=== PATIENT | male | born 1935 | race Caucasian/White ===

== ENCOUNTER 2016-11-01 09:52 | Emergency (ER) | payer MEDICARE, MEDICAID ==
[2016-11-01] MEDS ORDERED: Sodium Chloride 0.9% 1,000 ML IV ONE ×2 (10:16→13:50)
--- NOTE | 2016-11-01 11:11 | EDM.PDOC ---
ED HPI GENERAL MEDICAL PROBLEM - General Chief Complaint: General Stated Complaint: HIGH BLOOD PRESSURE Time Seen by Provider: 11/01/16 10:12 Source of Information: Reports: Patient History Limitations: Reports: No limitations - History of Present Illness INITIAL COMMENTS - FREE TEXT/NARRATIVE: History of present illness: [81-year-old male brought in from a [facility] secondary to altered mental status. Indicated that patient had low blood pressure and high blood sugar at house after transport blood pressure stabilized into the normal range the pressure still remains elevated over 200.] Review of systems: As per history of present illness and below otherwise all systems reviewed and negative. Past medical history: As per history of present illness and as reviewed below otherwise noncontributory. Surgical history: As per history of present illness and as reviewed below otherwise noncontributory. Social history: No reported history of drug or alcohol abuse. Family history: As per history of present illness and as reviewed below otherwise noncontributory. Physical exam: HEENT: Atraumatic, normocephalic, pupils reactive, negative for conjunctival pallor or scleral icterus, mucous membranes moist, throat clear, neck supple, nontender, trachea midline. Lungs: Clear to auscultation, breath sounds equal bilaterally, chest nontender. Heart: S1S2, regular, negative for clicks, rubs, or JVD. Abdomen: Soft, nondistended, nontender. Negative for masses or hepatosplenomegaly. Negative for costovertebral tenderness. Pelvis: Stable nontender. Genitourinary: Deferred. Rectal: Deferred. Extremities: Atraumatic, negative for cords or calf pain. Neurovascular unremarkable. Neuro: Somnolent and unable to interact or cooperate with full neuro exam secondary to patient's blindness, deafness, as well as altered mental status. Patient will withdraw to noxious stimuli as well as localized to that same stimuli. Diagnostics: [CBC, CMP, troponin, EKG, CT of head without contrast] Therapeutics: [] Impression: [IV] Plan: [] Definitive disposition and diagnosis as appropriate pending reevaluation and review of above. - Related Data Allergies Allergy/AdvReac Type Severity Reaction Status Date / Time No Known Allergies Allergy Verified 11/01/16 10:09 Home Meds: Home Meds Brimonidine [Alphagan P 0.1% Ophth Soln] 04/14/14 [History] Multivitamin [Multi Vitamin Daily] 04/14/14 [History] Psyllium Seed/Aspartame [Metamucil Powder] 04/14/14 [History] Travoprost [Travatan Z 0.004% Ophth Soln] 04/14/14 [History] glyBURIDE [Glyburide] 04/14/14 [History] metFORMIN [Glucophage] 04/14/14 [History] Nitrofurantoin Monohyd/M-Cryst [Macrobid 100 mg Capsule] 100 mg PO BID #20 capsule 11/01/16 [Rx] Social & Family History - Tobacco Use Second Hand Smoke Exposure: No - Alcohol Use Days Per Week of Alcohol Use: 0 - Recreational Drug Use Recreational Drug Use: No ED ROS GENERAL - Review of Systems Review Of Systems: See Below (See history of present illness) ED EXAM, GENERAL - Physical Exam Exam: See Below (See history of present illness) Course - Vital Signs Last Recorded V/S: Last Vital Signs Temp 36.4 C 11/01/16 10:09 Pulse 78 11/01/16 12:22 Resp 16 11/01/16 12:22 BP 116/50 L 11/01/16 12:22 Pulse Ox 99 11/01/16 12:22 - Orders/Labs/Meds Orders: Active Orders 24 hr Category Date Time Status EKG Documentation Completion [RC] STAT Care 11/01/16 10:17 Active Chest 2V [CR] Stat Exams 11/01/16 10:16 Taken Head wo Cont [CT] Stat Exams 11/01/16 10:20 Taken Sodium Chloride 0.9% [Normal Saline] 1,000 ml Med 11/01/16 13:50 Active IV .Bolus Medication Orders Sodium Chloride (Normal Saline) 1,000 mls @ 999 mls/hr IV .Bolus ONE Stop: 11/01/16 14:50 Last Admin: 11/01/16 12:18 Dose: 999 mls/hr Labs: Laboratory Tests 11/01/16 11/01/16 11/01/16 Range/Units 10:09 10:09 10:09 WBC 5.50 (4.0-11.0) K/uL RBC 4.56 (4.50-5.90) M/uL Hgb 13.8 (13.0-17.0) g/dL Hct 40.8 (38.0-50.0) % MCV 89.5 (80.0-98.0) fL MCH 30.3 (27.0-32.0) pg MCHC 33.8 (31.0-37.0) g/dL RDW Std Deviation 41.7 (28.0-62.0) fl RDW Coeff of Kash 13 (11.0-15.0) % Plt Count 108 L (150-400) K/uL MPV 10.00 (7.40-12.00) fL Neut % (Auto) 68.2 (48.0-80.0) % Lymph % (Auto) 24.4 (16.0-40.0) % [place] % (Auto) 6.7 (0.0-15.0) % Eos % (Auto) 0.5 (0.0-7.0) % Baso % (Auto) 0.2 (0.0-1.5) % Neut # 3.8 (1.4-5.7) K/uL Lymph # 1.3 (0.6-2.4) K/uL [place] # 0.4 (0.0-0.8) K/uL Eos # 0.0 (0.0-0.7) K/uL Baso # 0.0 (0.0-0.1) K/uL INR 1.02 (0.86-1.11) D-Dimer, Quantitative 0.23 (0.0-0.52) mg/LFEU Sodium 139 (136-146) mmol/L Potassium 4.1 (3.5-5.1) mmol/L Chloride 106 (98-110) mmol/L Carbon Dioxide 23 (21-31) mmol/L BUN 20 (6.0-23.0) mg/dL Creatinine 1.3 (0.6-1.5) mg/dL Est Cr Clr Drug Dosing 36.43 mL/min Estimated GFR (MDRD) 53.0 ml/min Glucose 254 H (60-110) mg/dL Calcium 9.3 (8.8-10.8) mg/dL Total Bilirubin 0.3 (0.1-1.5) mg/dL AST 13 (5-40) IU/L ALT 15 (8-54) IU/L Alkaline Phosphatase 72 (40-150) Troponin I (0.0-0.29) NG/ML Total Protein 7.6 (6.0-8.0) g/dL Albumin 3.4 (3.4-4.8) g/dL Globulin 4.2 H (2.0-3.5) g/dL Albumin/Globulin Ratio 0.8 L (1.3-2.8) Amylase (10-90) U/L Lipase (7-80) U/L Urine Color Urine Appearance Urine pH (5.0-8.0) Ur Specific [place] (1.001-1.035) Urine Protein (NEGATIVE) mg/dL Urine Glucose (UA) (NEGATIVE) mg/dL Urine Ketones (NEGATIVE) mg/dL Urine Occult Blood (NEGATIVE) Urine Nitrite (NEGATIVE) Urine Bilirubin (NEGATIVE) Urine Urobilinogen (<2.0) EU/dL Ur Leukocyte Esterase (NEGATIVE) Urine RBC (0-2/HPF) Urine WBC (0-5/HPF) Ur Epithelial Cells (NONE-FEW) Urine Bacteria (NEGATIVE) Urine Mucus (NONE-MOD) 11/01/16 11/01/16 11/01/16 Range/Units 10:09 10:09 13:05 WBC (4.0-11.0) K/uL RBC (4.50-5.90) M/uL Hgb (13.0-17.0) g/dL Hct (38.0-50.0) % MCV (80.0-98.0) fL MCH (27.0-32.0) pg MCHC (31.0-37.0) g/dL RDW Std Deviation (28.0-62.0) fl RDW Coeff of Kash (11.0-15.0) % Plt Count (150-400) K/uL MPV (7.40-12.00) fL Neut % (Auto) (48.0-80.0) % Lymph % (Auto) (16.0-40.0) % [place] % (Auto) (0.0-15.0) % Eos % (Auto) (0.0-7.0) % Baso % (Auto) (0.0-1.5) % Neut # (1.4-5.7) K/uL Lymph # (0.6-2.4) K/uL [place] # (0.0-0.8) K/uL Eos # (0.0-0.7) K/uL Baso # (0.0-0.1) K/uL INR (0.86-1.11) D-Dimer, Quantitative (0.0-0.52) mg/LFEU Sodium (136-146) mmol/L Potassium (3.5-5.1) mmol/L Chloride (98-110) mmol/L Carbon Dioxide (21-31) mmol/L BUN (6.0-23.0) mg/dL Creatinine (0.6-1.5) mg/dL Est Cr Clr Drug Dosing mL/min Estimated GFR (MDRD) ml/min Glucose (60-110) mg/dL Calcium (8.8-10.8) mg/dL Total Bilirubin (0.1-1.5) mg/dL AST (5-40) IU/L ALT (8-54) IU/L Alkaline Phosphatase (40-150) Troponin I < 0.10 (0.0-0.29) NG/ML Total Protein (6.0-8.0) g/dL Albumin (3.4-4.8) g/dL Globulin (2.0-3.5) g/dL Albumin/Globulin Ratio (1.3-2.8) Amylase 52 (10-90) U/L Lipase 58 (7-80) U/L Urine Color YELLOW Urine Appearance CLEAR Urine pH 6.0 (5.0-8.0) Ur Specific [place] 1.015 (1.001-1.035) Urine Protein NEGATIVE (NEGATIVE) mg/dL Urine Glucose (UA) 500 H (NEGATIVE) mg/dL Urine Ketones TRACE H (NEGATIVE) mg/dL Urine Occult Blood LARGE H (NEGATIVE) Urine Nitrite POSITIVE H (NEGATIVE) Urine Bilirubin NEGATIVE (NEGATIVE) Urine Urobilinogen 0.2 (<2.0) EU/dL Ur Leukocyte Esterase TRACE (NEGATIVE) Urine RBC 15-18 (0-2/HPF) Urine WBC 2-4 (0-5/HPF) Ur Epithelial Cells RARE (NONE-FEW) Urine Bacteria 3+ H (NEGATIVE) Urine Mucus LIGHT (NONE-MOD) Meds: Medications Generic Name Dose Route Start Last Admin Trade Name Freq PRN Reason Stop Dose Admin Sodium Chloride 1,000 mls @ 999 mls/hr 11/01/16 13:50 11/01/16 12:18 Normal Saline IV 11/01/16 14:50 999 mls/hr .Bolus ONE Administration Discontinued Medications Generic Name Dose Route Start Last Admin Trade Name Luis Miguel PRN Reason Stop Dose Admin Sodium Chloride 1,000 mls @ 999 mls/hr 11/01/16 10:16 11/01/16 11:15 Normal Saline IV 11/01/16 11:16 999 mls/hr .Bolus ONE Administration Departure - Departure Time of Disposition: 14:24 Disposition: Home, Self-Care 01 Condition: good Clinical Impression: UTI, Urinary tract infectious disease Forms: ED Department Discharge Additional Instructions: The following information is given to patients seen in the emergency department who are being discharged to home. This information is to outline your options for follow-up care. We provide all patients seen in our emergency department with a follow-up referral. The need for follow-up, as well as the timing and circumstances, are variable depending upon the specifics of your emergency department visit. If you don't have a primary care physician on staff, we will provide you with a referral. We always advise you to contact your personal physician following an emergency department visit to inform them of the circumstance of the visit and for follow-up with them and/or the need for any referrals to a consulting specialist. The emergency department will also refer you to a specialist when appropriate. This referral assures that you have the opportunity for follow-up care with a specialist. All of these measure are taken in an effort to provide you with optimal care, which includes your follow-up. Under all circumstances we always encourage you to contact your private physician who remains a resource for coordinating your care. When calling for follow-up care, please make the office aware that this follow-up is from your recent emergency room visit. If for any reason you are refused follow-up, please contact the Emergency Department at and asked to speak to the emergency department charge nurse. The patient all medication as directed Of primary care in one to 2 days Return ED as needed as - My Orders Last 24 Hours: My Active Orders 11/01/16 10:16 Chest 2V [CR] Stat 11/01/16 10:17 EKG Documentation Completion [RC] STAT 11/01/16 10:20 Head wo Cont [CT] Stat 11/01/16 13:50 Sodium Chloride 0.9% [Normal Saline] 1,000 ml IV .Bolus - Assessment/Plan Last 24 Hours: My Active Orders 11/01/16 10:16 Chest 2V [CR] Stat 11/01/16 10:17 EKG Documentation Completion [RC] STAT 11/01/16 10:20 Head wo Cont [CT] Stat 11/01/16 13:50 Sodium Chloride 0.9% [Normal Saline] 1,000 ml IV .Bolus
[2016-11-01 15:04] VITALS: BP 130/70
--- NOTE | 2016-11-02 16:53 | CT ---
EXAM DATE: 11/01/16 PATIENT'S AGE: 81 Patient: CARLA HOPKINS Facility: [place], [place] Site . Site : 1935 Study: CT Head WO CONT [id number] 10:46:18 AM Ordering Physician: Doctor Bray Final Report: INDICATION: Patient is lethargic; not acting like himself according to the claims vice president. Comparison: None. Technique: CT head without intravenous contrast; coronal and sagittal reformats. Findings: No evidence of acute intracranial hemorrhage. No mass lesions. No evidence of shift of the midline structures. periventricular low densities bilateral; rule out small vessel disease. Mild prominence of the cerebral sulci and the subarachnoid cisterns as well as the ventricles secondary to cerebral atrophy. Impression: 1. No intracranial hemorrhage. 2. No evidence of shift of the midline structures. 3. 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 4. Brain atrophy. Dictated by Lali Arevalo MD @ Nov 01 2016 10:49AM (Electronic Signature) Report Signed by Proxy and Original Signed Document filed in the Medical Record. [facility]
--- NOTE | 2016-11-02 16:53 | CR ---
EXAM DATE: 11/01/16 PATIENT'S AGE: 81 Patient: CARLAYARA HOPKINS Facility: [place], [place] Site . Site : 1935 Study: XRay Chest [id number]/[id number] 10:50:18 AM Ordering Physician: Doctor Bray Final Report: INDICATION: Shortness of breath. Comparison: Chest radiograph April 14, 2014. Technique: Two-view chest. Findings: Normal size cardiac silhouette. Infiltrates both lung bases. No pneumothorax or pleural effusion. No CHF. Impression: Minimal infiltrates both lung bases. Dictated by Lali Arevalo MD @ Nov 01 2016 10:52AM (Electronic Signature) Report Signed by Proxy and Original Signed Document filed in the Medical Record. [facility]
== END 2016-11-01 15:02 | disposition home or self-care (01) ==
LOC: MW.ED 09:52
DX: N39.0 Urinary tract infection, site not specified (principal); Z79.899 Other long term (current) drug therapy
CPT/HCPCS: 36415; 70450; 71020; 80053; 81001; 82150; 83690; 84484; 85025; 85379; 85610; 93005; 96360; 96361; 99285; J7040; 99284

== ENCOUNTER 2017-01-29 11:02 | Emergency (ER) | payer MEDICARE, MEDICAID ==
[2017-01-29 11:20] VITALS: BP 170/91
--- NOTE | 2017-01-29 11:28 | EDM.PDOC ---
ED HPI GENERAL MEDICAL PROBLEM - General Chief Complaint: Diabetic Complaint Stated Complaint: ELVEVATED BLOOD SUGAR Time Seen by Provider: 01/29/17 11:05 Source of Information: Reports: Patient History Limitations: Reports: No Limitations - History of Present Illness INITIAL COMMENTS - FREE TEXT/NARRATIVE: History of present illness: [81-year-old male brought in by care provider secondary to concerns of very high blood sugars. Patient is deaf, calm, and has low mental function and is in [facility] correction care situation. Care provider is here indicates that while showering him she is on no signs of cuts, abrasions, or infections. Indicates that he takes oral hypoglycemic medication and has been stable up until now and denies any new dietary changes.] Review of systems: As per history of present illness and below otherwise all systems reviewed and negative. Past medical history: As per history of present illness and as reviewed below otherwise noncontributory. Surgical history: As per history of present illness and as reviewed below otherwise noncontributory. Social history: No reported history of drug or alcohol abuse. Family history: As per history of present illness and as reviewed below otherwise noncontributory. Physical exam: HEENT: Atraumatic, normocephalic, pupils reactive, negative for conjunctival pallor or scleral icterus, mucous membranes moist, throat clear, neck supple, nontender, trachea midline. Lungs: Clear to auscultation, breath sounds equal bilaterally, chest nontender. Heart: S1S2, regular, negative for clicks, rubs, or JVD. Abdomen: Soft, nondistended, nontender. Negative for masses or hepatosplenomegaly. Negative for costovertebral tenderness. Pelvis: Stable nontender. Genitourinary: Deferred. Rectal: Deferred. Extremities: Atraumatic, negative for cords or calf pain. Neurovascular unremarkable. Neuro: Awake, alert, oriented. Cranial nerves II through XII unremarkable. Cerebellum unremarkable. Motor and sensory unremarkable throughout. Exam nonfocal. Patient is incontinent and we are unable to dialogue with him to obtain any urine so we will have to straight catheter to obtain any good urine specimen for evaluation Diagnostics: [CBC, CMP, UA] Therapeutics: [] Impression: [UTI] Plan: [Antibiotic] Definitive disposition and diagnosis as appropriate pending reevaluation and review of above. - Related Data Allergies Allergy/AdvReac Type Severity Reaction Status Date / Time No Known Allergies Allergy Verified 01/29/17 11:10 Home Meds: Home Meds Brimonidine [Alphagan P 0.1% Ophth Soln] 1 drop EYEBOTH TID 04/14/14 [History] Multivitamin [Multi Vitamin Daily] 04/14/14 [History] Psyllium Seed/Aspartame [Metamucil Powder] 04/14/14 [History] Travoprost [Travatan Z 0.004% Ophth Soln] 04/14/14 [History] glyBURIDE [Glyburide] 04/14/14 [History] metFORMIN [Glucophage] 500 mg PO BID 04/14/14 [History] Nitrofurantoin Monohyd/M-Cryst [Macrobid 100 mg Capsule] 100 mg PO BID #20 capsule 11/01/16 [Rx] Nitrofurantoin Monohyd/M-Cryst [Macrobid 100 mg Capsule] 100 mg PO BID #20 capsule 01/29/17 [Rx] Past Medical History HEENT History: Reports: Cataract, Glaucoma, Hard of Hearing, Other (See Below) Other HEENT History: congential cataracts Cardiovascular History: Reports: None Respiratory History: Reports: None Gastrointestinal History: Reports: Chronic Constipation, Gastritis, Other (See Below) Other Gastrointestinal History: duodentis Genitourinary History: Reports: None Neurological History: Reports: Other (See Below) Other Neuro History: developmentally delayed Endocrine/Metabolic History: Reports: Diabetes, Type II - Past Surgical History Head Surgeries/Procedures: Reports: None HEENT Surgical History: Reports: Cataract Surgery, Visual Other HEENT Surgeries/Procedures: pt is deaf and blind Social & Family History - Family History Family Medical History: Noncontributory - Tobacco Use Smoking Status *Q: Never Smoker Second Hand Smoke Exposure: No - Caffeine Use Caffeine Use: Reports: None - Alcohol Use Days Per Week of Alcohol Use: 0 - Recreational Drug Use Recreational Drug Use: No ED ROS GENERAL - Review of Systems Review Of Systems: See Below (see history of present illness) ED EXAM GENERAL NO PERIP PULSE - Physical Exam Exam: See Below (See history of present illness) Course - Vital Signs Last Recorded V/S: Last Vital Signs Temp 36.2 C 01/29/17 11:05 Pulse 95 01/29/17 11:05 Resp 20 01/29/17 11:05 BP 170/91 H 01/29/17 11:05 Pulse Ox 97 01/29/17 11:05 - Orders/Labs/Meds Labs: Laboratory Tests 01/29/17 01/29/17 01/29/17 Range/Units 11:28 11:28 11:42 WBC 6.37 (4.0-11.0) K/uL RBC 4.99 (4.50-5.90) M/uL Hgb 15.1 (13.0-17.0) g/dL Hct 43.7 (38.0-50.0) % MCV 87.6 (80.0-98.0) fL MCH 30.3 (27.0-32.0) pg MCHC 34.6 (31.0-37.0) g/dL RDW Std Deviation 44.1 (28.0-62.0) fl RDW Coeff of Kash 14 (11.0-15.0) % Plt Count 144 L (150-400) K/uL MPV 9.90 (7.40-12.00) fL Neut % (Auto) 58.9 (48.0-80.0) % Lymph % (Auto) 29.0 (16.0-40.0) % [place] % (Auto) 10.5 (0.0-15.0) % Eos % (Auto) 1.3 (0.0-7.0) % Baso % (Auto) 0.3 (0.0-1.5) % Neut # (Auto) 3.8 (1.4-5.7) K/uL Lymph # (Auto) 1.9 (0.6-2.4) K/uL [place] # (Auto) 0.7 (0.0-0.8) K/uL Eos # (Auto) 0.1 (0.0-0.7) K/uL Baso # (Auto) 0.0 (0.0-0.1) K/uL Nucleated RBC % 0.0 /100WBC Nucleated RBCs # 0 K/uL Sodium 138 (136-146) mmol/L Potassium 5.0 (3.5-5.1) mmol/L Chloride 103 (98-110) mmol/L Carbon Dioxide 21 (21-31) mmol/L BUN 28 H (6.0-23.0) mg/dL Creatinine 1.4 (0.6-1.5) mg/dL Est Cr Clr Drug Dosing 33.95 mL/min Estimated GFR (MDRD) 48.6 ml/min Glucose 308 H (60-110) mg/dL Calcium 10.0 (8.8-10.8) mg/dL Total Bilirubin 0.4 (0.1-1.5) mg/dL AST 14 (5-40) IU/L ALT 16 (8-54) IU/L Alkaline Phosphatase 61 (40-150) Total Protein 8.4 H (6.0-8.0) g/dL Albumin 3.9 (3.4-4.8) g/dL Globulin 4.5 H (2.0-3.5) g/dL Albumin/Globulin Ratio 0.9 L (1.3-2.8) Urine Color YELLOW Urine Appearance CLEAR Urine pH 5.0 (5.0-8.0) Ur Specific [place] <= 1.005 (1.001-1.035) Urine Protein NEGATIVE (NEGATIVE) mg/dL Urine Glucose (UA) >=1000 (NEGATIVE) mg/dL Urine Ketones NEGATIVE (NEGATIVE) mg/dL Urine Occult Blood NEGATIVE (NEGATIVE) Urine Nitrite NEGATIVE (NEGATIVE) Urine Bilirubin NEGATIVE (NEGATIVE) Urine Urobilinogen 0.2 (<2.0) EU/dL Ur Leukocyte Esterase TRACE (NEGATIVE) Urine RBC 0-2 (0-2/HPF) Urine WBC 2-4 (0-5/HPF) Ur Epithelial Cells FEW (NONE-FEW) Urine Bacteria 1+ H (NEGATIVE) Departure - Departure Time of Disposition: 12:31 Disposition: Home, Self-Care 01 Condition: good Clinical Impression: UTI, Urinary tract infectious disease - Discharge Information Prescriptions: Nitrofurantoin Monohyd/M-Cryst [Macrobid 100 mg Capsule] 100 mg PO BID #20 capsule Forms: ED Department Discharge Additional Instructions: The following information is given to patients seen in the emergency department who are being discharged to home. This information is to outline your options for follow-up care. We provide all patients seen in our emergency department with a follow-up referral. The need for follow-up, as well as the timing and circumstances, are variable depending upon the specifics of your emergency department visit. If you don't have a primary care physician on staff, we will provide you with a referral. We always advise you to contact your personal physician following an emergency department visit to inform them of the circumstance of the visit and for follow-up with them and/or the need for any referrals to a consulting specialist. The emergency department will also refer you to a specialist when appropriate. This referral assures that you have the opportunity for follow-up care with a specialist. All of these measure are taken in an effort to provide you with optimal care, which includes your follow-up. Under all circumstances we always encourage you to contact your private physician who remains a resource for coordinating your care. When calling for follow-up care, please make the office aware that this follow-up is from your recent emergency room visit. If for any reason you are refused follow-up, please contact the [facility] Emergency Department at and asked to speak to the emergency department charge nurse. Give patient medication as prescribed Followup with PCP 1-2 days Return to ED as needed as discussed
== END 2017-01-29 12:38 | disposition home or self-care (01) ==
LOC: MW.ED 11:02
DX: N39.0 Urinary tract infection, site not specified (principal); E11.9 Type 2 diabetes mellitus without complications; H40.9 Unspecified glaucoma; Z98.890 Other specified postprocedural states; Z79.84 Long term (current) use of oral hypoglycemic drugs; Z79.899 Other long term (current) drug therapy
CPT/HCPCS: 36415; 80053; 81001; 85025; 99283

== ENCOUNTER 2020-06-15 20:34 | Emergency (ER) | payer MEDICARE, MEDICAID ==
--- NOTE | 2020-06-15 20:51 | EDM.PDOC ---
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 He is presenting with blood sugars gradually climbing into the high 200s over the course of the day history is obtained through the caregiver. Caregiver denies any other symptoms were noted problems. - Related Data Allergies Allergy/AdvReac Type Severity Reaction Status Date / Time No Known Allergies Allergy Verified 01/29/17 11:10 Home Meds: Home Meds Brimonidine [Alphagan P 0.1% Ophth Soln] 1 drop EYEBOTH TID 04/14/14 [History] Multivitamin [Multi Vitamin Daily] 04/14/14 [History] Psyllium Seed/Aspartame [Metamucil Powder] 04/14/14 [History] Travoprost [Travatan Z 0.004% Ophth Soln] 04/14/14 [History] glyBURIDE [Glyburide] 04/14/14 [History] metFORMIN [Glucophage] 500 mg PO BID 04/14/14 [History] Nitrofurantoin Monohyd/M-Cryst [Macrobid 100 mg Capsule] 100 mg PO BID #20 capsule 11/01/16 [Rx] Nitrofurantoin Monohyd/M-Cryst [Macrobid 100 mg Capsule] 100 mg PO BID #20 capsule 01/29/17 [Rx] Past Medical History HEENT History: Reports: Cataract, Glaucoma, Hard of Hearing, Other (See Below) Other HEENT History: congential cataracts Cardiovascular History: Reports: None Respiratory History: Reports: None Gastrointestinal History: Reports: Chronic Constipation, Gastritis, Other (See Below) Other Gastrointestinal History: duodentis Genitourinary History: Reports: None Neurological History: Reports: Other (See Below) Other Neuro History: developmentally delayed Endocrine/Metabolic History: Reports: Diabetes, Type II - Past Surgical History Head Surgeries/Procedures: Reports: None HEENT Surgical History: Reports: Cataract Surgery, Visual Other HEENT Surgeries/Procedures: pt is deaf and blind Social & Family History - Family History Family Medical History: Noncontributory - Caffeine Use Caffeine Use: Reports: None ED ROS GENERAL - Review of Systems Review Of Systems: See Below Free Text/Narrative/Comment: General: No fever. Skin: No rash. Eyes: Baseline blindness Neck: No neck stiffness. Respiratory: No cough Gastrointestinal: Vomiting Urinary: Hematuria Musculoskeletal: No myalgias/arthralgias. Neurologic: No headache. ED EXAM GENERAL NO PERIP PULSE - Physical Exam Exam: See Below Text/Narrative:: General Appearance: No acute distress, appears comfortable Skin: No rash HEENT: Normocephalic/atraumatic Neck: Normal range of motion Chest and Lungs: Bilateral breath sounds, clear to auscultation Cardiovascular: Regular rate and rhythm, no murmur Abdomen: Soft, non-tender Back: Normal Musculoskeletal: No edema or tenderness Neurologic: Awake, alert, moving all extremities Course - Vital Signs Last Recorded V/S: Last Vital Signs Temp Pulse 88 06/15/20 20:40 Resp 22 H 06/15/20 20:40 BP 109/50 L 06/15/20 20:40 Pulse Ox 95 06/15/20 20:40 - Orders/Labs/Meds Labs: Laboratory Tests 06/15/20 06/15/20 06/15/20 Range/Units 20:47 21:06 21:06 WBC 5.69 (4.0-11.0) K/uL RBC 4.29 L (4.50-5.90) M/uL Hgb 13.1 (13.0-17.0) g/dL Hct 40.8 (38.0-50.0) % MCV 95.1 (80.0-98.0) fL MCH 30.5 (27.0-32.0) pg MCHC 32.1 (31.0-37.0) g/dL RDW Std Deviation 46.8 (28.0-62.0) fl RDW Coeff of Kash 14 (11.0-15.0) % Plt Count 161 (150-400) K/uL MPV 9.80 (7.40-12.00) fL Neut % (Auto) 72.5 (48.0-80.0) % Lymph % (Auto) 17.4 (16.0-40.0) % [place] % (Auto) 9.5 (0.0-15.0) % Eos % (Auto) 0.4 (0.0-7.0) % Baso % (Auto) 0.2 (0.0-1.5) % Neut # (Auto) 4.1 (1.4-5.7) K/uL Lymph # (Auto) 1.0 (0.6-2.4) K/uL [place] # (Auto) 0.5 (0.0-0.8) K/uL Eos # (Auto) 0.0 (0.0-0.7) K/uL Baso # (Auto) 0.0 (0.0-0.1) K/uL Nucleated RBC % 0.0 /100WBC Nucleated RBCs # 0 K/uL Sodium 132 L (136-148) mmol/L Potassium 4.8 (3.5-5.1) mmol/L Chloride 101 (98-107) mmol/L Carbon Dioxide 18.8 L (21.0-32.0) mmol/L BUN 53 H (7.0-18.0) mg/dL Creatinine 1.8 H (0.8-1.3) mg/dL Est Cr Clr Drug Dosing TNP Estimated GFR (MDRD) 36.0 ml/min Glucose 293 H (74-106) mg/dL POC Glucose 290 H (60-110) mg/dL Calcium 8.4 L (8.5-10.1) mg/dL Total Bilirubin 0.2 (0.2-1.0) mg/dL AST 10 L (15-37) IU/L ALT 18 (14-63) IU/L Alkaline Phosphatase 58 (46-116) U/L Total Protein 7.3 (6.4-8.2) g/dL Albumin 3.0 L (3.4-5.0) g/dL Globulin 4.3 H (2.6-4.0) g/dL Albumin/Globulin Ratio 0.7 L (0.9-1.6) Urine Color Urine Appearance Urine pH (5.0-8.0) Ur Specific [place] (1.001-1.035) Urine Protein (NEGATIVE) mg/dL Urine Glucose (UA) (NEGATIVE) mg/dL Urine Ketones (NEGATIVE) mg/dL Urine Occult Blood (NEGATIVE) Urine Nitrite (NEGATIVE) Urine Bilirubin (NEGATIVE) Urine Urobilinogen (<2.0) EU/dL Ur Leukocyte Esterase (NEGATIVE) Urine RBC (0-2/HPF) Urine WBC (0-5/HPF) Ur Epithelial Cells (NONE-FEW) Amorphous Sediment (NEGATIVE) Urine Bacteria (NEGATIVE) 06/15/20 Range/Units 21:20 WBC (4.0-11.0) K/uL RBC (4.50-5.90) M/uL Hgb (13.0-17.0) g/dL Hct (38.0-50.0) % MCV (80.0-98.0) fL MCH (27.0-32.0) pg MCHC (31.0-37.0) g/dL RDW Std Deviation (28.0-62.0) fl RDW Coeff of Kash (11.0-15.0) % Plt Count (150-400) K/uL MPV (7.40-12.00) fL Neut % (Auto) (48.0-80.0) % Lymph % (Auto) (16.0-40.0) % [place] % (Auto) (0.0-15.0) % Eos % (Auto) (0.0-7.0) % Baso % (Auto) (0.0-1.5) % Neut # (Auto) (1.4-5.7) K/uL Lymph # (Auto) (0.6-2.4) K/uL [place] # (Auto) (0.0-0.8) K/uL Eos # (Auto) (0.0-0.7) K/uL Baso # (Auto) (0.0-0.1) K/uL Nucleated RBC % /100WBC Nucleated RBCs # K/uL Sodium (136-148) mmol/L Potassium (3.5-5.1) mmol/L Chloride (98-107) mmol/L Carbon Dioxide (21.0-32.0) mmol/L BUN (7.0-18.0) mg/dL Creatinine (0.8-1.3) mg/dL Est Cr Clr Drug Dosing Estimated GFR (MDRD) ml/min Glucose (74-106) mg/dL POC Glucose (60-110) mg/dL Calcium (8.5-10.1) mg/dL Total Bilirubin (0.2-1.0) mg/dL AST (15-37) IU/L ALT (14-63) IU/L Alkaline Phosphatase (46-116) U/L Total Protein (6.4-8.2) g/dL Albumin (3.4-5.0) g/dL Globulin (2.6-4.0) g/dL Albumin/Globulin Ratio (0.9-1.6) Urine Color YELLOW Urine Appearance SLT CLOUDY Urine pH 5.5 (5.0-8.0) Ur Specific [place] 1.015 (1.001-1.035) Urine Protein NEGATIVE (NEGATIVE) mg/dL Urine Glucose (UA) >=1000 (NEGATIVE) mg/dL Urine Ketones NEGATIVE (NEGATIVE) mg/dL Urine Occult Blood TRACE-INTACT H (NEGATIVE) Urine Nitrite NEGATIVE (NEGATIVE) Urine Bilirubin NEGATIVE (NEGATIVE) Urine Urobilinogen 0.2 (<2.0) EU/dL Ur Leukocyte Esterase NEGATIVE (NEGATIVE) Urine RBC 2-4 (0-2/HPF) Urine WBC 0-3 (0-5/HPF) Ur Epithelial Cells OCCASIONAL (NONE-FEW) Amorphous Sediment LIGHT (NEGATIVE) Urine Bacteria 2+ H (NEGATIVE) Departure - Departure Time of Disposition: 21:48 Disposition: Home, Self-Care 01 Condition: Good Clinical Impression: Dehydration, Hyperglycemia - Discharge Information *PRESCRIPTION DRUG MONITORING PROGRAM REVIEWED*: Not Applicable *COPY OF PRESCRIPTION DRUG MONITORING REPORT IN PATIENT DAV: Not Applicable Instructions: Dehydration, Adult Referrals: Samm Brooke MD [Primary Care Provider] - 2 Days Forms: ED Department Discharge Additional Instructions: As we discussed, wanes salt level is mildly low he has some findings on his blood chemistry consistent with dehydration. Encourage you to try and encourage him to take oral fluids over the next few days. Important you follow-up with Dr. Brooke next week for reassessment of his diabetes management and for repeat blood work. The following information is given to patients seen in the emergency department who are being discharged to home. This information is to outline your options for follow-up care. We provide all patients seen in our emergency department with a follow-up referral. The need for follow-up, as well as the timing and circumstances, are variable depending upon the specifics of your emergency department visit. If you don't have a primary care physician on staff, we will provide you with a referral. We always advise you to contact your personal physician following an emergency department visit to inform them of the circumstance of the visit and for follow-up with them and/or the need for any referrals to a consulting specialist. The emergency department will also refer you to a specialist when appropriate. This referral assures that you have the opportunity for follow-up care with a specialist. All of these measure are taken in an effort to provide you with optimal care, which includes your follow-up. Under all circumstances we always encourage you to contact your private physician who remains a resource for coordinating your care. When calling for follow-up care, please make the office aware that this follow-up is from your recent emergency room visit. If for any reason you are refused follow-up, please contact the [facility] Emergency Department at and asked to speak to the emergency department charge nurse. Sepsis Event Note (ED) - Focused Exam Vital Signs: Vital Signs Pulse Resp BP Pulse Ox 06/15/20 20:40 88 22 H 109/50 L 95 - Assessment/Plan Assessment:: 85-year-old male presenting with hyperglycemia most likely secondary to urinary tract infection as this is a typical pattern for him. His vital signs are good he appears well-hydrated his exam is otherwise unremarkable. No symptoms that would suggest DKA at this point Accu-Chek here is 290. No indication for IV fluids or insulin. CBC, CMP, urinalysis and will reassess. Urinalysis does not suggest infection. CBC is unremarkable chemistry with a mild hypochloremic hyponatremia and minimal renal insufficiency consistent with mild dehydration but not rising to the level of requiring IV fluids at this point. Lab abnormalities discussed with the patient's caregiver they will encourage p.o. fluids and follow-up with primary care provider for repeat blood work later this week.
[2020-06-15 21:41] LABS: BLOOD UREA NITROGEN,BUN 53 mg/dL (7.0-18.0); CARBON DIOXIDE,CO2 18.8 mmol/L (21.0-32.0); CHLORIDE,CL 101 mmol/L (98-107); GLUCOSE RANDOM 293 mg/dL (74-106); POTASSIUM,K 4.8 mmol/L (3.5-5.1); SODIUM,NA 132 mmol/L (136-148)
[2020-06-15 22:06] VITALS: BP 107/45; PULSE 83
== END 2020-06-15 21:56 | disposition home or self-care (01) ==
LOC: MW.ED 20:34
DX: E11.65 Type 2 diabetes mellitus with hyperglycemia (principal); E86.0 Dehydration; R31.9 Hematuria, unspecified; Z87.440 Personal history of urinary (tract) infections; Z79.84 Long term (current) use of oral hypoglycemic drugs
CPT/HCPCS: 36415; 80053; 81001; 82962; 85025; 99282; 99283

== ENCOUNTER 2020-10-30 19:08 | Inpatient (IN) | payer MEDICARE, MEDICAID ==
[2020-10-30] MEDS ORDERED: Sodium Chloride 0.9% 10 ML Syringe FLUSH PRN (19:51)
[2020-10-30] MEDS ORDERED: Sodium Chloride 0.9% 1,000 ML IV ONE (19:51)
[2020-10-30] MEDS: Sodium Chloride 0.9% 2.5 ML Syringe FLUSH PRN ×2 (20:26→23:48)
--- NOTE | 2020-10-30 20:55 | CR ---
Indication: Weakness Technique: Chest 1 view Comparison: November 01, 2016 Findings/Impression: Cardiovascular and mediastinum: Heart size and vasculature are normal in caliber and appearance. Mediastinum is within normal limits. Lungs and pleural space: Calcified granulomata in the left upper lobe. Lungs are otherwise clear. No sign of infiltrate. No sign of pleural effusion. No pneumothorax. Bones and soft tissues: No significant findings. Dictated by Lacie Chapa MD @ Oct 30 2020 8:53PM Signed by Dr. Lacie Chapa @ Oct 30 2020 8:54PM
[2020-10-30 21:00] LABS: BLOOD UREA NITROGEN,BUN 32 mg/dL (7.0-18.0); CARBON DIOXIDE,CO2 19.1 mmol/L (21.0-32.0); CHLORIDE,CL 103 mmol/L (98-107); GLUCOSE RANDOM 280 mg/dL (74-106); POTASSIUM,K 5.1 mmol/L (3.5-5.1); SODIUM,NA 135 mmol/L (136-148)
--- NOTE | 2020-10-30 21:04 | CR ---
INDICATION: Difficulty ambulating. Pain. TECHNIQUE: Three views bilateral hips and pelvis. IMPRESSION: Some limitation due to positioning. Apparent near 90 degree angulated basicervical fracture of the right femoral neck. No acute fracture on the left. Pelvis is intact. Consider CT for further characterization. Dictated by Avel Weaver MD @ Oct 30 2020 9:03PM Signed by Dr. Avel Weaver @ Oct 30 2020 9:03PM
--- NOTE | 2020-10-30 21:05 | EDM.PDOC ---
ED HPI GENERAL MEDICAL PROBLEM - General Chief Complaint: General Stated Complaint: NOT WALKING Time Seen by Provider: 10/30/20 19:38 - History of Present Illness INITIAL COMMENTS - FREE TEXT/NARRATIVE: HISTORY AND PHYSICAL: History of present illness: This is a 85-year-old gentleman with a history significant for diabetes who lives in a fdc secondary to a history of mental retardation and cognitive disorders who presents ER today secondary to refusing to walk. Patient is here with one of his caregivers who cares for him and several other people in the fdc. She reports at baseline he is ambulatory without assistance. She reports today after dinner he refused to stand. Patient is not communicative verbally but she reports that he appears to be in pain and discomfort. She denied any known trauma that have been related to her by the other caregivers in the facility. She reports at baseline he does have a tremor of his right hand and arm. She reports no recent fevers, shakes, chills, nausea, vomiting, diarrhea,, altered mentation. She reports he is currently at his baseline mental status. She reports he has been tolerating p.o. solids and liquids at his baseline. Review of systems: As per history of present illness and below otherwise all systems reviewed and negative. Past medical history: As per history of present illness and as reviewed below otherwise noncontributory. Surgical history: As per history of present illness and as reviewed below otherwise noncontributory. Social history: No reported history of drug or alcohol abuse. Family history: As per history of present illness and as reviewed below otherwise noncontributory. Physical exam: This patient was seen and evaluated during the 2019 SARS-CoV-2 novel coronavirus pandemic period. Community viral transmission is ongoing at time of this encounter and the emergency department is operating under pandemic response procedures. Constitutional: Patient is oriented to person, place, and time. Appears well-developed and well-nourished. No distress. HEENT: Moist mucous membranes Head: Normocephalic and atraumatic Eyes: Right eye exhibits no discharge. Left eye exhibits no discharge. No scleral icterus Neck: Normal range of motion. No tracheal deviation present. Cardiovascular: Normal rate and regular rhythm. Pulmonary: Effort normal, no respiratory distress. Abdominal: No distention Musculoskeletal: Normal range of motion Neurologic: Alert and oriented to person, place and time. Skin: [place], warm and dry. Psychiatric: Normal mood and affect. Behavior is normal. Judgment and thought content normal. Nursing note and vital signs have been reviewed Exam is limited secondary to patient nonverbal and not following commands on exam. Patient does have a significant amount of grimacing when palpating or performing any range of motion of his right and left lower extremities. Patient has some mild grimacing when palpating his right hip region. Patient has no evidence of trauma to his head. Patient's abdomen was soft, nontender, no rebound or guarding. Patient has normal active bowel sounds. Patient has no tenderness palpation to his anterior chest wall, shoulders, bilateral upper extremities. Patient has no grimacing with palpation of his C-spine T-spine or L-spine. Diagnostics: X-ray of bilateral hips/pelvis: Apparent near 90 degree angulated basicervical fracture of the right femoral neck. No acute fracture on the left. Pelvis is intact. Chest Xray: Normal cardiac silhouette No infiltrates or effusions identified. No PTX No evidence of acute bony fracture. As interpreted by ER MD: Juana EKG: As interpreted by ER physician: Juana: Nonspecific ST-T wave abnormalities Normal axis No evidence of ST elevation SC Sinus tachycardia with a heart rate of 115 Therapeutics: Morphine 4 mg IV NSS x1 L Acetaminophen 640 mg p.o. Assessment and plan: 85-year-old gentleman who presents ER today with refusing to walk which is new for the patient. At baseline he is ambulatory on his own. No trauma is identified for the patient. Patient has had baseline labs drawn including a CBC, CMP which were both normal. Patient's urinalysis did not reveal any evidence of infection. Patient's x-ray of his pelvis revealed fracture of right femoral neck. I have discussed the case with Dr. Armstrong who is agreed to assist with evaluation of patient for surgery. He is requested anesthesia evaluate patient for medical clearance prior to admission. I have discussed the case with Dr. Magaña who is agreed to admit patient to her service with orthopedic consultation pending anesthesia input and clearance. Definitive disposition and diagnosis as appropriate pending reevaluation and review of above. - Related Data Allergies Allergy/AdvReac Type Severity Reaction Status Date / Time No Known Allergies Allergy Verified 10/30/20 19:38 Home Meds: Home Meds Brimonidine [Alphagan P 0.1% Ophth Soln] 1 drop EYEBOTH TID 04/14/14 [History] Multivitamin [Multi Vitamin Daily] 04/14/14 [History] Psyllium Seed/Aspartame [Metamucil Powder] 04/14/14 [History] Travoprost [Travatan Z 0.004% Ophth Soln] 04/14/14 [History] glyBURIDE [Glyburide] 04/14/14 [History] metFORMIN [Glucophage] 500 mg PO BID 04/14/14 [History] Nitrofurantoin Monohyd/M-Cryst [Macrobid 100 mg Capsule] 100 mg PO BID #20 capsule 11/01/16 [Rx] Nitrofurantoin Monohyd/M-Cryst [Macrobid 100 mg Capsule] 100 mg PO BID #20 capsule 01/29/17 [Rx] Past Medical History HEENT History: Reports: Cataract, Glaucoma, Hard of Hearing, Other (See Below) Other HEENT History: congential cataracts Cardiovascular History: Reports: None Respiratory History: Reports: None Gastrointestinal History: Reports: Chronic Constipation, Gastritis, Other (See Below) Other Gastrointestinal History: Duodentis Genitourinary History: Reports: None Musculoskeletal History: Reports: Other (See Below) Other Musculoskeletal History: atypical stereo movement disorfder Neurological History: Reports: Other (See Below) Other Neuro History: developmentally delayed Psychiatric History: Reports: Developmental Delay Endocrine/Metabolic History: Reports: Diabetes, Type II Hematologic History: Reports: None Immunologic History: Reports: None Oncologic (Cancer) History: Reports: None Dermatologic History: Reports: None - Past Surgical History Head Surgeries/Procedures: Reports: None HEENT Surgical History: Reports: Cataract Surgery, Visual Other HEENT Surgeries/Procedures: pt is deaf and blind Social & Family History - Family History Family Medical History: No Pertinent Family History - Caffeine Use Caffeine Use: Reports: None - Recreational Drug Use Recreational Drug Use: No ED ROS GENERAL - Review of Systems Review Of Systems: See Below ED EXAM, GENERAL - Physical Exam Exam: See Below Course - Vital Signs Last Recorded V/S: Last Vital Signs Temp 98.3 F 10/30/20 19:15 Pulse 105 H 10/30/20 21:10 Resp 18 10/30/20 21:10 BP 152/100 H 10/30/20 21:10 Pulse Ox 95 10/30/20 21:10 - Orders/Labs/Meds Orders: Active Orders 24 hr Category Date Time Status EKG Documentation Completion [RC] AM Care 10/30/20 20:54 Active CORONAVIRUS COVID-19 YUE [MOLEC] Stat Lab 10/30/20 21:10 Received Sodium Chloride 0.9% [Saline Flush] Med 10/30/20 19:51 Active 10 ml FLUSH ASDIRECTED PRN Sodium Chloride 0.9% [Saline Flush] Med 10/30/20 19:51 Active 2.5 ml FLUSH ASDIRECTED PRN Saline Lock Insert [OM.PC] Stat Oth 10/30/20 19:51 Ordered Medication Orders Sodium Chloride (Saline Flush) 10 ml FLUSH ASDIRECTED PRN PRN Reason: Keep Vein Open Last Admin: 10/30/20 20:26 Dose: 10 ml Documented by: JULIA Sodium Chloride (Saline Flush) 2.5 ml FLUSH ASDIRECTED PRN PRN Reason: Keep Vein Open Last Admin: 10/30/20 20:26 Dose: 2.5 ml Documented by: JULIA Labs: Laboratory Tests 10/30/20 10/30/20 10/30/20 Range/Units 19:20 19:20 20:00 WBC 10.81 (4.0-11.0) K/uL RBC 4.70 (4.50-5.90) M/uL Hgb 14.8 (13.0-17.0) g/dL Hct 43.5 (38.0-50.0) % MCV 92.6 (80.0-98.0) fL MCH 31.5 (27.0-32.0) pg MCHC 34.0 (31.0-37.0) g/dL RDW Std Deviation 47.3 (28.0-62.0) fl RDW Coeff of Kash 14 (11.0-15.0) % Plt Count 184 (150-400) K/uL MPV 10.50 (7.40-12.00) fL Neut % (Auto) 83.2 H (48.0-80.0) % Lymph % (Auto) 9.8 L (16.0-40.0) % [place] % (Auto) 6.5 (0.0-15.0) % Eos % (Auto) 0.3 (0.0-7.0) % Baso % (Auto) 0.2 (0.0-1.5) % Neut # (Auto) 9.0 H (1.4-5.7) K/uL Lymph # (Auto) 1.1 (0.6-2.4) K/uL [place] # (Auto) 0.7 (0.0-0.8) K/uL Eos # (Auto) 0.0 (0.0-0.7) K/uL Baso # (Auto) 0.0 (0.0-0.1) K/uL Nucleated RBC % 0.0 /100WBC Nucleated RBCs # 0 K/uL INR APTT (18.6-31.3) SEC Sodium 135 L (136-148) mmol/L Potassium 5.1 (3.5-5.1) mmol/L Chloride 103 (98-107) mmol/L Carbon Dioxide 19.1 L (21.0-32.0) mmol/L BUN 32 H (7.0-18.0) mg/dL Creatinine 1.4 H (0.8-1.3) mg/dL Est Cr Clr Drug Dosing TNP Estimated GFR (MDRD) 48.2 ml/min Glucose 280 H (74-106) mg/dL Calcium 8.7 (8.5-10.1) mg/dL Total Bilirubin 0.3 (0.2-1.0) mg/dL AST 12 L (15-37) IU/L ALT 16 (14-63) IU/L Alkaline Phosphatase 60 (46-116) U/L Total Protein 7.6 (6.4-8.2) g/dL Albumin 3.0 L (3.4-5.0) g/dL Globulin 4.6 H (2.6-4.0) g/dL Albumin/Globulin Ratio 0.7 L (0.9-1.6) Urine Color YELLOW Urine Appearance SLT CLOUDY Urine pH 5.5 (5.0-8.0) Ur Specific [place] 1.025 (1.001-1.035) Urine Protein NEGATIVE (NEGATIVE) mg/dL Urine Glucose (UA) >=1000 (NEGATIVE) mg/dL Urine Ketones NEGATIVE (NEGATIVE) mg/dL Urine Occult Blood NEGATIVE (NEGATIVE) Urine Nitrite NEGATIVE (NEGATIVE) Urine Bilirubin NEGATIVE (NEGATIVE) Urine Urobilinogen 0.2 (<2.0) EU/dL Ur Leukocyte Esterase NEGATIVE (NEGATIVE) 10/30/20 Range/Units 21:03 WBC (4.0-11.0) K/uL RBC (4.50-5.90) M/uL Hgb (13.0-17.0) g/dL Hct (38.0-50.0) % MCV (80.0-98.0) fL MCH (27.0-32.0) pg MCHC (31.0-37.0) g/dL RDW Std Deviation (28.0-62.0) fl RDW Coeff of Kash (11.0-15.0) % Plt Count (150-400) K/uL MPV (7.40-12.00) fL Neut % (Auto) (48.0-80.0) % Lymph % (Auto) (16.0-40.0) % [place] % (Auto) (0.0-15.0) % Eos % (Auto) (0.0-7.0) % Baso % (Auto) (0.0-1.5) % Neut # (Auto) (1.4-5.7) K/uL Lymph # (Auto) (0.6-2.4) K/uL [place] # (Auto) (0.0-0.8) K/uL Eos # (Auto) (0.0-0.7) K/uL Baso # (Auto) (0.0-0.1) K/uL Nucleated RBC % /100WBC Nucleated RBCs # K/uL INR 1.04 APTT 23.6 (18.6-31.3) SEC Sodium (136-148) mmol/L Potassium (3.5-5.1) mmol/L Chloride (98-107) mmol/L Carbon Dioxide (21.0-32.0) mmol/L BUN (7.0-18.0) mg/dL Creatinine (0.8-1.3) mg/dL Est Cr Clr Drug Dosing Estimated GFR (MDRD) ml/min Glucose (74-106) mg/dL Calcium (8.5-10.1) mg/dL Total Bilirubin (0.2-1.0) mg/dL AST (15-37) IU/L ALT (14-63) IU/L Alkaline Phosphatase (46-116) U/L Total Protein (6.4-8.2) g/dL Albumin (3.4-5.0) g/dL Globulin (2.6-4.0) g/dL Albumin/Globulin Ratio (0.9-1.6) Urine Color Urine Appearance Urine pH (5.0-8.0) Ur Specific [place] (1.001-1.035) Urine Protein (NEGATIVE) mg/dL Urine Glucose (UA) (NEGATIVE) mg/dL Urine Ketones (NEGATIVE) mg/dL Urine Occult Blood (NEGATIVE) Urine Nitrite (NEGATIVE) Urine Bilirubin (NEGATIVE) Urine Urobilinogen (<2.0) EU/dL Ur Leukocyte Esterase (NEGATIVE) Meds: Medications Generic Name Dose Route Start Last Admin Trade Name Freq PRN Reason Stop Dose Admin Sodium Chloride 10 ml 10/30/20 19:51 10/30/20 20:26 Saline Flush FLUSH 10 ml ASDIRECTED PRN Administration Keep Vein Open Sodium Chloride 2.5 ml 10/30/20 19:51 10/30/20 20:26 Saline Flush FLUSH 2.5 ml ASDIRECTED PRN Administration Keep Vein Open Discontinued Medications Generic Name Dose Route Start Last Admin Trade Name Freq PRN Reason Stop Dose Admin Acetaminophen 640 mg 10/30/20 21:22 Children's Acetaminophen PO 10/30/20 21:23 NOW ONE Sodium Chloride 1,000 mls @ 999 mls/hr 10/30/20 19:51 10/30/20 20:26 Normal Saline IV 10/30/20 20:51 999 mls/hr .Bolus ONE Administration Morphine Sulfate 4 mg 10/30/20 21:25 Morphine IVPUSH 10/30/20 21:26 ONETIME ONE Departure - Departure Time of Disposition: 21:30 Disposition: Admitted As Inpatient 66 Clinical Impression: Displaced fracture of right femoral neck, Diabetes - Discharge Information Referrals: Samm Brooke MD [Primary Care Provider] - Forms: ED Department Discharge Sepsis Event Note (ED) - Evaluation Sepsis Screening Result: No Definite Risk - Focused Exam Vital Signs: Vital Signs Temp Pulse Resp BP Pulse Ox 10/30/20 21:10 105 H 18 152/100 H 95 10/30/20 19:15 98.3 F 96 18 125/50 L 95 - My Orders Last 24 Hours: My Active Orders 10/30/20 19:51 Sodium Chloride 0.9% [Saline Flush] 10 ml FLUSH ASDIRECTED PRN Sodium Chloride 0.9% [Saline Flush] 2.5 ml FLUSH ASDIRECTED PRN Saline Lock Insert [OM.PC] Stat 10/30/20 20:54 EKG Documentation Completion [RC] AM 10/30/20 21:10 CORONAVIRUS COVID-19 YUE [MOLEC] Stat - Assessment/Plan Last 24 Hours: My Active Orders 10/30/20 19:51 Sodium Chloride 0.9% [Saline Flush] 10 ml FLUSH ASDIRECTED PRN Sodium Chloride 0.9% [Saline Flush] 2.5 ml FLUSH ASDIRECTED PRN Saline Lock Insert [OM.PC] Stat 10/30/20 20:54 EKG Documentation Completion [RC] AM 10/30/20 21:10 CORONAVIRUS COVID-19 YUE [MOLEC] Stat
[2020-10-30] MEDS ORDERED: Acetaminophen 80 MG/2.5 ML Syringe PO ONE (21:22)
[2020-10-30] MEDS ORDERED: Morphine 4 MG/ML Syringe IVPUSH ONE (21:25)
[2020-10-30] MEDS ORDERED: Acetaminophen 650 MG Supp RECTAL ONE (22:00)
[2020-10-30] MEDS: Acetaminophen 650 MG Supp ONE ×2 (22:01→22:02)
[2020-10-30] MEDS ORDERED: Ondansetron 4 MG/2 ML SDV IVPUSH PRN (22:51)
[2020-10-30] MEDS ORDERED: Albuterol/Ipratropium 3.0-0.5 MG/3 ML Neb Soln NEB PRN (22:51)
[2020-10-30] MEDS ORDERED: Glucagon,Human Recombinant 1 MG Vial IM PRN (22:53)
[2020-10-30] MEDS ORDERED: 50% Dextrose in Water 50 ML Syringe IV PRN (22:53)
[2020-10-30] MEDS ORDERED: Carbamide Peroxide 6.5% Otic Soln 15 ML Bottle SCH (23:00)
--- NOTE | 2020-10-30 23:42 | PCM.HP.2 ---
H&P History of Present Illness - General Date of Service: 10/30/20 Admit Problem/Dx: Admission Diagnosis/Problem Admission Diagnosis/Problem Hip fracture requiring operative repair - History of Present Illness Initial Comments - Free Text/Narative: This is a 85-year-old male with a history significant for HTN, diabetes mellitus, CKD, blindness who lives in a long-term secondary to a history of mental retardation and cognitive disorders presents ER today secondary to his inability to walk. Per general manager in training patient has been refusing to walk today after dinner. She reports at baseline he is ambulatory without assistance. Patient is non- communicative verbally and is blind as well. She denied any known witne ssed fall although patient does seem to have abrasion on his right elbow. Patient has a tremor of his right hand and arm. She reports no recent fevers, shakes, chills, nausea, vomiting, diarrhea,, altered mentation. She reports he is currently at his baseline mental status. Patient has been tolerating p.o. solids and liquids at his baseline. Xray of his hip showed fracture of the right femoral neck. Patient is being admitted for surgical repair of his right femoral neck. Ortho was paged and recommenced admission to hospitalist team and requested to be on consult. Anesthesia was paged as well for pre-op, per ER anesthesia is comfortably to take him to OR for his surgery. - Related Data Allergies/Adverse Reactions: Allergies Allergy/AdvReac Type Severity Reaction Status Date / Time No Known Allergies Allergy Verified 10/30/20 19:38 Home Medications: Home Meds Carbamide Peroxide [Debrox] 15 ml OT ASDIRECTED 10/30/20 [History] Exenatide Microspheres [Bydureon Pen] 2 mg SQ WEEKLY 10/30/20 [History] Glimepiride 2 mg PO DAILY 10/30/20 [History] Multivitamin [Daily-Deb] 1 each PO DAILY 10/30/20 [History] Omeprazole 20 mg PO DAILY 10/30/20 [History] Psyllium Husk [Metamucil] 1 tbsp PO DAILY 10/30/20 [History] Tamsulosin [Tamsulosin 24 Hr] 0.4 mg PO DAILY 10/30/20 [History] Travoprost [Travatan Z] 1 drop EYELF BEDTIME 10/30/20 [History] lisinopriL [Lisinopril] 2.5 mg PO DAILY 10/30/20 [History] metFORMIN [Glucophage XR] 500 mg PO BIDMEALS 10/30/20 [History] sitaGLIPtin Phosphate [Januvia] 25 mg PO DAILY 10/30/20 [History] Past Medical History HEENT History: Reports: Cataract, Glaucoma, Hard of Hearing, Other (See Below) Other HEENT History: congential cataracts Cardiovascular History: Reports: None Respiratory History: Reports: None Gastrointestinal History: Reports: Chronic Constipation, Gastritis, Other (See Below) Other Gastrointestinal History: Duodentis Genitourinary History: Reports: None Musculoskeletal History: Reports: Other (See Below) Other Musculoskeletal History: atypical stereo movement disorder Neurological History: Reports: Other (See Below) Other Neuro History: developmentally delayed Psychiatric History: Reports: Developmental Delay Endocrine/Metabolic History: Reports: Diabetes, Type II Hematologic History: Reports: None Immunologic History: Reports: None Oncologic (Cancer) History: Reports: None Dermatologic History: Reports: None - Past Surgical History Head Surgeries/Procedures: Reports: None HEENT Surgical History: Reports: Cataract Surgery, Visual Other HEENT Surgeries/Procedures: pt is deaf and blind Social & Family History - Family History Family Medical History: No Pertinent Family History - Tobacco Use Tobacco Use Status *Q: Never Tobacco User - Caffeine Use Caffeine Use: Reports: None - Recreational Drug Use Recreational Drug Use: No H&P Review of Systems - Review of Systems: Review Of Systems: Unable To Obtain Reason Not Obtained: patient non verbal at baseline General: Reports: Fever Exam - Exam Exam: See Below - Vital Signs Vital Signs: Last Vital Signs Temp 37.3 C 10/30/20 23:36 Pulse 107 H 10/30/20 23:36 Resp 16 10/30/20 23:36 BP 148/73 H 10/30/20 23:36 Pulse Ox 93 L 10/30/20 23:36 Weight: 58.967 kg - Exam General: Alert, Mild Distress Neck: Supple, Trachea Midline Lungs: Clear to Auscultation, Normal Respiratory Effort Cardiovascular: Regular Rate, Regular Rhythm GI/Abdominal Exam: Normal Bowel Sounds, Soft, Non-Tender Extremities: Leg Pain, Limited Range of Motion Peripheral Pulses: 3+: Dorsalis Pedis (L), Dorsalis Pedis (R) Skin: Warm - Patient Data Lab Results Last 24 hrs: Laboratory Results - last 24 hr 10/30/20 10/30/20 10/30/20 Range/Units 19:20 19:20 19:20 WBC 10.81 (4.0-11.0) K/uL RBC 4.70 (4.50-5.90) M/uL Hgb 14.8 (13.0-17.0) g/dL Hct 43.5 (38.0-50.0) % MCV 92.6 (80.0-98.0) fL MCH 31.5 (27.0-32.0) pg MCHC 34.0 (31.0-37.0) g/dL RDW Std Deviation 47.3 (28.0-62.0) fl RDW Coeff of Kash 14 (11.0-15.0) % Plt Count 184 (150-400) K/uL MPV 10.50 (7.40-12.00) fL Neut % (Auto) 83.2 H (48.0-80.0) % Lymph % (Auto) 9.8 L (16.0-40.0) % [place] % (Auto) 6.5 (0.0-15.0) % Eos % (Auto) 0.3 (0.0-7.0) % Baso % (Auto) 0.2 (0.0-1.5) % Neut # (Auto) 9.0 H (1.4-5.7) K/uL Lymph # (Auto) 1.1 (0.6-2.4) K/uL [place] # (Auto) 0.7 (0.0-0.8) K/uL Eos # (Auto) 0.0 (0.0-0.7) K/uL Baso # (Auto) 0.0 (0.0-0.1) K/uL Nucleated RBC % 0.0 /100WBC Nucleated RBCs # 0 K/uL INR APTT (18.6-31.3) SEC Sodium 135 L (136-148) mmol/L Potassium 5.1 (3.5-5.1) mmol/L Chloride 103 (98-107) mmol/L Carbon Dioxide 19.1 L (21.0-32.0) mmol/L BUN 32 H (7.0-18.0) mg/dL Creatinine 1.4 H (0.8-1.3) mg/dL Est Cr Clr Drug Dosing TNP Estimated GFR (MDRD) 48.2 ml/min Glucose 280 H (74-106) mg/dL Hemoglobin A1c (4.5 - 6.2) % Calcium 8.7 (8.5-10.1) mg/dL Total Bilirubin 0.3 (0.2-1.0) mg/dL AST 12 L (15-37) IU/L ALT 16 (14-63) IU/L Alkaline Phosphatase 60 (46-116) U/L Troponin I < 0.050 (0.000-0.056) ng/mL Total Protein 7.6 (6.4-8.2) g/dL Albumin 3.0 L (3.4-5.0) g/dL Globulin 4.6 H (2.6-4.0) g/dL Albumin/Globulin Ratio 0.7 L (0.9-1.6) TSH 3rd Generation 3.00 (0.36-3.74) uIU/mL Urine Color Urine Appearance Urine pH (5.0-8.0) Ur Specific [place] (1.001-1.035) Urine Protein (NEGATIVE) mg/dL Urine Glucose (UA) (NEGATIVE) mg/dL Urine Ketones (NEGATIVE) mg/dL Urine Occult Blood (NEGATIVE) Urine Nitrite (NEGATIVE) Urine Bilirubin (NEGATIVE) Urine Urobilinogen (<2.0) EU/dL Ur Leukocyte Esterase (NEGATIVE) SARS-CoV-2 RNA (YUE) (NEGATIVE) 10/30/20 10/30/20 10/30/20 Range/Units 19:20 20:00 21:03 WBC (4.0-11.0) K/uL RBC (4.50-5.90) M/uL Hgb (13.0-17.0) g/dL Hct (38.0-50.0) % MCV (80.0-98.0) fL MCH (27.0-32.0) pg MCHC (31.0-37.0) g/dL RDW Std Deviation (28.0-62.0) fl RDW Coeff of Kash (11.0-15.0) % Plt Count (150-400) K/uL MPV (7.40-12.00) fL Neut % (Auto) (48.0-80.0) % Lymph % (Auto) (16.0-40.0) % [place] % (Auto) (0.0-15.0) % Eos % (Auto) (0.0-7.0) % Baso % (Auto) (0.0-1.5) % Neut # (Auto) (1.4-5.7) K/uL Lymph # (Auto) (0.6-2.4) K/uL [place] # (Auto) (0.0-0.8) K/uL Eos # (Auto) (0.0-0.7) K/uL Baso # (Auto) (0.0-0.1) K/uL Nucleated RBC % /100WBC Nucleated RBCs # K/uL INR 1.04 APTT 23.6 (18.6-31.3) SEC Sodium (136-148) mmol/L Potassium (3.5-5.1) mmol/L Chloride (98-107) mmol/L Carbon Dioxide (21.0-32.0) mmol/L BUN (7.0-18.0) mg/dL Creatinine (0.8-1.3) mg/dL Est Cr Clr Drug Dosing Estimated GFR (MDRD) ml/min Glucose (74-106) mg/dL Hemoglobin A1c 7.0 H (4.5 - 6.2) % Calcium (8.5-10.1) mg/dL Total Bilirubin (0.2-1.0) mg/dL AST (15-37) IU/L ALT (14-63) IU/L Alkaline Phosphatase (46-116) U/L Troponin I (0.000-0.056) ng/mL Total Protein (6.4-8.2) g/dL Albumin (3.4-5.0) g/dL Globulin (2.6-4.0) g/dL Albumin/Globulin Ratio (0.9-1.6) TSH 3rd Generation (0.36-3.74) uIU/mL Urine Color YELLOW Urine Appearance SLT CLOUDY Urine pH 5.5 (5.0-8.0) Ur Specific [place] 1.025 (1.001-1.035) Urine Protein NEGATIVE (NEGATIVE) mg/dL Urine Glucose (UA) >=1000 (NEGATIVE) mg/dL Urine Ketones NEGATIVE (NEGATIVE) mg/dL Urine Occult Blood NEGATIVE (NEGATIVE) Urine Nitrite NEGATIVE (NEGATIVE) Urine Bilirubin NEGATIVE (NEGATIVE) Urine Urobilinogen 0.2 (<2.0) EU/dL Ur Leukocyte Esterase NEGATIVE (NEGATIVE) SARS-CoV-2 RNA (YUE) (NEGATIVE) 10/30/20 Range/Units 21:10 WBC (4.0-11.0) K/uL RBC (4.50-5.90) M/uL Hgb (13.0-17.0) g/dL Hct (38.0-50.0) % MCV (80.0-98.0) fL MCH (27.0-32.0) pg MCHC (31.0-37.0) g/dL RDW Std Deviation (28.0-62.0) fl RDW Coeff of Kash (11.0-15.0) % Plt Count (150-400) K/uL MPV (7.40-12.00) fL Neut % (Auto) (48.0-80.0) % Lymph % (Auto) (16.0-40.0) % [place] % (Auto) (0.0-15.0) % Eos % (Auto) (0.0-7.0) % Baso % (Auto) (0.0-1.5) % Neut # (Auto) (1.4-5.7) K/uL Lymph # (Auto) (0.6-2.4) K/uL [place] # (Auto) (0.0-0.8) K/uL Eos # (Auto) (0.0-0.7) K/uL Baso # (Auto) (0.0-0.1) K/uL Nucleated RBC % /100WBC Nucleated RBCs # K/uL INR APTT (18.6-31.3) SEC Sodium (136-148) mmol/L Potassium (3.5-5.1) mmol/L Chloride (98-107) mmol/L Carbon Dioxide (21.0-32.0) mmol/L BUN (7.0-18.0) mg/dL Creatinine (0.8-1.3) mg/dL Est Cr Clr Drug Dosing Estimated GFR (MDRD) ml/min Glucose (74-106) mg/dL Hemoglobin A1c (4.5 - 6.2) % Calcium (8.5-10.1) mg/dL Total Bilirubin (0.2-1.0) mg/dL AST (15-37) IU/L ALT (14-63) IU/L Alkaline Phosphatase (46-116) U/L Troponin I (0.000-0.056) ng/mL Total Protein (6.4-8.2) g/dL Albumin (3.4-5.0) g/dL Globulin (2.6-4.0) g/dL Albumin/Globulin Ratio (0.9-1.6) TSH 3rd Generation (0.36-3.74) uIU/mL Urine Color Urine Appearance Urine pH (5.0-8.0) Ur Specific [place] (1.001-1.035) Urine Protein (NEGATIVE) mg/dL Urine Glucose (UA) (NEGATIVE) mg/dL Urine Ketones (NEGATIVE) mg/dL Urine Occult Blood (NEGATIVE) Urine Nitrite (NEGATIVE) Urine Bilirubin (NEGATIVE) Urine Urobilinogen (<2.0) EU/dL Ur Leukocyte Esterase (NEGATIVE) SARS-CoV-2 RNA (YUE) NEGATIVE (NEGATIVE) Result Diagrams: 10/30/20 19:20 10/30/20 19:20 Sepsis Event Note - Evaluation Sepsis Screening Result: No Definite Risk - Focused Exam Vital Signs: Vital Signs Temp Pulse Resp BP Pulse Ox 10/30/20 23:36 37.3 C 107 H 16 148/73 H 93 L 10/30/20 22:30 110 H 18 130/60 94 L 10/30/20 21:50 36.8 C 116 H 18 171/92 H 95 10/30/20 21:10 105 H 18 152/100 H 95 10/30/20 19:15 36.8 C 96 18 125/50 L 95 - Problem List (1) Diabetes SNOMED Code(s): 73190852 ICD Code: E11.9 - TYPE 2 DIABETES MELLITUS WITHOUT COMPLICATIONS Status: Acute Current Visit: Yes (2) Fractured femoral neck SNOMED Code(s): 7635434 ICD Code: S72.009A - FRACTURE OF UNSP PART OF NECK OF UNSP FEMUR, INIT Status: Acute Current Visit: Yes (3) CKD (chronic kidney disease) SNOMED Code(s): 137394733 ICD Code: N18.9 - CHRONIC KIDNEY DISEASE, UNSPECIFIED Status: Acute Current Visit: Yes (4) Developmental non-verbal disorder SNOMED Code(s): 392556726 ICD 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: Acute Current Visit: Yes (5) Blindness SNOMED Code(s): 773160178 ICD Code: H54.7 - UNSPECIFIED VISUAL LOSS Status: Acute Current Visit: Yes (6) Tremor SNOMED Code(s): 70516941 ICD Code: R25.1 - TREMOR, UNSPECIFIED Status: Acute Current Visit: Yes Problem List Initiated/Reviewed/Updated: Yes Orders Last 24hrs: Active Orders 24 hr Category Date Time Status Patient Status [ADT] Routine ADT 10/30/20 22:07 Active Ambulate [RC] ASDIRECTED Care 10/30/20 22:51 Active Antiembolic Devices [RC] PER UNIT ROUTINE Care 10/30/20 22:52 Active Blood Glucose Check, [facility]side [[facility] 10/30/20 22:51 Active EKG Documentation Completion [RC] AM Care 10/30/20 20:54 Active Notify Provider Consults [RC] ASDIRECTED Care 10/30/20 22:59 Active Oxygen Therapy [RC] PRN Care 10/30/20 22:51 Active RT Aerosol Therapy [RC] ASDIRECTED Care 10/30/20 22:52 Active VTE/DVT Education [RC] PER UNIT ROUTINE Care 10/30/20 22:51 Active Vital Signs [RC] Q4H Care 10/30/20 22:51 Active Consult to Physician [CONS] Routine Cons 10/30/20 22:59 Active Nothing per Oral After Midnight Diet [DIET] Diet 10/30/20 Dinner Active BMP [BASIC METABOLIC PANEL,BMP] [CHEM] AM Lab 10/31/20 05:11 Ordered CBC WITH AUTO DIFF [HEME] AM Lab 10/31/20 05:11 Ordered LIPID PANEL [CHEM] AM Lab 10/31/20 05:11 Ordered MAGNESIUM [CHEM] AM Lab 10/31/20 05:11 Ordered PHOSPHORUS [CHEM] AM Lab 10/31/20 05:11 Ordered Albuterol/Ipratropium [DuoNeb 3.0-0.5 MG/3 ML] Med 10/30/20 22:51 Active 3 ml NEB Q4HRRT PRN Carbamide Peroxide [Debrox 6.5% Otic Soln] Med 10/30/20 23:00 Active 15 ml .XX ASDIRECTED Dextrose 50% in Water Med 10/30/20 22:53 Active 50 ml IV ASDIRECTED PRN Glucagon,Human Recombinant [GlucaGen] Med 10/30/20 22:53 Active 1 mg IM ASDIRECTED PRN Insulin Aspart [NovoLOG] Med 10/30/20 22:53 Active See Protocol SUBCUT TIDAC Lactated Ringers [Ringers, Lactated] 1,000 ml Med 10/30/20 23:00 Active IV ASDIRECTED Morphine Med 10/30/20 22:51 Active 2 mg IVPUSH Q2H PRN Ondansetron [Zofran] Med 10/30/20 22:51 Active 4 mg IVPUSH Q4H PRN Pantoprazole [ProTONIX IV] Med 10/31/20 09:00 Active 40 mg IV DAILY Sodium Chloride 0.9% [Saline Flush] Med 10/30/20 19:51 Active 10 ml FLUSH ASDIRECTED PRN Sodium Chloride 0.9% [Saline Flush] Med 10/30/20 19:51 Active 2.5 ml FLUSH ASDIRECTED PRN Tamsulosin [Flomax] Med 10/31/20 09:00 Active 0.4 mg PO DAILY Travoprost [Travatan Z] Med 10/31/20 21:00 Pending 1 drop EYELF BEDTIME lisinopriL [Prinivil] Med 10/31/20 09:00 Active 2.5 mg PO DAILY Saline Lock Insert [OM.PC] Stat Oth 10/30/20 19:51 Ordered Sequential Compression Device [OM.PC] Per Unit Routine Oth 10/30/20 22:51 Ordered Medication Orders Albuterol/Ipratropium (Duoneb 3.0-0.5 Mg/3 Ml) 3 ml NEB Q4HRRT PRN PRN Reason: Shortness Of Breath/wheezing Carbamide Perox/Anhydrous Glycerin (Debrox 6.5% Otic Soln) 15 ml .XX ASDIRECTED TALI Dextrose/Water (Dextrose 50% In Water) 50 ml IV ASDIRECTED PRN PRN Reason: Hypoglycemia Glucagon (Glucagen) 1 mg IM ASDIRECTED PRN PRN Reason: Hypoglycemia Lactated Ringer's (Ringers, Lactated) 1,000 mls @ 125 mls/hr IV ASDIRECTED TALI Insulin Aspart (Novolog) 0 unit SUBCUT TIDAC TALI; Protocol Lisinopril (Prinivil) 2.5 mg PO DAILY PENDING SALE TO [facility] Morphine Sulfate (Morphine) 2 mg IVPUSH Q2H PRN PRN Reason: Pain (severe 7-10) Stop: 10/31/20 22:51 Non-Formulary Medication (Travoprost [Travatan Z]) 1 drop EYELF BEDTIME TALI Ondansetron HCl (Zofran) 4 mg IVPUSH Q4H PRN PRN Reason: Nausea/Vomiting Pantoprazole Sodium (Protonix Iv) 40 mg IV DAILY PENDING SALE TO [facility] Sodium Chloride (Saline Flush) 10 ml FLUSH ASDIRECTED PRN PRN Reason: Keep Vein Open Last Admin: 10/30/20 20:26 Dose: 10 ml Documented by: JULIA Sodium Chloride (Saline Flush) 2.5 ml FLUSH ASDIRECTED PRN PRN Reason: Keep Vein Open Last Admin: 10/30/20 20:26 Dose: 2.5 ml Documented by: JULIA Tamsulosin HCl (Flomax) 0.4 mg PO DAILY PENDING SALE TO [facility] Assessment/Plan Comment:: 85 y/o M admitted for right femoral neck fracture Start IV fluids SCD for dvt ppx Morphine for pain control IV PPI daily IV Zofran for N/V NPO past midnight Avoid nephrotoxic meds Resume home meds as appropriate SSI for DM Check HbA1c CXR, EKG reviewed Patients medical risk stratification is intermediate risk for alyssia-operative complications in setting on high risk procedure, Given his cognitive dysfunction the recovery will be challenging
[2020-10-30] MEDS: Lactated Ringers 1,000 ML IV SCH (23:47)
[2020-10-30] MEDS: Insulin Aspart 100 Units/ML 3 ML Pen SUBCUT SCH (23:59)
[2020-10-31] MEDS: Morphine 10 MG/ML Syringe IVPUSH PRN ×3 (02:32→07:53)
[2020-10-31 06:16] LABS: CARBON DIOXIDE,CO2 19.8 mmol/L (21.0-32.0)
[2020-10-31] MEDS: Lactated Ringers 1,000 ML IV SCH ×2 (07:51→16:17)
[2020-10-31] MEDS: Insulin Aspart 100 Units/ML 3 ML Pen SUBCUT SCH ×4 (08:02→22:03)
--- NOTE | 2020-10-31 08:03 | PCM.PN ---
- General Info Date of Service: 10/31/20 Admission Dx/Problem (Free Text): Admission Diagnosis/Problem Admission Diagnosis/Problem Hip fracture requiring operative repair Subjective Update: Nonverbal. Patient initially appeared comfortable in bed lying on his back. On second rounds it appeared he was more uncomfortable nursing was notified and will administer morphine. - Patient Data Vitals - Most Recent: Last Vital Signs Temp 98.0 F 10/31/20 07:41 Pulse 114 H 10/31/20 07:41 Resp 20 10/31/20 07:41 BP 181/89 H 10/31/20 07:41 Pulse Ox 93 L 10/31/20 07:41 Weight - Most Recent: 58.967 kg Lab Results Last 24 Hours: Laboratory Results - last 24 hr 10/30/20 10/30/20 10/30/20 Range/Units 19:20 19:20 19:20 WBC 10.81 (4.0-11.0) K/uL RBC 4.70 (4.50-5.90) M/uL Hgb 14.8 (13.0-17.0) g/dL Hct 43.5 (38.0-50.0) % MCV 92.6 (80.0-98.0) fL MCH 31.5 (27.0-32.0) pg MCHC 34.0 (31.0-37.0) g/dL RDW Std Deviation 47.3 (28.0-62.0) fl RDW Coeff of Kash 14 (11.0-15.0) % Plt Count 184 (150-400) K/uL MPV 10.50 (7.40-12.00) fL Neut % (Auto) 83.2 H (48.0-80.0) % Lymph % (Auto) 9.8 L (16.0-40.0) % [place] % (Auto) 6.5 (0.0-15.0) % Eos % (Auto) 0.3 (0.0-7.0) % Baso % (Auto) 0.2 (0.0-1.5) % Neut # (Auto) 9.0 H (1.4-5.7) K/uL Lymph # (Auto) 1.1 (0.6-2.4) K/uL [place] # (Auto) 0.7 (0.0-0.8) K/uL Eos # (Auto) 0.0 (0.0-0.7) K/uL Baso # (Auto) 0.0 (0.0-0.1) K/uL Nucleated RBC % 0.0 /100WBC Nucleated RBCs # 0 K/uL INR APTT (18.6-31.3) SEC Sodium 135 L (136-148) mmol/L Potassium 5.1 (3.5-5.1) mmol/L Chloride 103 (98-107) mmol/L Carbon Dioxide 19.1 L (21.0-32.0) mmol/L BUN 32 H (7.0-18.0) mg/dL Creatinine 1.4 H (0.8-1.3) mg/dL Est Cr Clr Drug Dosing TNP Estimated GFR (MDRD) 48.2 ml/min Glucose 280 H (74-106) mg/dL POC Glucose (60-110) mg/dL Hemoglobin A1c (4.5 - 6.2) % Calcium 8.7 (8.5-10.1) mg/dL Phosphorus (2.6-4.7) mg/dL Magnesium (1.8-2.4) mg/dL Total Bilirubin 0.3 (0.2-1.0) mg/dL AST 12 L (15-37) IU/L ALT 16 (14-63) IU/L Alkaline Phosphatase 60 (46-116) U/L Troponin I < 0.050 (0.000-0.056) ng/mL Total Protein 7.6 (6.4-8.2) g/dL Albumin 3.0 L (3.4-5.0) g/dL Globulin 4.6 H (2.6-4.0) g/dL Albumin/Globulin Ratio 0.7 L (0.9-1.6) Triglycerides (0-200) mg/dL Cholesterol (50-200) mg/dL LDL Cholesterol, Calc (60-180) mg/dL VLDL Cholesterol (5-55) mg/dL HDL Cholesterol (40-60) mg/dL Cholesterol/HDL Ratio (3.3-6.0) TSH 3rd Generation 3.00 (0.36-3.74) uIU/mL Urine Color Urine Appearance Urine pH (5.0-8.0) Ur Specific [place] (1.001-1.035) Urine Protein (NEGATIVE) mg/dL Urine Glucose (UA) (NEGATIVE) mg/dL Urine Ketones (NEGATIVE) mg/dL Urine Occult Blood (NEGATIVE) Urine Nitrite (NEGATIVE) Urine Bilirubin (NEGATIVE) Urine Urobilinogen (<2.0) EU/dL Ur Leukocyte Esterase (NEGATIVE) SARS-CoV-2 RNA (YUE) (NEGATIVE) 10/30/20 10/30/20 10/30/20 Range/Units 19:20 20:00 21:03 WBC (4.0-11.0) K/uL RBC (4.50-5.90) M/uL Hgb (13.0-17.0) g/dL Hct (38.0-50.0) % MCV (80.0-98.0) fL MCH (27.0-32.0) pg MCHC (31.0-37.0) g/dL RDW Std Deviation (28.0-62.0) fl RDW Coeff of Kash (11.0-15.0) % Plt Count (150-400) K/uL MPV (7.40-12.00) fL Neut % (Auto) (48.0-80.0) % Lymph % (Auto) (16.0-40.0) % [place] % (Auto) (0.0-15.0) % Eos % (Auto) (0.0-7.0) % Baso % (Auto) (0.0-1.5) % Neut # (Auto) (1.4-5.7) K/uL Lymph # (Auto) (0.6-2.4) K/uL [place] # (Auto) (0.0-0.8) K/uL Eos # (Auto) (0.0-0.7) K/uL Baso # (Auto) (0.0-0.1) K/uL Nucleated RBC % /100WBC Nucleated RBCs # K/uL INR 1.04 APTT 23.6 (18.6-31.3) SEC Sodium (136-148) mmol/L Potassium (3.5-5.1) mmol/L Chloride (98-107) mmol/L Carbon Dioxide (21.0-32.0) mmol/L BUN (7.0-18.0) mg/dL Creatinine (0.8-1.3) mg/dL Est Cr Clr Drug Dosing Estimated GFR (MDRD) ml/min Glucose (74-106) mg/dL POC Glucose (60-110) mg/dL Hemoglobin A1c 7.0 H (4.5 - 6.2) % Calcium (8.5-10.1) mg/dL Phosphorus (2.6-4.7) mg/dL Magnesium (1.8-2.4) mg/dL Total Bilirubin (0.2-1.0) mg/dL AST (15-37) IU/L ALT (14-63) IU/L Alkaline Phosphatase (46-116) U/L Troponin I (0.000-0.056) ng/mL Total Protein (6.4-8.2) g/dL Albumin (3.4-5.0) g/dL Globulin (2.6-4.0) g/dL Albumin/Globulin Ratio (0.9-1.6) Triglycerides (0-200) mg/dL Cholesterol (50-200) mg/dL LDL Cholesterol, Calc (60-180) mg/dL VLDL Cholesterol (5-55) mg/dL HDL Cholesterol (40-60) mg/dL Cholesterol/HDL Ratio (3.3-6.0) TSH 3rd Generation (0.36-3.74) uIU/mL Urine Color YELLOW Urine Appearance SLT CLOUDY Urine pH 5.5 (5.0-8.0) Ur Specific [place] 1.025 (1.001-1.035) Urine Protein NEGATIVE (NEGATIVE) mg/dL Urine Glucose (UA) >=1000 (NEGATIVE) mg/dL Urine Ketones NEGATIVE (NEGATIVE) mg/dL Urine Occult Blood NEGATIVE (NEGATIVE) Urine Nitrite NEGATIVE (NEGATIVE) Urine Bilirubin NEGATIVE (NEGATIVE) Urine Urobilinogen 0.2 (<2.0) EU/dL Ur Leukocyte Esterase NEGATIVE (NEGATIVE) SARS-CoV-2 RNA (YUE) (NEGATIVE) 10/30/20 10/30/20 10/31/20 Range/Units 21:10 23:52 04:48 WBC 10.35 (4.0-11.0) K/uL RBC 4.40 L (4.50-5.90) M/uL Hgb 13.4 (13.0-17.0) g/dL Hct 40.4 (38.0-50.0) % MCV 91.8 (80.0-98.0) fL MCH 30.5 (27.0-32.0) pg MCHC 33.2 (31.0-37.0) g/dL RDW Std Deviation 46.1 (28.0-62.0) fl RDW Coeff of Kash 14 (11.0-15.0) % Plt Count 198 (150-400) K/uL MPV 9.90 (7.40-12.00) fL Neut % (Auto) 78.1 (48.0-80.0) % Lymph % (Auto) 9.4 L (16.0-40.0) % [place] % (Auto) 12.3 (0.0-15.0) % Eos % (Auto) 0.1 (0.0-7.0) % Baso % (Auto) 0.1 (0.0-1.5) % Neut # (Auto) 8.1 H (1.4-5.7) K/uL Lymph # (Auto) 1.0 (0.6-2.4) K/uL [place] # (Auto) 1.3 H (0.0-0.8) K/uL Eos # (Auto) 0.0 (0.0-0.7) K/uL Baso # (Auto) 0.0 (0.0-0.1) K/uL Nucleated RBC % 0.0 /100WBC Nucleated RBCs # 0 K/uL INR APTT (18.6-31.3) SEC Sodium (136-148) mmol/L Potassium (3.5-5.1) mmol/L Chloride (98-107) mmol/L Carbon Dioxide (21.0-32.0) mmol/L BUN (7.0-18.0) mg/dL Creatinine (0.8-1.3) mg/dL Est Cr Clr Drug Dosing Estimated GFR (MDRD) ml/min Glucose (74-106) mg/dL POC Glucose 272 H (60-110) mg/dL Hemoglobin A1c (4.5 - 6.2) % Calcium (8.5-10.1) mg/dL Phosphorus (2.6-4.7) mg/dL Magnesium (1.8-2.4) mg/dL Total Bilirubin (0.2-1.0) mg/dL AST (15-37) IU/L ALT (14-63) IU/L Alkaline Phosphatase (46-116) U/L Troponin I (0.000-0.056) ng/mL Total Protein (6.4-8.2) g/dL Albumin (3.4-5.0) g/dL Globulin (2.6-4.0) g/dL Albumin/Globulin Ratio (0.9-1.6) Triglycerides (0-200) mg/dL Cholesterol (50-200) mg/dL LDL Cholesterol, Calc (60-180) mg/dL VLDL Cholesterol (5-55) mg/dL HDL Cholesterol (40-60) mg/dL Cholesterol/HDL Ratio (3.3-6.0) TSH 3rd Generation (0.36-3.74) uIU/mL Urine Color Urine Appearance Urine pH (5.0-8.0) Ur Specific [place] (1.001-1.035) Urine Protein (NEGATIVE) mg/dL Urine Glucose (UA) (NEGATIVE) mg/dL Urine Ketones (NEGATIVE) mg/dL Urine Occult Blood (NEGATIVE) Urine Nitrite (NEGATIVE) Urine Bilirubin (NEGATIVE) Urine Urobilinogen (<2.0) EU/dL Ur Leukocyte Esterase (NEGATIVE) SARS-CoV-2 RNA (YUE) NEGATIVE (NEGATIVE) 10/31/20 10/31/20 Range/Units 04:48 07:53 WBC (4.0-11.0) K/uL RBC (4.50-5.90) M/uL Hgb (13.0-17.0) g/dL Hct (38.0-50.0) % MCV (80.0-98.0) fL MCH (27.0-32.0) pg MCHC (31.0-37.0) g/dL RDW Std Deviation (28.0-62.0) fl RDW Coeff of Kash (11.0-15.0) % Plt Count (150-400) K/uL MPV (7.40-12.00) fL Neut % (Auto) (48.0-80.0) % Lymph % (Auto) (16.0-40.0) % [place] % (Auto) (0.0-15.0) % Eos % (Auto) (0.0-7.0) % Baso % (Auto) (0.0-1.5) % Neut # (Auto) (1.4-5.7) K/uL Lymph # (Auto) (0.6-2.4) K/uL [place] # (Auto) (0.0-0.8) K/uL Eos # (Auto) (0.0-0.7) K/uL Baso # (Auto) (0.0-0.1) K/uL Nucleated RBC % /100WBC Nucleated RBCs # K/uL INR APTT (18.6-31.3) SEC Sodium 136 (136-148) mmol/L Potassium 5.0 (3.5-5.1) mmol/L Chloride 104 (98-107) mmol/L Carbon Dioxide 19.8 L (21.0-32.0) mmol/L BUN 28 H (7.0-18.0) mg/dL Creatinine 1.3 (0.8-1.3) mg/dL Est Cr Clr Drug Dosing 34.65 Estimated GFR (MDRD) 52.5 ml/min Glucose 175 H (74-106) mg/dL POC Glucose 202 H (60-110) mg/dL Hemoglobin A1c (4.5 - 6.2) % Calcium 8.6 (8.5-10.1) mg/dL Phosphorus 3.5 (2.6-4.7) mg/dL Magnesium 2.1 (1.8-2.4) mg/dL Total Bilirubin (0.2-1.0) mg/dL AST (15-37) IU/L ALT (14-63) IU/L Alkaline Phosphatase (46-116) U/L Troponin I (0.000-0.056) ng/mL Total Protein (6.4-8.2) g/dL Albumin (3.4-5.0) g/dL Globulin (2.6-4.0) g/dL Albumin/Globulin Ratio (0.9-1.6) Triglycerides 36 (0-200) mg/dL Cholesterol 143 (50-200) mg/dL LDL Cholesterol, Calc 53 L (60-180) mg/dL VLDL Cholesterol 7 (5-55) mg/dL HDL Cholesterol 83 H (40-60) mg/dL Cholesterol/HDL Ratio 1.7 L (3.3-6.0) TSH 3rd Generation (0.36-3.74) uIU/mL Urine Color Urine Appearance Urine pH (5.0-8.0) Ur Specific [place] (1.001-1.035) Urine Protein (NEGATIVE) mg/dL Urine Glucose (UA) (NEGATIVE) mg/dL Urine Ketones (NEGATIVE) mg/dL Urine Occult Blood (NEGATIVE) Urine Nitrite (NEGATIVE) Urine Bilirubin (NEGATIVE) Urine Urobilinogen (<2.0) EU/dL Ur Leukocyte Esterase (NEGATIVE) SARS-CoV-2 RNA (YUE) (NEGATIVE) Med Orders - Current: Current Medications Albuterol/Ipratropium (Duoneb 3.0-0.5 Mg/3 Ml) 3 ml NEB Q4HRRT PRN PRN Reason: Shortness Of Breath/wheezing Carbamide Perox/Anhydrous Glycerin (Debrox 6.5% Otic Soln) 15 ml .XX ASDIRECTED [facility] Dextrose/Water (Dextrose 50% In Water) 50 ml IV ASDIRECTED PRN PRN Reason: Hypoglycemia Glucagon (Glucagen) 1 mg IM ASDIRECTED PRN PRN Reason: Hypoglycemia Lactated Ringer's (Ringers, Lactated) 1,000 mls @ 125 mls/hr IV ASDIRECTED [facility] Last Admin: 10/31/20 07:51 Dose: 125 mls/hr Documented by: Insulin Aspart (Novolog) 0 unit SUBCUT TIDAC [facility]; Protocol Last Admin: 10/30/20 23:59 Dose: 2 units Documented by: Lisinopril (Prinivil) 2.5 mg PO DAILY [facility] Morphine Sulfate (Morphine) 2 mg IVPUSH Q2H PRN PRN Reason: Pain (severe 7-10) Stop: 10/31/20 22:51 Last Admin: 10/31/20 07:53 Dose: 2 mg Documented by: Ondansetron HCl (Zofran) 4 mg IVPUSH Q4H PRN PRN Reason: Nausea/Vomiting Pantoprazole Sodium (Protonix Iv) 40 mg IV DAILY [facility] Travoprost [Travatan (Z]) 1 each EYELF BEDTIME [facility] Sodium Chloride (Saline Flush) 10 ml FLUSH ASDIRECTED PRN PRN Reason: Keep Vein Open Last Admin: 10/30/20 20:26 Dose: 10 ml Documented by: Sodium Chloride (Saline Flush) 2.5 ml FLUSH ASDIRECTED PRN PRN Reason: Keep Vein Open Last Admin: 10/30/20 23:48 Dose: 2.5 ml Documented by: Tamsulosin HCl (Flomax) 0.4 mg PO DAILY [facility] Discontinued Medications Acetaminophen (Children's Acetaminophen) 640 mg PO NOW ONE Stop: 10/30/20 21:23 Last Admin: 10/30/20 22:01 Dose: Not Given Documented by: Acetaminophen (Tylenol) Confirm Administered Dose 650 mg .ROUTE .STK-MED ONE Stop: 10/30/20 21:57 Last Admin: 10/30/20 22:02 Dose: Not Given Documented by: Acetaminophen (Tylenol) 650 mg RECTAL NOW ONE Stop: 10/30/20 22:01 Last Admin: 10/30/20 22:02 Dose: 650 mg Documented by: Sodium Chloride (Normal Saline) 1,000 mls @ 999 mls/hr IV .Bolus ONE Stop: 10/30/20 20:51 Last Admin: 10/30/20 20:26 Dose: 999 mls/hr Documented by: Morphine Sulfate (Morphine) 4 mg IVPUSH ONETIME ONE Stop: 10/30/20 21:26 Last Admin: 10/30/20 21:58 Dose: 4 mg Documented by: - Exam General: Alert, Cooperative Lungs: Clear to Auscultation, Normal Respiratory Effort Cardiovascular: Regular Rate, Regular Rhythm, No Murmurs GI/Abdominal Exam: Normal Bowel Sounds, Soft, Non-Tender Extremities: Normal Inspection, Normal Range of Motion, Non-Tender, No Pedal Edema, Other (Right leg noted to be shorter and slightly abducted.) Neurological: No New Focal Deficit Psy/Mental Status: Alert, Normal Affect, Normal Mood - Patient Data Lab Results Last 24 hrs: Laboratory Results - last 24 hr 10/30/20 10/30/20 10/30/20 Range/Units 19:20 19:20 19:20 WBC 10.81 (4.0-11.0) K/uL RBC 4.70 (4.50-5.90) M/uL Hgb 14.8 (13.0-17.0) g/dL Hct 43.5 (38.0-50.0) % MCV 92.6 (80.0-98.0) fL MCH 31.5 (27.0-32.0) pg MCHC 34.0 (31.0-37.0) g/dL RDW Std Deviation 47.3 (28.0-62.0) fl RDW Coeff of Kash 14 (11.0-15.0) % Plt Count 184 (150-400) K/uL MPV 10.50 (7.40-12.00) fL Neut % (Auto) 83.2 H (48.0-80.0) % Lymph % (Auto) 9.8 L (16.0-40.0) % [place] % (Auto) 6.5 (0.0-15.0) % Eos % (Auto) 0.3 (0.0-7.0) % Baso % (Auto) 0.2 (0.0-1.5) % Neut # (Auto) 9.0 H (1.4-5.7) K/uL Lymph # (Auto) 1.1 (0.6-2.4) K/uL [place] # (Auto) 0.7 (0.0-0.8) K/uL Eos # (Auto) 0.0 (0.0-0.7) K/uL Baso # (Auto) 0.0 (0.0-0.1) K/uL Nucleated RBC % 0.0 /100WBC Nucleated RBCs # 0 K/uL INR APTT (18.6-31.3) SEC Sodium 135 L (136-148) mmol/L Potassium 5.1 (3.5-5.1) mmol/L Chloride 103 (98-107) mmol/L Carbon Dioxide 19.1 L (21.0-32.0) mmol/L BUN 32 H (7.0-18.0) mg/dL Creatinine 1.4 H (0.8-1.3) mg/dL Est Cr Clr Drug Dosing TNP Estimated GFR (MDRD) 48.2 ml/min Glucose 280 H (74-106) mg/dL POC Glucose (60-110) mg/dL Hemoglobin A1c (4.5 - 6.2) % Calcium 8.7 (8.5-10.1) mg/dL Phosphorus (2.6-4.7) mg/dL Magnesium (1.8-2.4) mg/dL Total Bilirubin 0.3 (0.2-1.0) mg/dL AST 12 L (15-37) IU/L ALT 16 (14-63) IU/L Alkaline Phosphatase 60 (46-116) U/L Troponin I < 0.050 (0.000-0.056) ng/mL Total Protein 7.6 (6.4-8.2) g/dL Albumin 3.0 L (3.4-5.0) g/dL Globulin 4.6 H (2.6-4.0) g/dL Albumin/Globulin Ratio 0.7 L (0.9-1.6) Triglycerides (0-200) mg/dL Cholesterol (50-200) mg/dL LDL Cholesterol, Calc (60-180) mg/dL VLDL Cholesterol (5-55) mg/dL HDL Cholesterol (40-60) mg/dL Cholesterol/HDL Ratio (3.3-6.0) TSH 3rd Generation 3.00 (0.36-3.74) uIU/mL Urine Color Urine Appearance Urine pH (5.0-8.0) Ur Specific [place] (1.001-1.035) Urine Protein (NEGATIVE) mg/dL Urine Glucose (UA) (NEGATIVE) mg/dL Urine Ketones (NEGATIVE) mg/dL Urine Occult Blood (NEGATIVE) Urine Nitrite (NEGATIVE) Urine Bilirubin (NEGATIVE) Urine Urobilinogen (<2.0) EU/dL Ur Leukocyte Esterase (NEGATIVE) SARS-CoV-2 RNA (YUE) (NEGATIVE) 10/30/20 10/30/20 10/30/20 Range/Units 19:20 20:00 21:03 WBC (4.0-11.0) K/uL RBC (4.50-5.90) M/uL Hgb (13.0-17.0) g/dL Hct (38.0-50.0) % MCV (80.0-98.0) fL MCH (27.0-32.0) pg MCHC (31.0-37.0) g/dL RDW Std Deviation (28.0-62.0) fl RDW Coeff of Kash (11.0-15.0) % Plt Count (150-400) K/uL MPV (7.40-12.00) fL Neut % (Auto) (48.0-80.0) % Lymph % (Auto) (16.0-40.0) % [place] % (Auto) (0.0-15.0) % Eos % (Auto) (0.0-7.0) % Baso % (Auto) (0.0-1.5) % Neut # (Auto) (1.4-5.7) K/uL Lymph # (Auto) (0.6-2.4) K/uL [place] # (Auto) (0.0-0.8) K/uL Eos # (Auto) (0.0-0.7) K/uL Baso # (Auto) (0.0-0.1) K/uL Nucleated RBC % /100WBC Nucleated RBCs # K/uL INR 1.04 APTT 23.6 (18.6-31.3) SEC Sodium (136-148) mmol/L Potassium (3.5-5.1) mmol/L Chloride (98-107) mmol/L Carbon Dioxide (21.0-32.0) mmol/L BUN (7.0-18.0) mg/dL Creatinine (0.8-1.3) mg/dL Est Cr Clr Drug Dosing Estimated GFR (MDRD) ml/min Glucose (74-106) mg/dL POC Glucose (60-110) mg/dL Hemoglobin A1c 7.0 H (4.5 - 6.2) % Calcium (8.5-10.1) mg/dL Phosphorus (2.6-4.7) mg/dL Magnesium (1.8-2.4) mg/dL Total Bilirubin (0.2-1.0) mg/dL AST (15-37) IU/L ALT (14-63) IU/L Alkaline Phosphatase (46-116) U/L Troponin I (0.000-0.056) ng/mL Total Protein (6.4-8.2) g/dL Albumin (3.4-5.0) g/dL Globulin (2.6-4.0) g/dL Albumin/Globulin Ratio (0.9-1.6) Triglycerides (0-200) mg/dL Cholesterol (50-200) mg/dL LDL Cholesterol, Calc (60-180) mg/dL VLDL Cholesterol (5-55) mg/dL HDL Cholesterol (40-60) mg/dL Cholesterol/HDL Ratio (3.3-6.0) TSH 3rd Generation (0.36-3.74) uIU/mL Urine Color YELLOW Urine Appearance SLT CLOUDY Urine pH 5.5 (5.0-8.0) Ur Specific [place] 1.025 (1.001-1.035) Urine Protein NEGATIVE (NEGATIVE) mg/dL Urine Glucose (UA) >=1000 (NEGATIVE) mg/dL Urine Ketones NEGATIVE (NEGATIVE) mg/dL Urine Occult Blood NEGATIVE (NEGATIVE) Urine Nitrite NEGATIVE (NEGATIVE) Urine Bilirubin NEGATIVE (NEGATIVE) Urine Urobilinogen 0.2 (<2.0) EU/dL Ur Leukocyte Esterase NEGATIVE (NEGATIVE) SARS-CoV-2 RNA (YUE) (NEGATIVE) 10/30/20 10/30/20 10/31/20 Range/Units 21:10 23:52 04:48 WBC 10.35 (4.0-11.0) K/uL RBC 4.40 L (4.50-5.90) M/uL Hgb 13.4 (13.0-17.0) g/dL Hct 40.4 (38.0-50.0) % MCV 91.8 (80.0-98.0) fL MCH 30.5 (27.0-32.0) pg MCHC 33.2 (31.0-37.0) g/dL RDW Std Deviation 46.1 (28.0-62.0) fl RDW Coeff of Kash 14 (11.0-15.0) % Plt Count 198 (150-400) K/uL MPV 9.90 (7.40-12.00) fL Neut % (Auto) 78.1 (48.0-80.0) % Lymph % (Auto) 9.4 L (16.0-40.0) % [place] % (Auto) 12.3 (0.0-15.0) % Eos % (Auto) 0.1 (0.0-7.0) % Baso % (Auto) 0.1 (0.0-1.5) % Neut # (Auto) 8.1 H (1.4-5.7) K/uL Lymph # (Auto) 1.0 (0.6-2.4) K/uL [place] # (Auto) 1.3 H (0.0-0.8) K/uL Eos # (Auto) 0.0 (0.0-0.7) K/uL Baso # (Auto) 0.0 (0.0-0.1) K/uL Nucleated RBC % 0.0 /100WBC Nucleated RBCs # 0 K/uL INR APTT (18.6-31.3) SEC Sodium (136-148) mmol/L Potassium (3.5-5.1) mmol/L Chloride (98-107) mmol/L Carbon Dioxide (21.0-32.0) mmol/L BUN (7.0-18.0) mg/dL Creatinine (0.8-1.3) mg/dL Est Cr Clr Drug Dosing Estimated GFR (MDRD) ml/min Glucose (74-106) mg/dL POC Glucose 272 H (60-110) mg/dL Hemoglobin A1c (4.5 - 6.2) % Calcium (8.5-10.1) mg/dL Phosphorus (2.6-4.7) mg/dL Magnesium (1.8-2.4) mg/dL Total Bilirubin (0.2-1.0) mg/dL AST (15-37) IU/L ALT (14-63) IU/L Alkaline Phosphatase (46-116) U/L Troponin I (0.000-0.056) ng/mL Total Protein (6.4-8.2) g/dL Albumin (3.4-5.0) g/dL Globulin (2.6-4.0) g/dL Albumin/Globulin Ratio (0.9-1.6) Triglycerides (0-200) mg/dL Cholesterol (50-200) mg/dL LDL Cholesterol, Calc (60-180) mg/dL VLDL Cholesterol (5-55) mg/dL HDL Cholesterol (40-60) mg/dL Cholesterol/HDL Ratio (3.3-6.0) TSH 3rd Generation (0.36-3.74) uIU/mL Urine Color Urine Appearance Urine pH (5.0-8.0) Ur Specific [place] (1.001-1.035) Urine Protein (NEGATIVE) mg/dL Urine Glucose (UA) (NEGATIVE) mg/dL Urine Ketones (NEGATIVE) mg/dL Urine Occult Blood (NEGATIVE) Urine Nitrite (NEGATIVE) Urine Bilirubin (NEGATIVE) Urine Urobilinogen (<2.0) EU/dL Ur Leukocyte Esterase (NEGATIVE) SARS-CoV-2 RNA (YUE) NEGATIVE (NEGATIVE) 10/31/20 10/31/20 Range/Units 04:48 07:53 WBC (4.0-11.0) K/uL RBC (4.50-5.90) M/uL Hgb (13.0-17.0) g/dL Hct (38.0-50.0) % MCV (80.0-98.0) fL MCH (27.0-32.0) pg MCHC (31.0-37.0) g/dL RDW Std Deviation (28.0-62.0) fl RDW Coeff of Kash (11.0-15.0) % Plt Count (150-400) K/uL MPV (7.40-12.00) fL Neut % (Auto) (48.0-80.0) % Lymph % (Auto) (16.0-40.0) % [place] % (Auto) (0.0-15.0) % Eos % (Auto) (0.0-7.0) % Baso % (Auto) (0.0-1.5) % Neut # (Auto) (1.4-5.7) K/uL Lymph # (Auto) (0.6-2.4) K/uL [place] # (Auto) (0.0-0.8) K/uL Eos # (Auto) (0.0-0.7) K/uL Baso # (Auto) (0.0-0.1) K/uL Nucleated RBC % /100WBC Nucleated RBCs # K/uL INR APTT (18.6-31.3) SEC Sodium 136 (136-148) mmol/L Potassium 5.0 (3.5-5.1) mmol/L Chloride 104 (98-107) mmol/L Carbon Dioxide 19.8 L (21.0-32.0) mmol/L BUN 28 H (7.0-18.0) mg/dL Creatinine 1.3 (0.8-1.3) mg/dL Est Cr Clr Drug Dosing 34.65 Estimated GFR (MDRD) 52.5 ml/min Glucose 175 H (74-106) mg/dL POC Glucose 202 H (60-110) mg/dL Hemoglobin A1c (4.5 - 6.2) % Calcium 8.6 (8.5-10.1) mg/dL Phosphorus 3.5 (2.6-4.7) mg/dL Magnesium 2.1 (1.8-2.4) mg/dL Total Bilirubin (0.2-1.0) mg/dL AST (15-37) IU/L ALT (14-63) IU/L Alkaline Phosphatase (46-116) U/L Troponin I (0.000-0.056) ng/mL Total Protein (6.4-8.2) g/dL Albumin (3.4-5.0) g/dL Globulin (2.6-4.0) g/dL Albumin/Globulin Ratio (0.9-1.6) Triglycerides 36 (0-200) mg/dL Cholesterol 143 (50-200) mg/dL LDL Cholesterol, Calc 53 L (60-180) mg/dL VLDL Cholesterol 7 (5-55) mg/dL HDL Cholesterol 83 H (40-60) mg/dL Cholesterol/HDL Ratio 1.7 L (3.3-6.0) TSH 3rd Generation (0.36-3.74) uIU/mL Urine Color Urine Appearance Urine pH (5.0-8.0) Ur Specific [place] (1.001-1.035) Urine Protein (NEGATIVE) mg/dL Urine Glucose (UA) (NEGATIVE) mg/dL Urine Ketones (NEGATIVE) mg/dL Urine Occult Blood (NEGATIVE) Urine Nitrite (NEGATIVE) Urine Bilirubin (NEGATIVE) Urine Urobilinogen (<2.0) EU/dL Ur Leukocyte Esterase (NEGATIVE) SARS-CoV-2 RNA (YUE) (NEGATIVE) Result Diagrams: 10/31/20 04:48 10/31/20 04:48 Sepsis Event Note - Evaluation Sepsis Screening Result: No Definite Risk - Focused Exam Vital Signs: Vital Signs Temp Pulse Resp BP Pulse Ox 10/31/20 07:41 98.0 F 114 H 20 181/89 H 93 L 10/31/20 05:35 98.0 F 107 H 16 161/75 H 94 L 10/31/20 03:00 98.1 F 117 H 16 172/83 H 93 L 10/30/20 23:36 99.2 F 107 H 16 148/73 H 93 L 10/30/20 22:30 110 H 18 130/60 94 L 10/30/20 21:50 98.3 F 116 H 18 171/92 H 95 10/30/20 21:10 105 H 18 152/100 H 95 - Problem List & Annotations (1) Displaced fracture of right femoral neck SNOMED Code(s): 4147347, 192821935, 90860170590646405 Code(s): S72.001A - FRACTURE OF UNSP PART OF NECK OF RIGHT FEMUR, INIT Status: Acute Current Visit: Yes (2) Dehydration SNOMED Code(s): 49341939 Code(s): E86.0 - DEHYDRATION Status: Acute Current Visit: No (3) Blindness SNOMED Code(s): 076448983 Code(s): H54.7 - UNSPECIFIED VISUAL LOSS Status: Chronic Current Visit: Yes (4) CKD (chronic kidney disease) SNOMED Code(s): 491842720 Code(s): N18.9 - CHRONIC KIDNEY DISEASE, UNSPECIFIED Status: Chronic Current Visit: Yes (5) Developmental non-verbal disorder SNOMED Code(s): 466496201 Code(s): 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 Status: Chronic Current Visit: Yes (6) Diabetes SNOMED Code(s): 30524735 Code(s): E11.9 - TYPE 2 DIABETES MELLITUS WITHOUT COMPLICATIONS Status: Chronic Current Visit: Yes Qualifiers: Diabetes mellitus type: type 2 Diabetes mellitus halfway insulin use: without halfway use Diabetes mellitus complication status: without complication Qualified Code(s): E11.9 - Type 2 diabetes mellitus without complications (7) Tremor SNOMED Code(s): 48987445 Code(s): R25.1 - TREMOR, UNSPECIFIED Status: Chronic Current Visit: Yes - Problem List Review Problem List Initiated/Reviewed/Updated: Yes - Plan Plan:: 85 y/o M admitted for right femoral neck fracture 1. Right femoral neck fracture -Bedrest -Orthopedics consulted -Continue morphine for pain control -Zofran as needed nausea -Surgery scheduled for tomorrow afternoon 11/01/2020 -Diabetic diet today n.p.o. at midnight 2. DM type II -Hold oral medications -NovoLog sliding scale with meals and every 6 hours when n.p.o. -Continue low-dose YAIMA 3. CKD -Continue IV fluids as he looks dehydrated currently -Avoid nephrotoxic medications VTE prophylaxis: SCDs only as surgical intervention planned for tomorrow GI prophylaxis: Protonix CODE STATUS: DNR/DNI Dispo: 2 to 3 days pending improvement, case management has involved in placement patient will return to [facility] as rehab potential is very limited due to physical disabilities. Guardian, Tabitha Jacklyn [id number]. Spoke with Tabitha regarding medical clearance for surgery along with CODE STATUS. She understands that during procedure and 24 hours postoperative he will be full code and then will be switched to DNR/DNI.
[2020-10-31] MEDS ORDERED: Lisinopril 5 MG Tab PO SCH (09:00)
[2020-10-31] MEDS: Morphine 2 MG/ML SYRINGE IVPUSH PRN ×5 (09:46→21:50)
[2020-10-31] MEDS: Pantoprazole 40 MG Vial IV SCH (09:53)
[2020-10-31] MEDS: Tamsulosin 0.4 MG Cap.ER PO SCH (09:53)
--- NOTE | 2020-10-31 14:22 | PCM.CONS ---
H&P History of Present Illness - General Date of Service: 10/31/20 Admit Problem/Dx: Admission Diagnosis/Problem Admission Diagnosis/Problem Hip fracture requiring operative repair Source of Information: Provider History Limitations: Reports: Other (Deaf and blind, mental retardation.) - History of Present Illness Initial Comments - Free Text/Narative: Patient is an 85-year-old male who lives in a nursing home. 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 He normally ambulates independently, but was noted to be unwilling to ambulate. He was seen in the emergency room last night on x-rays noted to have a basicervical femoral neck fracture. There was no witnessed fall or other injury at the nursing home. I'm unable to communicate with the patient and so all this information is from the emergency room provider and hospitalist. No other injuries are noted. - Related Data Allergies/Adverse Reactions: Allergies Allergy/AdvReac Type Severity Reaction Status Date / Time No Known Allergies Allergy Verified 10/31/20 01:14 Home Medications: Home Meds Carbamide Peroxide [Debrox] 15 ml OT ASDIRECTED 10/30/20 [History] Exenatide Microspheres [Bydureon Pen] 2 mg SQ WEEKLY 10/30/20 [History] Glimepiride 2 mg PO DAILY 10/30/20 [History] Multivitamin [Daily-Deb] 1 each PO DAILY 10/30/20 [History] Omeprazole 20 mg PO DAILY 10/30/20 [History] Psyllium Husk [Metamucil] 1 tbsp PO DAILY 10/30/20 [History] Tamsulosin [Tamsulosin 24 Hr] 0.4 mg PO DAILY 10/30/20 [History] Travoprost [Travatan Z] 1 drop EYELF BEDTIME 10/30/20 [History] lisinopriL [Lisinopril] 2.5 mg PO DAILY 10/30/20 [History] metFORMIN [Glucophage XR] 500 mg PO BIDMEALS 10/30/20 [History] sitaGLIPtin Phosphate [Januvia] 25 mg PO DAILY 10/30/20 [History] Past Medical History HEENT History: Reports: Cataract, Glaucoma, Hard of Hearing, Other (See Below) Other HEENT History: congential cataracts Cardiovascular History: Reports: None Respiratory History: Reports: None Gastrointestinal History: Reports: Chronic Constipation, Gastritis, Other (See Below) Other Gastrointestinal History: Duodentis Genitourinary History: Reports: None Musculoskeletal History: Reports: Other (See Below) Other Musculoskeletal History: atypical stereo movement disorder Neurological History: Reports: Other (See Below) Other Neuro History: developmentally delayed Psychiatric History: Reports: Developmental Delay Endocrine/Metabolic History: Reports: Diabetes, Type II Hematologic History: Reports: None Immunologic History: Reports: None Oncologic (Cancer) History: Reports: None Dermatologic History: Reports: None - Past Surgical History Head Surgeries/Procedures: Reports: None HEENT Surgical History: Reports: Cataract Surgery, Visual Other HEENT Surgeries/Procedures: pt is deaf and blind Social & Family History - Family History Family Medical History: No Pertinent Family History - Tobacco Use Tobacco Use Status *Q: Never Tobacco User - Caffeine Use Caffeine Use: Reports: None - Recreational Drug Use Recreational Drug Use: No H&P Review of Systems - Review of Systems: Review Of Systems: See Below Exam - Exam Exam: See Below - Vital Signs Vital Signs: Last Vital Signs Temp 98.6 F 10/31/20 12:24 Pulse 118 H 10/31/20 12:24 Resp 18 10/31/20 12:24 BP 176/97 H 10/31/20 12:24 Pulse Ox 95 10/31/20 12:24 Weight: 130 lb - Exam Physical Exam Comments:: Skin intact over the right hip Hip range of motion, stability, palpation, and strength testing deferred due to known fracture Dorsalis pedis pulse 1/2 Patient moves foot to light touch of his right foot Unable to assess sensation due to inability to communicate - Patient Data Lab Results Last 24 hrs: Laboratory Results - last 24 hr 10/30/20 10/30/20 10/30/20 Range/Units 19:20 19:20 19:20 WBC 10.81 (4.0-11.0) K/uL RBC 4.70 (4.50-5.90) M/uL Hgb 14.8 (13.0-17.0) g/dL Hct 43.5 (38.0-50.0) % MCV 92.6 (80.0-98.0) fL MCH 31.5 (27.0-32.0) pg MCHC 34.0 (31.0-37.0) g/dL RDW Std Deviation 47.3 (28.0-62.0) fl RDW Coeff of Kash 14 (11.0-15.0) % Plt Count 184 (150-400) K/uL MPV 10.50 (7.40-12.00) fL Neut % (Auto) 83.2 H (48.0-80.0) % Lymph % (Auto) 9.8 L (16.0-40.0) % [place] % (Auto) 6.5 (0.0-15.0) % Eos % (Auto) 0.3 (0.0-7.0) % Baso % (Auto) 0.2 (0.0-1.5) % Neut # (Auto) 9.0 H (1.4-5.7) K/uL Lymph # (Auto) 1.1 (0.6-2.4) K/uL [place] # (Auto) 0.7 (0.0-0.8) K/uL Eos # (Auto) 0.0 (0.0-0.7) K/uL Baso # (Auto) 0.0 (0.0-0.1) K/uL Nucleated RBC % 0.0 /100WBC Nucleated RBCs # 0 K/uL INR APTT (18.6-31.3) SEC Sodium 135 L (136-148) mmol/L Potassium 5.1 (3.5-5.1) mmol/L Chloride 103 (98-107) mmol/L Carbon Dioxide 19.1 L (21.0-32.0) mmol/L BUN 32 H (7.0-18.0) mg/dL Creatinine 1.4 H (0.8-1.3) mg/dL Est Cr Clr Drug Dosing TNP Estimated GFR (MDRD) 48.2 ml/min Glucose 280 H (74-106) mg/dL POC Glucose (60-110) mg/dL Hemoglobin A1c (4.5 - 6.2) % Calcium 8.7 (8.5-10.1) mg/dL Phosphorus (2.6-4.7) mg/dL Magnesium (1.8-2.4) mg/dL Total Bilirubin 0.3 (0.2-1.0) mg/dL AST 12 L (15-37) IU/L ALT 16 (14-63) IU/L Alkaline Phosphatase 60 (46-116) U/L Troponin I < 0.050 (0.000-0.056) ng/mL Total Protein 7.6 (6.4-8.2) g/dL Albumin 3.0 L (3.4-5.0) g/dL Globulin 4.6 H (2.6-4.0) g/dL Albumin/Globulin Ratio 0.7 L (0.9-1.6) Triglycerides (0-200) mg/dL Cholesterol (50-200) mg/dL LDL Cholesterol, Calc (60-180) mg/dL VLDL Cholesterol (5-55) mg/dL HDL Cholesterol (40-60) mg/dL Cholesterol/HDL Ratio (3.3-6.0) TSH 3rd Generation 3.00 (0.36-3.74) uIU/mL Urine Color Urine Appearance Urine pH (5.0-8.0) Ur Specific [place] (1.001-1.035) Urine Protein (NEGATIVE) mg/dL Urine Glucose (UA) (NEGATIVE) mg/dL Urine Ketones (NEGATIVE) mg/dL Urine Occult Blood (NEGATIVE) Urine Nitrite (NEGATIVE) Urine Bilirubin (NEGATIVE) Urine Urobilinogen (<2.0) EU/dL Ur Leukocyte Esterase (NEGATIVE) SARS-CoV-2 RNA (YUE) (NEGATIVE) 10/30/20 10/30/20 10/30/20 Range/Units 19:20 20:00 21:03 WBC (4.0-11.0) K/uL RBC (4.50-5.90) M/uL Hgb (13.0-17.0) g/dL Hct (38.0-50.0) % MCV (80.0-98.0) fL MCH (27.0-32.0) pg MCHC (31.0-37.0) g/dL RDW Std Deviation (28.0-62.0) fl RDW Coeff of Kash (11.0-15.0) % Plt Count (150-400) K/uL MPV (7.40-12.00) fL Neut % (Auto) (48.0-80.0) % Lymph % (Auto) (16.0-40.0) % [place] % (Auto) (0.0-15.0) % Eos % (Auto) (0.0-7.0) % Baso % (Auto) (0.0-1.5) % Neut # (Auto) (1.4-5.7) K/uL Lymph # (Auto) (0.6-2.4) K/uL [place] # (Auto) (0.0-0.8) K/uL Eos # (Auto) (0.0-0.7) K/uL Baso # (Auto) (0.0-0.1) K/uL Nucleated RBC % /100WBC Nucleated RBCs # K/uL INR 1.04 APTT 23.6 (18.6-31.3) SEC Sodium (136-148) mmol/L Potassium (3.5-5.1) mmol/L Chloride (98-107) mmol/L Carbon Dioxide (21.0-32.0) mmol/L BUN (7.0-18.0) mg/dL Creatinine (0.8-1.3) mg/dL Est Cr Clr Drug Dosing Estimated GFR (MDRD) ml/min Glucose (74-106) mg/dL POC Glucose (60-110) mg/dL Hemoglobin A1c 7.0 H (4.5 - 6.2) % Calcium (8.5-10.1) mg/dL Phosphorus (2.6-4.7) mg/dL Magnesium (1.8-2.4) mg/dL Total Bilirubin (0.2-1.0) mg/dL AST (15-37) IU/L ALT (14-63) IU/L Alkaline Phosphatase (46-116) U/L Troponin I (0.000-0.056) ng/mL Total Protein (6.4-8.2) g/dL Albumin (3.4-5.0) g/dL Globulin (2.6-4.0) g/dL Albumin/Globulin Ratio (0.9-1.6) Triglycerides (0-200) mg/dL Cholesterol (50-200) mg/dL LDL Cholesterol, Calc (60-180) mg/dL VLDL Cholesterol (5-55) mg/dL HDL Cholesterol (40-60) mg/dL Cholesterol/HDL Ratio (3.3-6.0) TSH 3rd Generation (0.36-3.74) uIU/mL Urine Color YELLOW Urine Appearance SLT CLOUDY Urine pH 5.5 (5.0-8.0) Ur Specific [place] 1.025 (1.001-1.035) Urine Protein NEGATIVE (NEGATIVE) mg/dL Urine Glucose (UA) >=1000 (NEGATIVE) mg/dL Urine Ketones NEGATIVE (NEGATIVE) mg/dL Urine Occult Blood NEGATIVE (NEGATIVE) Urine Nitrite NEGATIVE (NEGATIVE) Urine Bilirubin NEGATIVE (NEGATIVE) Urine Urobilinogen 0.2 (<2.0) EU/dL Ur Leukocyte Esterase NEGATIVE (NEGATIVE) SARS-CoV-2 RNA (YUE) (NEGATIVE) 10/30/20 10/30/20 10/31/20 Range/Units 21:10 23:52 04:48 WBC 10.35 (4.0-11.0) K/uL RBC 4.40 L (4.50-5.90) M/uL Hgb 13.4 (13.0-17.0) g/dL Hct 40.4 (38.0-50.0) % MCV 91.8 (80.0-98.0) fL MCH 30.5 (27.0-32.0) pg MCHC 33.2 (31.0-37.0) g/dL RDW Std Deviation 46.1 (28.0-62.0) fl RDW Coeff of Kash 14 (11.0-15.0) % Plt Count 198 (150-400) K/uL MPV 9.90 (7.40-12.00) fL Neut % (Auto) 78.1 (48.0-80.0) % Lymph % (Auto) 9.4 L (16.0-40.0) % [place] % (Auto) 12.3 (0.0-15.0) % Eos % (Auto) 0.1 (0.0-7.0) % Baso % (Auto) 0.1 (0.0-1.5) % Neut # (Auto) 8.1 H (1.4-5.7) K/uL Lymph # (Auto) 1.0 (0.6-2.4) K/uL [place] # (Auto) 1.3 H (0.0-0.8) K/uL Eos # (Auto) 0.0 (0.0-0.7) K/uL Baso # (Auto) 0.0 (0.0-0.1) K/uL Nucleated RBC % 0.0 /100WBC Nucleated RBCs # 0 K/uL INR APTT (18.6-31.3) SEC Sodium (136-148) mmol/L Potassium (3.5-5.1) mmol/L Chloride (98-107) mmol/L Carbon Dioxide (21.0-32.0) mmol/L BUN (7.0-18.0) mg/dL Creatinine (0.8-1.3) mg/dL Est Cr Clr Drug Dosing Estimated GFR (MDRD) ml/min Glucose (74-106) mg/dL POC Glucose 272 H (60-110) mg/dL Hemoglobin A1c (4.5 - 6.2) % Calcium (8.5-10.1) mg/dL Phosphorus (2.6-4.7) mg/dL Magnesium (1.8-2.4) mg/dL Total Bilirubin (0.2-1.0) mg/dL AST (15-37) IU/L ALT (14-63) IU/L Alkaline Phosphatase (46-116) U/L Troponin I (0.000-0.056) ng/mL Total Protein (6.4-8.2) g/dL Albumin (3.4-5.0) g/dL Globulin (2.6-4.0) g/dL Albumin/Globulin Ratio (0.9-1.6) Triglycerides (0-200) mg/dL Cholesterol (50-200) mg/dL LDL Cholesterol, Calc (60-180) mg/dL VLDL Cholesterol (5-55) mg/dL HDL Cholesterol (40-60) mg/dL Cholesterol/HDL Ratio (3.3-6.0) TSH 3rd Generation (0.36-3.74) uIU/mL Urine Color Urine Appearance Urine pH (5.0-8.0) Ur Specific [place] (1.001-1.035) Urine Protein (NEGATIVE) mg/dL Urine Glucose (UA) (NEGATIVE) mg/dL Urine Ketones (NEGATIVE) mg/dL Urine Occult Blood (NEGATIVE) Urine Nitrite (NEGATIVE) Urine Bilirubin (NEGATIVE) Urine Urobilinogen (<2.0) EU/dL Ur Leukocyte Esterase (NEGATIVE) SARS-CoV-2 RNA (YUE) NEGATIVE (NEGATIVE) 10/31/20 10/31/20 10/31/20 Range/Units 04:48 07:53 13:22 WBC (4.0-11.0) K/uL RBC (4.50-5.90) M/uL Hgb (13.0-17.0) g/dL Hct (38.0-50.0) % MCV (80.0-98.0) fL MCH (27.0-32.0) pg MCHC (31.0-37.0) g/dL RDW Std Deviation (28.0-62.0) fl RDW Coeff of Kash (11.0-15.0) % Plt Count (150-400) K/uL MPV (7.40-12.00) fL Neut % (Auto) (48.0-80.0) % Lymph % (Auto) (16.0-40.0) % [place] % (Auto) (0.0-15.0) % Eos % (Auto) (0.0-7.0) % Baso % (Auto) (0.0-1.5) % Neut # (Auto) (1.4-5.7) K/uL Lymph # (Auto) (0.6-2.4) K/uL [place] # (Auto) (0.0-0.8) K/uL Eos # (Auto) (0.0-0.7) K/uL Baso # (Auto) (0.0-0.1) K/uL Nucleated RBC % /100WBC Nucleated RBCs # K/uL INR APTT (18.6-31.3) SEC Sodium 136 (136-148) mmol/L Potassium 5.0 (3.5-5.1) mmol/L Chloride 104 (98-107) mmol/L Carbon Dioxide 19.8 L (21.0-32.0) mmol/L BUN 28 H (7.0-18.0) mg/dL Creatinine 1.3 (0.8-1.3) mg/dL Est Cr Clr Drug Dosing 34.65 Estimated GFR (MDRD) 52.5 ml/min Glucose 175 H (74-106) mg/dL POC Glucose 202 H 195 H (60-110) mg/dL Hemoglobin A1c (4.5 - 6.2) % Calcium 8.6 (8.5-10.1) mg/dL Phosphorus 3.5 (2.6-4.7) mg/dL Magnesium 2.1 (1.8-2.4) mg/dL Total Bilirubin (0.2-1.0) mg/dL AST (15-37) IU/L ALT (14-63) IU/L Alkaline Phosphatase (46-116) U/L Troponin I (0.000-0.056) ng/mL Total Protein (6.4-8.2) g/dL Albumin (3.4-5.0) g/dL Globulin (2.6-4.0) g/dL Albumin/Globulin Ratio (0.9-1.6) Triglycerides 36 (0-200) mg/dL Cholesterol 143 (50-200) mg/dL LDL Cholesterol, Calc 53 L (60-180) mg/dL VLDL Cholesterol 7 (5-55) mg/dL HDL Cholesterol 83 H (40-60) mg/dL Cholesterol/HDL Ratio 1.7 L (3.3-6.0) TSH 3rd Generation (0.36-3.74) uIU/mL Urine Color Urine Appearance Urine pH (5.0-8.0) Ur Specific [place] (1.001-1.035) Urine Protein (NEGATIVE) mg/dL Urine Glucose (UA) (NEGATIVE) mg/dL Urine Ketones (NEGATIVE) mg/dL Urine Occult Blood (NEGATIVE) Urine Nitrite (NEGATIVE) Urine Bilirubin (NEGATIVE) Urine Urobilinogen (<2.0) EU/dL Ur Leukocyte Esterase (NEGATIVE) SARS-CoV-2 RNA (YUE) (NEGATIVE) Result Diagrams: 10/31/20 04:48 10/31/20 04:48 Sepsis Event Note - Evaluation Sepsis Screening Result: No Definite Risk - Focused Exam Vital Signs: Vital Signs Temp Pulse Resp BP BP Pulse Ox 10/31/20 12:24 98.6 F 118 H 18 176/97 H 95 10/31/20 09:52 181/89 H 10/31/20 07:41 98.0 F 114 H 20 181/89 H 93 L 10/31/20 05:35 98.0 F 107 H 16 161/75 H 94 L 10/31/20 03:00 98.1 F 117 H 16 172/83 H 93 L Consult PN Assessment/Plan Procedures: Procedures ASSAY OF AMYLASE (11/01/16) ASSAY OF LIPASE (11/01/16) ASSAY OF TROPONIN QUANT (11/01/16) BLOOD CULTURE FOR BACTERIA (04/14/14) CHEST X-RAY 2VW FRONTAL&LATL (11/01/16) COMPLETE CBC W/AUTO DIFF WBC (06/15/20) COMPREHEN METABOLIC PANEL (06/15/20) CT HEAD/BRAIN W/O DYE (11/01/16) CULTURE AEROBIC IDENTIFY (04/14/14) ELECTROCARDIOGRAM TRACING (11/01/16) EMERGENCY DEPT VISIT (06/15/20) EMERGENCY DEPT VISIT (11/01/16) EMERGENCY DEPT VISIT (04/14/14) FIBRIN DEGRADATION QUANT (11/01/16) GLUCOSE BLOOD TEST (06/15/20) HYDRATE IV INFUSION ADD-ON (11/01/16) HYDRATION IV INFUSION INIT (11/01/16) MICROBE SUSCEPTIBLE SAHARA (04/14/14) MOTION FLUOROSCOPY/SWALLOW (11/29/17) PROTHROMBIN TIME (11/01/16) ROUTINE VENIPUNCTURE (06/15/20) THER/PROPH/DIAG IV INF INIT (04/14/14) URINALYSIS AUTO W/SCOPE (06/15/20) URINE BACTERIA CULTURE (04/14/14) X-RAY XM SWLNG FUNCJ C+ (11/29/17) Problem List Initiated/Reviewed/Updated: Yes My Orders Last 24 Hours: My Active Orders 10/31/20 Lunch Regular Diet [DIET] 10/31/20 Dinner NPO After Midnight [Nothing per Oral After Midnight Diet] [DIET] Plan: Since this is a basicervical fracture, this can be treated with open reduction and internal fixation with a sliding hip screw and derotation screw. This treatment is in accord with the [facility] hip fracture clinical practice guidelines. I spoke with the patient's sister, Tabitha Baker, and received phone consent for the procedure as well as transfusions as needed. I explained that the risks include infection, blood clots, medical problems, and revision surgery. All questions were answered. We will plan surgery tomorrow afternoon. Nothing by mouth after midnight. Patient is medically cleared for surgery by the Hospital service.
[2020-10-31] MEDS ORDERED: Lactated Ringers 1,000 ML IV ONE (16:31)
[2020-10-31] MEDS: Metoprolol Tartrate 25 MG Tab PO SCH (17:12)
[2020-10-31] MEDS ORDERED: Insulin Aspart 100 Units/ML 3 ML Pen SUBCUT ONE ×2 (18:08→19:16)
[2020-10-31] MEDS: TRAVOPROST EYELF SCH (20:16)
[2020-11-01] MEDS: Morphine 2 MG/ML SYRINGE IVPUSH PRN ×7 (00:32→22:06)
[2020-11-01] MEDS: Lactated Ringers 1,000 ML IV SCH ×3 (02:06→23:32)
[2020-11-01 05:34] LABS: POTASSIUM,K 5.4 mmol/L (3.5-5.1)
[2020-11-01] MEDS: Metoprolol Tartrate 25 MG Tab PO SCH (05:39)
--- NOTE | 2020-11-01 07:59 | PCM.PN ---
- General Info Date of Service: 11/01/20 Admission Dx/Problem (Free Text): Admission Diagnosis/Problem Admission Diagnosis/Problem Hip fracture requiring operative repair Subjective Update: Nonverbal After lizarraga catheter placed, patient more calm and tachycardia improved. - Patient Data Vitals - Most Recent: Last Vital Signs Temp 99.5 F 11/01/20 07:48 Pulse 115 H 11/01/20 07:48 Resp 19 11/01/20 07:48 BP 152/76 H 11/01/20 07:48 Pulse Ox 84 L 11/01/20 07:49 Weight - Most Recent: 58.967 kg I&O - Last 24 Hours: Intake & Output 10/31/20 11/01/20 11/01/20 22:59 06:59 14:59 Intake Total 600 240 Balance 600 240 Lab Results Last 24 Hours: Laboratory Results - last 24 hr 10/31/20 10/31/20 10/31/20 Range/Units 07:53 13:22 18:04 WBC (4.0-11.0) K/uL RBC (4.50-5.90) M/uL Hgb (13.0-17.0) g/dL Hct (38.0-50.0) % MCV (80.0-98.0) fL MCH (27.0-32.0) pg MCHC (31.0-37.0) g/dL RDW Std Deviation (28.0-62.0) fl RDW Coeff of Kash (11.0-15.0) % Plt Count (150-400) K/uL MPV (7.40-12.00) fL Neut % (Auto) (48.0-80.0) % Lymph % (Auto) (16.0-40.0) % Chase % (Auto) (0.0-15.0) % Eos % (Auto) (0.0-7.0) % Baso % (Auto) (0.0-1.5) % Neut # (Auto) (1.4-5.7) K/uL Lymph # (Auto) (0.6-2.4) K/uL Chase # (Auto) (0.0-0.8) K/uL Eos # (Auto) (0.0-0.7) K/uL Baso # (Auto) (0.0-0.1) K/uL Nucleated RBC % /100WBC Nucleated RBCs # K/uL Sodium (136-148) mmol/L Potassium (3.5-5.1) mmol/L Chloride (98-107) mmol/L Carbon Dioxide (21.0-32.0) mmol/L BUN (7.0-18.0) mg/dL Creatinine (0.8-1.3) mg/dL Est Cr Clr Drug Dosing mL/min Estimated GFR (MDRD) ml/min Glucose (74-106) mg/dL POC Glucose 202 H 195 H 456 H (60-110) mg/dL Calcium (8.5-10.1) mg/dL Magnesium (1.8-2.4) mg/dL 10/31/20 10/31/20 10/31/20 Range/Units 19:08 20:16 21:38 WBC (4.0-11.0) K/uL RBC (4.50-5.90) M/uL Hgb (13.0-17.0) g/dL Hct (38.0-50.0) % MCV (80.0-98.0) fL MCH (27.0-32.0) pg MCHC (31.0-37.0) g/dL RDW Std Deviation (28.0-62.0) fl RDW Coeff of Kash (11.0-15.0) % Plt Count (150-400) K/uL MPV (7.40-12.00) fL Neut % (Auto) (48.0-80.0) % Lymph % (Auto) (16.0-40.0) % Chase % (Auto) (0.0-15.0) % Eos % (Auto) (0.0-7.0) % Baso % (Auto) (0.0-1.5) % Neut # (Auto) (1.4-5.7) K/uL Lymph # (Auto) (0.6-2.4) K/uL Chase # (Auto) (0.0-0.8) K/uL Eos # (Auto) (0.0-0.7) K/uL Baso # (Auto) (0.0-0.1) K/uL Nucleated RBC % /100WBC Nucleated RBCs # K/uL Sodium (136-148) mmol/L Potassium (3.5-5.1) mmol/L Chloride (98-107) mmol/L Carbon Dioxide (21.0-32.0) mmol/L BUN (7.0-18.0) mg/dL Creatinine (0.8-1.3) mg/dL Est Cr Clr Drug Dosing mL/min Estimated GFR (MDRD) ml/min Glucose (74-106) mg/dL POC Glucose 433 H 377 H 233 H (60-110) mg/dL Calcium (8.5-10.1) mg/dL Magnesium (1.8-2.4) mg/dL 11/01/20 11/01/20 11/01/20 Range/Units 00:30 04:55 04:55 WBC 14.45 H (4.0-11.0) K/uL RBC 3.83 L (4.50-5.90) M/uL Hgb 11.6 L (13.0-17.0) g/dL Hct 35.2 L (38.0-50.0) % MCV 91.9 (80.0-98.0) fL MCH 30.3 (27.0-32.0) pg MCHC 33.0 (31.0-37.0) g/dL RDW Std Deviation 47.4 (28.0-62.0) fl RDW Coeff of Kahs 14 (11.0-15.0) % Plt Count 205 (150-400) K/uL MPV 9.60 (7.40-12.00) fL Neut % (Auto) 80.8 H (48.0-80.0) % Lymph % (Auto) 6.9 L (16.0-40.0) % Chase % (Auto) 12.2 (0.0-15.0) % Eos % (Auto) 0.0 (0.0-7.0) % Baso % (Auto) 0.1 (0.0-1.5) % Neut # (Auto) 11.7 H (1.4-5.7) K/uL Lymph # (Auto) 1.0 (0.6-2.4) K/uL Chase # (Auto) 1.8 H (0.0-0.8) K/uL Eos # (Auto) 0.0 (0.0-0.7) K/uL Baso # (Auto) 0.0 (0.0-0.1) K/uL Nucleated RBC % 0.0 /100WBC Nucleated RBCs # 0 K/uL Sodium 136 (136-148) mmol/L Potassium 5.4 H (3.5-5.1) mmol/L Chloride 104 (98-107) mmol/L Carbon Dioxide 20.0 L (21.0-32.0) mmol/L BUN 34 H (7.0-18.0) mg/dL Creatinine 2.8 H (0.8-1.3) mg/dL Est Cr Clr Drug Dosing 16.09 mL/min Estimated GFR (MDRD) 21.6 ml/min Glucose 197 H (74-106) mg/dL POC Glucose 142 H (60-110) mg/dL Calcium 8.2 L (8.5-10.1) mg/dL Magnesium 2.1 (1.8-2.4) mg/dL 11/01/20 Range/Units 06:32 WBC (4.0-11.0) K/uL RBC (4.50-5.90) M/uL Hgb (13.0-17.0) g/dL Hct (38.0-50.0) % MCV (80.0-98.0) fL MCH (27.0-32.0) pg MCHC (31.0-37.0) g/dL RDW Std Deviation (28.0-62.0) fl RDW Coeff of Kash (11.0-15.0) % Plt Count (150-400) K/uL MPV (7.40-12.00) fL Neut % (Auto) (48.0-80.0) % Lymph % (Auto) (16.0-40.0) % Chase % (Auto) (0.0-15.0) % Eos % (Auto) (0.0-7.0) % Baso % (Auto) (0.0-1.5) % Neut # (Auto) (1.4-5.7) K/uL Lymph # (Auto) (0.6-2.4) K/uL Chase # (Auto) (0.0-0.8) K/uL Eos # (Auto) (0.0-0.7) K/uL Baso # (Auto) (0.0-0.1) K/uL Nucleated RBC % /100WBC Nucleated RBCs # K/uL Sodium (136-148) mmol/L Potassium (3.5-5.1) mmol/L Chloride (98-107) mmol/L Carbon Dioxide (21.0-32.0) mmol/L BUN (7.0-18.0) mg/dL Creatinine (0.8-1.3) mg/dL Est Cr Clr Drug Dosing mL/min Estimated GFR (MDRD) ml/min Glucose (74-106) mg/dL POC Glucose 246 H (60-110) mg/dL Calcium (8.5-10.1) mg/dL Magnesium (1.8-2.4) mg/dL Med Orders - Current: Current Medications Albuterol/Ipratropium (Duoneb 3.0-0.5 Mg/3 Ml) 3 ml NEB Q4HRRT PRN PRN Reason: Shortness Of Breath/wheezing Carbamide Perox/Anhydrous Glycerin (Debrox 6.5% Otic Soln) 15 ml .XX ASDIRECTED [facility] Dextrose/Water (Dextrose 50% In Water) 50 ml IV ASDIRECTED PRN PRN Reason: Hypoglycemia Glucagon (Glucagen) 1 mg IM ASDIRECTED PRN PRN Reason: Hypoglycemia Lactated Ringer's (Ringers, Lactated) 1,000 mls @ 125 mls/hr IV ASDIRECTED [facility] Last Admin: 11/01/20 02:06 Dose: 125 mls/hr Documented by: Insulin Aspart (Novolog) 0 unit SUBCUT TIDAC [facility]; Protocol Last Admin: 10/31/20 22:03 Dose: 2 units Documented by: Metoprolol Tartrate (Lopressor) 12.5 mg PO Q12H [facility] Last Admin: 11/01/20 05:39 Dose: Not Given Documented by: Morphine Sulfate (Morphine) 2 mg IVPUSH Q2H PRN PRN Reason: Pain (severe 7-10) Last Admin: 11/01/20 06:23 Dose: 2 mg Documented by: Ondansetron HCl (Zofran) 4 mg IVPUSH Q4H PRN PRN Reason: Nausea/Vomiting Pantoprazole Sodium (Protonix Iv) 40 mg IV DAILY [facility] Last Admin: 10/31/20 09:53 Dose: 40 mg Documented by: Travoprost [Travatan (Z]) 1 each EYELF BEDTIME [facility] Last Admin: 10/31/20 20:16 Dose: Not Given Documented by: Sodium Chloride (Saline Flush) 10 ml FLUSH ASDIRECTED PRN PRN Reason: Keep Vein Open Last Admin: 10/30/20 20:26 Dose: 10 ml Documented by: Sodium Chloride (Saline Flush) 2.5 ml FLUSH ASDIRECTED PRN PRN Reason: Keep Vein Open Last Admin: 10/30/20 23:48 Dose: 2.5 ml Documented by: Tamsulosin HCl (Flomax) 0.4 mg PO DAILY [facility] Last Admin: 10/31/20 09:53 Dose: 0.4 mg Documented by: Discontinued Medications Acetaminophen (Children's Acetaminophen) 640 mg PO NOW ONE Stop: 10/30/20 21:23 Last Admin: 10/30/20 22:01 Dose: Not Given Documented by: Acetaminophen (Tylenol) Confirm Administered Dose 650 mg .ROUTE .STK-MED ONE Stop: 10/30/20 21:57 Last Admin: 10/30/20 22:02 Dose: Not Given Documented by: Acetaminophen (Tylenol) 650 mg RECTAL NOW ONE Stop: 10/30/20 22:01 Last Admin: 10/30/20 22:02 Dose: 650 mg Documented by: Sodium Chloride (Normal Saline) 1,000 mls @ 999 mls/hr IV .Bolus ONE Stop: 10/30/20 20:51 Last Admin: 10/30/20 20:26 Dose: 999 mls/hr Documented by: Lactated Ringer's (Ringers, Lactated) 1,000 mls @ 999 mls/hr IV .BOLUS ONE Stop: 10/31/20 17:31 Last Admin: 10/31/20 17:11 Dose: 999 mls/hr Documented by: Insulin Aspart (Novolog) 2 unit SUBCUT ONETIME ONE Stop: 11/01/20 18:09 Insulin Aspart (Novolog) 2 unit SUBCUT ONETIME ONE Stop: 10/31/20 18:09 Last Admin: 10/31/20 18:08 Dose: 2 units Documented by: Insulin Aspart (Novolog) 10 unit SUBCUT ONETIME ONE Stop: 10/31/20 19:17 Last Admin: 10/31/20 19:20 Dose: 10 units Documented by: Lisinopril (Prinivil) 2.5 mg PO DAILY [facility] Last Admin: 10/31/20 09:52 Dose: 2.5 mg Documented by: Morphine Sulfate (Morphine) 4 mg IVPUSH ONETIME ONE Stop: 10/30/20 21:26 Last Admin: 10/30/20 21:58 Dose: 4 mg Documented by: Morphine Sulfate (Morphine) 2 mg IVPUSH Q2H PRN PRN Reason: Pain (severe 7-10) Stop: 10/31/20 22:51 Last Admin: 10/31/20 07:53 Dose: 2 mg Documented by: - Exam General: Alert, Cooperative, No Acute Distress Lungs: Clear to Auscultation, Normal Respiratory Effort Cardiovascular: Regular Rhythm, Tachycardia GI/Abdominal Exam: Normal Bowel Sounds, Soft, Non-Tender Extremities: Normal Inspection, Normal Range of Motion, Non-Tender, No Pedal Edema Skin: Other (abrasion to R elbow) Neurological: No New Focal Deficit Psy/Mental Status: Alert, Normal Affect, Normal Mood - Patient Data Lab Results Last 24 hrs: Laboratory Results - last 24 hr 10/31/20 10/31/20 10/31/20 Range/Units 07:53 13:22 18:04 WBC (4.0-11.0) K/uL RBC (4.50-5.90) M/uL Hgb (13.0-17.0) g/dL Hct (38.0-50.0) % MCV (80.0-98.0) fL MCH (27.0-32.0) pg MCHC (31.0-37.0) g/dL RDW Std Deviation (28.0-62.0) fl RDW Coeff of Kash (11.0-15.0) % Plt Count (150-400) K/uL MPV (7.40-12.00) fL Neut % (Auto) (48.0-80.0) % Lymph % (Auto) (16.0-40.0) % Chase % (Auto) (0.0-15.0) % Eos % (Auto) (0.0-7.0) % Baso % (Auto) (0.0-1.5) % Neut # (Auto) (1.4-5.7) K/uL Lymph # (Auto) (0.6-2.4) K/uL Chase # (Auto) (0.0-0.8) K/uL Eos # (Auto) (0.0-0.7) K/uL Baso # (Auto) (0.0-0.1) K/uL Nucleated RBC % /100WBC Nucleated RBCs # K/uL Sodium (136-148) mmol/L Potassium (3.5-5.1) mmol/L Chloride (98-107) mmol/L Carbon Dioxide (21.0-32.0) mmol/L BUN (7.0-18.0) mg/dL Creatinine (0.8-1.3) mg/dL Est Cr Clr Drug Dosing mL/min Estimated GFR (MDRD) ml/min Glucose (74-106) mg/dL POC Glucose 202 H 195 H 456 H (60-110) mg/dL Calcium (8.5-10.1) mg/dL Magnesium (1.8-2.4) mg/dL 10/31/20 10/31/20 10/31/20 Range/Units 19:08 20:16 21:38 WBC (4.0-11.0) K/uL RBC (4.50-5.90) M/uL Hgb (13.0-17.0) g/dL Hct (38.0-50.0) % MCV (80.0-98.0) fL MCH (27.0-32.0) pg MCHC (31.0-37.0) g/dL RDW Std Deviation (28.0-62.0) fl RDW Coeff of Kash (11.0-15.0) % Plt Count (150-400) K/uL MPV (7.40-12.00) fL Neut % (Auto) (48.0-80.0) % Lymph % (Auto) (16.0-40.0) % Chase % (Auto) (0.0-15.0) % Eos % (Auto) (0.0-7.0) % Baso % (Auto) (0.0-1.5) % Neut # (Auto) (1.4-5.7) K/uL Lymph # (Auto) (0.6-2.4) K/uL Chase # (Auto) (0.0-0.8) K/uL Eos # (Auto) (0.0-0.7) K/uL Baso # (Auto) (0.0-0.1) K/uL Nucleated RBC % /100WBC Nucleated RBCs # K/uL Sodium (136-148) mmol/L Potassium (3.5-5.1) mmol/L Chloride (98-107) mmol/L Carbon Dioxide (21.0-32.0) mmol/L BUN (7.0-18.0) mg/dL Creatinine (0.8-1.3) mg/dL Est Cr Clr Drug Dosing mL/min Estimated GFR (MDRD) ml/min Glucose (74-106) mg/dL POC Glucose 433 H 377 H 233 H (60-110) mg/dL Calcium (8.5-10.1) mg/dL Magnesium (1.8-2.4) mg/dL 11/01/20 11/01/20 11/01/20 Range/Units 00:30 04:55 04:55 WBC 14.45 H (4.0-11.0) K/uL RBC 3.83 L (4.50-5.90) M/uL Hgb 11.6 L (13.0-17.0) g/dL Hct 35.2 L (38.0-50.0) % MCV 91.9 (80.0-98.0) fL MCH 30.3 (27.0-32.0) pg MCHC 33.0 (31.0-37.0) g/dL RDW Std Deviation 47.4 (28.0-62.0) fl RDW Coeff of Kash 14 (11.0-15.0) % Plt Count 205 (150-400) K/uL MPV 9.60 (7.40-12.00) fL Neut % (Auto) 80.8 H (48.0-80.0) % Lymph % (Auto) 6.9 L (16.0-40.0) % Chase % (Auto) 12.2 (0.0-15.0) % Eos % (Auto) 0.0 (0.0-7.0) % Baso % (Auto) 0.1 (0.0-1.5) % Neut # (Auto) 11.7 H (1.4-5.7) K/uL Lymph # (Auto) 1.0 (0.6-2.4) K/uL Chase # (Auto) 1.8 H (0.0-0.8) K/uL Eos # (Auto) 0.0 (0.0-0.7) K/uL Baso # (Auto) 0.0 (0.0-0.1) K/uL Nucleated RBC % 0.0 /100WBC Nucleated RBCs # 0 K/uL Sodium 136 (136-148) mmol/L Potassium 5.4 H (3.5-5.1) mmol/L Chloride 104 (98-107) mmol/L Carbon Dioxide 20.0 L (21.0-32.0) mmol/L BUN 34 H (7.0-18.0) mg/dL Creatinine 2.8 H (0.8-1.3) mg/dL Est Cr Clr Drug Dosing 16.09 mL/min Estimated GFR (MDRD) 21.6 ml/min Glucose 197 H (74-106) mg/dL POC Glucose 142 H (60-110) mg/dL Calcium 8.2 L (8.5-10.1) mg/dL Magnesium 2.1 (1.8-2.4) mg/dL 11/01/20 Range/Units 06:32 WBC (4.0-11.0) K/uL RBC (4.50-5.90) M/uL Hgb (13.0-17.0) g/dL Hct (38.0-50.0) % MCV (80.0-98.0) fL MCH (27.0-32.0) pg MCHC (31.0-37.0) g/dL RDW Std Deviation (28.0-62.0) fl RDW Coeff of Kash (11.0-15.0) % Plt Count (150-400) K/uL MPV (7.40-12.00) fL Neut % (Auto) (48.0-80.0) % Lymph % (Auto) (16.0-40.0) % Chase % (Auto) (0.0-15.0) % Eos % (Auto) (0.0-7.0) % Baso % (Auto) (0.0-1.5) % Neut # (Auto) (1.4-5.7) K/uL Lymph # (Auto) (0.6-2.4) K/uL Chase # (Auto) (0.0-0.8) K/uL Eos # (Auto) (0.0-0.7) K/uL Baso # (Auto) (0.0-0.1) K/uL Nucleated RBC % /100WBC Nucleated RBCs # K/uL Sodium (136-148) mmol/L Potassium (3.5-5.1) mmol/L Chloride (98-107) mmol/L Carbon Dioxide (21.0-32.0) mmol/L BUN (7.0-18.0) mg/dL Creatinine (0.8-1.3) mg/dL Est Cr Clr Drug Dosing mL/min Estimated GFR (MDRD) ml/min Glucose (74-106) mg/dL POC Glucose 246 H (60-110) mg/dL Calcium (8.5-10.1) mg/dL Magnesium (1.8-2.4) mg/dL Result Diagrams: 11/01/20 04:55 11/01/20 04:55 Sepsis Event Note - Evaluation Sepsis Screening Result: No Definite Risk - Focused Exam Vital Signs: Vital Signs Temp Pulse Resp BP BP Pulse Ox 11/01/20 07:49 84 L 11/01/20 07:48 99.5 F 115 H 19 152/76 H 93 L 11/01/20 04:15 99.1 F 109 H 16 130/61 92 L 11/01/20 00:19 98.4 F 105 H 17 143/82 H 93 L 10/31/20 20:17 98.4 F 95 16 145/75 H 94 L - Problem List & Annotations (1) Displaced fracture of right femoral neck SNOMED Code(s): 2314031, 161515257, 43981501472279406 Code(s): S72.001A - FRACTURE OF UNSP PART OF NECK OF RIGHT FEMUR, INIT Status: Acute Current Visit: Yes (2) Dehydration SNOMED Code(s): 79645584 Code(s): E86.0 - DEHYDRATION Status: Acute Current Visit: No (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 VISUAL LOSS Status: Chronic Current Visit: Yes (4) CKD (chronic kidney disease) SNOMED Code(s): 923968600 Code(s): N18.9 - CHRONIC KIDNEY DISEASE, UNSPECIFIED Status: Chronic Current Visit: Yes (5) Developmental non-verbal disorder SNOMED Code(s): 741954846 Code(s): 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 Status: Chronic Current Visit: Yes (6) Diabetes SNOMED Code(s): 05311775 Code(s): E11.9 - TYPE 2 DIABETES MELLITUS WITHOUT COMPLICATIONS Status: Chronic Current Visit: Yes Qualifiers: Diabetes mellitus type: type 2 Diabetes mellitus joint terminal attack controller insulin use: without joint terminal attack controller use Diabetes mellitus complication status: without complication Qualified Code(s): E11.9 - Type 2 diabetes mellitus without complications (7) Tremor SNOMED Code(s): 93326098 Code(s): R25.1 - TREMOR, UNSPECIFIED Status: Chronic Current Visit: Yes (8) BA (acute kidney injury) SNOMED Code(s): 51568270, 88841908 Code(s): N17.9 - ACUTE KIDNEY FAILURE, UNSPECIFIED Status: Acute Current Visit: Yes - Problem List Review Problem List Initiated/Reviewed/Updated: Yes - My Orders Last 24 Hours: My Active Orders 10/31/20 12:04 Resuscitation Status Routine 10/31/20 16:45 Metoprolol Tartrate [Lopressor] 12.5 mg PO Q12H 11/01/20 07:54 Urinary Catheter Assessment [RC] ASDIRECTED 11/01/20 07:55 Bladder Scan [RC] URGENT 11/01/20 08:00 Insert Lizarraga Catheter [Insert Urinary Catheter] [OM.PC] Q24H 11/02/20 05:11 BASIC METABOLIC PANEL,BMP [CHEM] AM CBC WITH AUTO DIFF [HEME] AM MAGNESIUM [CHEM] AM 11/03/20 05:11 BASIC METABOLIC PANEL,BMP [CHEM] AM CBC WITH AUTO DIFF [HEME] AM MAGNESIUM [CHEM] AM 11/04/20 05:11 BASIC METABOLIC PANEL,BMP [CHEM] AM CBC WITH AUTO DIFF [HEME] AM MAGNESIUM [CHEM] AM 11/05/20 05:11 BASIC METABOLIC PANEL,BMP [CHEM] AM CBC WITH AUTO DIFF [HEME] AM MAGNESIUM [CHEM] AM - Plan Plan:: 85 y/o M admitted for right femoral neck fracture 1. Right femoral neck fracture -Bedrest -Orthopedics consulted -Continue morphine for pain control -Zofran as needed nausea -Surgery scheduled for today pending repeat BMP 2. BA: - BA noted this am - Obstructive uropathy, lizarraga placed and 1 L drained immediately. - Obtain FENA - Continue lizarraga - obtain renal U/S - Hold Lisinopril 3. DM type II -Hold oral medications -NovoLog sliding scale with meals and every 6 hours when n.p.o. 4. CKD -Continue IV fluids as he looks dehydrated currently -Avoid nephrotoxic medications VTE prophylaxis: SCDs only as surgical intervention planned for tomorrow GI prophylaxis: Protonix CODE STATUS: DNR/DNI Dispo: 2 to 3 days pending improvement, case management has involved in placement patient will return to [facility] [place] as rehab potential is very limited due to physical disabilities. Guardian, Tabitha Villasenor [phone]. Spoke with Tabitha regarding medical clearance for surgery along with CODE STATUS. She understands that during procedure and 24 hours postoperative he will be full code and then will be switched to DNR/DNI.
[2020-11-01] MEDS: Tamsulosin 0.4 MG Cap.ER PO SCH (08:35)
[2020-11-01] MEDS: Insulin Aspart 100 Units/ML 3 ML Pen SUBCUT SCH ×3 (08:35→18:28)
[2020-11-01] MEDS: Pantoprazole 40 MG Vial IV SCH (09:01)
--- NOTE | 2020-11-01 09:16 | PCM.PREANE ---
Preanesthetic Assessment - Anesthesia/Transfusion/Family Hx Anesthesia History: No Prior Anesthesia Family History of Anesthesia Reaction: No Transfusion History: Unknown - Review of Systems General: No Symptoms Pulmonary: No Symptoms Cardiovascular: No Symptoms Neurological: Pre-Existing Deficit, Tremors - Physical Assessment NPO Status Date: 10/31/20 Vital Signs: Last Vital Signs Temp 99.5 F 11/01/20 07:48 Pulse 115 H 11/01/20 07:48 Resp 19 11/01/20 07:48 BP 152/76 H 11/01/20 07:48 Pulse Ox 84 L 11/01/20 07:49 Height: 5 ft 5 in Weight: 58.967 kg ASA Class: 3 Mental Status: Other Airway Class: Mallampati = 2 Dentition: Reports: Normal Dentition Lungs: Clear to Auscultation, Normal Respiratory Effort Cardiovascular: Regular Rate, Regular Rhythm - Lab Values: Laboratory Last Values WBC 14.45 K/uL (4.0-11.0) H 11/01/20 04:55 RBC 3.83 M/uL (4.50-5.90) L 11/01/20 04:55 Hgb 11.6 g/dL (13.0-17.0) L 11/01/20 04:55 Hct 35.2 % (38.0-50.0) L 11/01/20 04:55 MCV 91.9 fL (80.0-98.0) 11/01/20 04:55 MCH 30.3 pg (27.0-32.0) 11/01/20 04:55 MCHC 33.0 g/dL (31.0-37.0) 11/01/20 04:55 RDW Std Deviation 47.4 fl (28.0-62.0) 11/01/20 04:55 RDW Coeff of Kash 14 % (11.0-15.0) 11/01/20 04:55 Plt Count 205 K/uL (150-400) 11/01/20 04:55 MPV 9.60 fL (7.40-12.00) 11/01/20 04:55 Neut % (Auto) 80.8 % (48.0-80.0) H 11/01/20 04:55 Lymph % (Auto) 6.9 % (16.0-40.0) L 11/01/20 04:55 [place] % (Auto) 12.2 % (0.0-15.0) 11/01/20 04:55 Eos % (Auto) 0.0 % (0.0-7.0) 11/01/20 04:55 Baso % (Auto) 0.1 % (0.0-1.5) 11/01/20 04:55 Neut # (Auto) 11.7 K/uL (1.4-5.7) H 11/01/20 04:55 Lymph # (Auto) 1.0 K/uL (0.6-2.4) 11/01/20 04:55 [place] # (Auto) 1.8 K/uL (0.0-0.8) H 11/01/20 04:55 Eos # (Auto) 0.0 K/uL (0.0-0.7) 11/01/20 04:55 Baso # (Auto) 0.0 K/uL (0.0-0.1) 11/01/20 04:55 Nucleated RBC % 0.0 /100WBC 11/01/20 04:55 Nucleated RBCs # 0 K/uL 11/01/20 04:55 INR 1.04 10/30/20 21:03 APTT 23.6 SEC (18.6-31.3) 10/30/20 21:03 Sodium 136 mmol/L (136-148) 11/01/20 04:55 Potassium 5.4 mmol/L (3.5-5.1) H 11/01/20 04:55 Chloride 104 mmol/L (98-107) 11/01/20 04:55 Carbon Dioxide 20.0 mmol/L (21.0-32.0) L 11/01/20 04:55 BUN 34 mg/dL (7.0-18.0) H 11/01/20 04:55 Creatinine 2.8 mg/dL (0.8-1.3) H 11/01/20 04:55 Est Cr Clr Drug Dosing 16.09 mL/min 11/01/20 04:55 Estimated GFR (MDRD) 21.6 ml/min 11/01/20 04:55 Glucose 197 mg/dL (74-106) H 11/01/20 04:55 POC Glucose 246 mg/dL (60-110) H 11/01/20 06:32 Hemoglobin A1c 7.0 % (4.5-6.2) H 10/30/20 19:20 Calcium 8.2 mg/dL (8.5-10.1) L 11/01/20 04:55 Phosphorus 3.5 mg/dL (2.6-4.7) 10/31/20 04:48 Magnesium 2.1 mg/dL (1.8-2.4) 11/01/20 04:55 Total Bilirubin 0.3 mg/dL (0.2-1.0) 10/30/20 19:20 AST 12 IU/L (15-37) L 10/30/20 19:20 ALT 16 IU/L (14-63) 10/30/20 19:20 Alkaline Phosphatase 60 U/L (46-116) 10/30/20 19:20 Troponin I < 0.050 ng/mL (0.000-0.056) 10/30/20 19:20 Total Protein 7.6 g/dL (6.4-8.2) 10/30/20 19:20 Albumin 3.0 g/dL (3.4-5.0) L 10/30/20 19:20 Globulin 4.6 g/dL (2.6-4.0) H 10/30/20 19:20 Albumin/Globulin Ratio 0.7 (0.9-1.6) L 10/30/20 19:20 Triglycerides 36 mg/dL (0-200) 10/31/20 04:48 Cholesterol 143 mg/dL (50-200) 10/31/20 04:48 LDL Cholesterol, Calc 53 mg/dL (60-180) L 10/31/20 04:48 VLDL Cholesterol 7 mg/dL (5-55) 10/31/20 04:48 HDL Cholesterol 83 mg/dL (40-60) H 10/31/20 04:48 Cholesterol/HDL Ratio 1.7 (3.3-6.0) L 10/31/20 04:48 TSH 3rd Generation 3.00 uIU/mL (0.36-3.74) 10/30/20 19:20 Urine Color YELLOW 10/30/20 20:00 Urine Appearance SLT CLOUDY 10/30/20 20:00 Urine pH 5.5 (5.0-8.0) 10/30/20 20:00 Ur Specific [place] 1.025 (1.001-1.035) 10/30/20 20:00 Urine Protein NEGATIVE mg/dL (NEGATIVE) 10/30/20 20:00 Urine Glucose (UA) >=1000 mg/dL (NEGATIVE) 10/30/20 20:00 Urine Ketones NEGATIVE mg/dL (NEGATIVE) 10/30/20 20:00 Urine Occult Blood NEGATIVE (NEGATIVE) 10/30/20 20:00 Urine Nitrite NEGATIVE (NEGATIVE) 10/30/20 20:00 Urine Bilirubin NEGATIVE (NEGATIVE) 10/30/20 20:00 Urine Urobilinogen 0.2 EU/dL (<2.0) 10/30/20 20:00 Ur Leukocyte Esterase NEGATIVE (NEGATIVE) 10/30/20 20:00 SARS-CoV-2 RNA (YUE) NEGATIVE (NEGATIVE) 10/30/20 21:10 - Allergies Allergies/Adverse Reactions: Allergies Allergy/AdvReac Type Severity Reaction Status Date / Time No Known Allergies Allergy Verified 10/31/20 01:14 - Blood Blood Available: No - Anesthesia Plan Pre-Op Medication Ordered: None - Acknowledgements Anesthesia Type Planned: General Anesthesia Pt an Appropriate Candidate for the Planned Anesthesia: Yes Alternatives and Risks of Anesthesia Discussed w Pt/Guardian: Yes Pt/Guardian Understands and Agrees with Anesthesia Plan: Yes Additional Comments: chart reviewed, pt examined, condition and anesthetic plan discussed with pts sister who is guardian. PMH: cog impairment, deaf, blind, tremors, dm2. May have had a new obstructive uropathy from last night. has creat of 2.8 this am witk K of 5.4. was cathed for 1 liter of urine. Will recheck BMP_ at 11am today. will procede unless cr and K are rising. PreAnesthesia Questionnaire HEENT History: Reports: Cataract, Glaucoma, Hard of Hearing, Other (See Below) Other HEENT History: congential cataracts Cardiovascular History: Reports: None Respiratory History: Reports: None Gastrointestinal History: Reports: Chronic Constipation, Gastritis, Other (See Below) Other Gastrointestinal History: Duodentis Genitourinary History: Reports: None Musculoskeletal History: Reports: Other (See Below) Other Musculoskeletal History: atypical stereo movement disorder Neurological History: Reports: Other (See Below) Other Neuro History: developmentally delayed Psychiatric History: Reports: Developmental Delay Endocrine/Metabolic History: Reports: Diabetes, Type II Hematologic History: Reports: None Immunologic History: Reports: None Oncologic (Cancer) History: Reports: None Dermatologic History: Reports: None - Past Surgical History Head Surgeries/Procedures: Reports: None HEENT Surgical History: Reports: Cataract Surgery, Visual Other HEENT Surgeries/Procedures: pt is deaf and blind - SUBSTANCE USE Tobacco Use Status *Q: Never Tobacco User Tobacco Use Within Last Twelve Months: No Recreational Drug Use History: No - HOME MEDS Home Medications: Home Meds Carbamide Peroxide [Debrox] 15 ml OT ASDIRECTED 10/30/20 [History] Exenatide Microspheres [Bydureon Pen] 2 mg SQ WEEKLY 10/30/20 [History] Glimepiride 2 mg PO DAILY 10/30/20 [History] Multivitamin [Daily-Deb] 1 each PO DAILY 10/30/20 [History] Omeprazole 20 mg PO DAILY 10/30/20 [History] Psyllium Husk [Metamucil] 1 tbsp PO DAILY 10/30/20 [History] Tamsulosin [Tamsulosin 24 Hr] 0.4 mg PO DAILY 10/30/20 [History] Travoprost [Travatan Z] 1 drop EYELF BEDTIME 10/30/20 [History] lisinopriL [Lisinopril] 2.5 mg PO DAILY 10/30/20 [History] metFORMIN [Glucophage XR] 500 mg PO BIDMEALS 10/30/20 [History] sitaGLIPtin Phosphate [Januvia] 25 mg PO DAILY 10/30/20 [History] - CURRENT (IN HOUSE) MEDS Current Meds: Current Medications Albuterol/Ipratropium (Duoneb 3.0-0.5 Mg/3 Ml) 3 ml NEB Q4HRRT PRN PRN Reason: Shortness Of Breath/wheezing Carbamide Perox/Anhydrous Glycerin (Debrox 6.5% Otic Soln) 15 ml .XX ASDIRECTED TALI Dextrose/Water (Dextrose 50% In Water) 50 ml IV ASDIRECTED PRN PRN Reason: Hypoglycemia Glucagon (Glucagen) 1 mg IM ASDIRECTED PRN PRN Reason: Hypoglycemia Lactated Ringer's (Ringers, Lactated) 1,000 mls @ 125 mls/hr IV ASDIRECTED TALI Last Admin: 11/01/20 02:06 Dose: 125 mls/hr Documented by: Insulin Aspart (Novolog) 0 unit SUBCUT TIDAC [facility]; Protocol Last Admin: 11/01/20 08:35 Dose: Not Given Documented by: Metoprolol Tartrate (Lopressor) 12.5 mg PO Q12H [facility] Last Admin: 11/01/20 05:39 Dose: Not Given Documented by: Morphine Sulfate (Morphine) 2 mg IVPUSH Q2H PRN PRN Reason: Pain (severe 7-10) Last Admin: 11/01/20 08:32 Dose: 2 mg Documented by: Ondansetron HCl (Zofran) 4 mg IVPUSH Q4H PRN PRN Reason: Nausea/Vomiting Pantoprazole Sodium (Protonix Iv) 40 mg IV DAILY [facility] Last Admin: 11/01/20 09:01 Dose: 40 mg Documented by: Travoprost [Travatan (Z]) 1 each EYELF BEDTIME [facility] Last Admin: 10/31/20 20:16 Dose: Not Given Documented by: Sodium Chloride (Saline Flush) 10 ml FLUSH ASDIRECTED PRN PRN Reason: Keep Vein Open Last Admin: 10/30/20 20:26 Dose: 10 ml Documented by: Sodium Chloride (Saline Flush) 2.5 ml FLUSH ASDIRECTED PRN PRN Reason: Keep Vein Open Last Admin: 10/30/20 23:48 Dose: 2.5 ml Documented by: Tamsulosin HCl (Flomax) 0.4 mg PO DAILY [facility] Last Admin: 11/01/20 08:35 Dose: Not Given Documented by: Discontinued Medications Acetaminophen (Children's Acetaminophen) 640 mg PO NOW ONE Stop: 10/30/20 21:23 Last Admin: 10/30/20 22:01 Dose: Not Given Documented by: Acetaminophen (Tylenol) Confirm Administered Dose 650 mg .ROUTE .STK-MED ONE Stop: 10/30/20 21:57 Last Admin: 10/30/20 22:02 Dose: Not Given Documented by: Acetaminophen (Tylenol) 650 mg RECTAL NOW ONE Stop: 10/30/20 22:01 Last Admin: 10/30/20 22:02 Dose: 650 mg Documented by: Sodium Chloride (Normal Saline) 1,000 mls @ 999 mls/hr IV .Bolus ONE Stop: 10/30/20 20:51 Last Admin: 10/30/20 20:26 Dose: 999 mls/hr Documented by: Lactated Ringer's (Ringers, Lactated) 1,000 mls @ 999 mls/hr IV .BOLUS ONE Stop: 10/31/20 17:31 Last Admin: 10/31/20 17:11 Dose: 999 mls/hr Documented by: Insulin Aspart (Novolog) 2 unit SUBCUT ONETIME ONE Stop: 11/01/20 18:09 Insulin Aspart (Novolog) 2 unit SUBCUT ONETIME ONE Stop: 10/31/20 18:09 Last Admin: 10/31/20 18:08 Dose: 2 units Documented by: Insulin Aspart (Novolog) 10 unit SUBCUT ONETIME ONE Stop: 10/31/20 19:17 Last Admin: 10/31/20 19:20 Dose: 10 units Documented by: Lisinopril (Prinivil) 2.5 mg PO DAILY TALI Last Admin: 10/31/20 09:52 Dose: 2.5 mg Documented by: Morphine Sulfate (Morphine) 4 mg IVPUSH ONETIME ONE Stop: 10/30/20 21:26 Last Admin: 10/30/20 21:58 Dose: 4 mg Documented by: Morphine Sulfate (Morphine) 2 mg IVPUSH Q2H PRN PRN Reason: Pain (severe 7-10) Stop: 10/31/20 22:51 Last Admin: 10/31/20 07:53 Dose: 2 mg Documented by:
--- NOTE | 2020-11-01 11:27 | US ---
INDICATION: Acute kidney injury. COMPARISON: Technique :ultrasound examination of the kidneys. FINDINGS: The right kidney is measuring 8.8 x 4.5 x 5.7 cm and the left kidney is measuring 10.1 x 5.3 x 5.4 cm. Normal echogenic pattern of the renal cortex bilaterally. Normal thickness of the renal cortex bilaterally measuring 18 mm on the right and 15 mm on the left. No obstructive uropathy or perinephric pathology. IMPRESSION: Negative kidney ultrasound. Dictated by Lali Arevalo MD @ Nov 01 2020 11:22AM Signed by Dr. Lali Arevalo @ Nov 01 2020 11:24AM
[2020-11-01 11:56] LABS: POTASSIUM,K 5.3 mmol/L (3.5-5.1)
[2020-11-01] MEDS ORDERED: Bupivacaine 0.5% 30 ML SDV ONE (12:54)
[2020-11-01] MEDS ORDERED: Ondansetron 4 MG/2 ML SDV ONE (13:37)
[2020-11-01] MEDS ORDERED: Glycopyrrolate 0.2 MG/ML SDV ONE (13:37)
[2020-11-01] MEDS ORDERED: Lidocaine 2% 5 ML SDV ONE (13:37)
[2020-11-01] MEDS ORDERED: Etomidate 2 MG/ML 20 ML SDV IVPUSH ONE (13:37)
[2020-11-01] MEDS ORDERED: Rocuronium Bromide 50 MG/5 ML Syringe ONE (13:37)
[2020-11-01] MEDS ORDERED: fentaNYL 250 MCG/5 ML SDV ONE (13:38)
[2020-11-01] MEDS ORDERED: Phenylephrine 1% 10 MG/ML SDV ONE (13:44)
[2020-11-01] MEDS ORDERED: ceFAZolin 1 GM Vial ONE (13:58)
[2020-11-01] MEDS ORDERED: Sodium Chloride 0.9% 20 ML ONE (13:58)
[2020-11-01] MEDS ORDERED: Acetaminophen 325 MG Tab PO PRN (15:37)
[2020-11-01] MEDS ORDERED: Bisacodyl 10 MG Supp RECTAL PRN (15:37)
[2020-11-01] MEDS ORDERED: Docusate Sodium 100 MG Cap PO PRN (15:37)
--- NOTE | 2020-11-01 15:37 | PCM.OPNOTE ---
- General Post-Op/Procedure Note Date of Surgery/Procedure: 11/01/20 Operative Procedure(s): Open reduction and internal fixation of right basicervical femoral neck fracture using [place] sliding hip screw system and derotation screw Findings: Displaced, angulated right basicervical femoral neck fracture Pre Op Diagnosis: Right basicervical femoral neck fracture Post-Op Diagnosis: Right basicervical femoral neck fracture Anesthesia Technique: General ET Tube Primary Surgeon: Scooter Armstrong Rand Maker: Stacey Montes De Oca Reason Rand Maker Was Necessary: Retraction Pathology: None EBL in mLs: 25 Complications: None Free Text/Narrative:: Patient is an 85-year-old male who lives in a half-way. He had no witnessed injury but was unwilling to ambulate and weight-bear. He was seen in the emergency room and on x-rays noted to have an angulated, displaced basicervical femoral neck fracture. He was admitted to the hospital service and medically cleared for surgery. I discussed the need for surgery with his sister who has his power of commercial attorney. I discussed the risks and benefits of surgery. All questions were answered. She consented to proceed with surgery. His DNR/DNI status was withdrawn to allow for intubation during surgery. Patient was taken to the operating room. Patient was placed on the fracture table in supine position. The right lower extremity was placed in boot traction. The left lower extremity was placed in a well leg zuleta. Fracture reduction was performed with traction with the fracture table. With adequate reduction, the right buttock hip and thigh were prepped and draped in the usual sterile manner. A longitudinal incision was made over the lateral aspect of the proximal femur. Skin was incised with scalpel. Subcutaneous tissue was incised electrocautery. The iliotibial band was split between fibers. The vastus lateralis was split between fibers exposing the lateral femoral shaft. A drill was used to make a starting hole for the guidepin and the drill was advanced to a center center position with C arm guidance. The drill was removed and the guidepin inserted and the position confirmed to be center center. A cannulated screw guidepin was then placed superior to the lag screw guidepin in a parallel fashion. This was inserted to the appropriate depth. The cannulated screw was then measured drilled and inserted with a washer. The lag screw was then measured and drilled to the appropriate depth. A 95 mm lag screw was inserted. A 140 degree 2 hole plate was then applied. Two screws were placed through the plate into the femoral shaft. They were exchanged for longer screws. C arm confirmed excellent position of the plate and screws on AP and lateral views. Wounds were irrigated. The iliotibial band was closed with interrupted and running #1 Vicryl suture. Subcutaneous tissue was closed with interrupted 2-0 Vicryl suture. Skin was closed with running Monocryl suture. A sterile dressing was applied and patient was accompanied to the recovery room in stable condition. Pain management: Acetaminophen, tramadol, IV morphine Prophylactic antibiotics: Ancef IV for 2 doses Venous thromboembolism prophylaxis: Aspirin Restrictions: Patient is weightbearing as tolerated right lower extremity. Given his mental retardation, blindness, and deafness, I am not sure if he will be able to ambulate but he may work with physical therapy as tolerated. No specific restrictions and no hip dislocation precautions. Intake & Output 11/01/20 11/01/20 11/01/20 06:59 14:59 22:59 Intake Total 240 Output Total 200 Balance 240 -200
--- NOTE | 2020-11-01 16:37 | PCM.POSTAN ---
POST ANESTHESIA ASSESSMENT - MENTAL STATUS Mental Status: Alert - VITAL SIGNS Vital Signs: Last Vital Signs Temp 37.5 C 11/01/20 15:33 Pulse 97 11/01/20 16:08 Resp 14 11/01/20 16:08 BP 141/62 H 11/01/20 16:08 Pulse Ox 94 L 11/01/20 16:08 - RESPIRATORY Respiratory Status: Respiratory Rate WNL - CARDIOVASCULAR CV Status: Pulse Rate WNL - GASTROINTESTINAL GI Status: No Symptoms - POST OP HYDRATION Hydration Status: Adequate & Stable
[2020-11-01] MEDS ORDERED: Insulin Aspart 100 Units/ML 3 ML Pen SUBCUT ONE (18:08)
[2020-11-01] MEDS: Aspirin 325 MG Tab PO SCH (18:28)
[2020-11-01] MEDS: TRAVOPROST EYELF SCH (21:53)
[2020-11-01] MEDS: ceFAZolin 2 GM in Premix Bag 1 BAG IV SCH (22:10)
[2020-11-01] MEDS ORDERED: Metoprolol Tartrate 50 MG Tab PO ONE (22:47)
--- NOTE | 2020-11-01 22:47 | PCM.SN.2 ---
- Free Text/Narrative Note: On telemetry patient having frequent episodes of wide complex tachycardia and sinus tachycardia. Patient given morphine for pain control. Blood pressure stable, looks nontoxic. We will recheck BMP. Will also give some beta-barber.
[2020-11-01] MEDS ORDERED: Metoprolol Tartrate 5 MG in Sodium Chloride 0.9% 50 ML IV ONE (22:56)
[2020-11-01 23:04] LABS: CARBON DIOXIDE,CO2 22.3 mmol/L (21.0-32.0); POTASSIUM,K 5.2 mmol/L (3.5-5.1)
[2020-11-01] MEDS ORDERED: Metoprolol Tartrate 5 MG/5 ML SDV IV ONE (23:30)
[2020-11-02] MEDS: Morphine 2 MG/ML SYRINGE IVPUSH PRN ×5 (01:24→19:44)
[2020-11-02] MEDS ORDERED: Metoprolol Tartrate 5 MG/5 ML SDV IVPUSH ONE (01:51)
[2020-11-02] MEDS ORDERED: Sodium Chloride 0.9% 1,000 ML IV ONE (02:26)
[2020-11-02] MEDS: ceFAZolin 2 GM in Premix Bag 1 BAG IV SCH (06:03)
[2020-11-02 06:36] LABS: CARBON DIOXIDE,CO2 22.7 mmol/L (21.0-32.0); POTASSIUM,K 5.4 mmol/L (3.5-5.1)
[2020-11-02] MEDS: Insulin Aspart 100 Units/ML 3 ML Pen SUBCUT SCH ×3 (08:23→17:01)
[2020-11-02] MEDS: Pantoprazole 40 MG Vial IV SCH (08:24)
[2020-11-02] MEDS: Tamsulosin 0.4 MG Cap.ER PO SCH (08:24)
[2020-11-02] MEDS: Aspirin 325 MG Tab PO SCH (08:24)
[2020-11-02] MEDS: Polyethylene Glycol 3350 Powder 17 GM Packet PO SCH (08:24)
[2020-11-02] MEDS: Lactated Ringers 1,000 ML IV SCH ×2 (08:31→17:00)
--- NOTE | 2020-11-02 10:15 | PCM48HPAN ---
Post Anesthesia Note - EVALUATION WITHIN 48HRS OF ANESTHETIC Vital Signs in Normal Range: Yes Patient Participated in Evaluation: Yes Respiratory Function Stable: Yes Airway Patent: Yes Cardiovascular Function Stable: Yes Hydration Status Stable: Yes Pain Control Satisfactory: Yes Nausea and Vomiting Control Satisfactory: Yes Mental Status Recovered: Yes Vital Signs: Last Vital Signs Temp 36.6 C 11/02/20 08:31 Pulse 95 11/02/20 08:31 Resp 17 11/02/20 08:31 BP 144/64 H 11/02/20 08:31 Pulse Ox 93 L 11/02/20 08:31
--- NOTE | 2020-11-02 11:48 | PCM.SN.2 ---
- Free Text/Narrative Note: Ortho Note POD#1 ORIF Right basicervical femoral neck fracture Patient more alert today but unable to communicate Dressing dry Plan: DC to SNF when medically stable PT as able/WBAT Continue acetaminophen and tramadol for pain management
--- NOTE | 2020-11-02 12:20 | CR ---
INDICATION: Hypoxia TECHNIQUE: Chest 1 view. COMPARISON: 10/30/2020 FINDINGS: There are new mild perihilar and bibasilar infiltrates/atelectasis. No pleural effusion is evident. Heart size and central vasculature appear stable. Calcified granulomatous changes are again suspected in both lungs. IMPRESSION: New mild bilateral perihilar and bibasilar atelectasis/infiltrates. Dictated by Mc Daley MD @ Nov 02 2020 12:14PM Signed by Dr. Mc Daley @ Nov 02 2020 12:18PM
--- NOTE | 2020-11-02 12:25 | PCM.PN ---
- General Info Date of Service: 11/02/20 - Review of Systems Systems Review Comment:: nonverbal - Patient Data Vitals - Most Recent: Last Vital Signs Temp 36.6 C 11/02/20 08:31 Pulse 95 11/02/20 08:31 Resp 17 11/02/20 08:31 BP 144/64 H 11/02/20 08:31 Pulse Ox 93 L 11/02/20 08:31 Weight - Most Recent: 58.967 kg I&O - Last 24 Hours: Intake & Output 11/01/20 11/02/20 11/02/20 22:59 06:59 14:59 Intake Total 1725 50 Output Total 2550 1160 Balance -825 -1110 Lab Results Last 24 Hours: Laboratory Results - last 24 hr 11/01/20 11/01/20 11/01/20 Range/Units 15:38 17:05 22:45 WBC (4.0-11.0) K/uL RBC (4.50-5.90) M/uL Hgb (13.0-17.0) g/dL Hct (38.0-50.0) % MCV (80.0-98.0) fL MCH (27.0-32.0) pg MCHC (31.0-37.0) g/dL RDW Std Deviation (28.0-62.0) fl RDW Coeff of Kash (11.0-15.0) % Plt Count (150-400) K/uL MPV (7.40-12.00) fL Neut % (Auto) (48.0-80.0) % Lymph % (Auto) (16.0-40.0) % [place] % (Auto) (0.0-15.0) % Eos % (Auto) (0.0-7.0) % Baso % (Auto) (0.0-1.5) % Neut # (Auto) (1.4-5.7) K/uL Lymph # (Auto) (0.6-2.4) K/uL [place] # (Auto) (0.0-0.8) K/uL Eos # (Auto) (0.0-0.7) K/uL Baso # (Auto) (0.0-0.1) K/uL Nucleated RBC % /100WBC Nucleated RBCs # K/uL Sodium 136 (136-148) mmol/L Potassium 5.2 H (3.5-5.1) mmol/L Chloride 104 (98-107) mmol/L Carbon Dioxide 22.3 (21.0-32.0) mmol/L BUN 28 H (7.0-18.0) mg/dL Creatinine 1.9 H (0.8-1.3) mg/dL Est Cr Clr Drug Dosing 23.71 mL/min Estimated GFR (MDRD) 33.9 ml/min Glucose 215 H (74-106) mg/dL POC Glucose 197 H 219 H (60-110) mg/dL Calcium 8.1 L (8.5-10.1) mg/dL Magnesium 2.0 (1.8-2.4) mg/dL Troponin I (0.000-0.056) ng/mL 11/01/20 11/01/20 11/02/20 Range/Units 22:45 23:08 05:49 WBC 7.63 (4.0-11.0) K/uL RBC 3.43 L (4.50-5.90) M/uL Hgb 10.6 L (13.0-17.0) g/dL Hct 32.3 L (38.0-50.0) % MCV 94.2 (80.0-98.0) fL MCH 30.9 (27.0-32.0) pg MCHC 32.8 (31.0-37.0) g/dL RDW Std Deviation 49.7 (28.0-62.0) fl RDW Coeff of Kash 15 (11.0-15.0) % Plt Count 123 L (150-400) K/uL MPV 9.70 (7.40-12.00) fL Neut % (Auto) 80.0 (48.0-80.0) % Lymph % (Auto) 7.7 L (16.0-40.0) % [place] % (Auto) 12.2 (0.0-15.0) % Eos % (Auto) 0.0 (0.0-7.0) % Baso % (Auto) 0.1 (0.0-1.5) % Neut # (Auto) 6.1 H (1.4-5.7) K/uL Lymph # (Auto) 0.6 (0.6-2.4) K/uL [place] # (Auto) 0.9 H (0.0-0.8) K/uL Eos # (Auto) 0.0 (0.0-0.7) K/uL Baso # (Auto) 0.0 (0.0-0.1) K/uL Nucleated RBC % 0.0 /100WBC Nucleated RBCs # 0 K/uL Sodium (136-148) mmol/L Potassium (3.5-5.1) mmol/L Chloride (98-107) mmol/L Carbon Dioxide (21.0-32.0) mmol/L BUN (7.0-18.0) mg/dL Creatinine (0.8-1.3) mg/dL Est Cr Clr Drug Dosing mL/min Estimated GFR (MDRD) ml/min Glucose (74-106) mg/dL POC Glucose 216 H (60-110) mg/dL Calcium (8.5-10.1) mg/dL Magnesium (1.8-2.4) mg/dL Troponin I 0.065 H* (0.000-0.056) ng/mL 11/02/20 11/02/20 11/02/20 Range/Units 05:49 07:55 11:23 WBC (4.0-11.0) K/uL RBC (4.50-5.90) M/uL Hgb (13.0-17.0) g/dL Hct (38.0-50.0) % MCV (80.0-98.0) fL MCH (27.0-32.0) pg MCHC (31.0-37.0) g/dL RDW Std Deviation (28.0-62.0) fl RDW Coeff of Kash (11.0-15.0) % Plt Count (150-400) K/uL MPV (7.40-12.00) fL Neut % (Auto) (48.0-80.0) % Lymph % (Auto) (16.0-40.0) % [place] % (Auto) (0.0-15.0) % Eos % (Auto) (0.0-7.0) % Baso % (Auto) (0.0-1.5) % Neut # (Auto) (1.4-5.7) K/uL Lymph # (Auto) (0.6-2.4) K/uL [place] # (Auto) (0.0-0.8) K/uL Eos # (Auto) (0.0-0.7) K/uL Baso # (Auto) (0.0-0.1) K/uL Nucleated RBC % /100WBC Nucleated RBCs # K/uL Sodium 138 (136-148) mmol/L Potassium 5.4 H (3.5-5.1) mmol/L Chloride 106 (98-107) mmol/L Carbon Dioxide 22.7 (21.0-32.0) mmol/L BUN 28 H (7.0-18.0) mg/dL Creatinine 1.6 H (0.8-1.3) mg/dL Est Cr Clr Drug Dosing 28.15 mL/min Estimated GFR (MDRD) 41.3 ml/min Glucose 231 H (74-106) mg/dL POC Glucose 244 H 268 H (60-110) mg/dL Calcium 8.1 L (8.5-10.1) mg/dL Magnesium 2.0 (1.8-2.4) mg/dL Troponin I 0.057 H (0.000-0.056) ng/mL Med Orders - Current: Current Medications Acetaminophen (Tylenol) 650 mg PO Q6H PRN PRN Reason: Pain Albuterol/Ipratropium (Duoneb 3.0-0.5 Mg/3 Ml) 3 ml NEB Q4HRRT PRN PRN Reason: Shortness Of Breath/wheezing Amiodarone HCl (Cordarone) 200 mg PO BID [facility] Aspirin (Aspirin) 325 mg PO DAILY [facility] Last Admin: 11/02/20 08:24 Dose: 325 mg Documented by: Bisacodyl (Dulcolax) 10 mg RECTAL DAILY PRN PRN Reason: Constipation Carbamide Perox/Anhydrous Glycerin (Debrox 6.5% Otic Soln) 15 ml .XX ASDIRECTED [facility] Dextrose/Water (Dextrose 50% In Water) 50 ml IV ASDIRECTED PRN PRN Reason: Hypoglycemia Docusate Sodium (Colace) 100 mg PO Q12HR PRN PRN Reason: Constipation Glucagon (Glucagen) 1 mg IM ASDIRECTED PRN PRN Reason: Hypoglycemia Lactated Ringer's (Ringers, Lactated) 1,000 mls @ 125 mls/hr IV ASDIRECTED [facility] Last Admin: 11/02/20 08:31 Dose: 125 mls/hr Documented by: Amiodarone HCl/Dextrose (Nexterone In Dextrose 360 Mg/200 Ml) 360 mg in 200 mls @ 33.333 mls/hr IV ASDIRECTED [facility]; Protocol Last Admin: 11/02/20 02:37 Dose: 1 mg/min, 33.333 mls/hr Documented by: Insulin Aspart (Novolog) 0 unit SUBCUT TIDAC [facility]; Protocol Last Admin: 11/02/20 12:10 Dose: 6 units Documented by: Morphine Sulfate (Morphine) 1 - 2 mg IVPUSH Q3H PRN PRN Reason: Pain Last Admin: 11/02/20 09:29 Dose: 2 mg Documented by: Ondansetron HCl (Zofran) 4 mg IVPUSH Q4H PRN PRN Reason: Nausea/Vomiting Pantoprazole Sodium (Protonix Iv) 40 mg IV DAILY [facility] Last Admin: 11/02/20 08:24 Dose: 40 mg Documented by: Travoprost [Travatan (Z]) 1 each EYELF BEDTIME [facility] Last Admin: 11/01/20 21:53 Dose: Not Given Documented by: Polyethylene Glycol (Miralax) 17 gm PO DAILY [facility] Last Admin: 11/02/20 08:24 Dose: 17 gm Documented by: Sodium Chloride (Saline Flush) 10 ml FLUSH ASDIRECTED PRN PRN Reason: Keep Vein Open Last Admin: 10/30/20 20:26 Dose: 10 ml Documented by: Sodium Chloride (Saline Flush) 2.5 ml FLUSH ASDIRECTED PRN PRN Reason: Keep Vein Open Last Admin: 10/30/20 23:48 Dose: 2.5 ml Documented by: Tamsulosin HCl (Flomax) 0.4 mg PO DAILY [facility] Last Admin: 11/02/20 08:24 Dose: 0.4 mg Documented by: Tramadol HCl (Ultram) 50 - 100 mg PO Q6H PRN PRN Reason: Pain Discontinued Medications Acetaminophen (Children's Acetaminophen) 640 mg PO NOW ONE Stop: 10/30/20 21:23 Last Admin: 10/30/20 22:01 Dose: Not Given Documented by: Acetaminophen (Tylenol) Confirm Administered Dose 650 mg .ROUTE .STK-MED ONE Stop: 10/30/20 21:57 Last Admin: 10/30/20 22:02 Dose: Not Given Documented by: Acetaminophen (Tylenol) 650 mg RECTAL NOW ONE Stop: 10/30/20 22:01 Last Admin: 10/30/20 22:02 Dose: 650 mg Documented by: Bupivacaine HCl (Marcaine 0.5%) Confirm Administered Dose 30 ml .ROUTE .STK-MED ONE Stop: 11/01/20 12:55 Cefazolin Sodium (Ancef) Confirm Administered Dose 2 gm .ROUTE .STK-MED ONE Stop: 11/01/20 13:59 Etomidate (Amidate) Confirm Administered Dose 40 mg IVPUSH .STK-MED ONE Stop: 11/01/20 13:38 Fentanyl (Sublimaze) Confirm Administered Dose 250 mcg .ROUTE .STK-MED ONE Stop: 11/01/20 13:39 Glycopyrrolate (Robinul) Confirm Administered Dose 0.8 mg .ROUTE .STK-MED ONE Stop: 11/01/20 13:38 Sodium Chloride (Normal Saline) 1,000 mls @ 999 mls/hr IV .Bolus ONE Stop: 10/30/20 20:51 Last Admin: 10/30/20 20:26 Dose: 999 mls/hr Documented by: Lactated Ringer's (Ringers, Lactated) 1,000 mls @ 999 mls/hr IV .BOLUS ONE Stop: 10/31/20 17:31 Last Admin: 10/31/20 17:11 Dose: 999 mls/hr Documented by: Sodium Chloride (Normal Saline) Confirm Administered Dose 20 mls @ as directed .ROUTE .STK-MED ONE Stop: 11/01/20 13:59 Cefazolin Sodium/Dextrose 2 gm (/ Premix) 50 mls @ 100 mls/hr IV Q8H TALI Stop: 11/02/20 06:29 Last Admin: 11/02/20 06:03 Dose: 100 mls/hr Documented by: Metoprolol Tartrate 5 mg/ (Sodium Chloride) 55 mls @ 100 mls/hr IV ONETIME ONE Stop: 11/01/20 23:28 Last Admin: 11/01/20 23:25 Dose: Not Given Documented by: Amiodarone HCl/Dextrose (Nexterone In Dextrose 150 Mg/100 Ml) 100 mls @ 600 mls/hr IV ONETIME ONE; Protocol Stop: 11/02/20 02:11 Last Admin: 11/02/20 02:18 Dose: 600 mls/hr Documented by: Amiodarone HCl/Dextrose (Nexterone In Dextrose 150 Mg/100 Ml) Confirm Administered Dose 100 mls @ as directed IV .STK-MED ONE Stop: 11/02/20 02:03 Last Admin: 11/02/20 02:18 Dose: Not Given Documented by: Sodium Chloride (Normal Saline) 1,000 mls @ 999 mls/hr IV .BOLUS ONE Stop: 11/02/20 03:26 Last Admin: 11/02/20 02:34 Dose: 999 mls/hr Documented by: Insulin Aspart (Novolog) 2 unit SUBCUT ONETIME ONE Stop: 11/01/20 18:09 Insulin Aspart (Novolog) 2 unit SUBCUT ONETIME ONE Stop: 10/31/20 18:09 Last Admin: 10/31/20 18:08 Dose: 2 units Documented by: Insulin Aspart (Novolog) 10 unit SUBCUT ONETIME ONE Stop: 10/31/20 19:17 Last Admin: 10/31/20 19:20 Dose: 10 units Documented by: Lidocaine (Xylocaine-Mpf 2%) Confirm Administered Dose 5 ml .ROUTE .STK-MED ONE Stop: 11/01/20 13:38 Lisinopril (Prinivil) 2.5 mg PO DAILY [facility] Last Admin: 10/31/20 09:52 Dose: 2.5 mg Documented by: Metoprolol Tartrate (Lopressor) 12.5 mg PO Q12H [facility] Last Admin: 11/01/20 05:39 Dose: Not Given Documented by: Metoprolol Tartrate (Lopressor) 50 mg PO ONETIME ONE Stop: 11/01/20 22:48 Last Admin: 11/01/20 23:26 Dose: Not Given Documented by: Metoprolol Tartrate (Lopressor) 5 mg IV ONETIME ONE Stop: 11/01/20 23:31 Last Admin: 11/01/20 23:21 Dose: 5 mg Documented by: Metoprolol Tartrate (Lopressor) 5 mg IVPUSH ONETIME ONE Stop: 11/02/20 01:52 Last Admin: 11/02/20 01:59 Dose: 5 mg Documented by: Morphine Sulfate (Morphine) 4 mg IVPUSH ONETIME ONE Stop: 10/30/20 21:26 Last Admin: 10/30/20 21:58 Dose: 4 mg Documented by: Morphine Sulfate (Morphine) 2 mg IVPUSH Q2H PRN PRN Reason: Pain (severe 7-10) Stop: 10/31/20 22:51 Last Admin: 10/31/20 07:53 Dose: 2 mg Documented by: Morphine Sulfate (Morphine) 2 mg IVPUSH Q2H PRN PRN Reason: Pain (severe 7-10) Last Admin: 11/01/20 16:05 Dose: 2 mg Documented by: Ondansetron HCl (Zofran) Confirm Administered Dose 4 mg .ROUTE .STK-MED ONE Stop: 11/01/20 13:38 Phenylephrine HCl (John-Synephrine) Confirm Administered Dose 10 mg .ROUTE .STK- MED ONE Stop: 11/01/20 13:45 Rocuronium Tridell (Rocuronium Tridell) Confirm Administered Dose 50 mg .ROUTE .STK-MED ONE Stop: 11/01/20 13:38 - Exam General: No Acute Distress Neck: Supple Lungs: Clear to Auscultation, Normal Respiratory Effort Cardiovascular: Regular Rate, Regular Rhythm GI/Abdominal Exam: Soft, No Distention Extremities: No Pedal Edema Skin: Warm, Dry Neurological: No New Focal Deficit - Patient Data Lab Results Last 24 hrs: Laboratory Results - last 24 hr 11/01/20 11/01/20 11/01/20 Range/Units 15:38 17:05 22:45 WBC (4.0-11.0) K/uL RBC (4.50-5.90) M/uL Hgb (13.0-17.0) g/dL Hct (38.0-50.0) % MCV (80.0-98.0) fL MCH (27.0-32.0) pg MCHC (31.0-37.0) g/dL RDW Std Deviation (28.0-62.0) fl RDW Coeff of Kash (11.0-15.0) % Plt Count (150-400) K/uL MPV (7.40-12.00) fL Neut % (Auto) (48.0-80.0) % Lymph % (Auto) (16.0-40.0) % [place] % (Auto) (0.0-15.0) % Eos % (Auto) (0.0-7.0) % Baso % (Auto) (0.0-1.5) % Neut # (Auto) (1.4-5.7) K/uL Lymph # (Auto) (0.6-2.4) K/uL [place] # (Auto) (0.0-0.8) K/uL Eos # (Auto) (0.0-0.7) K/uL Baso # (Auto) (0.0-0.1) K/uL Nucleated RBC % /100WBC Nucleated RBCs # K/uL Sodium 136 (136-148) mmol/L Potassium 5.2 H (3.5-5.1) mmol/L Chloride 104 (98-107) mmol/L Carbon Dioxide 22.3 (21.0-32.0) mmol/L BUN 28 H (7.0-18.0) mg/dL Creatinine 1.9 H (0.8-1.3) mg/dL Est Cr Clr Drug Dosing 23.71 mL/min Estimated GFR (MDRD) 33.9 ml/min Glucose 215 H (74-106) mg/dL POC Glucose 197 H 219 H (60-110) mg/dL Calcium 8.1 L (8.5-10.1) mg/dL Magnesium 2.0 (1.8-2.4) mg/dL Troponin I (0.000-0.056) ng/mL 11/01/20 11/01/20 11/02/20 Range/Units 22:45 23:08 05:49 WBC 7.63 (4.0-11.0) K/uL RBC 3.43 L (4.50-5.90) M/uL Hgb 10.6 L (13.0-17.0) g/dL Hct 32.3 L (38.0-50.0) % MCV 94.2 (80.0-98.0) fL MCH 30.9 (27.0-32.0) pg MCHC 32.8 (31.0-37.0) g/dL RDW Std Deviation 49.7 (28.0-62.0) fl RDW Coeff of Kash 15 (11.0-15.0) % Plt Count 123 L (150-400) K/uL MPV 9.70 (7.40-12.00) fL Neut % (Auto) 80.0 (48.0-80.0) % Lymph % (Auto) 7.7 L (16.0-40.0) % [place] % (Auto) 12.2 (0.0-15.0) % Eos % (Auto) 0.0 (0.0-7.0) % Baso % (Auto) 0.1 (0.0-1.5) % Neut # (Auto) 6.1 H (1.4-5.7) K/uL Lymph # (Auto) 0.6 (0.6-2.4) K/uL [place] # (Auto) 0.9 H (0.0-0.8) K/uL Eos # (Auto) 0.0 (0.0-0.7) K/uL Baso # (Auto) 0.0 (0.0-0.1) K/uL Nucleated RBC % 0.0 /100WBC Nucleated RBCs # 0 K/uL Sodium (136-148) mmol/L Potassium (3.5-5.1) mmol/L Chloride (98-107) mmol/L Carbon Dioxide (21.0-32.0) mmol/L BUN (7.0-18.0) mg/dL Creatinine (0.8-1.3) mg/dL Est Cr Clr Drug Dosing mL/min Estimated GFR (MDRD) ml/min Glucose (74-106) mg/dL POC Glucose 216 H (60-110) mg/dL Calcium (8.5-10.1) mg/dL Magnesium (1.8-2.4) mg/dL Troponin I 0.065 H* (0.000-0.056) ng/mL 11/02/20 11/02/20 11/02/20 Range/Units 05:49 07:55 11:23 WBC (4.0-11.0) K/uL RBC (4.50-5.90) M/uL Hgb (13.0-17.0) g/dL Hct (38.0-50.0) % MCV (80.0-98.0) fL MCH (27.0-32.0) pg MCHC (31.0-37.0) g/dL RDW Std Deviation (28.0-62.0) fl RDW Coeff of Kash (11.0-15.0) % Plt Count (150-400) K/uL MPV (7.40-12.00) fL Neut % (Auto) (48.0-80.0) % Lymph % (Auto) (16.0-40.0) % [place] % (Auto) (0.0-15.0) % Eos % (Auto) (0.0-7.0) % Baso % (Auto) (0.0-1.5) % Neut # (Auto) (1.4-5.7) K/uL Lymph # (Auto) (0.6-2.4) K/uL [place] # (Auto) (0.0-0.8) K/uL Eos # (Auto) (0.0-0.7) K/uL Baso # (Auto) (0.0-0.1) K/uL Nucleated RBC % /100WBC Nucleated RBCs # K/uL Sodium 138 (136-148) mmol/L Potassium 5.4 H (3.5-5.1) mmol/L Chloride 106 (98-107) mmol/L Carbon Dioxide 22.7 (21.0-32.0) mmol/L BUN 28 H (7.0-18.0) mg/dL Creatinine 1.6 H (0.8-1.3) mg/dL Est Cr Clr Drug Dosing 28.15 mL/min Estimated GFR (MDRD) 41.3 ml/min Glucose 231 H (74-106) mg/dL POC Glucose 244 H 268 H (60-110) mg/dL Calcium 8.1 L (8.5-10.1) mg/dL Magnesium 2.0 (1.8-2.4) mg/dL Troponin I 0.057 H (0.000-0.056) ng/mL Result Diagrams: 11/02/20 05:49 11/02/20 05:49 Sepsis Event Note - Evaluation Sepsis Screening Result: No Definite Risk - Focused Exam Vital Signs: Vital Signs Temp Pulse Pulse Resp BP BP Pulse Ox 11/02/20 08:31 36.6 C 95 17 144/64 H 93 L 11/02/20 07:12 36.6 C 90 16 129/58 L 95 11/02/20 06:15 95 17 122/58 L 96 11/02/20 05:15 36.6 C 93 17 120/65 95 11/02/20 04:10 112/58 L 11/02/20 02:53 98/50 L 11/02/20 02:20 80/50 L 11/02/20 01:59 150 H 108/62 11/02/20 01:50 150 H 17 108/62 94 L 11/02/20 01:13 36.7 C 112 H 18 107/55 L 99 - Problem List Review Problem List Initiated/Reviewed/Updated: Yes - My Orders Last 24 Hours: My Active Orders 11/01/20 22:33 EKG Documentation Completion [RC] ROUTINE 11/02/20 02:15 Amiodarone In Dextrose,Iso-Osm [Nexterone in Dextrose 360 MG/200 ML] 360 mg in 200 ml IV ASDIRECTED 11/02/20 12:30 Amiodarone [Cordarone] 200 mg PO BID Heparin Sodium 5,000 units SUBCUT Q12H - Plan Plan:: 85 y/o M admitted for right femoral neck fracture 1. Right femoral neck fracture POD 1 from ORIF 2. BA from obstructive uropathy: - creatinine improved to 1.6 today - needed irrigation last night due to blood clots, lizarraga was pulled on during transfer to operating table. - Hold Lisinopril - continue hydration 3. DM type II -Hold oral medications -NovoLog sliding scale with meals and every 6 hours when n.p.o. 4. wide complex tachycardia patient had multiple episodes of tachycardia with HR in 120s-180s last night initially responded IV lopressor but became hypotensive with repeat dose. Noted to have mild troponin leak. Bolused a liter of NS. Started to load with amiodarone and has now converted to normal sinus rhythm. Will start oral amiodarone. Ensure proper pain control. VTE prophylaxis: sc heparin GI prophylaxis: Protonix CODE STATUS: DNR/DNI
[2020-11-02] MEDS: Amiodarone 200 MG Tab PO SCH ×2 (13:05→21:24)
[2020-11-02] MEDS: Heparin Sodium 5,000 Units/ML Vial SUBCUT SCH (13:05)
[2020-11-02] MEDS: TRAVOPROST EYELF SCH (21:22)
[2020-11-02] MEDS: traMADol 50 MG Tab PO PRN (23:12)
[2020-11-03] MEDS: Heparin Sodium 5,000 Units/ML Vial SUBCUT SCH (00:32)
[2020-11-03] MEDS: Lactated Ringers 1,000 ML IV SCH ×3 (01:04→18:29)
[2020-11-03] MEDS: traMADol 50 MG Tab PO PRN ×2 (05:57→20:27)
[2020-11-03 06:31] LABS: CARBON DIOXIDE,CO2 25.7 mmol/L (21.0-32.0); POTASSIUM,K 4.7 mmol/L (3.5-5.1)
[2020-11-03] MEDS: Insulin Aspart 100 Units/ML 3 ML Pen SUBCUT SCH ×3 (08:24→17:38)
[2020-11-03] MEDS: Pantoprazole 40 MG Vial IV SCH (08:24)
[2020-11-03] MEDS: Tamsulosin 0.4 MG Cap.ER PO SCH (08:24)
[2020-11-03] MEDS: Amiodarone 200 MG Tab PO SCH ×2 (08:24→20:27)
[2020-11-03] MEDS: Aspirin 325 MG Tab PO SCH (08:24)
[2020-11-03] MEDS: Polyethylene Glycol 3350 Powder 17 GM Packet PO SCH (08:28)
[2020-11-03] MEDS: Morphine 2 MG/ML SYRINGE IVPUSH PRN ×2 (10:14→16:15)
--- NOTE | 2020-11-03 10:40 | PCM.SN.2 ---
- Free Text/Narrative Note: Ortho Note Childs catheter changed due to clot, new catheter inserted, bloody urine draining Continue catheter until urine clear to avoid swelling/urinary obstruction (especially when on opioids) Dressing clean Attempted standing with PT but unable to weight bear Weight bear as tolerated Orthopedically stable Discharge to halfway facility when medically stable No follow-up to be scheduled, discussed with sister/POA and she will call and schedule appointment if she has any concerns. Absorbable sutures so no need for suture removal Will sign off, please call with questions
--- NOTE | 2020-11-03 11:16 | PCM.PN ---
- General Info Date of Service: 11/03/20 - Review of Systems Systems Review Comment:: nonverbal - Patient Data Vitals - Most Recent: Last Vital Signs Temp 36.8 C 11/03/20 07:15 Pulse 99 11/03/20 07:15 Resp 18 11/03/20 07:15 BP 156/65 H 11/03/20 07:15 Pulse Ox 94 L 11/03/20 07:15 Weight - Most Recent: 58.967 kg I&O - Last 24 Hours: Intake & Output 11/02/20 11/03/20 11/03/20 22:59 06:59 14:59 Intake Total 1801 1274 Output Total 1000 1300 Balance 801 -26 Lab Results Last 24 Hours: Laboratory Results - last 24 hr 11/02/20 11/02/20 11/02/20 Range/Units 07:55 11:23 12:55 WBC (4.0-11.0) K/uL RBC (4.50-5.90) M/uL Hgb (13.0-17.0) g/dL Hct (38.0-50.0) % MCV (80.0-98.0) fL MCH (27.0-32.0) pg MCHC (31.0-37.0) g/dL RDW Std Deviation (28.0-62.0) fl RDW Coeff of Kash (11.0-15.0) % Plt Count (150-400) K/uL MPV (7.40-12.00) fL Neut % (Auto) (48.0-80.0) % Lymph % (Auto) (16.0-40.0) % [place] % (Auto) (0.0-15.0) % Eos % (Auto) (0.0-7.0) % Baso % (Auto) (0.0-1.5) % Neut # (Auto) (1.4-5.7) K/uL Lymph # (Auto) (0.6-2.4) K/uL [place] # (Auto) (0.0-0.8) K/uL Eos # (Auto) (0.0-0.7) K/uL Baso # (Auto) (0.0-0.1) K/uL Nucleated RBC % /100WBC Nucleated RBCs # K/uL Sodium (136-148) mmol/L Potassium (3.5-5.1) mmol/L Chloride (98-107) mmol/L Carbon Dioxide (21.0-32.0) mmol/L BUN (7.0-18.0) mg/dL Creatinine (0.8-1.3) mg/dL Est Cr Clr Drug Dosing mL/min Estimated GFR (MDRD) ml/min Glucose (74-106) mg/dL POC Glucose 244 H 268 H (60-110) mg/dL Calcium (8.5-10.1) mg/dL Magnesium (1.8-2.4) mg/dL Troponin I < 0.050 (0.000-0.056) ng/mL 11/02/20 11/03/20 11/03/20 Range/Units 16:52 05:52 05:52 WBC 4.32 (4.0-11.0) K/uL RBC 3.05 L (4.50-5.90) M/uL Hgb 9.3 L (13.0-17.0) g/dL Hct 28.5 L (38.0-50.0) % MCV 93.4 (80.0-98.0) fL MCH 30.5 (27.0-32.0) pg MCHC 32.6 (31.0-37.0) g/dL RDW Std Deviation 48.9 (28.0-62.0) fl RDW Coeff of Kash 14 (11.0-15.0) % Plt Count 129 L (150-400) K/uL MPV 9.80 (7.40-12.00) fL Neut % (Auto) 71.2 (48.0-80.0) % Lymph % (Auto) 13.7 L (16.0-40.0) % [place] % (Auto) 14.4 (0.0-15.0) % Eos % (Auto) 0.5 (0.0-7.0) % Baso % (Auto) 0.2 (0.0-1.5) % Neut # (Auto) 3.1 (1.4-5.7) K/uL Lymph # (Auto) 0.6 (0.6-2.4) K/uL [place] # (Auto) 0.6 (0.0-0.8) K/uL Eos # (Auto) 0.0 (0.0-0.7) K/uL Baso # (Auto) 0.0 (0.0-0.1) K/uL Nucleated RBC % 0.0 /100WBC Nucleated RBCs # 0 K/uL Sodium 140 (136-148) mmol/L Potassium 4.7 (3.5-5.1) mmol/L Chloride 106 (98-107) mmol/L Carbon Dioxide 25.7 (21.0-32.0) mmol/L BUN 24 H (7.0-18.0) mg/dL Creatinine 1.2 (0.8-1.3) mg/dL Est Cr Clr Drug Dosing 37.54 mL/min Estimated GFR (MDRD) 57.5 ml/min Glucose 189 H (74-106) mg/dL POC Glucose 182 H (60-110) mg/dL Calcium 7.8 L (8.5-10.1) mg/dL Magnesium 1.8 (1.8-2.4) mg/dL Troponin I (0.000-0.056) ng/mL 11/03/20 Range/Units 07:05 WBC (4.0-11.0) K/uL RBC (4.50-5.90) M/uL Hgb (13.0-17.0) g/dL Hct (38.0-50.0) % MCV (80.0-98.0) fL MCH (27.0-32.0) pg MCHC (31.0-37.0) g/dL RDW Std Deviation (28.0-62.0) fl RDW Coeff of Kash (11.0-15.0) % Plt Count (150-400) K/uL MPV (7.40-12.00) fL Neut % (Auto) (48.0-80.0) % Lymph % (Auto) (16.0-40.0) % [place] % (Auto) (0.0-15.0) % Eos % (Auto) (0.0-7.0) % Baso % (Auto) (0.0-1.5) % Neut # (Auto) (1.4-5.7) K/uL Lymph # (Auto) (0.6-2.4) K/uL [place] # (Auto) (0.0-0.8) K/uL Eos # (Auto) (0.0-0.7) K/uL Baso # (Auto) (0.0-0.1) K/uL Nucleated RBC % /100WBC Nucleated RBCs # K/uL Sodium (136-148) mmol/L Potassium (3.5-5.1) mmol/L Chloride (98-107) mmol/L Carbon Dioxide (21.0-32.0) mmol/L BUN (7.0-18.0) mg/dL Creatinine (0.8-1.3) mg/dL Est Cr Clr Drug Dosing mL/min Estimated GFR (MDRD) ml/min Glucose (74-106) mg/dL POC Glucose 178 H (60-110) mg/dL Calcium (8.5-10.1) mg/dL Magnesium (1.8-2.4) mg/dL Troponin I (0.000-0.056) ng/mL Med Orders - Current: Current Medications Acetaminophen (Tylenol) 650 mg PO Q6H PRN PRN Reason: Pain Albuterol/Ipratropium (Duoneb 3.0-0.5 Mg/3 Ml) 3 ml NEB Q4HRRT PRN PRN Reason: Shortness Of Breath/wheezing Amiodarone HCl (Cordarone) 200 mg PO BID [facility] Last Admin: 11/03/20 08:24 Dose: 200 mg Documented by: Aspirin (Aspirin) 325 mg PO DAILY [facility] Last Admin: 11/03/20 08:24 Dose: 325 mg Documented by: Bacitracin (Bacitracin Oint) 1 gm TOP BID [facility] Bisacodyl (Dulcolax) 10 mg RECTAL DAILY PRN PRN Reason: Constipation Carbamide Perox/Anhydrous Glycerin (Debrox 6.5% Otic Soln) 15 ml .XX ASDIRECTED [facility] Dextrose/Water (Dextrose 50% In Water) 50 ml IV ASDIRECTED PRN PRN Reason: Hypoglycemia Docusate Sodium (Colace) 100 mg PO Q12HR PRN PRN Reason: Constipation Last Admin: 11/03/20 10:51 Dose: 100 mg Documented by: Glucagon (Glucagen) 1 mg IM ASDIRECTED PRN PRN Reason: Hypoglycemia Lactated Ringer's (Ringers, Lactated) 1,000 mls @ 125 mls/hr IV ASDIRECTED [facility] Last Admin: 11/03/20 10:50 Dose: 125 mls/hr Documented by: Amiodarone HCl/Dextrose (Nexterone In Dextrose 360 Mg/200 Ml) 360 mg in 200 mls @ 33.333 mls/hr IV ASDIRECTED [facility]; Protocol Last Admin: 11/02/20 02:37 Dose: 1 mg/min, 33.333 mls/hr Documented by: Insulin Aspart (Novolog) 0 unit SUBCUT TIDAC [facility]; Protocol Last Admin: 11/03/20 08:24 Dose: 2 units Documented by: Morphine Sulfate (Morphine) 1 - 2 mg IVPUSH Q3H PRN PRN Reason: Pain Last Admin: 11/03/20 10:14 Dose: 2 mg Documented by: Ondansetron HCl (Zofran) 4 mg IVPUSH Q4H PRN PRN Reason: Nausea/Vomiting Pantoprazole Sodium (Protonix Iv) 40 mg IV DAILY [facility] Last Admin: 11/03/20 08:24 Dose: 40 mg Documented by: Travoprost [Travatan (Z]) 1 each EYELF BEDTIME [facility] Last Admin: 11/02/20 21:22 Dose: Not Given Documented by: Polyethylene Glycol (Miralax) 17 gm PO DAILY [facility] Last Admin: 11/03/20 08:28 Dose: 17 gm Documented by: Sodium Chloride (Saline Flush) 10 ml FLUSH ASDIRECTED PRN PRN Reason: Keep Vein Open Last Admin: 10/30/20 20:26 Dose: 10 ml Documented by: Sodium Chloride (Saline Flush) 2.5 ml FLUSH ASDIRECTED PRN PRN Reason: Keep Vein Open Last Admin: 10/30/20 23:48 Dose: 2.5 ml Documented by: Tamsulosin HCl (Flomax) 0.4 mg PO DAILY [facility] Last Admin: 11/03/20 08:24 Dose: 0.4 mg Documented by: Tramadol HCl (Ultram) 50 - 100 mg PO Q6H PRN PRN Reason: Pain Last Admin: 11/03/20 05:57 Dose: 50 mg Documented by: Discontinued Medications Acetaminophen (Children's Acetaminophen) 640 mg PO NOW ONE Stop: 10/30/20 21:23 Last Admin: 10/30/20 22:01 Dose: Not Given Documented by: Acetaminophen (Tylenol) Confirm Administered Dose 650 mg .ROUTE .STK-MED ONE Stop: 10/30/20 21:57 Last Admin: 10/30/20 22:02 Dose: Not Given Documented by: Acetaminophen (Tylenol) 650 mg RECTAL NOW ONE Stop: 10/30/20 22:01 Last Admin: 10/30/20 22:02 Dose: 650 mg Documented by: Bupivacaine HCl (Marcaine 0.5%) Confirm Administered Dose 30 ml .ROUTE .STK-MED ONE Stop: 11/01/20 12:55 Cefazolin Sodium (Ancef) Confirm Administered Dose 2 gm .ROUTE .STK-MED ONE Stop: 11/01/20 13:59 Etomidate (Amidate) Confirm Administered Dose 40 mg IVPUSH .STK-MED ONE Stop: 11/01/20 13:38 Fentanyl (Sublimaze) Confirm Administered Dose 250 mcg .ROUTE .STK-MED ONE Stop: 11/01/20 13:39 Glycopyrrolate (Robinul) Confirm Administered Dose 0.8 mg .ROUTE .STK-MED ONE Stop: 11/01/20 13:38 Heparin Sodium (Porcine) (Heparin Sodium) 5,000 units SUBCUT Q12H [facility] Last Admin: 11/03/20 00:32 Dose: 5,000 units Documented by: Sodium Chloride (Normal Saline) 1,000 mls @ 999 mls/hr IV .Bolus ONE Stop: 10/30/20 20:51 Last Admin: 10/30/20 20:26 Dose: 999 mls/hr Documented by: Lactated Ringer's (Ringers, Lactated) 1,000 mls @ 999 mls/hr IV .BOLUS ONE Stop: 10/31/20 17:31 Last Admin: 10/31/20 17:11 Dose: 999 mls/hr Documented by: Sodium Chloride (Normal Saline) Confirm Administered Dose 20 mls @ as directed .ROUTE .STK-MED ONE Stop: 11/01/20 13:59 Cefazolin Sodium/Dextrose 2 gm (/ Premix) 50 mls @ 100 mls/hr IV Q8H [facility] Stop: 11/02/20 06:29 Last Admin: 11/02/20 06:03 Dose: 100 mls/hr Documented by: Metoprolol Tartrate 5 mg/ (Sodium Chloride) 55 mls @ 100 mls/hr IV ONETIME ONE Stop: 11/01/20 23:28 Last Admin: 11/01/20 23:25 Dose: Not Given Documented by: Amiodarone HCl/Dextrose (Nexterone In Dextrose 150 Mg/100 Ml) 100 mls @ 600 mls/hr IV ONETIME ONE; Protocol Stop: 11/02/20 02:11 Last Admin: 11/02/20 02:18 Dose: 600 mls/hr Documented by: Amiodarone HCl/Dextrose (Nexterone In Dextrose 150 Mg/100 Ml) Confirm Administered Dose 100 mls @ as directed IV .STK-MED ONE Stop: 11/02/20 02:03 Last Admin: 11/02/20 02:18 Dose: Not Given Documented by: Sodium Chloride (Normal Saline) 1,000 mls @ 999 mls/hr IV .BOLUS ONE Stop: 11/02/20 03:26 Last Admin: 11/02/20 02:34 Dose: 999 mls/hr Documented by: Insulin Aspart (Novolog) 2 unit SUBCUT ONETIME ONE Stop: 11/01/20 18:09 Insulin Aspart (Novolog) 2 unit SUBCUT ONETIME ONE Stop: 10/31/20 18:09 Last Admin: 10/31/20 18:08 Dose: 2 units Documented by: Insulin Aspart (Novolog) 10 unit SUBCUT ONETIME ONE Stop: 10/31/20 19:17 Last Admin: 10/31/20 19:20 Dose: 10 units Documented by: Lidocaine (Xylocaine-Mpf 2%) Confirm Administered Dose 5 ml .ROUTE .STK-MED ONE Stop: 11/01/20 13:38 Lisinopril (Prinivil) 2.5 mg PO DAILY [facility] Last Admin: 10/31/20 09:52 Dose: 2.5 mg Documented by: Metoprolol Tartrate (Lopressor) 12.5 mg PO Q12H [facility] Last Admin: 11/01/20 05:39 Dose: Not Given Documented by: Metoprolol Tartrate (Lopressor) 50 mg PO ONETIME ONE Stop: 11/01/20 22:48 Last Admin: 11/01/20 23:26 Dose: Not Given Documented by: Metoprolol Tartrate (Lopressor) 5 mg IV ONETIME ONE Stop: 11/01/20 23:31 Last Admin: 11/01/20 23:21 Dose: 5 mg Documented by: Metoprolol Tartrate (Lopressor) 5 mg IVPUSH ONETIME ONE Stop: 11/02/20 01:52 Last Admin: 11/02/20 01:59 Dose: 5 mg Documented by: Morphine Sulfate (Morphine) 4 mg IVPUSH ONETIME ONE Stop: 10/30/20 21:26 Last Admin: 10/30/20 21:58 Dose: 4 mg Documented by: Morphine Sulfate (Morphine) 2 mg IVPUSH Q2H PRN PRN Reason: Pain (severe 7-10) Stop: 10/31/20 22:51 Last Admin: 10/31/20 07:53 Dose: 2 mg Documented by: Morphine Sulfate (Morphine) 2 mg IVPUSH Q2H PRN PRN Reason: Pain (severe 7-10) Last Admin: 11/01/20 16:05 Dose: 2 mg Documented by: Ondansetron HCl (Zofran) Confirm Administered Dose 4 mg .ROUTE .STK-MED ONE Stop: 11/01/20 13:38 Phenylephrine HCl (John-Synephrine) Confirm Administered Dose 10 mg .ROUTE .STK- MED ONE Stop: 11/01/20 13:45 Rocuronium Jenner (Rocuronium Jenner) Confirm Administered Dose 50 mg .ROUTE .STK-MED ONE Stop: 11/01/20 13:38 - Exam General: No Acute Distress Neck: Supple Lungs: Clear to Auscultation, Normal Respiratory Effort Cardiovascular: Regular Rate, Regular Rhythm GI/Abdominal Exam: Soft, Non-Tender, No Distention (Male) Exam: Normal Inspection. No: Penile Lesions, Scrotal Swelling Extremities: Non-Tender, No Pedal Edema Skin: Warm, Dry, Intact - Patient Data Lab Results Last 24 hrs: Laboratory Results - last 24 hr 11/02/20 11/02/20 11/02/20 Range/Units 07:55 11:23 12:55 WBC (4.0-11.0) K/uL RBC (4.50-5.90) M/uL Hgb (13.0-17.0) g/dL Hct (38.0-50.0) % MCV (80.0-98.0) fL MCH (27.0-32.0) pg MCHC (31.0-37.0) g/dL RDW Std Deviation (28.0-62.0) fl RDW Coeff of Kash (11.0-15.0) % Plt Count (150-400) K/uL MPV (7.40-12.00) fL Neut % (Auto) (48.0-80.0) % Lymph % (Auto) (16.0-40.0) % [place] % (Auto) (0.0-15.0) % Eos % (Auto) (0.0-7.0) % Baso % (Auto) (0.0-1.5) % Neut # (Auto) (1.4-5.7) K/uL Lymph # (Auto) (0.6-2.4) K/uL [place] # (Auto) (0.0-0.8) K/uL Eos # (Auto) (0.0-0.7) K/uL Baso # (Auto) (0.0-0.1) K/uL Nucleated RBC % /100WBC Nucleated RBCs # K/uL Sodium (136-148) mmol/L Potassium (3.5-5.1) mmol/L Chloride (98-107) mmol/L Carbon Dioxide (21.0-32.0) mmol/L BUN (7.0-18.0) mg/dL Creatinine (0.8-1.3) mg/dL Est Cr Clr Drug Dosing mL/min Estimated GFR (MDRD) ml/min Glucose (74-106) mg/dL POC Glucose 244 H 268 H (60-110) mg/dL Calcium (8.5-10.1) mg/dL Magnesium (1.8-2.4) mg/dL Troponin I < 0.050 (0.000-0.056) ng/mL 11/02/20 11/03/20 11/03/20 Range/Units 16:52 05:52 05:52 WBC 4.32 (4.0-11.0) K/uL RBC 3.05 L (4.50-5.90) M/uL Hgb 9.3 L (13.0-17.0) g/dL Hct 28.5 L (38.0-50.0) % MCV 93.4 (80.0-98.0) fL MCH 30.5 (27.0-32.0) pg MCHC 32.6 (31.0-37.0) g/dL RDW Std Deviation 48.9 (28.0-62.0) fl RDW Coeff of Kash 14 (11.0-15.0) % Plt Count 129 L (150-400) K/uL MPV 9.80 (7.40-12.00) fL Neut % (Auto) 71.2 (48.0-80.0) % Lymph % (Auto) 13.7 L (16.0-40.0) % [place] % (Auto) 14.4 (0.0-15.0) % Eos % (Auto) 0.5 (0.0-7.0) % Baso % (Auto) 0.2 (0.0-1.5) % Neut # (Auto) 3.1 (1.4-5.7) K/uL Lymph # (Auto) 0.6 (0.6-2.4) K/uL [place] # (Auto) 0.6 (0.0-0.8) K/uL Eos # (Auto) 0.0 (0.0-0.7) K/uL Baso # (Auto) 0.0 (0.0-0.1) K/uL Nucleated RBC % 0.0 /100WBC Nucleated RBCs # 0 K/uL Sodium 140 (136-148) mmol/L Potassium 4.7 (3.5-5.1) mmol/L Chloride 106 (98-107) mmol/L Carbon Dioxide 25.7 (21.0-32.0) mmol/L BUN 24 H (7.0-18.0) mg/dL Creatinine 1.2 (0.8-1.3) mg/dL Est Cr Clr Drug Dosing 37.54 mL/min Estimated GFR (MDRD) 57.5 ml/min Glucose 189 H (74-106) mg/dL POC Glucose 182 H (60-110) mg/dL Calcium 7.8 L (8.5-10.1) mg/dL Magnesium 1.8 (1.8-2.4) mg/dL Troponin I (0.000-0.056) ng/mL 11/03/20 Range/Units 07:05 WBC (4.0-11.0) K/uL RBC (4.50-5.90) M/uL Hgb (13.0-17.0) g/dL Hct (38.0-50.0) % MCV (80.0-98.0) fL MCH (27.0-32.0) pg MCHC (31.0-37.0) g/dL RDW Std Deviation (28.0-62.0) fl RDW Coeff of Kash (11.0-15.0) % Plt Count (150-400) K/uL MPV (7.40-12.00) fL Neut % (Auto) (48.0-80.0) % Lymph % (Auto) (16.0-40.0) % [place] % (Auto) (0.0-15.0) % Eos % (Auto) (0.0-7.0) % Baso % (Auto) (0.0-1.5) % Neut # (Auto) (1.4-5.7) K/uL Lymph # (Auto) (0.6-2.4) K/uL [place] # (Auto) (0.0-0.8) K/uL Eos # (Auto) (0.0-0.7) K/uL Baso # (Auto) (0.0-0.1) K/uL Nucleated RBC % /100WBC Nucleated RBCs # K/uL Sodium (136-148) mmol/L Potassium (3.5-5.1) mmol/L Chloride (98-107) mmol/L Carbon Dioxide (21.0-32.0) mmol/L BUN (7.0-18.0) mg/dL Creatinine (0.8-1.3) mg/dL Est Cr Clr Drug Dosing mL/min Estimated GFR (MDRD) ml/min Glucose (74-106) mg/dL POC Glucose 178 H (60-110) mg/dL Calcium (8.5-10.1) mg/dL Magnesium (1.8-2.4) mg/dL Troponin I (0.000-0.056) ng/mL Result Diagrams: 11/03/20 05:52 11/03/20 05:52 Sepsis Event Note - Evaluation Sepsis Screening Result: No Definite Risk - Focused Exam Vital Signs: Vital Signs Temp Pulse Resp BP BP Pulse Ox 11/03/20 07:15 36.8 C 99 18 156/65 H 94 L 11/03/20 04:46 36.6 C 94 20 133/80 94 L 11/02/20 23:20 36.7 C 103 H 20 148/85 H 94 L - Problem List Review Problem List Initiated/Reviewed/Updated: Yes - My Orders Last 24 Hours: My Active Orders 11/02/20 12:30 Amiodarone [Cordarone] 200 mg PO BID 11/03/20 11:15 Bacitracin [Bacitracin Oint] 1 gm TOP BID - Plan Plan:: 85 y/o M admitted for right femoral neck fracture 1. Right femoral neck fracture POD 2 from ORIF 2. BA from obstructive uropathy: - creatinine improved to 1.2 today - lizarraga exchanged this morning due to blood clot - Hold Lisinopril - continue hydration 3. DM type II -Hold oral medications -NovoLog sliding scale with meals and every 6 hours when n.p.o. 4. wide complex tachycardia continue amiodarone VTE prophylaxis: holding heparin due to hematuria GI prophylaxis: Protonix CODE STATUS: DNR/DNI
[2020-11-03] MEDS: Bacitracin Oint 28.35 GM Tube TOP SCH ×2 (11:32→20:28)
[2020-11-03] MEDS: TRAVOPROST EYELF SCH (20:45)
[2020-11-04] MEDS: Morphine 2 MG/ML SYRINGE IVPUSH PRN ×4 (00:18→15:47)
[2020-11-04] MEDS: traMADol 50 MG Tab PO PRN ×2 (02:33→17:26)
[2020-11-04 07:28] LABS: BLOOD UREA NITROGEN,BUN 21 mg/dL (7.0-18.0); CARBON DIOXIDE,CO2 26.2 mmol/L (21.0-32.0); CHLORIDE,CL 105 mmol/L (98-107); GLUCOSE RANDOM 174 mg/dL (74-106); POTASSIUM,K 4.7 mmol/L (3.5-5.1); SODIUM,NA 139 mmol/L (136-148)
[2020-11-04] MEDS: Lactated Ringers 1,000 ML IV SCH (07:36)
[2020-11-04] MEDS ORDERED: Magnesium Sulfate/Water 2 GM/50 ML BAG IV ONE (07:51)
[2020-11-04] MEDS: Amiodarone 200 MG Tab PO SCH ×2 (08:06→20:29)
[2020-11-04] MEDS: Tamsulosin 0.4 MG Cap.ER PO SCH (08:06)
[2020-11-04] MEDS: Aspirin 325 MG Tab PO SCH (08:06)
[2020-11-04] MEDS: Polyethylene Glycol 3350 Powder 17 GM Packet PO SCH (08:06)
[2020-11-04] MEDS: Pantoprazole 40 MG Vial IV SCH (08:06)
[2020-11-04] MEDS: Insulin Aspart 100 Units/ML 3 ML Pen SUBCUT SCH ×3 (08:07→17:26)
--- NOTE | 2020-11-04 08:11 | PCM.SN.2 ---
- Free Text/Narrative Note: Surgical dressing CDI. Removed. Surgical incision approximated with no surrounding erythema, inflammation or active drainage. Steri-strips intact. AquaCell dressing applied.
[2020-11-04] MEDS: Bacitracin Oint 28.35 GM Tube TOP SCH ×2 (08:14→20:30)
--- NOTE | 2020-11-04 08:50 | PCM.PN ---
- General Info Date of Service: 11/04/20 Admission Dx/Problem (Free Text): Admission Diagnosis/Problem Admission Diagnosis/Problem Hip fracture requiring operative repair Subjective Update: Nonverbal. - Patient Data Vitals - Most Recent: Last Vital Signs Temp 97.5 F 11/04/20 04:55 Pulse 98 11/04/20 04:55 Resp 16 11/04/20 04:55 BP 139/62 11/04/20 04:55 Pulse Ox 97 11/04/20 04:55 Weight - Most Recent: 58.967 kg I&O - Last 24 Hours: Intake & Output 11/03/20 11/04/20 11/04/20 22:59 06:59 14:59 Intake Total 650 1417 Output Total 950 1450 Balance -300 -33 Lab Results Last 24 Hours: Laboratory Results - last 24 hr 11/03/20 11/03/20 11/04/20 Range/Units 11:31 17:35 06:53 WBC 4.18 (4.0-11.0) K/uL RBC 3.17 L (4.50-5.90) M/uL Hgb 9.5 L (13.0-17.0) g/dL Hct 29.7 L (38.0-50.0) % MCV 93.7 (80.0-98.0) fL MCH 30.0 (27.0-32.0) pg MCHC 32.0 (31.0-37.0) g/dL RDW Std Deviation 47.7 (28.0-62.0) fl RDW Coeff of Kash 14 (11.0-15.0) % Plt Count 142 L (150-400) K/uL MPV 9.80 (7.40-12.00) fL Neut % (Auto) 65.5 (48.0-80.0) % Lymph % (Auto) 19.9 (16.0-40.0) % Nance % (Auto) 13.4 (0.0-15.0) % Eos % (Auto) 1.0 (0.0-7.0) % Baso % (Auto) 0.2 (0.0-1.5) % Neut # (Auto) 2.7 (1.4-5.7) K/uL Lymph # (Auto) 0.8 (0.6-2.4) K/uL Nance # (Auto) 0.6 (0.0-0.8) K/uL Eos # (Auto) 0.0 (0.0-0.7) K/uL Baso # (Auto) 0.0 (0.0-0.1) K/uL Nucleated RBC % 0.0 /100WBC Nucleated RBCs # 0 K/uL Sodium (136-148) mmol/L Potassium (3.5-5.1) mmol/L Chloride (98-107) mmol/L Carbon Dioxide (21.0-32.0) mmol/L BUN (7.0-18.0) mg/dL Creatinine (0.8-1.3) mg/dL Est Cr Clr Drug Dosing mL/min Estimated GFR (MDRD) ml/min Glucose (74-106) mg/dL POC Glucose 250 H 178 H (60-110) mg/dL Calcium (8.5-10.1) mg/dL Magnesium (1.8-2.4) mg/dL 11/04/20 11/04/20 Range/Units 06:53 07:30 WBC (4.0-11.0) K/uL RBC (4.50-5.90) M/uL Hgb (13.0-17.0) g/dL Hct (38.0-50.0) % MCV (80.0-98.0) fL MCH (27.0-32.0) pg MCHC (31.0-37.0) g/dL RDW Std Deviation (28.0-62.0) fl RDW Coeff of Kash (11.0-15.0) % Plt Count (150-400) K/uL MPV (7.40-12.00) fL Neut % (Auto) (48.0-80.0) % Lymph % (Auto) (16.0-40.0) % Nance % (Auto) (0.0-15.0) % Eos % (Auto) (0.0-7.0) % Baso % (Auto) (0.0-1.5) % Neut # (Auto) (1.4-5.7) K/uL Lymph # (Auto) (0.6-2.4) K/uL Nance # (Auto) (0.0-0.8) K/uL Eos # (Auto) (0.0-0.7) K/uL Baso # (Auto) (0.0-0.1) K/uL Nucleated RBC % /100WBC Nucleated RBCs # K/uL Sodium 139 (136-148) mmol/L Potassium 4.7 (3.5-5.1) mmol/L Chloride 105 (98-107) mmol/L Carbon Dioxide 26.2 (21.0-32.0) mmol/L BUN 21 H (7.0-18.0) mg/dL Creatinine 1.0 (0.8-1.3) mg/dL Est Cr Clr Drug Dosing 45.04 mL/min Estimated GFR (MDRD) > 60.0 ml/min Glucose 174 H (74-106) mg/dL POC Glucose 160 H (60-110) mg/dL Calcium 7.7 L (8.5-10.1) mg/dL Magnesium 1.7 L (1.8-2.4) mg/dL Med Orders - Current: Current Medications Acetaminophen (Tylenol) 650 mg PO Q6H PRN PRN Reason: Pain Albuterol/Ipratropium (Duoneb 3.0-0.5 Mg/3 Ml) 3 ml NEB Q4HRRT PRN PRN Reason: Shortness Of Breath/wheezing Amiodarone HCl (Cordarone) 200 mg PO BID [facility] Last Admin: 11/04/20 08:06 Dose: 200 mg Documented by: Aspirin (Aspirin) 325 mg PO DAILY [facility] Last Admin: 11/04/20 08:06 Dose: 325 mg Documented by: Bacitracin (Bacitracin Oint) 1 gm TOP BID [facility] Last Admin: 11/04/20 08:14 Dose: 1 applic Documented by: Bisacodyl (Dulcolax) 10 mg RECTAL DAILY PRN PRN Reason: Constipation Carbamide Perox/Anhydrous Glycerin (Debrox 6.5% Otic Soln) 15 ml .XX ASDIRECTED [facility] Dextrose/Water (Dextrose 50% In Water) 50 ml IV ASDIRECTED PRN PRN Reason: Hypoglycemia Docusate Sodium (Colace) 100 mg PO Q12HR PRN PRN Reason: Constipation Last Admin: 11/03/20 10:51 Dose: 100 mg Documented by: Glucagon (Glucagen) 1 mg IM ASDIRECTED PRN PRN Reason: Hypoglycemia Lactated Ringer's (Ringers, Lactated) 1,000 mls @ 75 mls/hr IV ASDIRECTED [facility] Last Admin: 11/04/20 07:36 Dose: 75 mls/hr Documented by: Amiodarone HCl/Dextrose (Nexterone In Dextrose 360 Mg/200 Ml) 360 mg in 200 mls @ 33.333 mls/hr IV ASDIRECTED [facility]; Protocol Last Admin: 11/02/20 02:37 Dose: 1 mg/min, 33.333 mls/hr Documented by: Magnesium Sulfate (Magnesium Sulfate In Water 2 Gm/50 Ml) 2 gm in 50 mls @ 50 mls/hr IV ONETIME ONE Stop: 11/04/20 08:50 Last Admin: 11/04/20 08:07 Dose: 50 mls/hr Documented by: Insulin Aspart (Novolog) 0 unit SUBCUT TIDAC [facility]; Protocol Last Admin: 11/04/20 08:07 Dose: 2 units Documented by: Morphine Sulfate (Morphine) 1 - 2 mg IVPUSH Q3H PRN PRN Reason: Pain Last Admin: 11/04/20 05:00 Dose: 2 mg Documented by: Ondansetron HCl (Zofran) 4 mg IVPUSH Q4H PRN PRN Reason: Nausea/Vomiting Pantoprazole Sodium (Protonix Iv) 40 mg IV DAILY [facility] Last Admin: 11/04/20 08:06 Dose: 40 mg Documented by: Travoprost [Travatan (Z]) 1 each EYELF BEDTIME [facility] Last Admin: 11/03/20 20:45 Dose: Not Given Documented by: Polyethylene Glycol (Miralax) 17 gm PO DAILY [facility] Last Admin: 11/04/20 08:06 Dose: 17 gm Documented by: Sodium Chloride (Saline Flush) 10 ml FLUSH ASDIRECTED PRN PRN Reason: Keep Vein Open Last Admin: 10/30/20 20:26 Dose: 10 ml Documented by: Sodium Chloride (Saline Flush) 2.5 ml FLUSH ASDIRECTED PRN PRN Reason: Keep Vein Open Last Admin: 10/30/20 23:48 Dose: 2.5 ml Documented by: Tamsulosin HCl (Flomax) 0.4 mg PO DAILY [facility] Last Admin: 11/04/20 08:06 Dose: 0.4 mg Documented by: Tramadol HCl (Ultram) 50 - 100 mg PO Q6H PRN PRN Reason: Pain Last Admin: 11/04/20 02:33 Dose: 50 mg Documented by: Discontinued Medications Acetaminophen (Children's Acetaminophen) 640 mg PO NOW ONE Stop: 10/30/20 21:23 Last Admin: 10/30/20 22:01 Dose: Not Given Documented by: Acetaminophen (Tylenol) Confirm Administered Dose 650 mg .ROUTE .STK-MED ONE Stop: 10/30/20 21:57 Last Admin: 10/30/20 22:02 Dose: Not Given Documented by: Acetaminophen (Tylenol) 650 mg RECTAL NOW ONE Stop: 10/30/20 22:01 Last Admin: 10/30/20 22:02 Dose: 650 mg Documented by: Bupivacaine HCl (Marcaine 0.5%) Confirm Administered Dose 30 ml .ROUTE .STK-MED ONE Stop: 11/01/20 12:55 Cefazolin Sodium (Ancef) Confirm Administered Dose 2 gm .ROUTE .STK-MED ONE Stop: 11/01/20 13:59 Etomidate (Amidate) Confirm Administered Dose 40 mg IVPUSH .STK-MED ONE Stop: 11/01/20 13:38 Fentanyl (Sublimaze) Confirm Administered Dose 250 mcg .ROUTE .STK-MED ONE Stop: 11/01/20 13:39 Glycopyrrolate (Robinul) Confirm Administered Dose 0.8 mg .ROUTE .STK-MED ONE Stop: 11/01/20 13:38 Heparin Sodium (Porcine) (Heparin Sodium) 5,000 units SUBCUT Q12H [facility] Last Admin: 11/03/20 00:32 Dose: 5,000 units Documented by: Sodium Chloride (Normal Saline) 1,000 mls @ 999 mls/hr IV .Bolus ONE Stop: 10/30/20 20:51 Last Admin: 10/30/20 20:26 Dose: 999 mls/hr Documented by: Lactated Ringer's (Ringers, Lactated) 1,000 mls @ 999 mls/hr IV .BOLUS ONE Stop: 10/31/20 17:31 Last Admin: 10/31/20 17:11 Dose: 999 mls/hr Documented by: Sodium Chloride (Normal Saline) Confirm Administered Dose 20 mls @ as directed .ROUTE .STK-MED ONE Stop: 11/01/20 13:59 Cefazolin Sodium/Dextrose 2 gm (/ Premix) 50 mls @ 100 mls/hr IV Q8H TALI Stop: 11/02/20 06:29 Last Admin: 11/02/20 06:03 Dose: 100 mls/hr Documented by: Metoprolol Tartrate 5 mg/ (Sodium Chloride) 55 mls @ 100 mls/hr IV ONETIME ONE Stop: 11/01/20 23:28 Last Admin: 11/01/20 23:25 Dose: Not Given Documented by: Amiodarone HCl/Dextrose (Nexterone In Dextrose 150 Mg/100 Ml) 100 mls @ 600 mls/hr IV ONETIME ONE; Protocol Stop: 11/02/20 02:11 Last Admin: 11/02/20 02:18 Dose: 600 mls/hr Documented by: Amiodarone HCl/Dextrose (Nexterone In Dextrose 150 Mg/100 Ml) Confirm Administered Dose 100 mls @ as directed IV .STK-MED ONE Stop: 11/02/20 02:03 Last Admin: 11/02/20 02:18 Dose: Not Given Documented by: Sodium Chloride (Normal Saline) 1,000 mls @ 999 mls/hr IV .BOLUS ONE Stop: 11/02/20 03:26 Last Admin: 11/02/20 02:34 Dose: 999 mls/hr Documented by: Insulin Aspart (Novolog) 2 unit SUBCUT ONETIME ONE Stop: 11/01/20 18:09 Insulin Aspart (Novolog) 2 unit SUBCUT ONETIME ONE Stop: 10/31/20 18:09 Last Admin: 10/31/20 18:08 Dose: 2 units Documented by: Insulin Aspart (Novolog) 10 unit SUBCUT ONETIME ONE Stop: 10/31/20 19:17 Last Admin: 10/31/20 19:20 Dose: 10 units Documented by: Lidocaine (Xylocaine-Mpf 2%) Confirm Administered Dose 5 ml .ROUTE .STK-MED ONE Stop: 11/01/20 13:38 Lisinopril (Prinivil) 2.5 mg PO DAILY [facility] Last Admin: 10/31/20 09:52 Dose: 2.5 mg Documented by: Metoprolol Tartrate (Lopressor) 12.5 mg PO Q12H [facility] Last Admin: 11/01/20 05:39 Dose: Not Given Documented by: Metoprolol Tartrate (Lopressor) 50 mg PO ONETIME ONE Stop: 11/01/20 22:48 Last Admin: 11/01/20 23:26 Dose: Not Given Documented by: Metoprolol Tartrate (Lopressor) 5 mg IV ONETIME ONE Stop: 11/01/20 23:31 Last Admin: 11/01/20 23:21 Dose: 5 mg Documented by: Metoprolol Tartrate (Lopressor) 5 mg IVPUSH ONETIME ONE Stop: 11/02/20 01:52 Last Admin: 11/02/20 01:59 Dose: 5 mg Documented by: Morphine Sulfate (Morphine) 4 mg IVPUSH ONETIME ONE Stop: 10/30/20 21:26 Last Admin: 10/30/20 21:58 Dose: 4 mg Documented by: Morphine Sulfate (Morphine) 2 mg IVPUSH Q2H PRN PRN Reason: Pain (severe 7-10) Stop: 10/31/20 22:51 Last Admin: 10/31/20 07:53 Dose: 2 mg Documented by: Morphine Sulfate (Morphine) 2 mg IVPUSH Q2H PRN PRN Reason: Pain (severe 7-10) Last Admin: 11/01/20 16:05 Dose: 2 mg Documented by: Ondansetron HCl (Zofran) Confirm Administered Dose 4 mg .ROUTE .STK-MED ONE Stop: 11/01/20 13:38 Phenylephrine HCl (John-Synephrine) Confirm Administered Dose 10 mg .ROUTE .STK- MED ONE Stop: 11/01/20 13:45 Rocuronium Thornton (Rocuronium Thornton) Confirm Administered Dose 50 mg .ROUTE .STK-MED ONE Stop: 11/01/20 13:38 - Exam General: Alert, Cooperative Neck: Supple Lungs: Clear to Auscultation, Normal Respiratory Effort Cardiovascular: Regular Rate, Regular Rhythm, No Murmurs. No: Tachycardia GI/Abdominal Exam: Normal Bowel Sounds, Soft, Non-Tender Back Exam: Normal Inspection, Full Range of Motion Extremities: Normal Inspection, Normal Range of Motion Wound/Incisions: Dressing Dry and Intact (aquacell to R hip, C/D/I) Neurological: No New Focal Deficit Psy/Mental Status: Alert, Normal Affect, Normal Mood - Patient Data Lab Results Last 24 hrs: Laboratory Results - last 24 hr 11/03/20 11/03/20 11/04/20 Range/Units 11:31 17:35 06:53 WBC 4.18 (4.0-11.0) K/uL RBC 3.17 L (4.50-5.90) M/uL Hgb 9.5 L (13.0-17.0) g/dL Hct 29.7 L (38.0-50.0) % MCV 93.7 (80.0-98.0) fL MCH 30.0 (27.0-32.0) pg MCHC 32.0 (31.0-37.0) g/dL RDW Std Deviation 47.7 (28.0-62.0) fl RDW Coeff of Kash 14 (11.0-15.0) % Plt Count 142 L (150-400) K/uL MPV 9.80 (7.40-12.00) fL Neut % (Auto) 65.5 (48.0-80.0) % Lymph % (Auto) 19.9 (16.0-40.0) % Nance % (Auto) 13.4 (0.0-15.0) % Eos % (Auto) 1.0 (0.0-7.0) % Baso % (Auto) 0.2 (0.0-1.5) % Neut # (Auto) 2.7 (1.4-5.7) K/uL Lymph # (Auto) 0.8 (0.6-2.4) K/uL Nance # (Auto) 0.6 (0.0-0.8) K/uL Eos # (Auto) 0.0 (0.0-0.7) K/uL Baso # (Auto) 0.0 (0.0-0.1) K/uL Nucleated RBC % 0.0 /100WBC Nucleated RBCs # 0 K/uL Sodium (136-148) mmol/L Potassium (3.5-5.1) mmol/L Chloride (98-107) mmol/L Carbon Dioxide (21.0-32.0) mmol/L BUN (7.0-18.0) mg/dL Creatinine (0.8-1.3) mg/dL Est Cr Clr Drug Dosing mL/min Estimated GFR (MDRD) ml/min Glucose (74-106) mg/dL POC Glucose 250 H 178 H (60-110) mg/dL Calcium (8.5-10.1) mg/dL Magnesium (1.8-2.4) mg/dL 11/04/20 11/04/20 Range/Units 06:53 07:30 WBC (4.0-11.0) K/uL RBC (4.50-5.90) M/uL Hgb (13.0-17.0) g/dL Hct (38.0-50.0) % MCV (80.0-98.0) fL MCH (27.0-32.0) pg MCHC (31.0-37.0) g/dL RDW Std Deviation (28.0-62.0) fl RDW Coeff of Kash (11.0-15.0) % Plt Count (150-400) K/uL MPV (7.40-12.00) fL Neut % (Auto) (48.0-80.0) % Lymph % (Auto) (16.0-40.0) % Nance % (Auto) (0.0-15.0) % Eos % (Auto) (0.0-7.0) % Baso % (Auto) (0.0-1.5) % Neut # (Auto) (1.4-5.7) K/uL Lymph # (Auto) (0.6-2.4) K/uL Nance # (Auto) (0.0-0.8) K/uL Eos # (Auto) (0.0-0.7) K/uL Baso # (Auto) (0.0-0.1) K/uL Nucleated RBC % /100WBC Nucleated RBCs # K/uL Sodium 139 (136-148) mmol/L Potassium 4.7 (3.5-5.1) mmol/L Chloride 105 (98-107) mmol/L Carbon Dioxide 26.2 (21.0-32.0) mmol/L BUN 21 H (7.0-18.0) mg/dL Creatinine 1.0 (0.8-1.3) mg/dL Est Cr Clr Drug Dosing 45.04 mL/min Estimated GFR (MDRD) > 60.0 ml/min Glucose 174 H (74-106) mg/dL POC Glucose 160 H (60-110) mg/dL Calcium 7.7 L (8.5-10.1) mg/dL Magnesium 1.7 L (1.8-2.4) mg/dL Result Diagrams: 11/04/20 06:53 11/04/20 06:53 Sepsis Event Note - Evaluation Sepsis Screening Result: No Definite Risk - Focused Exam Vital Signs: Vital Signs Temp Pulse Resp BP Pulse Ox 11/04/20 04:55 97.5 F 98 16 139/62 97 11/04/20 00:11 98 F 99 17 151/88 H 96 - Problem List & Annotations (1) Displaced fracture of right femoral neck SNOMED Code(s): 4001554, 296144959, 37845678179505146 Code(s): S72.001A - FRACTURE OF UNSP PART OF NECK OF RIGHT FEMUR, INIT Status: Acute Current Visit: Yes (2) Dehydration SNOMED Code(s): 54318723 Code(s): E86.0 - DEHYDRATION Status: Acute Current Visit: No (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(s): 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 - UNSPECIFIED VISUAL LOSS Status: Chronic Current Visit: Yes (4) CKD (chronic kidney disease) SNOMED Code(s): 136342223 Code(s): N18.9 - CHRONIC KIDNEY DISEASE, UNSPECIFIED Status: Chronic Current Visit: Yes (5) Developmental non-verbal disorder SNOMED Code(s): 987559828 Code(s): 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 Status: Chronic Current Visit: Yes (6) Diabetes SNOMED Code(s): 18878551 Code(s): E11.9 - TYPE 2 DIABETES MELLITUS WITHOUT COMPLICATIONS Status: Chronic Current Visit: Yes Qualifiers: Diabetes mellitus type: type 2 Diabetes mellitus supervisor intermediates insulin use: without supervisor intermediates use Diabetes mellitus complication status: without complication Qualified Code(s): E11.9 - Type 2 diabetes mellitus without complications (7) Tremor SNOMED Code(s): 90734673 Code(s): R25.1 - TREMOR, UNSPECIFIED Status: Chronic Current Visit: Yes (8) BA (acute kidney injury) SNOMED Code(s): 94463151, 37574249 Code(s): N17.9 - ACUTE KIDNEY FAILURE, UNSPECIFIED Status: Resolved Current Visit: Yes (9) Obstructive uropathy SNOMED Code(s): 2960379 Code(s): N13.9 - OBSTRUCTIVE AND REFLUX UROPATHY, UNSPECIFIED Status: Acute Current Visit: Yes (10) Wide-complex tachycardia SNOMED Code(s): 264747858 Code(s): I47.2 - VENTRICULAR TACHYCARDIA Status: Acute Current Visit: Yes - Problem List Review Problem List Initiated/Reviewed/Updated: Yes - My Orders Last 24 Hours: My Active Orders 11/04/20 07:51 Magnesium Sulfate/Water [Magnesium Sulfate in Water 2 GM/50 ML] 2 gm in 50 ml IV ONETIME 11/05/20 05:11 BASIC METABOLIC PANEL,BMP [CHEM] AM CBC WITH AUTO DIFF [HEME] AM MAGNESIUM [CHEM] AM - Plan Plan:: 85 y/o M admitted for right femoral neck fracture 1. Right femoral neck fracture POD 3 from ORIF - constipation noted, schedule colace and give dulcolax supp this morning. 2. BA from obstructive uropathy: - creatinine improved to 1.0 today, BA resolved. - lizarraga draining clear yellow urine - Hold Lisinopril -Stop IVFs, encourage PO intake. 3. DM type II -Hold oral medications -NovoLog sliding scale with meals and every 6 hours when n.p.o. 4. Wide complex tachycardia -continue amiodarone - Remains on telemetry VTE prophylaxis: holding heparin due to hematuria GI prophylaxis: Protonix CODE STATUS: DNR/DNI Dispo: [facility] staff will come evaluate patient, to see if he is able to be cared for at their facility with increased needs.
[2020-11-04] MEDS: Docusate Sodium 100 MG Cap PO SCH ×2 (09:29→20:34)
[2020-11-04] MEDS ORDERED: Sodium Chloride 0.9% 2.5 ML Syringe FLUSH PRN (09:36)
[2020-11-04] MEDS: TRAVOPROST EYELF SCH (20:31)
[2020-11-05] MEDS: traMADol 50 MG Tab PO PRN ×2 (00:50→21:35)
[2020-11-05 05:50] LABS: BLOOD UREA NITROGEN,BUN 18 mg/dL (7.0-18.0); CARBON DIOXIDE,CO2 27.1 mmol/L (21.0-32.0); CHLORIDE,CL 102 mmol/L (98-107); GLUCOSE RANDOM 166 mg/dL (74-106); POTASSIUM,K 4.6 mmol/L (3.5-5.1); SODIUM,NA 136 mmol/L (136-148)
[2020-11-05] MEDS: Polyethylene Glycol 3350 Powder 17 GM Packet PO SCH (08:35)
[2020-11-05] MEDS: Tamsulosin 0.4 MG Cap.ER PO SCH (08:36)
[2020-11-05] MEDS: Amiodarone 200 MG Tab PO SCH ×2 (08:36→20:00)
[2020-11-05] MEDS: Docusate Sodium 100 MG Cap PO SCH ×2 (08:37→20:02)
[2020-11-05] MEDS: Pantoprazole 40 MG Tab.CR PO SCH (08:37)
[2020-11-05] MEDS: Aspirin 325 MG Tab PO SCH (08:37)
[2020-11-05] MEDS: Insulin Aspart 100 Units/ML 3 ML Pen SUBCUT SCH ×3 (08:49→17:45)
--- NOTE | 2020-11-05 08:49 | PCM.PN ---
- General Info Date of Service: 11/05/20 Admission Dx/Problem (Free Text): Admission Diagnosis/Problem Admission Diagnosis/Problem Hip fracture requiring operative repair Subjective Update: Nonverbal - Patient Data Vitals - Most Recent: Last Vital Signs Temp 98.5 F 11/05/20 08:00 Pulse 97 11/05/20 08:00 Resp 17 11/05/20 08:00 BP 119/78 11/05/20 08:00 Pulse Ox 95 11/05/20 08:00 Weight - Most Recent: 58.967 kg I&O - Last 24 Hours: Intake & Output 11/04/20 11/05/20 11/05/20 22:59 06:59 14:59 Intake Total 820 460 Output Total 1350 1250 Balance -530 -790 Lab Results Last 24 Hours: Laboratory Results - last 24 hr 11/04/20 11/04/20 11/05/20 Range/Units 11:52 17:00 05:09 WBC 4.88 (4.0-11.0) K/uL RBC 3.11 L (4.50-5.90) M/uL Hgb 9.4 L (13.0-17.0) g/dL Hct 28.9 L (38.0-50.0) % MCV 92.9 (80.0-98.0) fL MCH 30.2 (27.0-32.0) pg MCHC 32.5 (31.0-37.0) g/dL RDW Std Deviation 45.6 (28.0-62.0) fl RDW Coeff of Kash 14 (11.0-15.0) % Plt Count 161 (150-400) K/uL MPV 9.70 (7.40-12.00) fL Neut % (Auto) 73.6 (48.0-80.0) % Lymph % (Auto) 14.5 L (16.0-40.0) % [place] % (Auto) 11.1 (0.0-15.0) % Eos % (Auto) 0.6 (0.0-7.0) % Baso % (Auto) 0.2 (0.0-1.5) % Neut # (Auto) 3.6 (1.4-5.7) K/uL Lymph # (Auto) 0.7 (0.6-2.4) K/uL [place] # (Auto) 0.5 (0.0-0.8) K/uL Eos # (Auto) 0.0 (0.0-0.7) K/uL Baso # (Auto) 0.0 (0.0-0.1) K/uL Nucleated RBC % 0.0 /100WBC Nucleated RBCs # 0 K/uL Sodium (136-148) mmol/L Potassium (3.5-5.1) mmol/L Chloride (98-107) mmol/L Carbon Dioxide (21.0-32.0) mmol/L BUN (7.0-18.0) mg/dL Creatinine (0.8-1.3) mg/dL Est Cr Clr Drug Dosing mL/min Estimated GFR (MDRD) ml/min Glucose (74-106) mg/dL POC Glucose 203 H 206 H (60-110) mg/dL Calcium (8.5-10.1) mg/dL Magnesium (1.8-2.4) mg/dL 11/05/20 Range/Units 05:09 WBC (4.0-11.0) K/uL RBC (4.50-5.90) M/uL Hgb (13.0-17.0) g/dL Hct (38.0-50.0) % MCV (80.0-98.0) fL MCH (27.0-32.0) pg MCHC (31.0-37.0) g/dL RDW Std Deviation (28.0-62.0) fl RDW Coeff of Kash (11.0-15.0) % Plt Count (150-400) K/uL MPV (7.40-12.00) fL Neut % (Auto) (48.0-80.0) % Lymph % (Auto) (16.0-40.0) % [place] % (Auto) (0.0-15.0) % Eos % (Auto) (0.0-7.0) % Baso % (Auto) (0.0-1.5) % Neut # (Auto) (1.4-5.7) K/uL Lymph # (Auto) (0.6-2.4) K/uL [place] # (Auto) (0.0-0.8) K/uL Eos # (Auto) (0.0-0.7) K/uL Baso # (Auto) (0.0-0.1) K/uL Nucleated RBC % /100WBC Nucleated RBCs # K/uL Sodium 136 (136-148) mmol/L Potassium 4.6 (3.5-5.1) mmol/L Chloride 102 (98-107) mmol/L Carbon Dioxide 27.1 (21.0-32.0) mmol/L BUN 18 (7.0-18.0) mg/dL Creatinine 1.0 (0.8-1.3) mg/dL Est Cr Clr Drug Dosing 45.04 mL/min Estimated GFR (MDRD) > 60.0 ml/min Glucose 166 H (74-106) mg/dL POC Glucose (60-110) mg/dL Calcium 7.9 L (8.5-10.1) mg/dL Magnesium 2.1 (1.8-2.4) mg/dL Med Orders - Current: Current Medications Acetaminophen (Tylenol) 650 mg PO Q6H PRN PRN Reason: Pain Albuterol/Ipratropium (Duoneb 3.0-0.5 Mg/3 Ml) 3 ml NEB Q4HRRT PRN PRN Reason: Shortness Of Breath/wheezing Amiodarone HCl (Cordarone) 200 mg PO BID COUNT INCLUDES THE [facility] Last Admin: 11/05/20 08:36 Dose: 200 mg Documented by: Aspirin (Aspirin) 325 mg PO DAILY COUNT INCLUDES THE [facility] Last Admin: 11/05/20 08:37 Dose: 325 mg Documented by: Bacitracin (Bacitracin Oint) 1 gm TOP BID COUNT INCLUDES THE [facility] Last Admin: 11/04/20 20:30 Dose: 1 applic Documented by: Bisacodyl (Dulcolax) 10 mg RECTAL DAILY PRN PRN Reason: if no BM in 2 days Last Admin: 11/04/20 12:42 Dose: 10 mg Documented by: Carbamide Perox/Anhydrous Glycerin (Debrox 6.5% Otic Soln) 15 ml .XX ASDIRECTED COUNT INCLUDES THE [facility] Dextrose/Water (Dextrose 50% In Water) 50 ml IV ASDIRECTED PRN PRN Reason: Hypoglycemia Docusate Sodium (Colace) 100 mg PO BID COUNT INCLUDES THE [facility] Last Admin: 11/05/20 08:37 Dose: 100 mg Documented by: Glucagon (Glucagen) 1 mg IM ASDIRECTED PRN PRN Reason: Hypoglycemia Insulin Aspart (Novolog) 0 unit SUBCUT TIDAC COUNT INCLUDES THE [facility]; Protocol Last Admin: 11/04/20 17:26 Dose: 4 units Documented by: Morphine Sulfate (Morphine) 1 - 2 mg IVPUSH Q3H PRN PRN Reason: Pain Last Admin: 11/04/20 15:47 Dose: 2 mg Documented by: Ondansetron HCl (Zofran) 4 mg IVPUSH Q4H PRN PRN Reason: Nausea/Vomiting Pantoprazole Sodium (Protonix) 40 mg PO ACBREAKFAST COUNT INCLUDES THE [facility] Last Admin: 11/05/20 08:37 Dose: 40 mg Documented by: Travoprost [Travatan (Z]) 1 each EYELF BEDTIME COUNT INCLUDES THE [facility] Last Admin: 11/04/20 20:31 Dose: Not Given Documented by: Polyethylene Glycol (Miralax) 17 gm PO DAILY COUNT INCLUDES THE [facility] Last Admin: 11/05/20 08:35 Dose: 17 gm Documented by: Sodium Chloride (Saline Flush) 2.5 ml FLUSH ASDIRECTED PRN PRN Reason: Keep Vein Open Tamsulosin HCl (Flomax) 0.4 mg PO DAILY COUNT INCLUDES THE [facility] Last Admin: 11/05/20 08:36 Dose: 0.4 mg Documented by: Tramadol HCl (Ultram) 50 - 100 mg PO Q6H PRN PRN Reason: Pain Last Admin: 11/05/20 00:50 Dose: 100 mg Documented by: Discontinued Medications Acetaminophen (Children's Acetaminophen) 640 mg PO NOW ONE Stop: 10/30/20 21:23 Last Admin: 10/30/20 22:01 Dose: Not Given Documented by: Acetaminophen (Tylenol) Confirm Administered Dose 650 mg .ROUTE .STK-MED ONE Stop: 10/30/20 21:57 Last Admin: 10/30/20 22:02 Dose: Not Given Documented by: Acetaminophen (Tylenol) 650 mg RECTAL NOW ONE Stop: 10/30/20 22:01 Last Admin: 10/30/20 22:02 Dose: 650 mg Documented by: Bupivacaine HCl (Marcaine 0.5%) Confirm Administered Dose 30 ml .ROUTE .STK-MED ONE Stop: 11/01/20 12:55 Cefazolin Sodium (Ancef) Confirm Administered Dose 2 gm .ROUTE .STK-MED ONE Stop: 11/01/20 13:59 Docusate Sodium (Colace) 100 mg PO Q12HR PRN PRN Reason: Constipation Last Admin: 11/03/20 10:51 Dose: 100 mg Documented by: Etomidate (Amidate) Confirm Administered Dose 40 mg IVPUSH .STK-MED ONE Stop: 11/01/20 13:38 Fentanyl (Sublimaze) Confirm Administered Dose 250 mcg .ROUTE .STK-MED ONE Stop: 11/01/20 13:39 Glycopyrrolate (Robinul) Confirm Administered Dose 0.8 mg .ROUTE .STK-MED ONE Stop: 11/01/20 13:38 Heparin Sodium (Porcine) (Heparin Sodium) 5,000 units SUBCUT Q12H COUNT INCLUDES THE [facility] Last Admin: 11/03/20 00:32 Dose: 5,000 units Documented by: Sodium Chloride (Normal Saline) 1,000 mls @ 999 mls/hr IV .Bolus ONE Stop: 10/30/20 20:51 Last Admin: 10/30/20 20:26 Dose: 999 mls/hr Documented by: Lactated Ringer's (Ringers, Lactated) 1,000 mls @ 75 mls/hr IV ASDIRECTED COUNT INCLUDES THE [facility] Last Admin: 11/04/20 07:36 Dose: 75 mls/hr Documented by: Lactated Ringer's (Ringers, Lactated) 1,000 mls @ 999 mls/hr IV .BOLUS ONE Stop: 10/31/20 17:31 Last Admin: 10/31/20 17:11 Dose: 999 mls/hr Documented by: Sodium Chloride (Normal Saline) Confirm Administered Dose 20 mls @ as directed .ROUTE .STK-MED ONE Stop: 11/01/20 13:59 Cefazolin Sodium/Dextrose 2 gm (/ Premix) 50 mls @ 100 mls/hr IV Q8H COUNT INCLUDES THE [facility] Stop: 11/02/20 06:29 Last Admin: 11/02/20 06:03 Dose: 100 mls/hr Documented by: Metoprolol Tartrate 5 mg/ (Sodium Chloride) 55 mls @ 100 mls/hr IV ONETIME ONE Stop: 11/01/20 23:28 Last Admin: 11/01/20 23:25 Dose: Not Given Documented by: Amiodarone HCl/Dextrose (Nexterone In Dextrose 150 Mg/100 Ml) 100 mls @ 600 mls/hr IV ONETIME ONE; Protocol Stop: 11/02/20 02:11 Last Admin: 11/02/20 02:18 Dose: 600 mls/hr Documented by: Amiodarone HCl/Dextrose (Nexterone In Dextrose 360 Mg/200 Ml) 360 mg in 200 mls @ 33.333 mls/hr IV ASDIRECTED TALI; Protocol Last Admin: 11/02/20 02:37 Dose: 1 mg/min, 33.333 mls/hr Documented by: Amiodarone HCl/Dextrose (Nexterone In Dextrose 150 Mg/100 Ml) Confirm Administer ed Dose 100 mls @ as directed IV .STK-MED ONE Stop: 11/02/20 02:03 Last Admin: 11/02/20 02:18 Dose: Not Given Documented by: Sodium Chloride (Normal Saline) 1,000 mls @ 999 mls/hr IV .BOLUS ONE Stop: 11/02/20 03:26 Last Admin: 11/02/20 02:34 Dose: 999 mls/hr Documented by: Magnesium Sulfate (Magnesium Sulfate In Water 2 Gm/50 Ml) 2 gm in 50 mls @ 50 mls/hr IV ONETIME ONE Stop: 11/04/20 08:50 Last Admin: 11/04/20 08:07 Dose: 50 mls/hr Documented by: Insulin Aspart (Novolog) 2 unit SUBCUT ONETIME ONE Stop: 11/01/20 18:09 Insulin Aspart (Novolog) 2 unit SUBCUT ONETIME ONE Stop: 10/31/20 18:09 Last Admin: 10/31/20 18:08 Dose: 2 units Documented by: Insulin Aspart (Novolog) 10 unit SUBCUT ONETIME ONE Stop: 10/31/20 19:17 Last Admin: 10/31/20 19:20 Dose: 10 units Documented by: Lidocaine (Xylocaine-Mpf 2%) Confirm Administered Dose 5 ml .ROUTE .STK-MED ONE Stop: 11/01/20 13:38 Lisinopril (Prinivil) 2.5 mg PO DAILY COUNT INCLUDES THE [facility] Last Admin: 10/31/20 09:52 Dose: 2.5 mg Documented by: Metoprolol Tartrate (Lopressor) 12.5 mg PO Q12H COUNT INCLUDES THE [facility] Last Admin: 11/01/20 05:39 Dose: Not Given Documented by: Metoprolol Tartrate (Lopressor) 50 mg PO ONETIME ONE Stop: 11/01/20 22:48 Last Admin: 11/01/20 23:26 Dose: Not Given Documented by: Metoprolol Tartrate (Lopressor) 5 mg IV ONETIME ONE Stop: 11/01/20 23:31 Last Admin: 11/01/20 23:21 Dose: 5 mg Documented by: Metoprolol Tartrate (Lopressor) 5 mg IVPUSH ONETIME ONE Stop: 11/02/20 01:52 Last Admin: 11/02/20 01:59 Dose: 5 mg Documented by: Morphine Sulfate (Morphine) 4 mg IVPUSH ONETIME ONE Stop: 10/30/20 21:26 Last Admin: 10/30/20 21:58 Dose: 4 mg Documented by: Morphine Sulfate (Morphine) 2 mg IVPUSH Q2H PRN PRN Reason: Pain (severe 7-10) Stop: 10/31/20 22:51 Last Admin: 10/31/20 07:53 Dose: 2 mg Documented by: Morphine Sulfate (Morphine) 2 mg IVPUSH Q2H PRN PRN Reason: Pain (severe 7-10) Last Admin: 11/01/20 16:05 Dose: 2 mg Documented by: Ondansetron HCl (Zofran) Confirm Administered Dose 4 mg .ROUTE .STK-MED ONE Stop: 11/01/20 13:38 Pantoprazole Sodium (Protonix Iv) 40 mg IV DAILY TALI Last Admin: 11/04/20 08:06 Dose: 40 mg Documented by: Phenylephrine HCl (John-Synephrine) Confirm Administered Dose 10 mg .ROUTE .STK- MED ONE Stop: 11/01/20 13:45 Rocuronium [place] (Rocuronium Medina) Confirm Administered Dose 50 mg .ROUTE .STK-MED ONE Stop: 11/01/20 13:38 Sodium Chloride (Saline Flush) 10 ml FLUSH ASDIRECTED PRN PRN Reason: Keep Vein Open Last Admin: 10/30/20 20:26 Dose: 10 ml Documented by: Sodium Chloride (Saline Flush) 2.5 ml FLUSH ASDIRECTED PRN PRN Reason: Keep Vein Open Last Admin: 10/30/20 23:48 Dose: 2.5 ml Documented by: - Exam General: Alert, No Acute Distress Lungs: Clear to Auscultation, Normal Respiratory Effort Cardiovascular: Regular Rate, Regular Rhythm GI/Abdominal Exam: Normal Bowel Sounds, Soft, Non-Tender Extremities: Normal Inspection, Normal Range of Motion, Non-Tender, No Pedal Edema Skin: Warm, Dry, Other (healing abrasion to R elbow) Wound/Incisions: Dressing Dry and Intact, No Drainage. No: Erythema Neurological: No New Focal Deficit Psy/Mental Status: Alert, Normal Affect, Normal Mood - Patient Data Lab Results Last 24 hrs: Laboratory Results - last 24 hr 11/04/20 11/04/20 11/05/20 Range/Units 11:52 17:00 05:09 WBC 4.88 (4.0-11.0) K/uL RBC 3.11 L (4.50-5.90) M/uL Hgb 9.4 L (13.0-17.0) g/dL Hct 28.9 L (38.0-50.0) % MCV 92.9 (80.0-98.0) fL MCH 30.2 (27.0-32.0) pg MCHC 32.5 (31.0-37.0) g/dL RDW Std Deviation 45.6 (28.0-62.0) fl RDW Coeff of Kash 14 (11.0-15.0) % Plt Count 161 (150-400) K/uL MPV 9.70 (7.40-12.00) fL Neut % (Auto) 73.6 (48.0-80.0) % Lymph % (Auto) 14.5 L (16.0-40.0) % [place] % (Auto) 11.1 (0.0-15.0) % Eos % (Auto) 0.6 (0.0-7.0) % Baso % (Auto) 0.2 (0.0-1.5) % Neut # (Auto) 3.6 (1.4-5.7) K/uL Lymph # (Auto) 0.7 (0.6-2.4) K/uL [place] # (Auto) 0.5 (0.0-0.8) K/uL Eos # (Auto) 0.0 (0.0-0.7) K/uL Baso # (Auto) 0.0 (0.0-0.1) K/uL Nucleated RBC % 0.0 /100WBC Nucleated RBCs # 0 K/uL Sodium (136-148) mmol/L Potassium (3.5-5.1) mmol/L Chloride (98-107) mmol/L Carbon Dioxide (21.0-32.0) mmol/L BUN (7.0-18.0) mg/dL Creatinine (0.8-1.3) mg/dL Est Cr Clr Drug Dosing mL/min Estimated GFR (MDRD) ml/min Glucose (74-106) mg/dL POC Glucose 203 H 206 H (60-110) mg/dL Calcium (8.5-10.1) mg/dL Magnesium (1.8-2.4) mg/dL 11/05/20 Range/Units 05:09 WBC (4.0-11.0) K/uL RBC (4.50-5.90) M/uL Hgb (13.0-17.0) g/dL Hct (38.0-50.0) % MCV (80.0-98.0) fL MCH (27.0-32.0) pg MCHC (31.0-37.0) g/dL RDW Std Deviation (28.0-62.0) fl RDW Coeff of Kash (11.0-15.0) % Plt Count (150-400) K/uL MPV (7.40-12.00) fL Neut % (Auto) (48.0-80.0) % Lymph % (Auto) (16.0-40.0) % [place] % (Auto) (0.0-15.0) % Eos % (Auto) (0.0-7.0) % Baso % (Auto) (0.0-1.5) % Neut # (Auto) (1.4-5.7) K/uL Lymph # (Auto) (0.6-2.4) K/uL [place] # (Auto) (0.0-0.8) K/uL Eos # (Auto) (0.0-0.7) K/uL Baso # (Auto) (0.0-0.1) K/uL Nucleated RBC % /100WBC Nucleated RBCs # K/uL Sodium 136 (136-148) mmol/L Potassium 4.6 (3.5-5.1) mmol/L Chloride 102 (98-107) mmol/L Carbon Dioxide 27.1 (21.0-32.0) mmol/L BUN 18 (7.0-18.0) mg/dL Creatinine 1.0 (0.8-1.3) mg/dL Est Cr Clr Drug Dosing 45.04 mL/min Estimated GFR (MDRD) > 60.0 ml/min Glucose 166 H (74-106) mg/dL POC Glucose (60-110) mg/dL Calcium 7.9 L (8.5-10.1) mg/dL Magnesium 2.1 (1.8-2.4) mg/dL Result Diagrams: 11/05/20 05:09 11/05/20 05:09 Sepsis Event Note - Evaluation Sepsis Screening Result: No Definite Risk - Focused Exam Vital Signs: Vital Signs Temp Pulse Resp BP Pulse Ox Pulse Ox 11/05/20 08:00 98.5 F 97 17 119/78 95 11/05/20 06:00 95 11/05/20 04:24 98.5 F 89 16 138/75 95 11/05/20 00:43 98 F 90 16 148/71 H 96 - Problem List & Annotations (1) Displaced fracture of right femoral neck SNOMED Code(s): 4985969, 333638347, 74057915377831496 Code(s): S72.001A - FRACTURE OF UNSP PART OF NECK OF RIGHT FEMUR, INIT Status: Acute Current Visit: Yes (2) Dehydration SNOMED Code(s): 57694041 Code(s): E86.0 - DEHYDRATION Status: Acute Current Visit: No (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 VISUAL LOSS Status: Chronic Current Visit: Yes (4) CKD (chronic kidney disease) SNOMED Code(s): 928925775 Code(s): N18.9 - CHRONIC KIDNEY DISEASE, UNSPECIFIED Status: Chronic Current Visit: Yes (5) Developmental non-verbal disorder SNOMED Code(s): 757793294 Code(s): 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 Status: Chronic Current Visit: Yes (6) Diabetes SNOMED Code(s): 84261102 Code(s): E11.9 - TYPE 2 DIABETES MELLITUS WITHOUT COMPLICATIONS Status: Chronic Current Visit: Yes Qualifiers: Diabetes mellitus type: type 2 Diabetes mellitus supervisor intermediates insulin use: without supervisor intermediates use Diabetes mellitus complication status: without complication Qualified Code(s): E11.9 - Type 2 diabetes mellitus without complications (7) Tremor SNOMED Code(s): 63304324 Code(s): R25.1 - TREMOR, UNSPECIFIED Status: Chronic Current Visit: Yes (8) BA (acute kidney injury) SNOMED Code(s): 98979656, 82439756 Code(s): N17.9 - ACUTE KIDNEY FAILURE, UNSPECIFIED Status: Resolved Current Visit: Yes (9) Obstructive uropathy SNOMED Code(s): 6826686 Code(s): N13.9 - OBSTRUCTIVE AND REFLUX UROPATHY, UNSPECIFIED Status: Acute Current Visit: Yes (10) Wide-complex tachycardia SNOMED Code(s): 281899545 Code(s): I47.2 - VENTRICULAR TACHYCARDIA Status: Acute Current Visit: Yes - Problem List Review Problem List Initiated/Reviewed/Updated: Yes - My Orders Last 24 Hours: My Active Orders 11/04/20 09:00 Docusate Sodium [Colace] 100 mg PO BID 11/04/20 09:19 Encourage Fluids [OM.PC] Routine 11/04/20 09:36 Sodium Chloride 0.9% [Saline Flush] 2.5 ml FLUSH ASDIRECTED PRN Saline Lock Insert [OM.PC] Routine 11/05/20 07:30 Pantoprazole [ProTONIX] 40 mg PO ACBREAKFAST - Plan Plan:: 85 y/o M admitted for right femoral neck fracture 1. Right femoral neck fracture -POD 4 from ORIF - had BM x 3 yesterday 2. obstructive uropathy: - lizarraga draining clear yellow urine - Hold Lisinopril -encourage PO intake. 3. DM type II -Hold oral medications -NovoLog sliding scale with meals and every 6 hours when n.p.o. 4. Wide complex tachycardia -continue amiodarone - Remains on telemetry VTE prophylaxis: holding heparin due to hematuria, ASA GI prophylaxis: Protonix CODE STATUS: DNR/DNI Dispo: home in am with [facility] Updated PCP on admission and treatment plan for discharge
[2020-11-05] MEDS: Bacitracin Oint 28.35 GM Tube TOP SCH ×2 (11:36→20:00)
--- NOTE | 2020-11-05 15:57 | CR ---
INDICATION: Fracture. TECHNIQUE: Intraoperative fluoroscopy was provided for the surgeon. Three spot images were saved. COMPARISON: Right hip series from 10/30/2020. IMPRESSION: Status post ORIF of the right femoral neck fracture with placement of a dynamic compression screw with lateral sideplate and distal screw fixation, as well as a single partially threaded cannulated screw. No evidence of an acute hardware complication. Fracture alignment now appears anatomic. Please see the procedure report for further discussion. Dictated by Oren Alvarado MD @ Nov 05 2020 3:56PM Signed by Dr. Oren Alvarado @ Nov 05 2020 3:56PM
[2020-11-05] MEDS: TRAVOPROST EYELF SCH (20:02)
[2020-11-06] MEDS: traMADol 50 MG Tab PO PRN ×2 (04:55→12:24)
[2020-11-06] MEDS: Insulin Aspart 100 Units/ML 3 ML Pen SUBCUT SCH ×2 (09:30→12:15)
[2020-11-06] MEDS: Bacitracin Oint 28.35 GM Tube TOP SCH (09:30)
[2020-11-06] MEDS: Tamsulosin 0.4 MG Cap.ER PO SCH (09:31)
[2020-11-06] MEDS: Aspirin 325 MG Tab PO SCH (09:31)
[2020-11-06] MEDS: Amiodarone 200 MG Tab PO SCH (09:32)
[2020-11-06] MEDS: Polyethylene Glycol 3350 Powder 17 GM Packet PO SCH (09:32)
[2020-11-06] MEDS: Pantoprazole 40 MG Tab.CR PO SCH (09:32)
[2020-11-06] MEDS: Docusate Sodium 100 MG Cap PO SCH (09:32)
--- NOTE | 2020-11-06 10:32 | PCM.DCSUM1 ---
Discharge Summary - Hospital Course Diagnosis: Stroke: No - Discharge Data Discharge Date: 11/06/20 Discharge Disposition: DC/Tfer to SNF 03 Condition: Good - Referral to Home Health Date of Face to Face Encounter: 11/05/20 Reason for Homebound Status: Vlad has physical and mental disabilities affecting his homebound status. He is completely deaf and blind and is unable to leave the house without assistance of caregivers along with assistive device. He also had ORIF of right femoral neck fracture and is unable to ambulate at this time. Primary Care Physician: Samm Brooke MD Skilled Need: Vlad is in need of half-way care to help monitor incision along with any incision care or dressing changes. Lizarraga catheter was placed in the hospital secondary to obstructive uropathy. Lizarraga catheter will need to remain in place for at least 1 week, needing cares along with possible removal upon orders from PCP. Education needs to be provided to [employer] caregivers on Lizarraga catheter cares along with emptying. prison care is also needed to help monitor vital signs along with medication administration. Physical therapy and Occupational Therapy are needed to help with range of motion therapies along with assisting patient to ambulate when able due to surgical repair of right femoral neck fracture. - Patient Summary/Data Operative Procedure(s) Performed: Open reduction and internal fixation of right basicervical femoral neck fracture using [employer] [place] sliding hip screw system and derotation screw Consults: Consultations 10/30/20 22:59 Consult to Physician [CONS] Routine 11/01/20 15:37 PT Evaluation and Treatment [CONS] Routine 11/05/20 09:51 Consult to Home Health [CONS] Routine Hospital Course: Patient is a 85-year-old male with a history significant for HTN, diabetes mellitus, CKD, blindness who lives in a fci secondary to a history of mental retardation and cognitive disorders who presented to ER due to his inability to walk. He was discovered to have right femoral neck fracture on X- ray of his hip. Patient wasbeing admitted for surgical repair of his right femoral neck. On the second day of his admission he developed acute kidney injury from obstructive uropathy from pain medications and his underlining BPH. His creatinine increased to 2.8. A lizarraga was placed and over the course of his stay his creatinine returned to normal. Before his ORIF of his right hip he did have a traumatic pull on his lizarraga. He did have some limited hematuria with clots which required flushing the lizarraga and replacing it once. The night after surgery he did developed a paroxysmal wide complex tachycardia. He was started on amiodarone and has since been rated controlled for several days. Patient will be discharged to [facility]. Patient should be on aspirin for DVT prophylaxis and would keep lizarraga in place until no longer requiring opioids for pain control. - Patient Instructions Diet: Diabetic Diet Activity: Apply Ice (ice via [facility] ice pad to alleviate pain and minimize swelling), Full Weight Bearing (WEIGHT BEARING TOLERATES.) Showering/Bathing: May Shower, No Tub Bathing/Swimming (until incision healed ) Wound/Incision Care: Keep Operative Site/Wound Site Clean and Dry Notify Provider of: Fever, Increased Pain, Swelling and Redness, Drainage, Nausea and/or Vomiting Other/Special Instructions: DVT prophylaxis : ASA 325mg daily. No need for follow up care at orthopedic clinic unless there are concerns. - Discharge Plan *PRESCRIPTION DRUG MONITORING PROGRAM REVIEWED*: Not Applicable *COPY OF PRESCRIPTION DRUG MONITORING REPORT IN PATIENT DAV: Not Applicable Prescriptions/Med Rec: Aspirin 325 mg PO DAILY #90 tablet Docusate Sodium [Colace] 100 mg PO BID #60 cap Amiodarone [Cordarone] 200 mg PO BID #60 tablet bisacodyL [Dulcolax] 10 mg RECTAL DAILY PRN #15 supp PRN Reason: if no BM in 2 days Acetaminophen [Tylenol] 650 mg PO Q6H PRN #60 tablet PRN Reason: Pain traMADol [Ultram] 50 - 100 mg PO Q6H PRN #30 tablet PRN Reason: Pain Home Medications: Home Meds Carbamide Peroxide [Debrox] 15 ml OT ASDIRECTED 10/30/20 [History] Exenatide Microspheres [Bydureon Pen] 2 mg SQ WEEKLY 10/30/20 [History] Glimepiride 2 mg PO DAILY 10/30/20 [History] Multivitamin [Daily-Deb] 1 each PO DAILY 10/30/20 [History] Omeprazole 20 mg PO DAILY 10/30/20 [History] Psyllium Husk [Metamucil] 1 tbsp PO DAILY 10/30/20 [History] Tamsulosin [Flomax] 0.4 mg PO DAILY 10/30/20 [History] Travoprost [Travatan Z] 1 drop EYELF BEDTIME 10/30/20 [History] lisinopriL [Lisinopril] 2.5 mg PO DAILY 10/30/20 [History] metFORMIN [Glucophage XR] 500 mg PO BIDMEALS 10/30/20 [History] sitaGLIPtin Phosphate [Januvia] 25 mg PO DAILY 10/30/20 [History] Acetaminophen [Tylenol] 650 mg PO Q6H PRN #60 tablet 11/05/20 [Rx] Amiodarone [Cordarone] 200 mg PO BID #60 tablet 11/05/20 [Rx] Aspirin 325 mg PO DAILY #90 tablet 11/05/20 [Rx] Docusate Sodium [Colace] 100 mg PO BID #60 cap 11/05/20 [Rx] bisacodyL [Dulcolax] 10 mg RECTAL DAILY PRN #15 supp 11/05/20 [Rx] traMADol [Ultram] 50 - 100 mg PO Q6H PRN #30 tablet 11/05/20 [Rx] Oxygen Therapy Mode: Room Air Patient Handouts: Hip Fracture Treated With ORIF, Care After, Amiodarone tablets, Indwelling Urinary Catheter Care, Adult, Hip Fracture Treated With OR IF, Ventricular Tachycardia Referrals: Samm Brooke MD [Primary Care Provider] - 11/11/20 10:00 am - Discharge Summary/Plan Comment DC Time >30 min.: No - Patient Data Vitals - Most Recent: Last Vital Signs Temp 37.6 C 11/06/20 08:00 Pulse 103 H 11/06/20 08:00 Resp 20 11/06/20 08:00 BP 193/88 H 11/06/20 08:00 Pulse Ox 96 11/06/20 08:00 Weight - Most Recent: 58.967 kg I&O - Last 24 hours: Intake & Output 11/05/20 11/06/20 11/06/20 22:59 06:59 14:59 Intake Total 480 1590 Output Total 1200 3500 Balance -720 -1910 Lab Results - Last 24 hrs: Laboratory Results - last 24 hr 11/05/20 11/05/20 11/05/20 Range/Units 06:23 11:38 17:38 POC Glucose 162 H 166 H 169 H (60-110) mg/dL 11/06/20 Range/Units 06:32 POC Glucose 195 H (60-110) mg/dL Med Orders - Current: Current Medications Acetaminophen (Tylenol) 650 mg PO Q6H PRN PRN Reason: Pain Albuterol/Ipratropium (Duoneb 3.0-0.5 Mg/3 Ml) 3 ml NEB Q4HRRT PRN PRN Reason: Shortness Of Breath/wheezing Amiodarone HCl (Cordarone) 200 mg PO BID [facility] Last Admin: 11/06/20 09:32 Dose: 200 mg Documented by: Aspirin (Aspirin) 325 mg PO DAILY [facility] Last Admin: 11/06/20 09:31 Dose: 325 mg Documented by: Bacitracin (Bacitracin Oint) 1 gm TOP BID [facility] Last Admin: 11/06/20 09:30 Dose: 1 applic Documented by: Bisacodyl (Dulcolax) 10 mg RECTAL DAILY PRN PRN Reason: if no BM in 2 days Last Admin: 11/04/20 12:42 Dose: 10 mg Documented by: Carbamide Perox/Anhydrous Glycerin (Debrox 6.5% Otic Soln) 15 ml .XX ASDIRECTED [facility] Dextrose/Water (Dextrose 50% In Water) 50 ml IV ASDIRECTED PRN PRN Reason: Hypoglycemia Docusate Sodium (Colace) 100 mg PO BID [facility] Last Admin: 11/06/20 09:32 Dose: 100 mg Documented by: Glucagon (Glucagen) 1 mg IM ASDIRECTED PRN PRN Reason: Hypoglycemia Insulin Aspart (Novolog) 0 unit SUBCUT TIDAC [facility]; Protocol Last Admin: 11/06/20 09:30 Dose: 2 units Documented by: Ondansetron HCl (Zofran) 4 mg IVPUSH Q4H PRN PRN Reason: Nausea/Vomiting Pantoprazole Sodium (Protonix) 40 mg PO ACBREAKFAST [facility] Last Admin: 11/06/20 09:32 Dose: 40 mg Documented by: Travoprost [Travatan (Z]) 1 each EYELF BEDTIME [facility] Last Admin: 11/05/20 20:02 Dose: Not Given Documented by: Polyethylene Glycol (Miralax) 17 gm PO DAILY [facility] Last Admin: 11/06/20 09:32 Dose: 17 gm Documented by: Sodium Chloride (Saline Flush) 2.5 ml FLUSH ASDIRECTED PRN PRN Reason: Keep Vein Open Tamsulosin HCl (Flomax) 0.4 mg PO DAILY [facility] Last Admin: 11/06/20 09:31 Dose: 0.4 mg Documented by: Tramadol HCl (Ultram) 50 - 100 mg PO Q6H PRN PRN Reason: Pain Last Admin: 11/06/20 04:55 Dose: 50 mg Documented by: Discontinued Medications Acetaminophen (Children's Acetaminophen) 640 mg PO NOW ONE Stop: 10/30/20 21:23 Last Admin: 10/30/20 22:01 Dose: Not Given Documented by: Acetaminophen (Tylenol) Confirm Administered Dose 650 mg .ROUTE .STK-MED ONE Stop: 10/30/20 21:57 Last Admin: 10/30/20 22:02 Dose: Not Given Documented by: Acetaminophen (Tylenol) 650 mg RECTAL NOW ONE Stop: 10/30/20 22:01 Last Admin: 10/30/20 22:02 Dose: 650 mg Documented by: Bupivacaine HCl (Marcaine 0.5%) Confirm Administered Dose 30 ml .ROUTE .STK-MED ONE Stop: 11/01/20 12:55 Cefazolin Sodium (Ancef) Confirm Administered Dose 2 gm .ROUTE .STK-MED ONE Stop: 11/01/20 13:59 Docusate Sodium (Colace) 100 mg PO Q12HR PRN PRN Reason: Constipation Last Admin: 11/03/20 10:51 Dose: 100 mg Documented by: Etomidate (Amidate) Confirm Administered Dose 40 mg IVPUSH .STK-MED ONE Stop: 11/01/20 13:38 Fentanyl (Sublimaze) Confirm Administered Dose 250 mcg .ROUTE .STK-MED ONE Stop: 11/01/20 13:39 Glycopyrrolate (Robinul) Confirm Administered Dose 0.8 mg .ROUTE .STK-MED ONE Stop: 11/01/20 13:38 Heparin Sodium (Porcine) (Heparin Sodium) 5,000 units SUBCUT Q12H [facility] Last Admin: 11/03/20 00:32 Dose: 5,000 units Documented by: Sodium Chloride (Normal Saline) 1,000 mls @ 999 mls/hr IV .Bolus ONE Stop: 10/30/20 20:51 Last Admin: 10/30/20 20:26 Dose: 999 mls/hr Documented by: Lactated Ringer's (Ringers, Lactated) 1,000 mls @ 75 mls/hr IV ASDIRECTED [facility] Last Admin: 11/04/20 07:36 Dose: 75 mls/hr Documented by: Lactated Ringer's (Ringers, Lactated) 1,000 mls @ 999 mls/hr IV .BOLUS ONE Stop: 10/31/20 17:31 Last Admin: 10/31/20 17:11 Dose: 999 mls/hr Documented by: Sodium Chloride (Normal Saline) Confirm Administered Dose 20 mls @ as directed .ROUTE .STK-MED ONE Stop: 11/01/20 13:59 Cefazolin Sodium/Dextrose 2 gm (/ Premix) 50 mls @ 100 mls/hr IV Q8H [facility] Stop: 11/02/20 06:29 Last Admin: 11/02/20 06:03 Dose: 100 mls/hr Documented by: Metoprolol Tartrate 5 mg/ (Sodium Chloride) 55 mls @ 100 mls/hr IV ONETIME ONE Stop: 11/01/20 23:28 Last Admin: 11/01/20 23:25 Dose: Not Given Documented by: Amiodarone HCl/Dextrose (Nexterone In Dextrose 150 Mg/100 Ml) 100 mls @ 600 mls/hr IV ONETIME ONE; Protocol Stop: 11/02/20 02:11 Last Admin: 11/02/20 02:18 Dose: 600 mls/hr Documented by: Amiodarone HCl/Dextrose (Nexterone In Dextrose 360 Mg/200 Ml) 360 mg in 200 mls @ 33.333 mls/hr IV ASDIRECTED [facility]; Protocol Last Admin: 11/02/20 02:37 Dose: 1 mg/min, 33.333 mls/hr Documented by: Amiodarone HCl/Dextrose (Nexterone In Dextrose 150 Mg/100 Ml) Confirm Administered Dose 100 mls @ as directed IV .STK-MED ONE Stop: 11/02/20 02:03 Last Admin: 11/02/20 02:18 Dose: Not Given Documented by: Sodium Chloride (Normal Saline) 1,000 mls @ 999 mls/hr IV .BOLUS ONE Stop: 11/02/20 03:26 Last Admin: 11/02/20 02:34 Dose: 999 mls/hr Documented by: Magnesium Sulfate (Magnesium Sulfate In Water 2 Gm/50 Ml) 2 gm in 50 mls @ 50 mls/hr IV ONETIME ONE Stop: 11/04/20 08:50 Last Admin: 11/04/20 08:07 Dose: 50 mls/hr Documented by: Insulin Aspart (Novolog) 2 unit SUBCUT ONETIME ONE Stop: 11/01/20 18:09 Insulin Aspart (Novolog) 2 unit SUBCUT ONETIME ONE Stop: 10/31/20 18:09 Last Admin: 10/31/20 18:08 Dose: 2 units Documented by: Insulin Aspart (Novolog) 10 unit SUBCUT ONETIME ONE Stop: 10/31/20 19:17 Last Admin: 10/31/20 19:20 Dose: 10 units Documented by: Lidocaine (Xylocaine-Mpf 2%) Confirm Administered Dose 5 ml .ROUTE .STK-MED ONE Stop: 11/01/20 13:38 Lisinopril (Prinivil) 2.5 mg PO DAILY [facility] Last Admin: 10/31/20 09:52 Dose: 2.5 mg Documented by: Metoprolol Tartrate (Lopressor) 12.5 mg PO Q12H [facility] Last Admin: 11/01/20 05:39 Dose: Not Given Documented by: Metoprolol Tartrate (Lopressor) 50 mg PO ONETIME ONE Stop: 11/01/20 22:48 Last Admin: 11/01/20 23:26 Dose: Not Given Documented by: Metoprolol Tartrate (Lopressor) 5 mg IV ONETIME ONE Stop: 11/01/20 23:31 Last Admin: 11/01/20 23:21 Dose: 5 mg Documented by: Metoprolol Tartrate (Lopressor) 5 mg IVPUSH ONETIME ONE Stop: 11/02/20 01:52 Last Admin: 11/02/20 01:59 Dose: 5 mg Documented by: Morphine Sulfate (Morphine) 4 mg IVPUSH ONETIME ONE Stop: 10/30/20 21:26 Last Admin: 10/30/20 21:58 Dose: 4 mg Documented by: Morphine Sulfate (Morphine) 2 mg IVPUSH Q2H PRN PRN Reason: Pain (severe 7-10) Stop: 10/31/20 22:51 Last Admin: 10/31/20 07:53 Dose: 2 mg Documented by: Morphine Sulfate (Morphine) 2 mg IVPUSH Q2H PRN PRN Reason: Pain (severe 7-10) Last Admin: 11/01/20 16:05 Dose: 2 mg Documented by: Morphine Sulfate (Morphine) 1 - 2 mg IVPUSH Q3H PRN PRN Reason: Pain Last Admin: 11/04/20 15:47 Dose: 2 mg Documented by: Ondansetron HCl (Zofran) Confirm Administered Dose 4 mg .ROUTE .STK-MED ONE Stop: 11/01/20 13:38 Pantoprazole Sodium (Protonix Iv) 40 mg IV DAILY [facility] Last Admin: 11/04/20 08:06 Dose: 40 mg Documented by: Phenylephrine HCl (John-Synephrine) Confirm Administered Dose 10 mg .ROUTE .STK- MED ONE Stop: 11/01/20 13:45 Rocuronium [place] (Rocuronium [place]) Confirm Administered Dose 50 mg .ROUTE .STK-MED ONE Stop: 11/01/20 13:38 Sodium Chloride (Saline Flush) 10 ml FLUSH ASDIRECTED PRN PRN Reason: Keep Vein Open Last Admin: 10/30/20 20:26 Dose: 10 ml Documented by: Sodium Chloride (Saline Flush) 2.5 ml FLUSH ASDIRECTED PRN PRN Reason: Keep Vein Open Last Admin: 10/30/20 23:48 Dose: 2.5 ml Documented by:
[2020-11-06 12:11] VITALS: BP 175/98; PULSE 94
== END 2020-11-06 13:50 | DRG 481 ==
LOC: MW.ED 19:08 → MW.MS 22:07
PROVIDERS: ADMIT Student in an Organized Health Care Education/Training Program; ATTEND Student in an Organized Health Care Education/Training Program
PROC: 0QS604Z Reposition Right Upper Femur with Internal Fixation Device, Open Approach (ICD-10-PCS; principal; 2020-11-01)
DX: S72.009A Fracture of unspecified part of neck of unspecified femur, initial encounter for closed fracture (principal); N17.9 Acute kidney failure, unspecified; E11.9 Type 2 diabetes mellitus without complications; I47.2 Ventricular tachycardia; N18.9 Chronic kidney disease, unspecified; F81.89 Other developmental disorders of scholastic skills; H54.7 Unspecified visual loss; H91.90 Unspecified hearing loss, unspecified ear; Z20.822 Contact with and (suspected) exposure to COVID-19; Z66 Do not resuscitate; H40.9 Unspecified glaucoma; K59.09 Other constipation; I12.9 Hypertensive chronic kidney disease with stage 1 through stage 4 chronic kidney disease, or unspecified chronic kidney disease; E11.22 Type 2 diabetes mellitus with diabetic chronic kidney disease; S72.001A Fracture of unspecified part of neck of right femur, initial encounter for closed fracture; E86.0 Dehydration; N13.9 Obstructive and reflux uropathy, unspecified; R31.9 Hematuria, unspecified; F98.4 Stereotyped movement disorders; R62.50 Unspecified lack of expected normal physiological development in childhood; R77.8 Other specified abnormalities of plasma proteins; Z79.84 Long term (current) use of oral hypoglycemic drugs; Z79.899 Other long term (current) drug therapy; X58.XXXA Exposure to other specified factors, initial encounter
CPT/HCPCS: 36415; 51702; 71045; 71045-26; 73521; 73521-26; 76000; 76000-26; 76775; 76775-26; 80048; 80053; 80061; 81003; 82570; 82962; 83036; 83735; 84100; 84300; 84443; 84484; 85025; 85610; 85730; 93005; 93010; 96374; 97110-GP; 97161-GP; 97530-GP; 99284; 99285-25; A9270-GY; C9113; J0282; J0690; J1644; J1815-GY; J2270; J2370; J2405; J3010; J3475; J3490; J7030; J7120; U0002

== ENCOUNTER 2020-11-20 08:18 | Inpatient (IN) | payer MEDICARE, MEDICAID ==
[2020-11-20] MEDS ORDERED: Sodium Chloride 0.9% 1,000 ML IV ONE (08:51)
--- NOTE | 2020-11-20 08:57 | EDM.PDOC ---
ED HPI GENERAL MEDICAL PROBLEM - General Chief Complaint: Diabetic Complaint Stated Complaint: HIGH SUGAR Time Seen by Provider: 11/20/20 08:53 Source of Information: Reports: Patient History Limitations: Reports: No Limitations - History of Present Illness INITIAL COMMENTS - FREE TEXT/NARRATIVE: Patient is an 85-year-old male nonverbal at baseline presents today with caregiver having elevated glucose of greater than 450 at home. Caregiver also states the patient's not been eating or drinking for the past few days was not normal for him. Patient had a fall has some hip fractures a while ago and since then has not been himself. She states that he is not been vomiting not felt any fevers or had any foul-smelling urine but does have history of recurrent UTIs. Patient does have a DNR/DNI and will need to be discussed as far as goals of care how aggressive they want to be with treating patient. - Related Data Allergies Allergy/AdvReac Type Severity Reaction Status Date / Time No Known Allergies Allergy Verified 11/20/20 08:55 Home Meds: Home Meds Carbamide Peroxide [Debrox] 15 ml OT ASDIRECTED 10/30/20 [History] Exenatide Microspheres [Bydureon Pen] 2 mg SQ WEEKLY 10/30/20 [History] Glimepiride 2 mg PO DAILY 10/30/20 [History] Multivitamin [Daily-Deb] 1 each PO DAILY 10/30/20 [History] Psyllium Husk [Metamucil] 1 tbsp PO DAILY 10/30/20 [History] Tamsulosin [Flomax] 0.4 mg PO DAILY 10/30/20 [History] Travoprost [Travatan Z] 1 drop EYELF BEDTIME 10/30/20 [History] lisinopriL [Lisinopril] 2.5 mg PO DAILY 10/30/20 [History] metFORMIN [Glucophage XR] 1,000 mg PO BIDMEALS 10/30/20 [History] sitaGLIPtin Phosphate [Januvia] 100 mg PO DAILY 10/30/20 [History] Docusate Sodium [Colace] 100 mg PO BID #60 cap 11/05/20 [Rx] bisacodyL [Dulcolax] 10 mg RECTAL DAILY PRN #15 supp 11/05/20 [Rx] Past Medical History HEENT History: Reports: Cataract, Glaucoma, Hard of Hearing, Other (See Below) Other HEENT History: congential cataracts Cardiovascular History: Reports: None Respiratory History: Reports: None Gastrointestinal History: Reports: Chronic Constipation, Gastritis, Other (See Below) Other Gastrointestinal History: Duodentis Genitourinary History: Reports: None Musculoskeletal History: Reports: Other (See Below) Other Musculoskeletal History: atypical stereo movement disorder Neurological History: Reports: Other (See Below) Other Neuro History: developmentally delayed Psychiatric History: Reports: Developmental Delay Endocrine/Metabolic History: Reports: Diabetes, Type II Hematologic History: Reports: None Immunologic History: Reports: None Oncologic (Cancer) History: Reports: None Dermatologic History: Reports: None - Past Surgical History Head Surgeries/Procedures: Reports: None HEENT Surgical History: Reports: Cataract Surgery, Visual Other HEENT Surgeries/Procedures: pt is deaf and blind Social & Family History - Family History Family Medical History: No Pertinent Family History - Caffeine Use Caffeine Use: Reports: None ED ROS GENERAL - Review of Systems Review Of Systems: Unable To Obtain Reason Not Obtained: non verbal ED EXAM GENERAL NO PERIP PULSE - Physical Exam Exam: See Below Exam Limited By: Other (non verbal) General Appearance: Alert Head: Atraumatic Respiratory/Chest: No Respiratory Distress, Lungs Clear Cardiovascular: Normal Peripheral Pulses, Regular Rate, Rhythm GI/Abdominal: Normal Bowel Sounds, Soft Extremities: Other (contracted ) Neurological: Other (rocking back and forth(not normal for pt) making some sound(normal for pt)) #1 Interpretation EKG Date: 11/20/20 Time: 11:24 Rhythm: NSR Rate (Beats/Min): 88 ST-T: Normal (peaked t waves) Course - Vital Signs Last Recorded V/S: Last Vital Signs Temp 97.1 F 11/20/20 08:51 Pulse 90 11/20/20 08:51 Resp 19 11/20/20 08:51 BP 177/131 H 11/20/20 08:51 Pulse Ox 99 11/20/20 08:51 - Orders/Labs/Meds Orders: Active Orders 24 hr Category Date Time Status Patient Status [ADT] Routine ADT 11/20/20 12:19 Ordered Communication Order [RC] STAT Care 11/20/20 10:23 Active Communication Order [RC] STAT Care 11/20/20 10:23 Active Communication Order [RC] STAT Care 11/20/20 10:23 Active Communication Order [RC] STAT Care 11/20/20 10:23 Active EKG Documentation Completion [RC] STAT Care 11/20/20 11:09 Active BASIC METABOLIC PANEL,BMP [CHEM] Stat Lab 11/20/20 12:04 Received GLUCOSE RANDOM [CHEM] Q1H Lab 11/20/20 12:30 Ordered GLUCOSE RANDOM [CHEM] Q1H Lab 11/20/20 13:30 Ordered GLUCOSE RANDOM [CHEM] Q1H Lab 11/20/20 14:30 Ordered POTASSIUM,K [CHEM] Q1H Lab 11/20/20 12:30 Ordered POTASSIUM,K [CHEM] Q1H Lab 11/20/20 13:30 Ordered POTASSIUM,K [CHEM] Q1H Lab 11/20/20 14:30 Ordered UA RFX SAHARA AND CULT IF INDIC [URIN] Stat Lab 11/20/20 08:52 Ordered Insulin Regular, Human [NovoLIN R] 100 unit Med 11/20/20 10:30 Active Sodium Chloride 0.9% [Normal Saline] 99 ml IV TITRATE Medication Orders Insulin Human Regular 100 unit (/ Sodium Chloride) 100 mls @ 6.804 mls/hr IV TITRATE TALI; Protocol Last Admin: 11/20/20 10:55 Dose: 0.1 units/kg/hr, 6.804 mls/hr Documented by: GOYO Cosigned by: [id number] Labs: Laboratory Tests 11/20/20 11/20/20 11/20/20 Range/Units 09:16 09:16 09:16 WBC 15.74 H (4.0-11.0) K/uL RBC 4.03 L (4.50-5.90) M/uL Hgb 12.0 L (13.0-17.0) g/dL Hct 39.1 (38.0-50.0) % MCV 97.0 (80.0-98.0) fL MCH 29.8 (27.0-32.0) pg MCHC 30.7 L (31.0-37.0) g/dL RDW Std Deviation 59.4 (28.0-62.0) fl RDW Coeff of Kash 17 H (11.0-15.0) % Plt Count 504 H (150-400) K/uL MPV 9.60 (7.40-12.00) fL Neut % (Auto) 92.0 H (48.0-80.0) % Lymph % (Auto) 4.2 L (16.0-40.0) % Calloway % (Auto) 3.7 (0.0-15.0) % Eos % (Auto) 0.0 (0.0-7.0) % Baso % (Auto) 0.1 (0.0-1.5) % Neut # (Auto) 14.5 H (1.4-5.7) K/uL Lymph # (Auto) 0.7 (0.6-2.4) K/uL Calloway # (Auto) 0.6 (0.0-0.8) K/uL Eos # (Auto) 0.0 (0.0-0.7) K/uL Baso # (Auto) 0.0 (0.0-0.1) K/uL Nucleated RBC % 0.0 /100WBC Nucleated RBCs # 0 K/uL VBG pH 7.25 L (7.31-7.41) VBG pCO2 29 L (35-45) mmHG VBG pO2 24 L (30-40) mmHG VBG HCO3 13 L (22-30) mEq/L VBG Total CO2 12 L (41-51) mmol/L VBG Base Excess -13.0 L (-3.0-3.0) Lactate 3.1 H* (0.20-2.00) mmol/L Sodium (136-148) mmol/L Potassium (3.5-5.1) mmol/L Chloride (98-107) mmol/L Carbon Dioxide (21.0-32.0) mmol/L BUN (7.0-18.0) mg/dL Creatinine (0.8-1.3) mg/dL Est Cr Clr Drug Dosing mL/min Estimated GFR (MDRD) ml/min Glucose (74-106) mg/dL POC Glucose (60-110) mg/dL Calcium (8.5-10.1) mg/dL Phosphorus (2.6-4.7) mg/dL Magnesium (1.8-2.4) mg/dL Total Bilirubin (0.2-1.0) mg/dL AST (15-37) IU/L ALT (14-63) IU/L Alkaline Phosphatase (46-116) U/L Creatine Kinase (26-308) U/L Total Protein (6.4-8.2) g/dL Albumin (3.4-5.0) g/dL Globulin (2.6-4.0) g/dL Albumin/Globulin Ratio (0.9-1.6) Lipase (73-393) U/L Influenza Type A RNA (NEGATIVE) Influenza Type B RNA (NEGATIVE) SARS-CoV-2 RNA (YUE) (NEGATIVE) 11/20/20 11/20/20 11/20/20 Range/Units 09:16 10:27 10:35 WBC (4.0-11.0) K/uL RBC (4.50-5.90) M/uL Hgb (13.0-17.0) g/dL Hct (38.0-50.0) % MCV (80.0-98.0) fL MCH (27.0-32.0) pg MCHC (31.0-37.0) g/dL RDW Std Deviation (28.0-62.0) fl RDW Coeff of Kash (11.0-15.0) % Plt Count (150-400) K/uL MPV (7.40-12.00) fL Neut % (Auto) (48.0-80.0) % Lymph % (Auto) (16.0-40.0) % Calloway % (Auto) (0.0-15.0) % Eos % (Auto) (0.0-7.0) % Baso % (Auto) (0.0-1.5) % Neut # (Auto) (1.4-5.7) K/uL Lymph # (Auto) (0.6-2.4) K/uL Calloway # (Auto) (0.0-0.8) K/uL Eos # (Auto) (0.0-0.7) K/uL Baso # (Auto) (0.0-0.1) K/uL Nucleated RBC % /100WBC Nucleated RBCs # K/uL VBG pH (7.31-7.41) VBG pCO2 (35-45) mmHG VBG pO2 (30-40) mmHG VBG HCO3 (22-30) mEq/L VBG Total CO2 (41-51) mmol/L VBG Base Excess (-3.0-3.0) Lactate (0.20-2.00) mmol/L Sodium 141 (136-148) mmol/L Potassium 6.6 H 6.7 H (3.5-5.1) mmol/L Chloride 109 H (98-107) mmol/L Carbon Dioxide 11.6 L (21.0-32.0) mmol/L BUN 115 H (7.0-18.0) mg/dL Creatinine 4.3 H (0.8-1.3) mg/dL Est Cr Clr Drug Dosing 10.93 mL/min Estimated GFR (MDRD) 13.2 ml/min Glucose 591 H* 527 H* (74-106) mg/dL POC Glucose (60-110) mg/dL Calcium 9.0 (8.5-10.1) mg/dL Phosphorus 6.8 H (2.6-4.7) mg/dL Magnesium 3.5 H (1.8-2.4) mg/dL Total Bilirubin 0.3 (0.2-1.0) mg/dL AST 10 L (15-37) IU/L ALT 38 (14-63) IU/L Alkaline Phosphatase 161 H (46-116) U/L Creatine Kinase 51 (26-308) U/L Total Protein 8.4 H (6.4-8.2) g/dL Albumin 2.7 L (3.4-5.0) g/dL Globulin 5.7 H (2.6-4.0) g/dL Albumin/Globulin Ratio 0.5 L (0.9-1.6) Lipase 638 H (73-393) U/L Influenza Type A RNA NEGATIVE (NEGATIVE) Influenza Type B RNA NEGATIVE (NEGATIVE) SARS-CoV-2 RNA (YUE) NEGATIVE (NEGATIVE) 11/20/20 11/20/20 Range/Units 10:35 12:04 WBC (4.0-11.0) K/uL RBC (4.50-5.90) M/uL Hgb (13.0-17.0) g/dL Hct (38.0-50.0) % MCV (80.0-98.0) fL MCH (27.0-32.0) pg MCHC (31.0-37.0) g/dL RDW Std Deviation (28.0-62.0) fl RDW Coeff of Kash (11.0-15.0) % Plt Count (150-400) K/uL MPV (7.40-12.00) fL Neut % (Auto) (48.0-80.0) % Lymph % (Auto) (16.0-40.0) % Calloway % (Auto) (0.0-15.0) % Eos % (Auto) (0.0-7.0) % Baso % (Auto) (0.0-1.5) % Neut # (Auto) (1.4-5.7) K/uL Lymph # (Auto) (0.6-2.4) K/uL Calloway # (Auto) (0.0-0.8) K/uL Eos # (Auto) (0.0-0.7) K/uL Baso # (Auto) (0.0-0.1) K/uL Nucleated RBC % /100WBC Nucleated RBCs # K/uL VBG pH (7.31-7.41) VBG pCO2 (35-45) mmHG VBG pO2 (30-40) mmHG VBG HCO3 (22-30) mEq/L VBG Total CO2 (41-51) mmol/L VBG Base Excess (-3.0-3.0) Lactate (0.20-2.00) mmol/L Sodium 142 (136-148) mmol/L Potassium 6.7 H (3.5-5.1) mmol/L Chloride 111 H (98-107) mmol/L Carbon Dioxide 9.2 L (21.0-32.0) mmol/L BUN 116 H (7.0-18.0) mg/dL Creatinine 3.9 H (0.8-1.3) mg/dL Est Cr Clr Drug Dosing 12.05 mL/min Estimated GFR (MDRD) 14.8 ml/min Glucose 551 H* (74-106) mg/dL POC Glucose 408 H (60-110) mg/dL Calcium 8.5 (8.5-10.1) mg/dL Phosphorus (2.6-4.7) mg/dL Magnesium (1.8-2.4) mg/dL Total Bilirubin (0.2-1.0) mg/dL AST (15-37) IU/L ALT (14-63) IU/L Alkaline Phosphatase (46-116) U/L Creatine Kinase (26-308) U/L Total Protein (6.4-8.2) g/dL Albumin (3.4-5.0) g/dL Globulin (2.6-4.0) g/dL Albumin/Globulin Ratio (0.9-1.6) Lipase (73-393) U/L Influenza Type A RNA (NEGATIVE) Influenza Type B RNA (NEGATIVE) SARS-CoV-2 RNA (YUE) (NEGATIVE) Meds: Medications Generic Name Dose Route Start Last Admin Trade Name Freq PRN Reason Stop Dose Admin Insulin Human Regular 100 unit 100 mls @ 6.804 mls/hr 11/20/20 10:30 11/20/20 10:55 / Sodium Chloride IV 0.1 units/kg/hr TITRATE TALI 6.804 mls/hr Administration Protocol 0.1 UNITS/KG/HR Discontinued Medications Generic Name Dose Route Start Last Admin Trade Name Freq PRN Reason Stop Dose Admin Calcium Gluconate 1 gm 11/20/20 11:10 11/20/20 12:03 Calcium Gluconate 10% 1 Gm/10 Ml Sdv IV 11/20/20 11:11 1 gm ONETIME ONE Administration Sodium Chloride 1,000 mls @ 999 mls/hr 11/20/20 08:51 11/20/20 09:36 Normal Saline IV 11/20/20 09:51 999 mls/hr .BOLUS ONE Administration Departure - Departure Time of Disposition: 11:30 Disposition: Admitted As Inpatient 66 Condition: Good Clinical Impression: DKA (diabetic ketoacidoses) - Discharge Information Referrals: Samm Brooke MD [Primary Care Provider] - Forms: ED Department Discharge Critical Care Note - Critical Care Note Total Time (mins): 45 Comments: Critical Care Procedure Note Authorized and Performed by: Dr. Smith Total critical care time: Approximately Due to a high probability of clinically significant, life threatening deterioration, the patient required my highest level of preparedness to intervene emergently and I personally spent this critical care time directly and personally managing the patient. This critical care time included obtaining a history; examining the patient; pulse oximetry; ordering and review of studies; arranging urgent treatment with development of a management plan; evaluation of patient's response to treatment; frequent reassessment; and, discussions with other providers. This critical care time was performed to assess and manage the high probability of imminent, life-threatening deterioration that could result in multi-organ failure. It was exclusive of separately billable procedures and treating other patients and teaching time. Sepsis Event Note (ED) - Focused Exam Vital Signs: Vital Signs Temp Pulse Resp BP Pulse Ox 11/20/20 08:51 97.1 F 90 19 177/131 H 99 - My Orders Last 24 Hours: My Active Orders 11/20/20 08:52 UA RFX SAHARA AND CULT IF INDIC [URIN] Stat 11/20/20 10:23 Communication Order [RC] STAT Communication Order [RC] STAT Communication Order [RC] STAT Communication Order [RC] STAT 11/20/20 10:30 Insulin Regular, Human [NovoLIN R] 100 unit Sodium Chloride 0.9% [Normal Saline] 99 ml IV TITRATE 11/20/20 11:09 EKG Documentation Completion [RC] STAT 11/20/20 12:04 BASIC METABOLIC PANEL,BMP [CHEM] Stat 11/20/20 12:19 Patient Status [ADT] Routine 11/20/20 12:30 GLUCOSE RANDOM [CHEM] Q1H POTASSIUM,K [CHEM] Q1H 11/20/20 13:30 GLUCOSE RANDOM [CHEM] Q1H POTASSIUM,K [CHEM] Q1H 11/20/20 14:30 GLUCOSE RANDOM [CHEM] Q1H POTASSIUM,K [CHEM] Q1H - Assessment/Plan Last 24 Hours: My Active Orders 11/20/20 08:52 UA RFX SAHARA AND CULT IF INDIC [URIN] Stat 11/20/20 10:23 Communication Order [RC] STAT Communication Order [RC] STAT Communication Order [RC] STAT Communication Order [RC] STAT 11/20/20 10:30 Insulin Regular, Human [NovoLIN R] 100 unit Sodium Chloride 0.9% [Normal Saline] 99 ml IV TITRATE 11/20/20 11:09 EKG Documentation Completion [RC] STAT 11/20/20 12:04 BASIC METABOLIC PANEL,BMP [CHEM] Stat 11/20/20 12:19 Patient Status [ADT] Routine 11/20/20 12:30 GLUCOSE RANDOM [CHEM] Q1H POTASSIUM,K [CHEM] Q1H 11/20/20 13:30 GLUCOSE RANDOM [CHEM] Q1H POTASSIUM,K [CHEM] Q1H 11/20/20 14:30 GLUCOSE RANDOM [CHEM] Q1H POTASSIUM,K [CHEM] Q1H Plan: Patient is an 85-year-old male who presents today with caregiver for elevated blood glucose and not eating or drinking for the past 3 days. Will likely try to correct patient sugar and rule out DKA. Patient likely need to be admitted for failure to thrive.
[2020-11-20 10:00] LABS: CARBON DIOXIDE,CO2 11.6 mmol/L (21.0-32.0); POTASSIUM,K 6.6 mmol/L (3.5-5.1)
--- NOTE | 2020-11-20 10:17 | CR ---
Indication: Failure to thrive Comparison: Single-view chest November 02, 2020 Technique: Single AP view chest Findings: There is hyperinflation and chronic interstitial change. There is improved aeration of the lung bases from comparison exam. There is no obvious dense consolidation, effusion, or pneumothorax. The cardiomediastinal silhouette is within normal limits. The bony thorax is grossly intact. Impression: Improved aeration of the lung bases with out evidence of dense consolidation. Dictated by Sanchez Mcclain MD @ Nov 20 2020 10:15AM Signed by Dr. Sanchez Mcclain @ Nov 20 2020 10:16AM
[2020-11-20 11:09] LABS: POTASSIUM,K 6.7 mmol/L (3.5-5.1)
[2020-11-20] MEDS ORDERED: Calcium Gluconate 10% 1 GM/10 ML SDV IV ONE (11:10)
[2020-11-20 11:23] LABS: CORONAVIRUS COVID-19 NAA NEGATIVE (NEGATIVE); INFLUENZA A NAA NEGATIVE (NEGATIVE); INFLUENZA B NAA NEGATIVE (NEGATIVE)
[2020-11-20 11:40] LABS: CARBON DIOXIDE,CO2 9.2 mmol/L (21.0-32.0); POTASSIUM,K 6.7 mmol/L (3.5-5.1)
--- NOTE | 2020-11-20 12:20 | CT ---
INDICATION: Urinary retention. COMPARISON: None available TECHNIQUE: CT examination of the abdomen and pelvis was performed without contrast enhancement using 2.5 mm thick axial sections from the lung bases through the pubic symphysis. Oral contrast was not administered. Please note that all CT scans at this facility use dose modulation, iterative reconstruction, and/or weight-based dosing when appropriate to reduce radiation dose to as low as reasonably achievable. FINDINGS: There is moderate bilateral hydronephrosis and moderate bilateral hydroureter extending to the prominently distended urinary bladder. The prominently distended urinary bladder extends above the umbilicus, but is otherwise normal in appearance. The prostate is moderately enlarged with a few coarse calcifications and is otherwise normal in appearance. There is a 7 millimeter nonobstructive calculus in the upper pole of the left kidney and two 4 millimeter calculi in the lower pole of the left kidney. These may be vascular calcifications. No calculi are seen in the right kidney. No calculi are seen in either ureter. In the abdomen, the unenhanced liver, spleen, pancreas, and right adrenal are normal in appearance. There is a low-density left adrenal mass measuring 2.0 x 1.2 centimeters with density of 6 Hounsfield units, findings truck sales representative of a lipid rich adrenal adenoma, requiring no further follow-up. The gallbladder is seen to have high density bile within it and is otherwise normal in appearance., The abdominal aorta is normal in caliber with no sign of dilatation. There is no sign of retroperitoneal mass or adenopathy. The stomach, loops of small bowel, and colon in the abdomen are normal in appearance. In the pelvis, the appendix is normal in appearance with no sign of inflammatory process. The loops of small bowel and colon in the pelvis are normal in appearance. There is no sign of pelvic or inguinal mass or adenopathy. There is no sign of free air or free fluid in the abdomen or pelvis. There is mild patchy and linear density in the posterior lung bases, right greater than left, consistent with atelectasis. There are changes of ORIF of a basicervical fracture of the right hip with components in mild valgus. There is a femoral neck nail with metal sideplate along with a medium caliber femoral neck screw. There is mild L4-5 disc degenerative disease. There is mild scoliosis of the lumbar spine convex towards the right. There are rounded, eggshell calcifications located within the mildly enlarged right iliacus muscle, consistent with old, resolved iliacus hematomas versus infection. There is no sign of any destructive change or evidence of healing in the adjacent right medial iliac wing to suggest infection. IMPRESSION: Moderate bilateral hydronephrosis and moderate bilateral hydroureter extending to the prominently distended urinary bladder. There is moderate enlargement of the prostate. 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 Probable vascular calcifications in the left kidney. No sign of any obstructing renal calculi. CT of the pelvis shows changes of ORIF of a right hip fracture. Please note that all CT scans at this facility use dose modulation, iterative reconstruction, and/or weight-based dosing when appropriate to reduce radiation dose to as low as reasonably achievable. Dictated by Andrei Benitez MD @ Nov 20 2020 12:05PM Signed by Dr. Andrei Benitez @ Nov 20 2020 12:19PM
[2020-11-20 12:43] LABS: POTASSIUM,K 5.7 mmol/L (3.5-5.1)
--- NOTE | 2020-11-20 12:43 | PCM.HP.2 ---
H&P History of Present Illness - General Date of Service: 11/20/20 Admit Problem/Dx: Admission Diagnosis/Problem Admission Diagnosis/Problem Diabetic ketoacidosis Source of Information: Old Records, Other (caregivers) History Limitations: Reports: Physical Impairment - History of Present Illness Initial Comments - Free Text/Narative: This 85-year-old male with history of HTN, diabetes type 2, CKD, blindness and deafness who lives in a [facility] with history of mental retardation and cognitive disorders presented to the ER today with elevated blood sugars and caregivers reporting he is not been eating and drinking. He was recently hospitalized at the end of October for a hip fracture and is status post ORIF. During his hospitalization he was noted to have significant urinary retention with obstructive uropathy noted. Childs catheter was sent home with patient. It appears he saw PCP on November 11, 2020 and had been doing well so catheter was removed. Caregivers were instructed to monitor for retention. In the ER patient alone no caregivers at bedside. Patient nonverbal and unable to provide any history. In the ER he was noted to have significant metabolic acidosis, leukocytosis 15,000 noted platelet count 504,000 hemoglobin 12 hematocrit 39.1. VBG showed pH 7.25 CO2 2902 24 lactic acid was 3.1. Sodium 141 potassium 6.6 chloride 109 bicarb 11.6 BUN 115 creatinine 4.3. Significant hyperglycemia noted at 591. Lipase elevated at 638. He was started on insulin drip blood sugars have improved to 400s. He was treated with [address] of his abdomen pelvis was obtained which showed significant urinary retention with moderate bilateral hydronephrosis prostate is moderately enlarged with a few course complications and is otherwise normal appearance no obstructive calculus noted but there is a 7 mm renal stone noted in the left upper pole of the kidney and 2 other 4 mm stones in the lower pole of the left kidney. An adrenal adenoma noted but appears to be lipid rich requiring no further work-up. Gallbladder appears normal appendix appears normal bowel large and small appear normal. Mild patchy and linear densities noted in the posterior lung bases right greater than left consistent with atelectasis. Childs to be placed in the ER and they will obtain urine. He was given calcium gluconate 1 g IV in the ER due to hyperkalemia. He will be admitted inpatient to ICU secondary to anabolic acidosis, acute renal failure likely secondary to obstructive uropathy, hyperkalemia and hyper glycemia. - Related Data Allergies/Adverse Reactions: Allergies Allergy/AdvReac Type Severity Reaction Status Date / Time No Known Allergies Allergy Verified 11/20/20 08:55 Home Medications: Home Meds Carbamide Peroxide [Debrox] 15 ml OT ASDIRECTED 10/30/20 [History] Exenatide Microspheres [Bydureon Pen] 2 mg SQ WEEKLY 10/30/20 [History] Glimepiride 2 mg PO DAILY 10/30/20 [History] Multivitamin [Daily-Deb] 1 each PO DAILY 10/30/20 [History] Psyllium Husk [Metamucil] 1 tbsp PO DAILY 10/30/20 [History] Tamsulosin [Flomax] 0.4 mg PO DAILY 10/30/20 [History] Travoprost [Travatan Z] 1 drop EYELF BEDTIME 10/30/20 [History] lisinopriL [Lisinopril] 2.5 mg PO DAILY 10/30/20 [History] metFORMIN [Glucophage XR] 1,000 mg PO BIDMEALS 10/30/20 [History] sitaGLIPtin Phosphate [Januvia] 100 mg PO DAILY 10/30/20 [History] Docusate Sodium [Colace] 100 mg PO BID #60 cap 11/05/20 [Rx] bisacodyL [Dulcolax] 10 mg RECTAL DAILY PRN #15 supp 11/05/20 [Rx] Past Medical History HEENT History: Reports: Cataract, Glaucoma, Hard of Hearing, Other (See Below) Other HEENT History: congential cataracts Cardiovascular History: Reports: None Respiratory History: Reports: None Gastrointestinal History: Reports: Chronic Constipation, Gastritis, Other (See Below) Other Gastrointestinal History: Duodentis Genitourinary History: Reports: None Musculoskeletal History: Reports: Other (See Below) Other Musculoskeletal History: atypical stereo movement disorder Neurological History: Reports: Other (See Below) Other Neuro History: developmentally delayed Psychiatric History: Reports: Developmental Delay Endocrine/Metabolic History: Reports: Diabetes, Type II Hematologic History: Reports: None Immunologic History: Reports: None Oncologic (Cancer) History: Reports: None Dermatologic History: Reports: None - Past Surgical History Head Surgeries/Procedures: Reports: None HEENT Surgical History: Reports: Cataract Surgery, Visual Other HEENT Surgeries/Procedures: pt is deaf and blind Social & Family History - Family History Family Medical History: No Pertinent Family History - Tobacco Use Tobacco Use Status *Q: Never Tobacco User - Caffeine Use Caffeine Use: Reports: None - Recreational Drug Use Recreational Drug Use: No H&P Review of Systems - Review of Systems: Review Of Systems: Unable To Obtain Reason Not Obtained: Patient nonverbal no caregivers at bedside. Exam - Exam Exam: See Below - Vital Signs Vital Signs: Last Vital Signs Temp 97.1 F 11/20/20 08:51 Pulse 87 11/20/20 12:40 Resp 18 11/20/20 11:22 BP 115/41 L 11/20/20 12:40 Pulse Ox 97 11/20/20 12:40 Weight: 68.039 kg - Exam Quality Assessment: Urinary Catheter (Tea colored urine that is quite cloudy in appearance) General: Alert, Cooperative HEENT: Conjunctiva Clear, Posterior Pharynx Clear. No: Mucosa Moist & Hornell (Mouth and oral labia significantly dry) Lungs: Clear to Auscultation, Normal Respiratory Effort Cardiovascular: Regular Rate, Regular Rhythm. No: Systolic Murmur GI/Abdominal Exam: Normal Bowel Sounds, Soft, No Distention, No Mass, Tender (Patient winces when lower abdomen palpated) (Male) Exam: Other (Childs catheter in place) Back Exam: Normal Inspection, Full Range of Motion Extremities: Normal Inspection, Normal Range of Motion, Non-Tender, No Pedal Edema Skin: Warm, Dry Neuro Extensive - Mental Status: Other Neuro Extensive - Motor, Sensory, Reflexes: Abnormal Gait Psychiatric: Alert, Normal Mood - Patient Data Lab Results Last 24 hrs: Laboratory Results - last 24 hr 11/20/20 11/20/20 11/20/20 Range/Units 09:16 09:16 09:16 WBC 15.74 H (4.0-11.0) K/uL RBC 4.03 L (4.50-5.90) M/uL Hgb 12.0 L (13.0-17.0) g/dL Hct 39.1 (38.0-50.0) % MCV 97.0 (80.0-98.0) fL MCH 29.8 (27.0-32.0) pg MCHC 30.7 L (31.0-37.0) g/dL RDW Std Deviation 59.4 (28.0-62.0) fl RDW Coeff of Kash 17 H (11.0-15.0) % Plt Count 504 H (150-400) K/uL MPV 9.60 (7.40-12.00) fL Neut % (Auto) 92.0 H (48.0-80.0) % Lymph % (Auto) 4.2 L (16.0-40.0) % [place] % (Auto) 3.7 (0.0-15.0) % Eos % (Auto) 0.0 (0.0-7.0) % Baso % (Auto) 0.1 (0.0-1.5) % Neut # (Auto) 14.5 H (1.4-5.7) K/uL Lymph # (Auto) 0.7 (0.6-2.4) K/uL [place] # (Auto) 0.6 (0.0-0.8) K/uL Eos # (Auto) 0.0 (0.0-0.7) K/uL Baso # (Auto) 0.0 (0.0-0.1) K/uL Nucleated RBC % 0.0 /100WBC Nucleated RBCs # 0 K/uL VBG pH 7.25 L (7.31-7.41) VBG pCO2 29 L (35-45) mmHG VBG pO2 24 L (30-40) mmHG VBG HCO3 13 L (22-30) mEq/L VBG Total CO2 12 L (41-51) mmol/L VBG Base Excess -13.0 L (-3.0-3.0) Lactate 3.1 H* (0.20-2.00) mmol/L Sodium (136-148) mmol/L Potassium (3.5-5.1) mmol/L Chloride (98-107) mmol/L Carbon Dioxide (21.0-32.0) mmol/L BUN (7.0-18.0) mg/dL Creatinine (0.8-1.3) mg/dL Est Cr Clr Drug Dosing mL/min Estimated GFR (MDRD) ml/min Glucose (74-106) mg/dL POC Glucose (60-110) mg/dL Calcium (8.5-10.1) mg/dL Phosphorus (2.6-4.7) mg/dL Magnesium (1.8-2.4) mg/dL Total Bilirubin (0.2-1.0) mg/dL AST (15-37) IU/L ALT (14-63) IU/L Alkaline Phosphatase (46-116) U/L Creatine Kinase (26-308) U/L Total Protein (6.4-8.2) g/dL Albumin (3.4-5.0) g/dL Globulin (2.6-4.0) g/dL Albumin/Globulin Ratio (0.9-1.6) Lipase (73-393) U/L Influenza Type A RNA (NEGATIVE) Influenza Type B RNA (NEGATIVE) SARS-CoV-2 RNA (YUE) (NEGATIVE) 11/20/20 11/20/20 11/20/20 Range/Units 09:16 10:27 10:35 WBC (4.0-11.0) K/uL RBC (4.50-5.90) M/uL Hgb (13.0-17.0) g/dL Hct (38.0-50.0) % MCV (80.0-98.0) fL MCH (27.0-32.0) pg MCHC (31.0-37.0) g/dL RDW Std Deviation (28.0-62.0) fl RDW Coeff of Kash (11.0-15.0) % Plt Count (150-400) K/uL MPV (7.40-12.00) fL Neut % (Auto) (48.0-80.0) % Lymph % (Auto) (16.0-40.0) % [place] % (Auto) (0.0-15.0) % Eos % (Auto) (0.0-7.0) % Baso % (Auto) (0.0-1.5) % Neut # (Auto) (1.4-5.7) K/uL Lymph # (Auto) (0.6-2.4) K/uL [place] # (Auto) (0.0-0.8) K/uL Eos # (Auto) (0.0-0.7) K/uL Baso # (Auto) (0.0-0.1) K/uL Nucleated RBC % /100WBC Nucleated RBCs # K/uL VBG pH (7.31-7.41) VBG pCO2 (35-45) mmHG VBG pO2 (30-40) mmHG VBG HCO3 (22-30) mEq/L VBG Total CO2 (41-51) mmol/L VBG Base Excess (-3.0-3.0) Lactate (0.20-2.00) mmol/L Sodium 141 (136-148) mmol/L Potassium 6.6 H 6.7 H (3.5-5.1) mmol/L Chloride 109 H (98-107) mmol/L Carbon Dioxide 11.6 L (21.0-32.0) mmol/L BUN 115 H (7.0-18.0) mg/dL Creatinine 4.3 H (0.8-1.3) mg/dL Est Cr Clr Drug Dosing 10.93 mL/min Estimated GFR (MDRD) 13.2 ml/min Glucose 591 H* 527 H* (74-106) mg/dL POC Glucose (60-110) mg/dL Calcium 9.0 (8.5-10.1) mg/dL Phosphorus 6.8 H (2.6-4.7) mg/dL Magnesium 3.5 H (1.8-2.4) mg/dL Total Bilirubin 0.3 (0.2-1.0) mg/dL AST 10 L (15-37) IU/L ALT 38 (14-63) IU/L Alkaline Phosphatase 161 H (46-116) U/L Creatine Kinase 51 (26-308) U/L Total Protein 8.4 H (6.4-8.2) g/dL Albumin 2.7 L (3.4-5.0) g/dL Globulin 5.7 H (2.6-4.0) g/dL Albumin/Globulin Ratio 0.5 L (0.9-1.6) Lipase 638 H (73-393) U/L Influenza Type A RNA NEGATIVE (NEGATIVE) Influenza Type B RNA NEGATIVE (NEGATIVE) SARS-CoV-2 RNA (YUE) NEGATIVE (NEGATIVE) 11/20/20 11/20/20 Range/Units 10:35 12:04 WBC (4.0-11.0) K/uL RBC (4.50-5.90) M/uL Hgb (13.0-17.0) g/dL Hct (38.0-50.0) % MCV (80.0-98.0) fL MCH (27.0-32.0) pg MCHC (31.0-37.0) g/dL RDW Std Deviation (28.0-62.0) fl RDW Coeff of Kash (11.0-15.0) % Plt Count (150-400) K/uL MPV (7.40-12.00) fL Neut % (Auto) (48.0-80.0) % Lymph % (Auto) (16.0-40.0) % [place] % (Auto) (0.0-15.0) % Eos % (Auto) (0.0-7.0) % Baso % (Auto) (0.0-1.5) % Neut # (Auto) (1.4-5.7) K/uL Lymph # (Auto) (0.6-2.4) K/uL [place] # (Auto) (0.0-0.8) K/uL Eos # (Auto) (0.0-0.7) K/uL Baso # (Auto) (0.0-0.1) K/uL Nucleated RBC % /100WBC Nucleated RBCs # K/uL VBG pH (7.31-7.41) VBG pCO2 (35-45) mmHG VBG pO2 (30-40) mmHG VBG HCO3 (22-30) mEq/L VBG Total CO2 (41-51) mmol/L VBG Base Excess (-3.0-3.0) Lactate (0.20-2.00) mmol/L Sodium 142 (136-148) mmol/L Potassium 6.7 H (3.5-5.1) mmol/L Chloride 111 H (98-107) mmol/L Carbon Dioxide 9.2 L (21.0-32.0) mmol/L BUN 116 H (7.0-18.0) mg/dL Creatinine 3.9 H (0.8-1.3) mg/dL Est Cr Clr Drug Dosing 12.05 mL/min Estimated GFR (MDRD) 14.8 ml/min Glucose 551 H* (74-106) mg/dL POC Glucose 408 H (60-110) mg/dL Calcium 8.5 (8.5-10.1) mg/dL Phosphorus (2.6-4.7) mg/dL Magnesium (1.8-2.4) mg/dL Total Bilirubin (0.2-1.0) mg/dL AST (15-37) IU/L ALT (14-63) IU/L Alkaline Phosphatase (46-116) U/L Creatine Kinase (26-308) U/L Total Protein (6.4-8.2) g/dL Albumin (3.4-5.0) g/dL Globulin (2.6-4.0) g/dL Albumin/Globulin Ratio (0.9-1.6) Lipase (73-393) U/L Influenza Type A RNA (NEGATIVE) Influenza Type B RNA (NEGATIVE) SARS-CoV-2 RNA (YUE) (NEGATIVE) Result Diagrams: 11/20/20 09:16 11/20/20 12:04 Sepsis Event Note - Evaluation Sepsis Screening Result: No Definite Risk Current Stage of Sepsis: Sepsis Possible Source of Sepsis: GI Tract/Intra-abdominal - Focused Exam Sepsis Event Note Statement: Focused Sepsis Exam Completed Vital Signs: Vital Signs Temp Pulse Resp BP Pulse Ox 11/20/20 12:40 87 115/41 L 97 11/20/20 11:22 91 18 142/49 H 98 11/20/20 10:23 92 17 113/93 H 98 11/20/20 09:52 82 18 138/43 L 100 11/20/20 09:22 92 15 95/48 L 99 11/20/20 08:51 97.1 F 90 19 177/131 H 99 Pulse Description: 2+ Normal Peripheral Pulse Location: Radial Skin Exam (Focused Sepsis): Pale Date Exam was Performed: 11/20/20 Time Exam was Performed: 13:00 - Problem List (1) Sepsis SNOMED Code(s): 45050280 ICD Code: A41.9 - SEPSIS, UNSPECIFIED ORGANISM Status: Acute Current Vi sit: Yes Qualifiers: Sepsis type: sepsis due to unspecified organism Sepsis acute organ dysfunction status: with acute organ dysfunction Severe sepsis acute organ dysfunction type: acute renal failure Severe sepsis shock status: without septic shock (2) Renal failure SNOMED Code(s): 30509584 ICD Code: N19 - UNSPECIFIED KIDNEY FAILURE Status: Acute Current Visit: Yes Qualifiers: Renal failure chronicity: acute on chronic (3) Metabolic acidosis SNOMED Code(s): 19040551 ICD Code: E87.2 - ACIDOSIS Status: Acute Current Visit: Yes (4) Hyperkalemia SNOMED Code(s): 09598043 ICD Code: E87.5 - HYPERKALEMIA Status: Acute Current Visit: Yes (5) UTI (urinary tract infection) SNOMED Code(s): 54726868 ICD Code: N39.0 - URINARY TRACT INFECTION, SITE NOT SPECIFIED Status: Acute Current Visit: Yes Qualifiers: Urinary tract infection type: acute cystitis Hematuria presence: with hematuria Qualified Code(s): N30.01 - Acute cystitis with hematuria (6) Dehydration SNOMED Code(s): 51736389 ICD Code: E86.0 - DEHYDRATION Status: Acute Current Visit: No (7) Obstructive uropathy SNOMED Code(s): 1541682 ICD Code: N13.9 - OBSTRUCTIVE AND REFLUX UROPATHY, UNSPECIFIED Status: Acute Current Visit: No (8) Hyperglycemia SNOMED Code(s): 18739084 ICD Code: R73.9 - HYPERGLYCEMIA, UNSPECIFIED Status: Acute Current Visit: No (9) Blindness SNOMED Code(s): 173610272 ICD Code: H54.7 - UNSPECIFIED VISUAL LOSS Status: Chronic Current Visit: No (10) CKD (chronic kidney disease) SNOMED Code(s): 639822783 ICD Code: N18.9 - CHRONIC KIDNEY DISEASE, UNSPECIFIED Status: Chronic Cu rrent Visit: No (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 SNOMED Code(s): 106812067 ICD 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: Chronic Current Visit: No (12) Wide-complex tachycardia SNOMED Code(s): 116915181 ICD Code: I47.2 - VENTRICULAR TACHYCARDIA Status: Chronic Current Visit: No (13) Diabetes SNOMED Code(s): 92772997 ICD Code: E11.9 - TYPE 2 DIABETES MELLITUS WITHOUT COMPLICATIONS Status: Chronic Current Visit: No Qualifiers: Diabetes mellitus type: type 2 Diabetes mellitus parts counterman insulin use: without care home use Diabetes mellitus complication status: without complication Qualified Code(s): E11.9 - Type 2 diabetes mellitus without complications (14) Hematuria SNOMED Code(s): 49184066 ICD Code: R31.9 - HEMATURIA, UNSPECIFIED Status: Acute Current Visit: Yes Problem List Initiated/Reviewed/Updated: Yes Orders Last 24hrs: Active Orders 24 hr Category Date Time Status Patient Status [ADT] Routine ADT 11/20/20 12:19 Active Communication Order [RC] STAT Care 11/20/20 10:23 Active Communication Order [RC] STAT Care 11/20/20 10:23 Active Communication Order [RC] STAT Care 11/20/20 10:23 Active Communication Order [RC] STAT Care 11/20/20 10:23 Active EKG Documentation Completion [RC] STAT Care 11/20/20 11:09 Active Insert Childs Catheter [Insert Urinary Catheter] [OM.PC] Care 11/20/20 12:45 Ordered Q24H Urinary Catheter Assessment [RC] ASDIRECTED Care 11/20/20 12:42 Ordered BASIC METABOLIC PANEL,BMP [CHEM] Stat Lab 11/20/20 12:04 Received GLUCOSE RANDOM [CHEM] Q1H Lab 11/20/20 12:30 Ordered GLUCOSE RANDOM [CHEM] Q1H Lab 11/20/20 13:30 Ordered GLUCOSE RANDOM [CHEM] Q1H Lab 11/20/20 14:30 Ordered KETONES,BLOOD [CHEM] Stat Lab 11/20/20 12:40 Ordered LACTIC ACID,WHOLE BLOOD [BG] Stat Lab 11/20/20 12:41 Ordered POTASSIUM,K [CHEM] Q1H Lab 11/20/20 12:30 Ordered POTASSIUM,K [CHEM] Q1H Lab 11/20/20 13:30 Ordered POTASSIUM,K [CHEM] Q1H Lab 11/20/20 14:30 Ordered UA RFX SAHARA AND CULT IF INDIC [URIN] Stat Lab 11/20/20 08:52 Ordered Insulin Regular, Human [NovoLIN R] 100 unit Med 11/20/20 10:30 Active Sodium Chloride 0.9% [Normal Saline] 99 ml IV TITRATE Medication Orders Insulin Human Regular 100 unit (/ Sodium Chloride) 100 mls @ 6.804 mls/hr IV TITRATE TALI; Protocol Last Admin: 11/20/20 10:55 Dose: 0.1 units/kg/hr, 6.804 mls/hr Documented by: GOYO Cosigned by: [id number] Assessment/Plan Comment:: This 85-year-old male admitted with acute renal failure secondary to obstructive uropathy, metabolic acidosis, hyperglycemia and sepsis secondary to UTI 1. Acute renal failure secondary to obstructive uropathy -CT abdomen pelvis revealed severely distended bladder with bilateral 100 nephrosis -Childs catheter placed in the ER draining 1 L of urine quickly. -UA obtained revealing UTI -Refrain from using nephrotoxic medications -Holding YAIMA -Continue Childs catheter-Childs drained out 1400 mils initially. Hematuria started after Childs catheter placed. We will continue to monitor nursing reported significant amount of large blood clots when she drained the catheter. - FENA reveals ATN, urine creatinine 21 and 6 sodium 78 2. Metabolic acidosis secondary to renal failure -Continue to monitor closely -We will give 2 L of LR now -Hyperkalemia is improving. Calcium gluconate 1 g IV given in the ER -Monitor BMPs every 4 hours -Continue insulin drip for now does not appear to be DKA as no ketones are present. 3. Sepsis/UTI -Blood cultures obtained -Urine culture obtained -Repeat lactic acid pending, will trend until below 2 -Zosyn renally dosed -Continue IV fluids after 2 L bolus given. -Enlarged prostate noted on CT. Does have enlarged prostate unable to determine if patient is having pain due to mental disabilities. 4. Hyperglycemia/DM type II -Continue insulin drip for now until metabolic acidosis resolves. -Blood sugar checks every 1 hour -BMPs every 4 hours -Hold all oral diabetic medication 5. HTN/history wide-complex tachycardia -Hold lisinopril -Last admission he was noted to have V. tach and was started on amiodarone. -EKG reveals sinus rhythm with left bundle branch block, which was noted last admission as well. -Continue amiodarone VTE prophylaxis: SCDs for now as patient is having hematuria GI prophylaxis: Protonix CODE STATUS: DNR/DNI, I did speak with Tabitha Villasenor, patient's sister and guardian also power of tube coater. She agrees with DNR/DNI. She reports she is okay with central line and vasopressors as needed and depending on the situation. She was counseled she would be called prior to placement of this to assess situation. She also deferred transfer and would not want dialysis for waiting at this time. She understands that there is risk of fatal cardiac arrhythmia secondary to hyperkalemia though this is improving. She will want us to reassess in the a.m. and monitor how Childs catheter relieves hydronephrosis and renal failure. She understands at this point his condition is serious. She will update Sister that is in [place] as well. Guardian/POA : Tabitha Villasenor [phone] Dispo: 2 to 4 days pending improvement. I also spoke to Tabitha regarding potential need for placement depending on what [facility] feels comfortable with taking care of him. He will need long-term Childs catheter. She verbalizes that she has been considering long term placement for a couple years and will wait and see how [facility] feels and will reach out to [facility] to evaluate their availability for him if needed.
[2020-11-20] MEDS ORDERED: Docusate Sodium 100 MG Cap PO PRN (12:53)
[2020-11-20] MEDS ORDERED: Pantoprazole 40 MG Vial IV SCH (13:00)
[2020-11-20 13:12] LABS: CARBON DIOXIDE,CO2 11.5 mmol/L (21.0-32.0)
[2020-11-20] MEDS ORDERED: Acetaminophen 650 MG Supp RECTAL PRN (13:15)
[2020-11-20] MEDS ORDERED: Ondansetron 4 MG/2 ML SDV IVPUSH PRN (13:30)
[2020-11-20] MEDS ORDERED: Sodium Chloride 0.9% 2.5 ML Syringe FLUSH PRN (13:30)
[2020-11-20] MEDS: Lactated Ringers 1,000 ML IV SCH ×2 (13:55→15:07)
[2020-11-20] MEDS: Pantoprazole 40 MG in Sodium Chloride 0.9% 10 ML IV SCH (14:06)
[2020-11-20] MEDS: Piperacillin/Tazobactam 2.25 GM in Sodium Chloride 0.9% 50 ML IV SCH ×2 (14:13→21:20)
[2020-11-20] MEDS ORDERED: Lactated Ringers 1,000 ML IV SCH (14:15)
--- NOTE | 2020-11-20 14:47 | PN ---
THC Physician - Brief Progress [id number]/17/2021 14:45[facility] Raf Leahy, GENEVA - FABY (LOAN) - FABY Nate VELEZ of Service 11/20/2020 14:45HPI/Events of Note eICU Admission [id number] admitted for septic shock attributed to UTI. History obtained from review of EMR.PMH: visual and auditory impairment, recent ORIF complicated by urinary retention and BA. 8 days ago catheter was discontinued by PCPHPI: Came in with renal failure and sepsis attributed to UTI . S/p lizarraga catheter with 1500cc out.Patient is DNR/DNI but okay with pressors and central line, but not okay with transfer.Camera exam: Laying in bed. Vitals monitor reviewed. eICU Recommendations:Cont inue antibiotics, cultures drawnIV fluids to target euvolemia. Should patient become/remain hypotensi ve following bolus, suggest intermittent determination of volume status to guide further fluid therap y, defer exact technique to what is available bedside (ie bedside ultrasound of IVC, NICOM, ETCO2 mon itoring with passive leg raise, CVP monitoring, VBG from central line for calculation of ScVO2).If pa tient is not fluid responsive, would recomment initiation of norepinephrine for vasopressor support.T rend lactateStrict I/OTrend creatinineAvoid nephrotoxic agentsDVT and GI prophylaxis as appropriate.T karthik you for allowing us to participate in the care of this patient.Unless otherwise specified, defer implementation of above recommendations to discretion of bedside provider. Please do not hesitate to contact the eICU service for questions, clarification, or assistance with implementation.The above n ote transcribed with the assistance of dictation software. Please excuse any errors.Interventions Campbell or-Sepsis - evaluation and management, Shock - evaluation and management
--- NOTE | 2020-11-20 14:47 | PN ---
THC Physician - Brief Progress [id number]/17/2021 14:46[facility] [place] - MWN (LOAN) - MWN Nate VELEZ of Service 11/20/2020 14:46HPI/Events of Note Sepsis Reassessment Focused ExamPatient examined via telepresence with assistance of bedside pro vider Delores Negro.I have performed a sepsis reassessment focused exam. Physical exam/systems review findings and plan: Suspected source of infection: UTICultures: blood and urine culturesIV fluids: 1L of NS in ER, now getting 2L more of LRAntibiotics: ZosynPlan to continue current therapy, trend lact ate. Will broaden antibiotics to vancomycin for MRSA coverage until ruled out.Interventions Major-Sep sis - evaluation and management, Shock - evaluation and management
[2020-11-20] MEDS: Dextrose 5%-0.45% NaCl 1,000 ML IV SCH ×3 (16:15→23:45)
[2020-11-20] MEDS: Linezolid 600 MG in Premix Bag 1 BAG IV SCH (16:19)
[2020-11-20 17:18] LABS: CARBON DIOXIDE,CO2 17.2 mmol/L (21.0-32.0); POTASSIUM,K 5.4 mmol/L (3.5-5.1)
[2020-11-20 20:30] LABS: CARBON DIOXIDE,CO2 16.1 mmol/L (21.0-32.0); POTASSIUM,K 4.6 mmol/L (3.5-5.1)
[2020-11-20] MEDS: TRAVOPROST 0.004% EYELF SCH (20:54)
[2020-11-21 00:50] LABS: CARBON DIOXIDE,CO2 15.6 mmol/L (21.0-32.0); POTASSIUM,K 4.7 mmol/L (3.5-5.1)
[2020-11-21] MEDS: Linezolid 600 MG in Premix Bag 1 BAG IV SCH ×2 (03:40→16:06)
[2020-11-21 04:42] LABS: POTASSIUM,K 4.5 mmol/L (3.5-5.1)
[2020-11-21 04:48] LABS: CARBON DIOXIDE,CO2 15.8 mmol/L (21.0-32.0)
[2020-11-21] MEDS: Piperacillin/Tazobactam 2.25 GM in Sodium Chloride 0.9% 50 ML IV SCH (05:31)
[2020-11-21] MEDS: Dextrose 5%-0.45% NaCl 1,000 ML IV SCH (06:12)
--- NOTE | 2020-11-21 07:51 | PCM.PN ---
- General Info Date of Service: 11/21/20 Admission Dx/Problem (Free Text): Admission Diagnosis/Problem Admission Diagnosis/Problem Diabetic ketoacidosis Subjective Update: Nonverbal Appears comfortable laying on left side. - Patient Data Vitals - Most Recent: Last Vital Signs Temp 98.4 F 11/21/20 06:00 Pulse 87 11/20/20 12:40 Resp 16 11/21/20 07:00 BP 146/55 H 11/21/20 07:00 Pulse Ox 99 11/21/20 07:00 Weight - Most Recent: 47.219 kg I&O - Last 24 Hours: Intake & Output 11/20/20 11/21/20 11/21/20 22:59 06:59 14:59 Intake Total 2080 4080 Output Total 1575 2400 Balance 505 1680 Lab Results Last 24 Hours: Laboratory Results - last 24 hr 11/20/20 11/20/20 11/20/20 Range/Units 09:16 09:16 09:16 WBC 15.74 H (4.0-11.0) K/uL RBC 4.03 L (4.50-5.90) M/uL Hgb 12.0 L (13.0-17.0) g/dL Hct 39.1 (38.0-50.0) % MCV 97.0 (80.0-98.0) fL MCH 29.8 (27.0-32.0) pg MCHC 30.7 L (31.0-37.0) g/dL RDW Std Deviation 59.4 (28.0-62.0) fl RDW Coeff of Kash 17 H (11.0-15.0) % Plt Count 504 H (150-400) K/uL MPV 9.60 (7.40-12.00) fL Neut % (Auto) 92.0 H (48.0-80.0) % Lymph % (Auto) 4.2 L (16.0-40.0) % [place] % (Auto) 3.7 (0.0-15.0) % Eos % (Auto) 0.0 (0.0-7.0) % Baso % (Auto) 0.1 (0.0-1.5) % Neut # (Auto) 14.5 H (1.4-5.7) K/uL Lymph # (Auto) 0.7 (0.6-2.4) K/uL [place] # (Auto) 0.6 (0.0-0.8) K/uL Eos # (Auto) 0.0 (0.0-0.7) K/uL Baso # (Auto) 0.0 (0.0-0.1) K/uL Nucleated RBC % 0.0 /100WBC Nucleated RBCs # 0 K/uL VBG pH 7.25 L (7.31-7.41) VBG pCO2 29 L (35-45) mmHG VBG pO2 24 L (30-40) mmHG VBG HCO3 13 L (22-30) mEq/L VBG Total CO2 12 L (41-51) mmol/L VBG Base Excess -13.0 L (-3.0-3.0) Lactate 3.1 H* (0.20-2.00) mmol/L Sodium (136-148) mmol/L Potassium (3.5-5.1) mmol/L Chloride (98-107) mmol/L Carbon Dioxide (21.0-32.0) mmol/L BUN (7.0-18.0) mg/dL Creatinine (0.8-1.3) mg/dL Est Cr Clr Drug Dosing mL/min Estimated GFR (MDRD) ml/min Glucose (74-106) mg/dL POC Glucose (60-110) mg/dL Calcium (8.5-10.1) mg/dL Phosphorus (2.6-4.7) mg/dL Magnesium (1.8-2.4) mg/dL Total Bilirubin (0.2-1.0) mg/dL AST (15-37) IU/L ALT (14-63) IU/L Alkaline Phosphatase (46-116) U/L Creatine Kinase (26-308) U/L Total Protein (6.4-8.2) g/dL Albumin (3.4-5.0) g/dL Globulin (2.6-4.0) g/dL Albumin/Globulin Ratio (0.9-1.6) Lipase (73-393) U/L Urine Color Urine Appearance Urine pH (5.0-8.0) Ur Specific [place] (1.001-1.035) Urine Protein (NEGATIVE) mg/dL Urine Glucose (UA) (NEGATIVE) mg/dL Urine Ketones (NEGATIVE) mg/dL Urine Occult Blood (NEGATIVE) Urine Nitrite (NEGATIVE) Urine Bilirubin (NEGATIVE) Urine Urobilinogen (<2.0) EU/dL Ur Leukocyte Esterase (NEGATIVE) Urine RBC (0-2/HPF) Urine WBC (0-5/HPF) Ur Epithelial Cells (NONE-FEW) Urine Bacteria (NEGATIVE) Ur Random Creatinine mg/dL Ur Random Sodium (40.0-220.0) mmol/L Ketones (NEG) Influenza Type A RNA (NEGATIVE) Influenza Type B RNA (NEGATIVE) SARS-CoV-2 RNA (YUE) (NEGATIVE) 11/20/20 11/20/20 11/20/20 Range/Units 09:16 09:16 10:27 WBC (4.0-11.0) K/uL RBC (4.50-5.90) M/uL Hgb (13.0-17.0) g/dL Hct (38.0-50.0) % MCV (80.0-98.0) fL MCH (27.0-32.0) pg MCHC (31.0-37.0) g/dL RDW Std Deviation (28.0-62.0) fl RDW Coeff of Kash (11.0-15.0) % Plt Count (150-400) K/uL MPV (7.40-12.00) fL Neut % (Auto) (48.0-80.0) % Lymph % (Auto) (16.0-40.0) % [place] % (Auto) (0.0-15.0) % Eos % (Auto) (0.0-7.0) % Baso % (Auto) (0.0-1.5) % Neut # (Auto) (1.4-5.7) K/uL Lymph # (Auto) (0.6-2.4) K/uL [place] # (Auto) (0.0-0.8) K/uL Eos # (Auto) (0.0-0.7) K/uL Baso # (Auto) (0.0-0.1) K/uL Nucleated RBC % /100WBC Nucleated RBCs # K/uL VBG pH (7.31-7.41) VBG pCO2 (35-45) mmHG VBG pO2 (30-40) mmHG VBG HCO3 (22-30) mEq/L VBG Total CO2 (41-51) mmol/L VBG Base Excess (-3.0-3.0) Lactate (0.20-2.00) mmol/L Sodium 141 (136-148) mmol/L Potassium 6.6 H (3.5-5.1) mmol/L Chloride 109 H (98-107) mmol/L Carbon Dioxide 11.6 L (21.0-32.0) mmol/L BUN 115 H (7.0-18.0) mg/dL Creatinine 4.3 H (0.8-1.3) mg/dL Est Cr Clr Drug Dosing 10.93 mL/min Estimated GFR (MDRD) 13.2 ml/min Glucose 591 H* (74-106) mg/dL POC Glucose (60-110) mg/dL Calcium 9.0 (8.5-10.1) mg/dL Phosphorus 6.8 H (2.6-4.7) mg/dL Magnesium 3.5 H (1.8-2.4) mg/dL Total Bilirubin 0.3 (0.2-1.0) mg/dL AST 10 L (15-37) IU/L ALT 38 (14-63) IU/L Alkaline Phosphatase 161 H (46-116) U/L Creatine Kinase 51 (26-308) U/L Total Protein 8.4 H (6.4-8.2) g/dL Albumin 2.7 L (3.4-5.0) g/dL Globulin 5.7 H (2.6-4.0) g/dL Albumin/Globulin Ratio 0.5 L (0.9-1.6) Lipase 638 H (73-393) U/L Urine Color Urine Appearance Urine pH (5.0-8.0) Ur Specific [place] (1.001-1.035) Urine Protein (NEGATIVE) mg/dL Urine Glucose (UA) (NEGATIVE) mg/dL Urine Ketones (NEGATIVE) mg/dL Urine Occult Blood (NEGATIVE) Urine Nitrite (NEGATIVE) Urine Bilirubin (NEGATIVE) Urine Urobilinogen (<2.0) EU/dL Ur Leukocyte Esterase (NEGATIVE) Urine RBC (0-2/HPF) Urine WBC (0-5/HPF) Ur Epithelial Cells (NONE-FEW) Urine Bacteria (NEGATIVE) Ur Random Creatinine mg/dL Ur Random Sodium (40.0-220.0) mmol/L Ketones NEGATIVE (NEG) Influenza Type A RNA NEGATIVE (NEGATIVE) Influenza Type B RNA NEGATIVE (NEGATIVE) SARS-CoV-2 RNA (YUE) NEGATIVE (NEGATIVE) 11/20/20 11/20/20 11/20/20 Range/Units 10:35 10:35 12:04 WBC (4.0-11.0) K/uL RBC (4.50-5.90) M/uL Hgb (13.0-17.0) g/dL Hct (38.0-50.0) % MCV (80.0-98.0) fL MCH (27.0-32.0) pg MCHC (31.0-37.0) g/dL RDW Std Deviation (28.0-62.0) fl RDW Coeff of Kash (11.0-15.0) % Plt Count (150-400) K/uL MPV (7.40-12.00) fL Neut % (Auto) (48.0-80.0) % Lymph % (Auto) (16.0-40.0) % [place] % (Auto) (0.0-15.0) % Eos % (Auto) (0.0-7.0) % Baso % (Auto) (0.0-1.5) % Neut # (Auto) (1.4-5.7) K/uL Lymph # (Auto) (0.6-2.4) K/uL [place] # (Auto) (0.0-0.8) K/uL Eos # (Auto) (0.0-0.7) K/uL Baso # (Auto) (0.0-0.1) K/uL Nucleated RBC % /100WBC Nucleated RBCs # K/uL VBG pH (7.31-7.41) VBG pCO2 (35-45) mmHG VBG pO2 (30-40) mmHG VBG HCO3 (22-30) mEq/L VBG Total CO2 (41-51) mmol/L VBG Base Excess (-3.0-3.0) Lactate (0.20-2.00) mmol/L Sodium 142 144 (136-148) mmol/L Potassium 6.7 H 6.7 H 5.7 H (3.5-5.1) mmol/L Chloride 111 H 114 H (98-107) mmol/L Carbon Dioxide 9.2 L 11.5 L (21.0-32.0) mmol/L BUN 116 H 116 H (7.0-18.0) mg/dL Creatinine 3.9 H 3.9 H (0.8-1.3) mg/dL Est Cr Clr Drug Dosing 12.05 12.05 mL/min Estimated GFR (MDRD) 14.8 14.8 ml/min Glucose 527 H* 551 H* 463 H (74-106) mg/dL POC Glucose (60-110) mg/dL Calcium 8.5 8.7 (8.5-10.1) mg/dL Phosphorus (2.6-4.7) mg/dL Magnesium (1.8-2.4) mg/dL Total Bilirubin (0.2-1.0) mg/dL AST (15-37) IU/L ALT (14-63) IU/L Alkaline Phosphatase (46-116) U/L Creatine Kinase (26-308) U/L Total Protein (6.4-8.2) g/dL Albumin (3.4-5.0) g/dL Globulin (2.6-4.0) g/dL Albumin/Globulin Ratio (0.9-1.6) Lipase (73-393) U/L Urine Color Urine Appearance Urine pH (5.0-8.0) Ur Specific [place] (1.001-1.035) Urine Protein (NEGATIVE) mg/dL Urine Glucose (UA) (NEGATIVE) mg/dL Urine Ketones (NEGATIVE) mg/dL Urine Occult Blood (NEGATIVE) Urine Nitrite (NEGATIVE) Urine Bilirubin (NEGATIVE) Urine Urobilinogen (<2.0) EU/dL Ur Leukocyte Esterase (NEGATIVE) Urine RBC (0-2/HPF) Urine WBC (0-5/HPF) Ur Epithelial Cells (NONE-FEW) Urine Bacteria (NEGATIVE) Ur Random Creatinine mg/dL Ur Random Sodium (40.0-220.0) mmol/L Ketones (NEG) Influenza Type A RNA (NEGATIVE) Influenza Type B RNA (NEGATIVE) SARS-CoV-2 RNA (YUE) (NEGATIVE) 11/20/20 11/20/20 11/20/20 Range/Units 12:04 12:25 12:25 WBC (4.0-11.0) K/uL RBC (4.50-5.90) M/uL Hgb (13.0-17.0) g/dL Hct (38.0-50.0) % MCV (80.0-98.0) fL MCH (27.0-32.0) pg MCHC (31.0-37.0) g/dL RDW Std Deviation (28.0-62.0) fl RDW Coeff of Kash (11.0-15.0) % Plt Count (150-400) K/uL MPV (7.40-12.00) fL Neut % (Auto) (48.0-80.0) % Lymph % (Auto) (16.0-40.0) % [place] % (Auto) (0.0-15.0) % Eos % (Auto) (0.0-7.0) % Baso % (Auto) (0.0-1.5) % Neut # (Auto) (1.4-5.7) K/uL Lymph # (Auto) (0.6-2.4) K/uL [place] # (Auto) (0.0-0.8) K/uL Eos # (Auto) (0.0-0.7) K/uL Baso # (Auto) (0.0-0.1) K/uL Nucleated RBC % /100WBC Nucleated RBCs # K/uL VBG pH (7.31-7.41) VBG pCO2 (35-45) mmHG VBG pO2 (30-40) mmHG VBG HCO3 (22-30) mEq/L VBG Total CO2 (41-51) mmol/L VBG Base Excess (-3.0-3.0) Lactate (0.20-2.00) mmol/L Sodium (136-148) mmol/L Potassium (3.5-5.1) mmol/L Chloride (98-107) mmol/L Carbon Dioxide (21.0-32.0) mmol/L BUN (7.0-18.0) mg/dL Creatinine (0.8-1.3) mg/dL Est Cr Clr Drug Dosing mL/min Estimated GFR (MDRD) ml/min Glucose (74-106) mg/dL POC Glucose 408 H (60-110) mg/dL Calcium (8.5-10.1) mg/dL Phosphorus (2.6-4.7) mg/dL Magnesium (1.8-2.4) mg/dL Total Bilirubin (0.2-1.0) mg/dL AST (15-37) IU/L ALT (14-63) IU/L Alkaline Phosphatase (46-116) U/L Creatine Kinase (26-308) U/L Total Protein (6.4-8.2) g/dL Albumin (3.4-5.0) g/dL Globulin (2.6-4.0) g/dL Albumin/Globulin Ratio (0.9-1.6) Lipase (73-393) U/L Urine Color YELLOW Urine Appearance CLOUDY Urine pH 8.5 H (5.0-8.0) Ur Specific [place] 1.015 (1.001-1.035) Urine Protein 100 H (NEGATIVE) mg/dL Urine Glucose (UA) >=1000 (NEGATIVE) mg/dL Urine Ketones NEGATIVE (NEGATIVE) mg/dL Urine Occult Blood LARGE H (NEGATIVE) Urine Nitrite NEGATIVE (NEGATIVE) Urine Bilirubin NEGATIVE (NEGATIVE) Urine Urobilinogen 0.2 (<2.0) EU/dL Ur Leukocyte Esterase MODERATE H (NEGATIVE) Urine RBC 80-100 (0-2/HPF) Urine WBC TO NUMEROUS TO COUNT H (0-5/HPF) Ur Epithelial Cells RARE (NONE-FEW) Urine Bacteria 4+ H (NEGATIVE) Ur Random Creatinine 21.6 mg/dL Ur Random Sodium 78.0 (40.0-220.0) mmol/L Ketones (NEG) Influenza Type A RNA (NEGATIVE) Influenza Type B RNA (NEGATIVE) SARS-CoV-2 RNA (YUE) (NEGATIVE) 11/20/20 11/20/20 11/20/20 Range/Units 12:41 13:49 14:33 WBC (4.0-11.0) K/uL RBC (4.50-5.90) M/uL Hgb (13.0-17.0) g/dL Hct (38.0-50.0) % MCV (80.0-98.0) fL MCH (27.0-32.0) pg MCHC (31.0-37.0) g/dL RDW Std Deviation (28.0-62.0) fl RDW Coeff of Kash (11.0-15.0) % Plt Count (150-400) K/uL MPV (7.40-12.00) fL Neut % (Auto) (48.0-80.0) % Lymph % (Auto) (16.0-40.0) % [place] % (Auto) (0.0-15.0) % Eos % (Auto) (0.0-7.0) % Baso % (Auto) (0.0-1.5) % Neut # (Auto) (1.4-5.7) K/uL Lymph # (Auto) (0.6-2.4) K/uL [place] # (Auto) (0.0-0.8) K/uL Eos # (Auto) (0.0-0.7) K/uL Baso # (Auto) (0.0-0.1) K/uL Nucleated RBC % /100WBC Nucleated RBCs # K/uL VBG pH (7.31-7.41) VBG pCO2 (35-45) mmHG VBG pO2 (30-40) mmHG VBG HCO3 (22-30) mEq/L VBG Total CO2 (41-51) mmol/L VBG Base Excess (-3.0-3.0) Lactate 4.8 H* (0.20-2.00) mmol/L Sodium (136-148) mmol/L Potassium (3.5-5.1) mmol/L Chloride (98-107) mmol/L Carbon Dioxide (21.0-32.0) mmol/L BUN (7.0-18.0) mg/dL Creatinine (0.8-1.3) mg/dL Est Cr Clr Drug Dosing mL/min Estimated GFR (MDRD) ml/min Glucose (74-106) mg/dL POC Glucose 232 H 145 H (60-110) mg/dL Calcium (8.5-10.1) mg/dL Phosphorus (2.6-4.7) mg/dL Magnesium (1.8-2.4) mg/dL Total Bilirubin (0.2-1.0) mg/dL AST (15-37) IU/L ALT (14-63) IU/L Alkaline Phosphatase (46-116) U/L Creatine Kinase (26-308) U/L Total Protein (6.4-8.2) g/dL Albumin (3.4-5.0) g/dL Globulin (2.6-4.0) g/dL Albumin/Globulin Ratio (0.9-1.6) Lipase (73-393) U/L Urine Color Urine Appearance Urine pH (5.0-8.0) Ur Specific [place] (1.001-1.035) Urine Protein (NEGATIVE) mg/dL Urine Glucose (UA) (NEGATIVE) mg/dL Urine Ketones (NEGATIVE) mg/dL Urine Occult Blood (NEGATIVE) Urine Nitrite (NEGATIVE) Urine Bilirubin (NEGATIVE) Urine Urobilinogen (<2.0) EU/dL Ur Leukocyte Esterase (NEGATIVE) Urine RBC (0-2/HPF) Urine WBC (0-5/HPF) Ur Epithelial Cells (NONE-FEW) Urine Bacteria (NEGATIVE) Ur Random Creatinine mg/dL Ur Random Sodium (40.0-220.0) mmol/L Ketones (NEG) Influenza Type A RNA (NEGATIVE) Influenza Type B RNA (NEGATIVE) SARS-CoV-2 RNA (YUE) (NEGATIVE) 11/20/20 11/20/20 11/20/20 Range/Units 15:27 16:40 16:40 WBC (4.0-11.0) K/uL RBC (4.50-5.90) M/uL Hgb (13.0-17.0) g/dL Hct (38.0-50.0) % MCV (80.0-98.0) fL MCH (27.0-32.0) pg MCHC (31.0-37.0) g/dL RDW Std Deviation (28.0-62.0) fl RDW Coeff of Kash (11.0-15.0) % Plt Count (150-400) K/uL MPV (7.40-12.00) fL Neut % (Auto) (48.0-80.0) % Lymph % (Auto) (16.0-40.0) % [place] % (Auto) (0.0-15.0) % Eos % (Auto) (0.0-7.0) % Baso % (Auto) (0.0-1.5) % Neut # (Auto) (1.4-5.7) K/uL Lymph # (Auto) (0.6-2.4) K/uL [place] # (Auto) (0.0-0.8) K/uL Eos # (Auto) (0.0-0.7) K/uL Baso # (Auto) (0.0-0.1) K/uL Nucleated RBC % /100WBC Nucleated RBCs # K/uL VBG pH (7.31-7.41) VBG pCO2 (35-45) mmHG VBG pO2 (30-40) mmHG VBG HCO3 (22-30) mEq/L VBG Total CO2 (41-51) mmol/L VBG Base Excess (-3.0-3.0) Lactate 3.2 H* (0.20-2.00) mmol/L Sodium 150 H (136-148) mmol/L Potassium 5.4 H (3.5-5.1) mmol/L Chloride 117 H (98-107) mmol/L Carbon Dioxide 17.2 L (21.0-32.0) mmol/L BUN 99 H (7.0-18.0) mg/dL Creatinine 3.3 H (0.8-1.3) mg/dL Est Cr Clr Drug Dosing 10.84 mL/min Estimated GFR (MDRD) 17.9 ml/min Glucose 134 H (74-106) mg/dL POC Glucose 107 (60-110) mg/dL Calcium 8.9 (8.5-10.1) mg/dL Phosphorus (2.6-4.7) mg/dL Magnesium (1.8-2.4) mg/dL Total Bilirubin (0.2-1.0) mg/dL AST (15-37) IU/L ALT (14-63) IU/L Alkaline Phosphatase (46-116) U/L Creatine Kinase (26-308) U/L Total Protein (6.4-8.2) g/dL Albumin (3.4-5.0) g/dL Globulin (2.6-4.0) g/dL Albumin/Globulin Ratio (0.9-1.6) Lipase (73-393) U/L Urine Color Urine Appearance Urine pH (5.0-8.0) Ur Specific [place] (1.001-1.035) Urine Protein (NEGATIVE) mg/dL Urine Glucose (UA) (NEGATIVE) mg/dL Urine Ketones (NEGATIVE) mg/dL Urine Occult Blood (NEGATIVE) Urine Nitrite (NEGATIVE) Urine Bilirubin (NEGATIVE) Urine Urobilinogen (<2.0) EU/dL Ur Leukocyte Esterase (NEGATIVE) Urine RBC (0-2/HPF) Urine WBC (0-5/HPF) Ur Epithelial Cells (NONE-FEW) Urine Bacteria (NEGATIVE) Ur Random Creatinine mg/dL Ur Random Sodium (40.0-220.0) mmol/L Ketones (NEG) Influenza Type A RNA (NEGATIVE) Influenza Type B RNA (NEGATIVE) SARS-CoV-2 RNA (YUE) (NEGATIVE) 11/20/20 11/20/20 11/20/20 Range/Units 16:40 17:56 18:59 WBC (4.0-11.0) K/uL RBC (4.50-5.90) M/uL Hgb (13.0-17.0) g/dL Hct (38.0-50.0) % MCV (80.0-98.0) fL MCH (27.0-32.0) pg MCHC (31.0-37.0) g/dL RDW Std Deviation (28.0-62.0) fl RDW Coeff of Kash (11.0-15.0) % Plt Count (150-400) K/uL MPV (7.40-12.00) fL Neut % (Auto) (48.0-80.0) % Lymph % (Auto) (16.0-40.0) % [place] % (Auto) (0.0-15.0) % Eos % (Auto) (0.0-7.0) % Baso % (Auto) (0.0-1.5) % Neut # (Auto) (1.4-5.7) K/uL Lymph # (Auto) (0.6-2.4) K/uL [place] # (Auto) (0.0-0.8) K/uL Eos # (Auto) (0.0-0.7) K/uL Baso # (Auto) (0.0-0.1) K/uL Nucleated RBC % /100WBC Nucleated RBCs # K/uL VBG pH (7.31-7.41) VBG pCO2 (35-45) mmHG VBG pO2 (30-40) mmHG VBG HCO3 (22-30) mEq/L VBG Total CO2 (41-51) mmol/L VBG Base Excess (-3.0-3.0) Lactate (0.20-2.00) mmol/L Sodium (136-148) mmol/L Potassium (3.5-5.1) mmol/L Chloride (98-107) mmol/L Carbon Dioxide (21.0-32.0) mmol/L BUN (7.0-18.0) mg/dL Creatinine (0.8-1.3) mg/dL Est Cr Clr Drug Dosing mL/min Estimated GFR (MDRD) ml/min Glucose (74-106) mg/dL POC Glucose 125 H 190 H 180 H (60-110) mg/dL Calcium (8.5-10.1) mg/dL Phosphorus (2.6-4.7) mg/dL Magnesium (1.8-2.4) mg/dL Total Bilirubin (0.2-1.0) mg/dL AST (15-37) IU/L ALT (14-63) IU/L Alkaline Phosphatase (46-116) U/L Creatine Kinase (26-308) U/L Total Protein (6.4-8.2) g/dL Albumin (3.4-5.0) g/dL Globulin (2.6-4.0) g/dL Albumin/Globulin Ratio (0.9-1.6) Lipase (73-393) U/L Urine Color Urine Appearance Urine pH (5.0-8.0) Ur Specific [place] (1.001-1.035) Urine Protein (NEGATIVE) mg/dL Urine Glucose (UA) (NEGATIVE) mg/dL Urine Ketones (NEGATIVE) mg/dL Urine Occult Blood (NEGATIVE) Urine Nitrite (NEGATIVE) Urine Bilirubin (NEGATIVE) Urine Urobilinogen (<2.0) EU/dL Ur Leukocyte Esterase (NEGATIVE) Urine RBC (0-2/HPF) Urine WBC (0-5/HPF) Ur Epithelial Cells (NONE-FEW) Urine Bacteria (NEGATIVE) Ur Random Creatinine mg/dL Ur Random Sodium (40.0-220.0) mmol/L Ketones (NEG) Influenza Type A RNA (NEGATIVE) Influenza Type B RNA (NEGATIVE) SARS-CoV-2 RNA (YUE) (NEGATIVE) 11/20/20 11/20/2011/20/21 Range/Units 20:00 20:08 20:08 WBC (4.0-11.0) K/uL RBC (4.50-5.90) M/uL Hgb 9.8 L (13.0-17.0) g/dL Hct 30.3 L (38.0-50.0) % MCV (80.0-98.0) fL MCH (27.0-32.0) pg MCHC (31.0-37.0) g/dL RDW Std Deviation (28.0-62.0) fl RDW Coeff of Kash (11.0-15.0) % Plt Count (150-400) K/uL MPV (7.40-12.00) fL Neut % (Auto) (48.0-80.0) % Lymph % (Auto) (16.0-40.0) % [place] % (Auto) (0.0-15.0) % Eos % (Auto) (0.0-7.0) % Baso % (Auto) (0.0-1.5) % Neut # (Auto) (1.4-5.7) K/uL Lymph # (Auto) (0.6-2.4) K/uL [place] # (Auto) (0.0-0.8) K/uL Eos # (Auto) (0.0-0.7) K/uL Baso # (Auto) (0.0-0.1) K/uL Nucleated RBC % /100WBC Nucleated RBCs # K/uL VBG pH (7.31-7.41) VBG pCO2 (35-45) mmHG VBG pO2 (30-40) mmHG VBG HCO3 (22-30) mEq/L VBG Total CO2 (41-51) mmol/L VBG Base Excess (-3.0-3.0) Lactate (0.20-2.00) mmol/L Sodium 147 (136-148) mmol/L Potassium 4.6 (3.5-5.1) mmol/L Chloride 118 H (98-107) mmol/L Carbon Dioxide 16.1 L (21.0-32.0) mmol/L BUN 84 H (7.0-18.0) mg/dL Creatinine 2.8 H (0.8-1.3) mg/dL Est Cr Clr Drug Dosing 12.77 mL/min Estimated GFR (MDRD) 21.6 ml/min Glucose 165 H (74-106) mg/dL POC Glucose 151 H (60-110) mg/dL Calcium 8.3 L (8.5-10.1) mg/dL Phosphorus (2.6-4.7) mg/dL Magnesium (1.8-2.4) mg/dL Total Bilirubin (0.2-1.0) mg/dL AST (15-37) IU/L ALT (14-63) IU/L Alkaline Phosphatase (46-116) U/L Creatine Kinase (26-308) U/L Total Protein (6.4-8.2) g/dL Albumin (3.4-5.0) g/dL Globulin (2.6-4.0) g/dL Albumin/Globulin Ratio (0.9-1.6) Lipase (73-393) U/L Urine Color Urine Appearance Urine pH (5.0-8.0) Ur Specific [place] (1.001-1.035) Urine Protein (NEGATIVE) mg/dL Urine Glucose (UA) (NEGATIVE) mg/dL Urine Ketones (NEGATIVE) mg/dL Urine Occult Blood (NEGATIVE) Urine Nitrite (NEGATIVE) Urine Bilirubin (NEGATIVE) Urine Urobilinogen (<2.0) EU/dL Ur Leukocyte Esterase (NEGATIVE) Urine RBC (0-2/HPF) Urine WBC (0-5/HPF) Ur Epithelial Cells (NONE-FEW) Urine Bacteria (NEGATIVE) Ur Random Creatinine mg/dL Ur Random Sodium (40.0-220.0) mmol/L Ketones (NEG) Influenza Type A RNA (NEGATIVE) Influenza Type B RNA (NEGATIVE) SARS-CoV-2 RNA (YUE) (NEGATIVE) 11/20/20 11/20/20 11/20/20 Range/Units 20:08 21:01 22:09 WBC (4.0-11.0) K/uL RBC (4.50-5.90) M/uL Hgb (13.0-17.0) g/dL Hct (38.0-50.0) % MCV (80.0-98.0) fL MCH (27.0-32.0) pg MCHC (31.0-37.0) g/dL RDW Std Deviation (28.0-62.0) fl RDW Coeff of Kash (11.0-15.0) % Plt Count (150-400) K/uL MPV (7.40-12.00) fL Neut % (Auto) (48.0-80.0) % Lymph % (Auto) (16.0-40.0) % [place] % (Auto) (0.0-15.0) % Eos % (Auto) (0.0-7.0) % Baso % (Auto) (0.0-1.5) % Neut # (Auto) (1.4-5.7) K/uL Lymph # (Auto) (0.6-2.4) K/uL [place] # (Auto) (0.0-0.8) K/uL Eos # (Auto) (0.0-0.7) K/uL Baso # (Auto) (0.0-0.1) K/uL Nucleated RBC % /100WBC Nucleated RBCs # K/uL VBG pH (7.31-7.41) VBG pCO2 (35-45) mmHG VBG pO2 (30-40) mmHG VBG HCO3 (22-30) mEq/L VBG Total CO2 (41-51) mmol/L VBG Base Excess (-3.0-3.0) Lactate 2.4 H* (0.20-2.00) mmol/L Sodium (136-148) mmol/L Potassium (3.5-5.1) mmol/L Chloride (98-107) mmol/L Carbon Dioxide (21.0-32.0) mmol/L BUN (7.0-18.0) mg/dL Creatinine (0.8-1.3) mg/dL Est Cr Clr Drug Dosing mL/min Estimated GFR (MDRD) ml/min Glucose (74-106) mg/dL POC Glucose 129 H 85 (60-110) mg/dL Calcium (8.5-10.1) mg/dL Phosphorus (2.6-4.7) mg/dL Magnesium (1.8-2.4) mg/dL Total Bilirubin (0.2-1.0) mg/dL AST (15-37) IU/L ALT (14-63) IU/L Alkaline Phosphatase (46-116) U/L Creatine Kinase (26-308) U/L Total Protein (6.4-8.2) g/dL Albumin (3.4-5.0) g/dL Globulin (2.6-4.0) g/dL Albumin/Globulin Ratio (0.9-1.6) Lipase (73-393) U/L Urine Color Urine Appearance Urine pH (5.0-8.0) Ur Specific [place] (1.001-1.035) Urine Protein (NEGATIVE) mg/dL Urine Glucose (UA) (NEGATIVE) mg/dL Urine Ketones (NEGATIVE) mg/dL Urine Occult Blood (NEGATIVE) Urine Nitrite (NEGATIVE) Urine Bilirubin (NEGATIVE) Urine Urobilinogen (<2.0) EU/dL Ur Leukocyte Esterase (NEGATIVE) Urine RBC (0-2/HPF) Urine WBC (0-5/HPF) Ur Epithelial Cells (NONE-FEW) Urine Bacteria (NEGATIVE) Ur Random Creatinine mg/dL Ur Random Sodium (40.0-220.0) mmol/L Ketones (NEG) Influenza Type A RNA (NEGATIVE) Influenza Type B RNA (NEGATIVE) SARS-CoV-2 RNA (YUE) (NEGATIVE) 11/20/20 11/21/20 11/21/20 Range/Units 22:59 00:18 00:23 WBC (4.0-11.0) K/uL RBC (4.50-5.90) M/uL Hgb (13.0-17.0) g/dL Hct (38.0-50.0) % MCV (80.0-98.0) fL MCH (27.0-32.0) pg MCHC (31.0-37.0) g/dL RDW Std Deviation (28.0-62.0) fl RDW Coeff of Kash (11.0-15.0) % Plt Count (150-400) K/uL MPV (7.40-12.00) fL Neut % (Auto) (48.0-80.0) % Lymph % (Auto) (16.0-40.0) % [place] % (Auto) (0.0-15.0) % Eos % (Auto) (0.0-7.0) % Baso % (Auto) (0.0-1.5) % Neut # (Auto) (1.4-5.7) K/uL Lymph # (Auto) (0.6-2.4) K/uL [place] # (Auto) (0.0-0.8) K/uL Eos # (Auto) (0.0-0.7) K/uL Baso # (Auto) (0.0-0.1) K/uL Nucleated RBC % /100WBC Nucleated RBCs # K/uL VBG pH (7.31-7.41) VBG pCO2 (35-45) mmHG VBG pO2 (30-40) mmHG VBG HCO3 (22-30) mEq/L VBG Total CO2 (41-51) mmol/L VBG Base Excess (-3.0-3.0) Lactate (0.20-2.00) mmol/L Sodium 149 H (136-148) mmol/L Potassium 4.7 (3.5-5.1) mmol/L Chloride 119 H (98-107) mmol/L Carbon Dioxide 15.6 L (21.0-32.0) mmol/L BUN 74 H (7.0-18.0) mg/dL Creatinine 2.3 H (0.8-1.3) mg/dL Est Cr Clr Drug Dosing 15.55 mL/min Estimated GFR (MDRD) 27.2 ml/min Glucose 148 H (74-106) mg/dL POC Glucose 119 H 134 H (60-110) mg/dL Calcium 7.8 L (8.5-10.1) mg/dL Phosphorus (2.6-4.7) mg/dL Magnesium (1.8-2.4) mg/dL Total Bilirubin (0.2-1.0) mg/dL AST (15-37) IU/L ALT (14-63) IU/L Alkaline Phosphatase (46-116) U/L Creatine Kinase (26-308) U/L Total Protein (6.4-8.2) g/dL Albumin (3.4-5.0) g/dL Globulin (2.6-4.0) g/dL Albumin/Globulin Ratio (0.9-1.6) Lipase (73-393) U/L Urine Color Urine Appearance Urine pH (5.0-8.0) Ur Specific [place] (1.001-1.035) Urine Protein (NEGATIVE) mg/dL Urine Glucose (UA) (NEGATIVE) mg/dL Urine Ketones (NEGATIVE) mg/dL Urine Occult Blood (NEGATIVE) Urine Nitrite (NEGATIVE) Urine Bilirubin (NEGATIVE) Urine Urobilinogen (<2.0) EU/dL Ur Leukocyte Esterase (NEGATIVE) Urine RBC (0-2/HPF) Urine WBC (0-5/HPF) Ur Epithelial Cells (NONE-FEW) Urine Bacteria (NEGATIVE) Ur Random Creatinine mg/dL Ur Random Sodium (40.0-220.0) mmol/L Ketones (NEG) Influenza Type A RNA (NEGATIVE) Influenza Type B RNA (NEGATIVE) SARS-CoV-2 RNA (YUE) (NEGATIVE) 11/21/20 11/21/20 11/21/20 Range/Units 00:23 01:09 02:03 WBC (4.0-11.0) K/uL RBC (4.50-5.90) M/uL Hgb (13.0-17.0) g/dL Hct (38.0-50.0) % MCV (80.0-98.0) fL MCH (27.0-32.0) pg MCHC (31.0-37.0) g/dL RDW Std Deviation (28.0-62.0) fl RDW Coeff of Kash (11.0-15.0) % Plt Count (150-400) K/uL MPV (7.40-12.00) fL Neut % (Auto) (48.0-80.0) % Lymph % (Auto) (16.0-40.0) % [place] % (Auto) (0.0-15.0) % Eos % (Auto) (0.0-7.0) % Baso % (Auto) (0.0-1.5) % Neut # (Auto) (1.4-5.7) K/uL Lymph # (Auto) (0.6-2.4) K/uL [place] # (Auto) (0.0-0.8) K/uL Eos # (Auto) (0.0-0.7) K/uL Baso # (Auto) (0.0-0.1) K/uL Nucleated RBC % /100WBC Nucleated RBCs # K/uL VBG pH (7.31-7.41) VBG pCO2 (35-45) mmHG VBG pO2 (30-40) mmHG VBG HCO3 (22-30) mEq/L VBG Total CO2 (41-51) mmol/L VBG Base Excess (-3.0-3.0) Lactate 1.0 (0.20-2.00) mmol/L Sodium (136-148) mmol/L Potassium (3.5-5.1) mmol/L Chloride (98-107) mmol/L Carbon Dioxide (21.0-32.0) mmol/L BUN (7.0-18.0) mg/dL Creatinine (0.8-1.3) mg/dL Est Cr Clr Drug Dosing mL/min Estimated GFR (MDRD) ml/min Glucose (74-106) mg/dL POC Glucose 153 H 146 H (60-110) mg/dL Calcium (8.5-10.1) mg/dL Phosphorus (2.6-4.7) mg/dL Magnesium (1.8-2.4) mg/dL Total Bilirubin (0.2-1.0) mg/dL AST (15-37) IU/L ALT (14-63) IU/L Alkaline Phosphatase (46-116) U/L Creatine Kinase (26-308) U/L Total Protein (6.4-8.2) g/dL Albumin (3.4-5.0) g/dL Globulin (2.6-4.0) g/dL Albumin/Globulin Ratio (0.9-1.6) Lipase (73-393) U/L Urine Color Urine Appearance Urine pH (5.0-8.0) Ur Specific [place] (1.001-1.035) Urine Protein (NEGATIVE) mg/dL Urine Glucose (UA) (NEGATIVE) mg/dL Urine Ketones (NEGATIVE) mg/dL Urine Occult Blood (NEGATIVE) Urine Nitrite (NEGATIVE) Urine Bilirubin (NEGATIVE) Urine Urobilinogen (<2.0) EU/dL Ur Leukocyte Esterase (NEGATIVE) Urine RBC (0-2/HPF) Urine WBC (0-5/HPF) Ur Epithelial Cells (NONE-FEW) Urine Bacteria (NEGATIVE) Ur Random Creatinine mg/dL Ur Random Sodium (40.0-220.0) mmol/L Ketones (NEG) Influenza Type A RNA (NEGATIVE) Influenza Type B RNA (NEGATIVE) SARS-CoV-2 RNA (YUE) (NEGATIVE) 11/21/20 11/21/20 11/21/20 Range/Units 02:59 04:00 04:18 WBC (4.0-11.0) K/uL RBC (4.50-5.90) M/uL Hgb (13.0-17.0) g/dL Hct (38.0-50.0) % MCV (80.0-98.0) fL MCH (27.0-32.0) pg MCHC (31.0-37.0) g/dL RDW Std Deviation (28.0-62.0) fl RDW Coeff of Kash (11.0-15.0) % Plt Count (150-400) K/uL MPV (7.40-12.00) fL Neut % (Auto) (48.0-80.0) % Lymph % (Auto) (16.0-40.0) % [place] % (Auto) (0.0-15.0) % Eos % (Auto) (0.0-7.0) % Baso % (Auto) (0.0-1.5) % Neut # (Auto) (1.4-5.7) K/uL Lymph # (Auto) (0.6-2.4) K/uL [place] # (Auto) (0.0-0.8) K/uL Eos # (Auto) (0.0-0.7) K/uL Baso # (Auto) (0.0-0.1) K/uL Nucleated RBC % /100WBC Nucleated RBCs # K/uL VBG pH (7.31-7.41) VBG pCO2 (35-45) mmHG VBG pO2 (30-40) mmHG VBG HCO3 (22-30) mEq/L VBG Total CO2 (41-51) mmol/L VBG Base Excess (-3.0-3.0) Lactate (0.20-2.00) mmol/L Sodium 145 (136-148) mmol/L Potassium 4.5 (3.5-5.1) mmol/L Chloride 115 H (98-107) mmol/L Carbon Dioxide 15.8 L (21.0-32.0) mmol/L BUN 61 H (7.0-18.0) mg/dL Creatinine 2.0 H (0.8-1.3) mg/dL Est Cr Clr Drug Dosing 17.88 mL/min Estimated GFR (MDRD) 31.9 ml/min Glucose 169 H (74-106) mg/dL POC Glucose 155 H 139 H (60-110) mg/dL Calcium 8.0 L (8.5-10.1) mg/dL Phosphorus (2.6-4.7) mg/dL Magnesium (1.8-2.4) mg/dL Total Bilirubin (0.2-1.0) mg/dL AST (15-37) IU/L ALT (14-63) IU/L Alkaline Phosphatase (46-116) U/L Creatine Kinase (26-308) U/L Total Protein (6.4-8.2) g/dL Albumin (3.4-5.0) g/dL Globulin (2.6-4.0) g/dL Albumin/Globulin Ratio (0.9-1.6) Lipase (73-393) U/L Urine Color Urine Appearance Urine pH (5.0-8.0) Ur Specific [place] (1.001-1.035) Urine Protein (NEGATIVE) mg/dL Urine Glucose (UA) (NEGATIVE) mg/dL Urine Ketones (NEGATIVE) mg/dL Urine Occult Blood (NEGATIVE) Urine Nitrite (NEGATIVE) Urine Bilirubin (NEGATIVE) Urine Urobilinogen (<2.0) EU/dL Ur Leukocyte Esterase (NEGATIVE) Urine RBC (0-2/HPF) Urine WBC (0-5/HPF) Ur Epithelial Cells (NONE-FEW) Urine Bacteria (NEGATIVE) Ur Random Creatinine mg/dL Ur Random Sodium (40.0-220.0) mmol/L Ketones (NEG) Influenza Type A RNA (NEGATIVE) Influenza Type B RNA (NEGATIVE) SARS-CoV-2 RNA (YUE) (NEGATIVE) 11/21/20 11/21/20 11/21/20 Range/Units 04:18 04:18 05:09 WBC 10.54 (4.0-11.0) K/uL RBC 3.39 L (4.50-5.90) M/uL Hgb 10.4 L (13.0-17.0) g/dL Hct 32.5 L (38.0-50.0) % MCV 95.9 (80.0-98.0) fL MCH 30.7 (27.0-32.0) pg MCHC 32.0 (31.0-37.0) g/dL RDW Std Deviation 59.3 (28.0-62.0) fl RDW Coeff of Kash 17 H (11.0-15.0) % Plt Count 322 (150-400) K/uL MPV 9.10 (7.40-12.00) fL Neut % (Auto) 83.7 H (48.0-80.0) % Lymph % (Auto) 10.0 L (16.0-40.0) % [place] % (Auto) 6.1 (0.0-15.0) % Eos % (Auto) 0.2 (0.0-7.0) % Baso % (Auto) 0.0 (0.0-1.5) % Neut # (Auto) 8.8 H (1.4-5.7) K/uL Lymph # (Auto) 1.1 (0.6-2.4) K/uL [place] # (Auto) 0.6 (0.0-0.8) K/uL Eos # (Auto) 0.0 (0.0-0.7) K/uL Baso # (Auto) 0.0 (0.0-0.1) K/uL Nucleated RBC % 0.0 /100WBC Nucleated RBCs # 0 K/uL VBG pH (7.31-7.41) VBG pCO2 (35-45) mmHG VBG pO2 (30-40) mmHG VBG HCO3 (22-30) mEq/L VBG Total CO2 (41-51) mmol/L VBG Base Excess (-3.0-3.0) Lactate (0.20-2.00) mmol/L Sodium (136-148) mmol/L Potassium (3.5-5.1) mmol/L Chloride (98-107) mmol/L Carbon Dioxide (21.0-32.0) mmol/L BUN (7.0-18.0) mg/dL Creatinine (0.8-1.3) mg/dL Est Cr Clr Drug Dosing mL/min Estimated GFR (MDRD) ml/min Glucose (74-106) mg/dL POC Glucose 180 H (60-110) mg/dL Calcium (8.5-10.1) mg/dL Phosphorus 3.2 (2.6-4.7) mg/dL Magnesium 2.5 H (1.8-2.4) mg/dL Total Bilirubin (0.2-1.0) mg/dL AST (15-37) IU/L ALT (14-63) IU/L Alkaline Phosphatase (46-116) U/L Creatine Kinase (26-308) U/L Total Protein (6.4-8.2) g/dL Albumin (3.4-5.0) g/dL Globulin (2.6-4.0) g/dL Albumin/Globulin Ratio (0.9-1.6) Lipase (73-393) U/L Urine Color Urine Appearance Urine pH (5.0-8.0) Ur Specific [place] (1.001-1.035) Urine Protein (NEGATIVE) mg/dL Urine Glucose (UA) (NEGATIVE) mg/dL Urine Ketones (NEGATIVE) mg/dL Urine Occult Blood (NEGATIVE) Urine Nitrite (NEGATIVE) Urine Bilirubin (NEGATIVE) Urine Urobilinogen (<2.0) EU/dL Ur Leukocyte Esterase (NEGATIVE) Urine RBC (0-2/HPF) Urine WBC (0-5/HPF) Ur Epithelial Cells (NONE-FEW) Urine Bacteria (NEGATIVE) Ur Random Creatinine mg/dL Ur Random Sodium (40.0-220.0) mmol/L Ketones (NEG) Influenza Type A RNA (NEGATIVE) Influenza Type B RNA (NEGATIVE) SARS-CoV-2 RNA (YUE) (NEGATIVE) 11/21/20 11/21/20 Range/Units 06:05 06:50 WBC (4.0-11.0) K/uL RBC (4.50-5.90) M/uL Hgb (13.0-17.0) g/dL Hct (38.0-50.0) % MCV (80.0-98.0) fL MCH (27.0-32.0) pg MCHC (31.0-37.0) g/dL RDW Std Deviation (28.0-62.0) fl RDW Coeff of Kash (11.0-15.0) % Plt Count (150-400) K/uL MPV (7.40-12.00) fL Neut % (Auto) (48.0-80.0) % Lymph % (Auto) (16.0-40.0) % [place] % (Auto) (0.0-15.0) % Eos % (Auto) (0.0-7.0) % Baso % (Auto) (0.0-1.5) % Neut # (Auto) (1.4-5.7) K/uL Lymph # (Auto) (0.6-2.4) K/uL [place] # (Auto) (0.0-0.8) K/uL Eos # (Auto) (0.0-0.7) K/uL Baso # (Auto) (0.0-0.1) K/uL Nucleated RBC % /100WBC Nucleated RBCs # K/uL VBG pH (7.31-7.41) VBG pCO2 (35-45) mmHG VBG pO2 (30-40) mmHG VBG HCO3 (22-30) mEq/L VBG Total CO2 (41-51) mmol/L VBG Base Excess (-3.0-3.0) Lactate (0.20-2.00) mmol/L Sodium (136-148) mmol/L Potassium (3.5-5.1) mmol/L Chloride (98-107) mmol/L Carbon Dioxide (21.0-32.0) mmol/L BUN (7.0-18.0) mg/dL Creatinine (0.8-1.3) mg/dL Est Cr Clr Drug Dosing mL/min Estimated GFR (MDRD) ml/min Glucose (74-106) mg/dL POC Glucose 163 H 133 H (60-110) mg/dL Calcium (8.5-10.1) mg/dL Phosphorus (2.6-4.7) mg/dL Magnesium (1.8-2.4) mg/dL Total Bilirubin (0.2-1.0) mg/dL AST (15-37) IU/L ALT (14-63) IU/L Alkaline Phosphatase (46-116) U/L Creatine Kinase (26-308) U/L Total Protein (6.4-8.2) g/dL Albumin (3.4-5.0) g/dL Globulin (2.6-4.0) g/dL Albumin/Globulin Ratio (0.9-1.6) Lipase (73-393) U/L Urine Color Urine Appearance Urine pH (5.0-8.0) Ur Specific [place] (1.001-1.035) Urine Protein (NEGATIVE) mg/dL Urine Glucose (UA) (NEGATIVE) mg/dL Urine Ketones (NEGATIVE) mg/dL Urine Occult Blood (NEGATIVE) Urine Nitrite (NEGATIVE) Urine Bilirubin (NEGATIVE) Urine Urobilinogen (<2.0) EU/dL Ur Leukocyte Esterase (NEGATIVE) Urine RBC (0-2/HPF) Urine WBC (0-5/HPF) Ur Epithelial Cells (NONE-FEW) Urine Bacteria (NEGATIVE) Ur Random Creatinine mg/dL Ur Random Sodium (40.0-220.0) mmol/L Ketones (NEG) Influenza Type A RNA (NEGATIVE) Influenza Type B RNA (NEGATIVE) SARS-CoV-2 RNA (YUE) (NEGATIVE) Med Orders - Current: Current Medications Acetaminophen (Acetaminophen 650 Mg Supp) 650 mg RECTAL Q4H PRN PRN Reason: Pain (mild 1-3) Docusate Sodium (Docusate Sodium 100 Mg Cap) 100 mg PO BID PRN PRN Reason: Constipation Insulin Human Regular 100 unit (/ Sodium Chloride) 100 mls @ 6.804 mls/hr IV TITRATE [facility]; Protocol Last Titration: 11/21/20 06:56 Dose: 0.01 units/kg/hr, 1 mls/hr Documented by: Pantoprazole Sodium 40 mg/ (Sodium Chloride) 10 mls @ 200 mls/hr IV Q24H [facility] Last Admin: 11/20/20 14:06 Dose: 200 mls/hr Documented by: Dextrose/Sodium Chloride (Dextrose 5%-1/2 Ns) 1,000 mls @ 150 mls/hr IV Q6HR [facility] Last Admin: 11/21/20 06:12 Dose: 150 mls/hr Documented by: Linezolid 600 mg/ Premix 300 mls @ 300 mls/hr IV Q12H [facility] Last Admin: 11/21/20 03:40 Dose: 300 mls/hr Documented by: Piperacillin Sod/Tazobactam (Sod 4.5 gm/ Sodium Chloride) 100 mls @ 200 mls/hr IV Q12H [facility] Ondansetron HCl (Ondansetron 4 Mg/2 Ml Sdv) 4 mg IVPUSH Q4H PRN PRN Reason: Nausea Travoprost [Travatan (Z] 2.5 Ml) 1 each EYELF BEDTIME [facility] Last Admin: 11/20/20 20:54 Dose: Not Given Documented by: Sodium Chloride (Sodium Chloride 0.9% 2.5 Ml Syringe) 2.5 ml FLUSH ASDIRECTED PRN PRN Reason: Keep Vein Open Discontinued Medications Calcium Gluconate (Calcium Gluconate 10% 1 Gm/10 Ml Sdv) 1 gm IV ONETIME ONE Stop: 11/20/20 11:11 Last Admin: 11/20/20 12:03 Dose: 1 gm Documented by: Sodium Chloride (Normal Saline) 1,000 mls @ 999 mls/hr IV .BOLUS ONE Stop: 11/20/20 09:51 Last Admin: 11/20/20 09:36 Dose: 999 mls/hr Documented by: Lactated Ringer's (Ringers, Lactated) 1,000 mls @ 999 mls/hr IV .BOLUS [facility] Last Admin: 11/20/20 15:07 Dose: 999 mls/hr Documented by: Piperacillin Sod/Tazobactam (Sod 2.25 gm/ Sodium Chloride) 50 mls @ 100 mls/hr IV Q8H [facility] Last Admin: 11/21/20 05:31 Dose: 100 mls/hr Documented by: Lactated Ringer's (Ringers, Lactated) 1,000 mls @ 150 mls/hr IV ASDIRECTED [facility] Vancomycin HCl (Pharmacy To Dose - Vancomycin) 1 dose .XX ASDIRECTED [facility] - Exam Quality Assessment: No: Supplemental Oxygen General: Alert, No Acute Distress Lungs: Clear to Auscultation, Normal Respiratory Effort Cardiovascular: Regular Rate, Regular Rhythm. No: Tachycardia, Murmurs GI/Abdominal Exam: Normal Bowel Sounds, Soft, Non-Tender Back Exam: Normal Inspection, Full Range of Motion Extremities: Normal Inspection, Normal Range of Motion, Non-Tender Skin: Warm, Dry, Other (Healing incision to right hip) Neurological: No New Focal Deficit Psy/Mental Status: Alert, Normal Affect, Normal Mood - Patient Data Lab Results Last 24 hrs: Laboratory Results - last 24 hr 11/20/20 11/20/20 11/20/20 Range/Units 09:16 09:16 09:16 WBC 15.74 H (4.0-11.0) K/uL RBC 4.03 L (4.50-5.90) M/uL Hgb 12.0 L (13.0-17.0) g/dL Hct 39.1 (38.0-50.0) % MCV 97.0 (80.0-98.0) fL MCH 29.8 (27.0-32.0) pg MCHC 30.7 L (31.0-37.0) g/dL RDW Std Deviation 59.4 (28.0-62.0) fl RDW Coeff of Kash 17 H (11.0-15.0) % Plt Count 504 H (150-400) K/uL MPV 9.60 (7.40-12.00) fL Neut % (Auto) 92.0 H (48.0-80.0) % Lymph % (Auto) 4.2 L (16.0-40.0) % [place] % (Auto) 3.7 (0.0-15.0) % Eos % (Auto) 0.0 (0.0-7.0) % Baso % (Auto) 0.1 (0.0-1.5) % Neut # (Auto) 14.5 H (1.4-5.7) K/uL Lymph # (Auto) 0.7 (0.6-2.4) K/uL [place] # (Auto) 0.6 (0.0-0.8) K/uL Eos # (Auto) 0.0 (0.0-0.7) K/uL Baso # (Auto) 0.0 (0.0-0.1) K/uL Nucleated RBC % 0.0 /100WBC Nucleated RBCs # 0 K/uL VBG pH 7.25 L (7.31-7.41) VBG pCO2 29 L (35-45) mmHG VBG pO2 24 L (30-40) mmHG VBG HCO3 13 L (22-30) mEq/L VBG Total CO2 12 L (41-51) mmol/L VBG Base Excess -13.0 L (-3.0-3.0) Lactate 3.1 H* (0.20-2.00) mmol/L Sodium (136-148) mmol/L Potassium (3.5-5.1) mmol/L Chloride (98-107) mmol/L Carbon Dioxide (21.0-32.0) mmol/L BUN (7.0-18.0) mg/dL Creatinine (0.8-1.3) mg/dL Est Cr Clr Drug Dosing mL/min Estimated GFR (MDRD) ml/min Glucose (74-106) mg/dL POC Glucose (60-110) mg/dL Calcium (8.5-10.1) mg/dL Phosphorus (2.6-4.7) mg/dL Magnesium (1.8-2.4) mg/dL Total Bilirubin (0.2-1.0) mg/dL AST (15-37) IU/L ALT (14-63) IU/L Alkaline Phosphatase (46-116) U/L Creatine Kinase (26-308) U/L Total Protein (6.4-8.2) g/dL Albumin (3.4-5.0) g/dL Globulin (2.6-4.0) g/dL Albumin/Globulin Ratio (0.9-1.6) Lipase (73-393) U/L Urine Color Urine Appearance Urine pH (5.0-8.0) Ur Specific [place] (1.001-1.035) Urine Protein (NEGATIVE) mg/dL Urine Glucose (UA) (NEGATIVE) mg/dL Urine Ketones (NEGATIVE) mg/dL Urine Occult Blood (NEGATIVE) Urine Nitrite (NEGATIVE) Urine Bilirubin (NEGATIVE) Urine Urobilinogen (<2.0) EU/dL Ur Leukocyte Esterase (NEGATIVE) Urine RBC (0-2/HPF) Urine WBC (0-5/HPF) Ur Epithelial Cells (NONE-FEW) Urine Bacteria (NEGATIVE) Ur Random Creatinine mg/dL Ur Random Sodium (40.0-220.0) mmol/L Ketones (NEG) Influenza Type A RNA (NEGATIVE) Influenza Type B RNA (NEGATIVE) SARS-CoV-2 RNA (YUE) (NEGATIVE) 11/20/20 11/20/20 11/20/20 Range/Units 09:16 09:16 10:27 WBC (4.0-11.0) K/uL RBC (4.50-5.90) M/uL Hgb (13.0-17.0) g/dL Hct (38.0-50.0) % MCV (80.0-98.0) fL MCH (27.0-32.0) pg MCHC (31.0-37.0) g/dL RDW Std Deviation (28.0-62.0) fl RDW Coeff of Kash (11.0-15.0) % Plt Count (150-400) K/uL MPV (7.40-12.00) fL Neut % (Auto) (48.0-80.0) % Lymph % (Auto) (16.0-40.0) % [place] % (Auto) (0.0-15.0) % Eos % (Auto) (0.0-7.0) % Baso % (Auto) (0.0-1.5) % Neut # (Auto) (1.4-5.7) K/uL Lymph # (Auto) (0.6-2.4) K/uL [place] # (Auto) (0.0-0.8) K/uL Eos # (Auto) (0.0-0.7) K/uL Baso # (Auto) (0.0-0.1) K/uL Nucleated RBC % /100WBC Nucleated RBCs # K/uL VBG pH (7.31-7.41) VBG pCO2 (35-45) mmHG VBG pO2 (30-40) mmHG VBG HCO3 (22-30) mEq/L VBG Total CO2 (41-51) mmol/L VBG Base Excess (-3.0-3.0) Lactate (0.20-2.00) mmol/L Sodium 141 (136-148) mmol/L Potassium 6.6 H (3.5-5.1) mmol/L Chloride 109 H (98-107) mmol/L Carbon Dioxide 11.6 L (21.0-32.0) mmol/L BUN 115 H (7.0-18.0) mg/dL Creatinine 4.3 H (0.8-1.3) mg/dL Est Cr Clr Drug Dosing 10.93 mL/min Estimated GFR (MDRD) 13.2 ml/min Glucose 591 H* (74-106) mg/dL POC Glucose (60-110) mg/dL Calcium 9.0 (8.5-10.1) mg/dL Phosphorus 6.8 H (2.6-4.7) mg/dL Magnesium 3.5 H (1.8-2.4) mg/dL Total Bilirubin 0.3 (0.2-1.0) mg/dL AST 10 L (15-37) IU/L ALT 38 (14-63) IU/L Alkaline Phosphatase 161 H (46-116) U/L Creatine Kinase 51 (26-308) U/L Total Protein 8.4 H (6.4-8.2) g/dL Albumin 2.7 L (3.4-5.0) g/dL Globulin 5.7 H (2.6-4.0) g/dL Albumin/Globulin Ratio 0.5 L (0.9-1.6) Lipase 638 H (73-393) U/L Urine Color Urine Appearance Urine pH (5.0-8.0) Ur Specific [place] (1.001-1.035) Urine Protein (NEGATIVE) mg/dL Urine Glucose (UA) (NEGATIVE) mg/dL Urine Ketones (NEGATIVE) mg/dL Urine Occult Blood (NEGATIVE) Urine Nitrite (NEGATIVE) Urine Bilirubin (NEGATIVE) Urine Urobilinogen (<2.0) EU/dL Ur Leukocyte Esterase (NEGATIVE) Urine RBC (0-2/HPF) Urine WBC (0-5/HPF) Ur Epithelial Cells (NONE-FEW) Urine Bacteria (NEGATIVE) Ur Random Creatinine mg/dL Ur Random Sodium (40.0-220.0) mmol/L Ketones NEGATIVE (NEG) Influenza Type A RNA NEGATIVE (NEGATIVE) Influenza Type B RNA NEGATIVE (NEGATIVE) SARS-CoV-2 RNA (YUE) NEGATIVE (NEGATIVE) 11/20/20 11/20/20 11/20/20 Range/Units 10:35 10:35 12:04 WBC (4.0-11.0) K/uL RBC (4.50-5.90) M/uL Hgb (13.0-17.0) g/dL Hct (38.0-50.0) % MCV (80.0-98.0) fL MCH (27.0-32.0) pg MCHC (31.0-37.0) g/dL RDW Std Deviation (28.0-62.0) fl RDW Coeff of Kash (11.0-15.0) % Plt Count (150-400) K/uL MPV (7.40-12.00) fL Neut % (Auto) (48.0-80.0) % Lymph % (Auto) (16.0-40.0) % [place] % (Auto) (0.0-15.0) % Eos % (Auto) (0.0-7.0) % Baso % (Auto) (0.0-1.5) % Neut # (Auto) (1.4-5.7) K/uL Lymph # (Auto) (0.6-2.4) K/uL [place] # (Auto) (0.0-0.8) K/uL Eos # (Auto) (0.0-0.7) K/uL Baso # (Auto) (0.0-0.1) K/uL Nucleated RBC % /100WBC Nucleated RBCs # K/uL VBG pH (7.31-7.41) VBG pCO2 (35-45) mmHG VBG pO2 (30-40) mmHG VBG HCO3 (22-30) mEq/L VBG Total CO2 (41-51) mmol/L VBG Base Excess (-3.0-3.0) Lactate (0.20-2.00) mmol/L Sodium 142 144 (136-148) mmol/L Potassium 6.7 H 6.7 H 5.7 H (3.5-5.1) mmol/L Chloride 111 H 114 H (98-107) mmol/L Carbon Dioxide 9.2 L 11.5 L (21.0-32.0) mmol/L BUN 116 H 116 H (7.0-18.0) mg/dL Creatinine 3.9 H 3.9 H (0.8-1.3) mg/dL Est Cr Clr Drug Dosing 12.05 12.05 mL/min Estimated GFR (MDRD) 14.8 14.8 ml/min Glucose 527 H* 551 H* 463 H (74-106) mg/dL POC Glucose (60-110) mg/dL Calcium 8.5 8.7 (8.5-10.1) mg/dL Phosphorus (2.6-4.7) mg/dL Magnesium (1.8-2.4) mg/dL Total Bilirubin (0.2-1.0) mg/dL AST (15-37) IU/L ALT (14-63) IU/L Alkaline Phosphatase (46-116) U/L Creatine Kinase (26-308) U/L Total Protein (6.4-8.2) g/dL Albumin (3.4-5.0) g/dL Globulin (2.6-4.0) g/dL Albumin/Globulin Ratio (0.9-1.6) Lipase (73-393) U/L Urine Color Urine Appearance Urine pH (5.0-8.0) Ur Specific [place] (1.001-1.035) Urine Protein (NEGATIVE) mg/dL Urine Glucose (UA) (NEGATIVE) mg/dL Urine Ketones (NEGATIVE) mg/dL Urine Occult Blood (NEGATIVE) Urine Nitrite (NEGATIVE) Urine Bilirubin (NEGATIVE) Urine Urobilinogen (<2.0) EU/dL Ur Leukocyte Esterase (NEGATIVE) Urine RBC (0-2/HPF) Urine WBC (0-5/HPF) Ur Epithelial Cells (NONE-FEW) Urine Bacteria (NEGATIVE) Ur Random Creatinine mg/dL Ur Random Sodium (40.0-220.0) mmol/L Ketones (NEG) Influenza Type A RNA (NEGATIVE) Influenza Type B RNA (NEGATIVE) SARS-CoV-2 RNA (YUE) (NEGATIVE) 11/20/20 11/20/20 11/20/20 Range/Units 12:04 12:25 12:25 WBC (4.0-11.0) K/uL RBC (4.50-5.90) M/uL Hgb (13.0-17.0) g/dL Hct (38.0-50.0) % MCV (80.0-98.0) fL MCH (27.0-32.0) pg MCHC (31.0-37.0) g/dL RDW Std Deviation (28.0-62.0) fl RDW Coeff of Kash (11.0-15.0) % Plt Count (150-400) K/uL MPV (7.40-12.00) fL Neut % (Auto) (48.0-80.0) % Lymph % (Auto) (16.0-40.0) % [place] % (Auto) (0.0-15.0) % Eos % (Auto) (0.0-7.0) % Baso % (Auto) (0.0-1.5) % Neut # (Auto) (1.4-5.7) K/uL Lymph # (Auto) (0.6-2.4) K/uL [place] # (Auto) (0.0-0.8) K/uL Eos # (Auto) (0.0-0.7) K/uL Baso # (Auto) (0.0-0.1) K/uL Nucleated RBC % /100WBC Nucleated RBCs # K/uL VBG pH (7.31-7.41) VBG pCO2 (35-45) mmHG VBG pO2 (30-40) mmHG VBG HCO3 (22-30) mEq/L VBG Total CO2 (41-51) mmol/L VBG Base Excess (-3.0-3.0) Lactate (0.20-2.00) mmol/L Sodium (136-148) mmol/L Potassium (3.5-5.1) mmol/L Chloride (98-107) mmol/L Carbon Dioxide (21.0-32.0) mmol/L BUN (7.0-18.0) mg/dL Creatinine (0.8-1.3) mg/dL Est Cr Clr Drug Dosing mL/min Estimated GFR (MDRD) ml/min Glucose (74-106) mg/dL POC Glucose 408 H (60-110) mg/dL Calcium (8.5-10.1) mg/dL Phosphorus (2.6-4.7) mg/dL Magnesium (1.8-2.4) mg/dL Total Bilirubin (0.2-1.0) mg/dL AST (15-37) IU/L ALT (14-63) IU/L Alkaline Phosphatase (46-116) U/L Creatine Kinase (26-308) U/L Total Protein (6.4-8.2) g/dL Albumin (3.4-5.0) g/dL Globulin (2.6-4.0) g/dL Albumin/Globulin Ratio (0.9-1.6) Lipase (73-393) U/L Urine Color YELLOW Urine Appearance CLOUDY Urine pH 8.5 H (5.0-8.0) Ur Specific [place] 1.015 (1.001-1.035) Urine Protein 100 H (NEGATIVE) mg/dL Urine Glucose (UA) >=1000 (NEGATIVE) mg/dL Urine Ketones NEGATIVE (NEGATIVE) mg/dL Urine Occult Blood LARGE H (NEGATIVE) Urine Nitrite NEGATIVE (NEGATIVE) Urine Bilirubin NEGATIVE (NEGATIVE) Urine Urobilinogen 0.2 (<2.0) EU/dL Ur Leukocyte Esterase MODERATE H (NEGATIVE) Urine RBC 80-100 (0-2/HPF) Urine WBC TO NUMEROUS TO COUNT H (0-5/HPF) Ur Epithelial Cells RARE (NONE-FEW) Urine Bacteria 4+ H (NEGATIVE) Ur Random Creatinine 21.6 mg/dL Ur Random Sodium 78.0 (40.0-220.0) mmol/L Ketones (NEG) Influenza Type A RNA (NEGATIVE) Influenza Type B RNA (NEGATIVE) SARS-CoV-2 RNA (YUE) (NEGATIVE) 11/20/20 11/20/20 11/20/20 Range/Units 12:41 13:49 14:33 WBC (4.0-11.0) K/uL RBC (4.50-5.90) M/uL Hgb (13.0-17.0) g/dL Hct (38.0-50.0) % MCV (80.0-98.0) fL MCH (27.0-32.0) pg MCHC (31.0-37.0) g/dL RDW Std Deviation (28.0-62.0) fl RDW Coeff of Kash (11.0-15.0) % Plt Count (150-400) K/uL MPV (7.40-12.00) fL Neut % (Auto) (48.0-80.0) % Lymph % (Auto) (16.0-40.0) % [place] % (Auto) (0.0-15.0) % Eos % (Auto) (0.0-7.0) % Baso % (Auto) (0.0-1.5) % Neut # (Auto) (1.4-5.7) K/uL Lymph # (Auto) (0.6-2.4) K/uL [place] # (Auto) (0.0-0.8) K/uL Eos # (Auto) (0.0-0.7) K/uL Baso # (Auto) (0.0-0.1) K/uL Nucleated RBC % /100WBC Nucleated RBCs # K/uL VBG pH (7.31-7.41) VBG pCO2 (35-45) mmHG VBG pO2 (30-40) mmHG VBG HCO3 (22-30) mEq/L VBG Total CO2 (41-51) mmol/L VBG Base Excess (-3.0-3.0) Lactate 4.8 H* (0.20-2.00) mmol/L Sodium (136-148) mmol/L Potassium (3.5-5.1) mmol/L Chloride (98-107) mmol/L Carbon Dioxide (21.0-32.0) mmol/L BUN (7.0-18.0) mg/dL Creatinine (0.8-1.3) mg/dL Est Cr Clr Drug Dosing mL/min Estimated GFR (MDRD) ml/min Glucose (74-106) mg/dL POC Glucose 232 H 145 H (60-110) mg/dL Calcium (8.5-10.1) mg/dL Phosphorus (2.6-4.7) mg/dL Magnesium (1.8-2.4) mg/dL Total Bilirubin (0.2-1.0) mg/dL AST (15-37) IU/L ALT (14-63) IU/L Alkaline Phosphatase (46-116) U/L Creatine Kinase (26-308) U/L Total Protein (6.4-8.2) g/dL Albumin (3.4-5.0) g/dL Globulin (2.6-4.0) g/dL Albumin/Globulin Ratio (0.9-1.6) Lipase (73-393) U/L Urine Color Urine Appearance Urine pH (5.0-8.0) Ur Specific [place] (1.001-1.035) Urine Protein (NEGATIVE) mg/dL Urine Glucose (UA) (NEGATIVE) mg/dL Urine Ketones (NEGATIVE) mg/dL Urine Occult Blood (NEGATIVE) Urine Nitrite (NEGATIVE) Urine Bilirubin (NEGATIVE) Urine Urobilinogen (<2.0) EU/dL Ur Leukocyte Esterase (NEGATIVE) Urine RBC (0-2/HPF) Urine WBC (0-5/HPF) Ur Epithelial Cells (NONE-FEW) Urine Bacteria (NEGATIVE) Ur Random Creatinine mg/dL Ur Random Sodium (40.0-220.0) mmol/L Ketones (NEG) Influenza Type A RNA (NEGATIVE) Influenza Type B RNA (NEGATIVE) SARS-CoV-2 RNA (YUE) (NEGATIVE) 11/20/20 11/20/20 11/20/20 Range/Units 15:27 16:40 16:40 WBC (4.0-11.0) K/uL RBC (4.50-5.90) M/uL Hgb (13.0-17.0) g/dL Hct (38.0-50.0) % MCV (80.0-98.0) fL MCH (27.0-32.0) pg MCHC (31.0-37.0) g/dL RDW Std Deviation (28.0-62.0) fl RDW Coeff of Kash (11.0-15.0) % Plt Count (150-400) K/uL MPV (7.40-12.00) fL Neut % (Auto) (48.0-80.0) % Lymph % (Auto) (16.0-40.0) % [place] % (Auto) (0.0-15.0) % Eos % (Auto) (0.0-7.0) % Baso % (Auto) (0.0-1.5) % Neut # (Auto) (1.4-5.7) K/uL Lymph # (Auto) (0.6-2.4) K/uL [place] # (Auto) (0.0-0.8) K/uL Eos # (Auto) (0.0-0.7) K/uL Baso # (Auto) (0.0-0.1) K/uL Nucleated RBC % /100WBC Nucleated RBCs # K/uL VBG pH (7.31-7.41) VBG pCO2 (35-45) mmHG VBG pO2 (30-40) mmHG VBG HCO3 (22-30) mEq/L VBG Total CO2 (41-51) mmol/L VBG Base Excess (-3.0-3.0) Lactate 3.2 H* (0.20-2.00) mmol/L Sodium 150 H (136-148) mmol/L Potassium 5.4 H (3.5-5.1) mmol/L Chloride 117 H (98-107) mmol/L Carbon Dioxide 17.2 L (21.0-32.0) mmol/L BUN 99 H (7.0-18.0) mg/dL Creatinine 3.3 H (0.8-1.3) mg/dL Est Cr Clr Drug Dosing 10.84 mL/min Estimated GFR (MDRD) 17.9 ml/min Glucose 134 H (74-106) mg/dL POC Glucose 107 (60-110) mg/dL Calcium 8.9 (8.5-10.1) mg/dL Phosphorus (2.6-4.7) mg/dL Magnesium (1.8-2.4) mg/dL Total Bilirubin (0.2-1.0) mg/dL AST (15-37) IU/L ALT (14-63) IU/L Alkaline Phosphatase (46-116) U/L Creatine Kinase (26-308) U/L Total Protein (6.4-8.2) g/dL Albumin (3.4-5.0) g/dL Globulin (2.6-4.0) g/dL Albumin/Globulin Ratio (0.9-1.6) Lipase (73-393) U/L Urine Color Urine Appearance Urine pH (5.0-8.0) Ur Specific [place] (1.001-1.035) Urine Protein (NEGATIVE) mg/dL Urine Glucose (UA) (NEGATIVE) mg/dL Urine Ketones (NEGATIVE) mg/dL Urine Occult Blood (NEGATIVE) Urine Nitrite (NEGATIVE) Urine Bilirubin (NEGATIVE) Urine Urobilinogen (<2.0) EU/dL Ur Leukocyte Esterase (NEGATIVE) Urine RBC (0-2/HPF) Urine WBC (0-5/HPF) Ur Epithelial Cells (NONE-FEW) Urine Bacteria (NEGATIVE) Ur Random Creatinine mg/dL Ur Random Sodium (40.0-220.0) mmol/L Ketones (NEG) Influenza Type A RNA (NEGATIVE) Influenza Type B RNA (NEGATIVE) SARS-CoV-2 RNA (YUE) (NEGATIVE) 11/20/20 11/20/20 11/20/20 Range/Units 16:40 17:56 18:59 WBC (4.0-11.0) K/uL RBC (4.50-5.90) M/uL Hgb (13.0-17.0) g/dL Hct (38.0-50.0) % MCV (80.0-98.0) fL MCH (27.0-32.0) pg MCHC (31.0-37.0) g/dL RDW Std Deviation (28.0-62.0) fl RDW Coeff of Kash (11.0-15.0) % Plt Count (150-400) K/uL MPV (7.40-12.00) fL Neut % (Auto) (48.0-80.0) % Lymph % (Auto) (16.0-40.0) % [place] % (Auto) (0.0-15.0) % Eos % (Auto) (0.0-7.0) % Baso % (Auto) (0.0-1.5) % Neut # (Auto) (1.4-5.7) K/uL Lymph # (Auto) (0.6-2.4) K/uL [place] # (Auto) (0.0-0.8) K/uL Eos # (Auto) (0.0-0.7) K/uL Baso # (Auto) (0.0-0.1) K/uL Nucleated RBC % /100WBC Nucleated RBCs # K/uL VBG pH (7.31-7.41) VBG pCO2 (35-45) mmHG VBG pO2 (30-40) mmHG VBG HCO3 (22-30) mEq/L VBG Total CO2 (41-51) mmol/L VBG Base Excess (-3.0-3.0) Lactate (0.20-2.00) mmol/L Sodium (136-148) mmol/L Potassium (3.5-5.1) mmol/L Chloride (98-107) mmol/L Carbon Dioxide (21.0-32.0) mmol/L BUN (7.0-18.0) mg/dL Creatinine (0.8-1.3) mg/dL Est Cr Clr Drug Dosing mL/min Estimated GFR (MDRD) ml/min Glucose (74-106) mg/dL POC Glucose 125 H 190 H 180 H (60-110) mg/dL Calcium (8.5-10.1) mg/dL Phosphorus (2.6-4.7) mg/dL Magnesium (1.8-2.4) mg/dL Total Bilirubin (0.2-1.0) mg/dL AST (15-37) IU/L ALT (14-63) IU/L Alkaline Phosphatase (46-116) U/L Creatine Kinase (26-308) U/L Total Protein (6.4-8.2) g/dL Albumin (3.4-5.0) g/dL Globulin (2.6-4.0) g/dL Albumin/Globulin Ratio (0.9-1.6) Lipase (73-393) U/L Urine Color Urine Appearance Urine pH (5.0-8.0) Ur Specific [place] (1.001-1.035) Urine Protein (NEGATIVE) mg/dL Urine Glucose (UA) (NEGATIVE) mg/dL Urine Ketones (NEGATIVE) mg/dL Urine Occult Blood (NEGATIVE) Urine Nitrite (NEGATIVE) Urine Bilirubin (NEGATIVE) Urine Urobilinogen (<2.0) EU/dL Ur Leukocyte Esterase (NEGATIVE) Urine RBC (0-2/HPF) Urine WBC (0-5/HPF) Ur Epithelial Cells (NONE-FEW) Urine Bacteria (NEGATIVE) Ur Random Creatinine mg/dL Ur Random Sodium (40.0-220.0) mmol/L Ketones (NEG) Influenza Type A RNA (NEGATIVE) Influenza Type B RNA (NEGATIVE) SARS-CoV-2 RNA (YUE) (NEGATIVE) 11/20/20 11/20/20 11/20/20 Range/Units 20:00 20:08 20:08 WBC (4.0-11.0) K/uL RBC (4.50-5.90) M/uL Hgb 9.8 L (13.0-17.0) g/dL Hct 30.3 L (38.0-50.0) % MCV (80.0-98.0) fL MCH (27.0-32.0) pg MCHC (31.0-37.0) g/dL RDW Std Deviation (28.0-62.0) fl RDW Coeff of Kash (11.0-15.0) % Plt Count (150-400) K/uL MPV (7.40-12.00) fL Neut % (Auto) (48.0-80.0) % Lymph % (Auto) (16.0-40.0) % [place] % (Auto) (0.0-15.0) % Eos % (Auto) (0.0-7.0) % Baso % (Auto) (0.0-1.5) % Neut # (Auto) (1.4-5.7) K/uL Lymph # (Auto) (0.6-2.4) K/uL [place] # (Auto) (0.0-0.8) K/uL Eos # (Auto) (0.0-0.7) K/uL Baso # (Auto) (0.0-0.1) K/uL Nucleated RBC % /100WBC Nucleated RBCs # K/uL VBG pH (7.31-7.41) VBG pCO2 (35-45) mmHG VBG pO2 (30-40) mmHG VBG HCO3 (22-30) mEq/L VBG Total CO2 (41-51) mmol/L VBG Base Excess (-3.0-3.0) Lactate (0.20-2.00) mmol/L Sodium 147 (136-148) mmol/L Potassium 4.6 (3.5-5.1) mmol/L Chloride 118 H (98-107) mmol/L Carbon Dioxide 16.1 L (21.0-32.0) mmol/L BUN 84 H (7.0-18.0) mg/dL Creatinine 2.8 H (0.8-1.3) mg/dL Est Cr Clr Drug Dosing 12.77 mL/min Estimated GFR (MDRD) 21.6 ml/min Glucose 165 H (74-106) mg/dL POC Glucose 151 H (60-110) mg/dL Calcium 8.3 L (8.5-10.1) mg/dL Phosphorus (2.6-4.7) mg/dL Magnesium (1.8-2.4) mg/dL Total Bilirubin (0.2-1.0) mg/dL AST (15-37) IU/L ALT (14-63) IU/L Alkaline Phosphatase (46-116) U/L Creatine Kinase (26-308) U/L Total Protein (6.4-8.2) g/dL Albumin (3.4-5.0) g/dL Globulin (2.6-4.0) g/dL Albumin/Globulin Ratio (0.9-1.6) Lipase (73-393) U/L Urine Color Urine Appearance Urine pH (5.0-8.0) Ur Specific [place] (1.001-1.035) Urine Protein (NEGATIVE) mg/dL Urine Glucose (UA) (NEGATIVE) mg/dL Urine Ketones (NEGATIVE) mg/dL Urine Occult Blood (NEGATIVE) Urine Nitrite (NEGATIVE) Urine Bilirubin (NEGATIVE) Urine Urobilinogen (<2.0) EU/dL Ur Leukocyte Esterase (NEGATIVE) Urine RBC (0-2/HPF) Urine WBC (0-5/HPF) Ur Epithelial Cells (NONE-FEW) Urine Bacteria (NEGATIVE) Ur Random Creatinine mg/dL Ur Random Sodium (40.0-220.0) mmol/L Ketones (NEG) Influenza Type A RNA (NEGATIVE) Influenza Type B RNA (NEGATIVE) SARS-CoV-2 RNA (YUE) (NEGATIVE) 11/20/20 11/20/20 11/20/20 Range/Units 20:08 21:01 22:09 WBC (4.0-11.0) K/uL RBC (4.50-5.90) M/uL Hgb (13.0-17.0) g/dL Hct (38.0-50.0) % MCV (80.0-98.0) fL MCH (27.0-32.0) pg MCHC (31.0-37.0) g/dL RDW Std Deviation (28.0-62.0) fl RDW Coeff of Kash (11.0-15.0) % Plt Count (150-400) K/uL MPV (7.40-12.00) fL Neut % (Auto) (48.0-80.0) % Lymph % (Auto) (16.0-40.0) % [place] % (Auto) (0.0-15.0) % Eos % (Auto) (0.0-7.0) % Baso % (Auto) (0.0-1.5) % Neut # (Auto) (1.4-5.7) K/uL Lymph # (Auto) (0.6-2.4) K/uL [place] # (Auto) (0.0-0.8) K/uL Eos # (Auto) (0.0-0.7) K/uL Baso # (Auto) (0.0-0.1) K/uL Nucleated RBC % /100WBC Nucleated RBCs # K/uL VBG pH (7.31-7.41) VBG pCO2 (35-45) mmHG VBG pO2 (30-40) mmHG VBG HCO3 (22-30) mEq/L VBG Total CO2 (41-51) mmol/L VBG Base Excess (-3.0-3.0) Lactate 2.4 H* (0.20-2.00) mmol/L Sodium (136-148) mmol/L Potassium (3.5-5.1) mmol/L Chloride (98-107) mmol/L Carbon Dioxide (21.0-32.0) mmol/L BUN (7.0-18.0) mg/dL Creatinine (0.8-1.3) mg/dL Est Cr Clr Drug Dosing mL/min Estimated GFR (MDRD) ml/min Glucose (74-106) mg/dL POC Glucose 129 H 85 (60-110) mg/dL Calcium (8.5-10.1) mg/dL Phosphorus (2.6-4.7) mg/dL Magnesium (1.8-2.4) mg/dL Total Bilirubin (0.2-1.0) mg/dL AST (15-37) IU/L ALT (14-63) IU/L Alkaline Phosphatase (46-116) U/L Creatine Kinase (26-308) U/L Total Protein (6.4-8.2) g/dL Albumin (3.4-5.0) g/dL Globulin (2.6-4.0) g/dL Albumin/Globulin Ratio (0.9-1.6) Lipase (73-393) U/L Urine Color Urine Appearance Urine pH (5.0-8.0) Ur Specific [place] (1.001-1.035) Urine Protein (NEGATIVE) mg/dL Urine Glucose (UA) (NEGATIVE) mg/dL Urine Ketones (NEGATIVE) mg/dL Urine Occult Blood (NEGATIVE) Urine Nitrite (NEGATIVE) Urine Bilirubin (NEGATIVE) Urine Urobilinogen (<2.0) EU/dL Ur Leukocyte Esterase (NEGATIVE) Urine RBC (0-2/HPF) Urine WBC (0-5/HPF) Ur Epithelial Cells (NONE-FEW) Urine Bacteria (NEGATIVE) Ur Random Creatinine mg/dL Ur Random Sodium (40.0-220.0) mmol/L Ketones (NEG) Influenza Type A RNA (NEGATIVE) Influenza Type B RNA (NEGATIVE) SARS-CoV-2 RNA (YUE) (NEGATIVE) 11/20/20 11/21/20 11/21/20 Range/Units 22:59 00:18 00:23 WBC (4.0-11.0) K/uL RBC (4.50-5.90) M/uL Hgb (13.0-17.0) g/dL Hct (38.0-50.0) % MCV (80.0-98.0) fL MCH (27.0-32.0) pg MCHC (31.0-37.0) g/dL RDW Std Deviation (28.0-62.0) fl RDW Coeff of Kash (11.0-15.0) % Plt Count (150-400) K/uL MPV (7.40-12.00) fL Neut % (Auto) (48.0-80.0) % Lymph % (Auto) (16.0-40.0) % [place] % (Auto) (0.0-15.0) % Eos % (Auto) (0.0-7.0) % Baso % (Auto) (0.0-1.5) % Neut # (Auto) (1.4-5.7) K/uL Lymph # (Auto) (0.6-2.4) K/uL [place] # (Auto) (0.0-0.8) K/uL Eos # (Auto) (0.0-0.7) K/uL Baso # (Auto) (0.0-0.1) K/uL Nucleated RBC % /100WBC Nucleated RBCs # K/uL VBG pH (7.31-7.41) VBG pCO2 (35-45) mmHG VBG pO2 (30-40) mmHG VBG HCO3 (22-30) mEq/L VBG Total CO2 (41-51) mmol/L VBG Base Excess (-3.0-3.0) Lactate (0.20-2.00) mmol/L Sodium 149 H (136-148) mmol/L Potassium 4.7 (3.5-5.1) mmol/L Chloride 119 H (98-107) mmol/L Carbon Dioxide 15.6 L (21.0-32.0) mmol/L BUN 74 H (7.0-18.0) mg/dL Creatinine 2.3 H (0.8-1.3) mg/dL Est Cr Clr Drug Dosing 15.55 mL/min Estimated GFR (MDRD) 27.2 ml/min Glucose 148 H (74-106) mg/dL POC Glucose 119 H 134 H (60-110) mg/dL Calcium 7.8 L (8.5-10.1) mg/dL Phosphorus (2.6-4.7) mg/dL Magnesium (1.8-2.4) mg/dL Total Bilirubin (0.2-1.0) mg/dL AST (15-37) IU/L ALT (14-63) IU/L Alkaline Phosphatase (46-116) U/L Creatine Kinase (26-308) U/L Total Protein (6.4-8.2) g/dL Albumin (3.4-5.0) g/dL Globulin (2.6-4.0) g/dL Albumin/Globulin Ratio (0.9-1.6) Lipase (73-393) U/L Urine Color Urine Appearance Urine pH (5.0-8.0) Ur Specific [place] (1.001-1.035) Urine Protein (NEGATIVE) mg/dL Urine Glucose (UA) (NEGATIVE) mg/dL Urine Ketones (NEGATIVE) mg/dL Urine Occult Blood (NEGATIVE) Urine Nitrite (NEGATIVE) Urine Bilirubin (NEGATIVE) Urine Urobilinogen (<2.0) EU/dL Ur Leukocyte Esterase (NEGATIVE) Urine RBC (0-2/HPF) Urine WBC (0-5/HPF) Ur Epithelial Cells (NONE-FEW) Urine Bacteria (NEGATIVE) Ur Random Creatinine mg/dL Ur Random Sodium (40.0-220.0) mmol/L Ketones (NEG) Influenza Type A RNA (NEGATIVE) Influenza Type B RNA (NEGATIVE) SARS-CoV-2 RNA (YUE) (NEGATIVE) 11/21/20 11/21/20 11/21/20 Range/Units 00:23 01:09 02:03 WBC (4.0-11.0) K/uL RBC (4.50-5.90) M/uL Hgb (13.0-17.0) g/dL Hct (38.0-50.0) % MCV (80.0-98.0) fL MCH (27.0-32.0) pg MCHC (31.0-37.0) g/dL RDW Std Deviation (28.0-62.0) fl RDW Coeff of Kash (11.0-15.0) % Plt Count (150-400) K/uL MPV (7.40-12.00) fL Neut % (Auto) (48.0-80.0) % Lymph % (Auto) (16.0-40.0) % [place] % (Auto) (0.0-15.0) % Eos % (Auto) (0.0-7.0) % Baso % (Auto) (0.0-1.5) % Neut # (Auto) (1.4-5.7) K/uL Lymph # (Auto) (0.6-2.4) K/uL [place] # (Auto) (0.0-0.8) K/uL Eos # (Auto) (0.0-0.7) K/uL Baso # (Auto) (0.0-0.1) K/uL Nucleated RBC % /100WBC Nucleated RBCs # K/uL VBG pH (7.31-7.41) VBG pCO2 (35-45) mmHG VBG pO2 (30-40) mmHG VBG HCO3 (22-30) mEq/L VBG Total CO2 (41-51) mmol/L VBG Base Excess (-3.0-3.0) Lactate 1.0 (0.20-2.00) mmol/L Sodium (136-148) mmol/L Potassium (3.5-5.1) mmol/L Chloride (98-107) mmol/L Carbon Dioxide (21.0-32.0) mmol/L BUN (7.0-18.0) mg/dL Creatinine (0.8-1.3) mg/dL Est Cr Clr Drug Dosing mL/min Estimated GFR (MDRD) ml/min Glucose (74-106) mg/dL POC Glucose 153 H 146 H (60-110) mg/dL Calcium (8.5-10.1) mg/dL Phosphorus (2.6-4.7) mg/dL Magnesium (1.8-2.4) mg/dL Total Bilirubin (0.2-1.0) mg/dL AST (15-37) IU/L ALT (14-63) IU/L Alkaline Phosphatase (46-116) U/L Creatine Kinase (26-308) U/L Total Protein (6.4-8.2) g/dL Albumin (3.4-5.0) g/dL Globulin (2.6-4.0) g/dL Albumin/Globulin Ratio (0.9-1.6) Lipase (73-393) U/L Urine Color Urine Appearance Urine pH (5.0-8.0) Ur Specific [place] (1.001-1.035) Urine Protein (NEGATIVE) mg/dL Urine Glucose (UA) (NEGATIVE) mg/dL Urine Ketones (NEGATIVE) mg/dL Urine Occult Blood (NEGATIVE) Urine Nitrite (NEGATIVE) Urine Bilirubin (NEGATIVE) Urine Urobilinogen (<2.0) EU/dL Ur Leukocyte Esterase (NEGATIVE) Urine RBC (0-2/HPF) Urine WBC (0-5/HPF) Ur Epithelial Cells (NONE-FEW) Urine Bacteria (NEGATIVE) Ur Random Creatinine mg/dL Ur Random Sodium (40.0-220.0) mmol/L Ketones (NEG) Influenza Type A RNA (NEGATIVE) Influenza Type B RNA (NEGATIVE) SARS-CoV-2 RNA (YUE) (NEGATIVE) 11/21/20 11/21/20 11/21/20 Range/Units 02:59 04:00 04:18 WBC (4.0-11.0) K/uL RBC (4.50-5.90) M/uL Hgb (13.0-17.0) g/dL Hct (38.0-50.0) % MCV (80.0-98.0) fL MCH (27.0-32.0) pg MCHC (31.0-37.0) g/dL RDW Std Deviation (28.0-62.0) fl RDW Coeff of Kash (11.0-15.0) % Plt Count (150-400) K/uL MPV (7.40-12.00) fL Neut % (Auto) (48.0-80.0) % Lymph % (Auto) (16.0-40.0) % [place] % (Auto) (0.0-15.0) % Eos % (Auto) (0.0-7.0) % Baso % (Auto) (0.0-1.5) % Neut # (Auto) (1.4-5.7) K/uL Lymph # (Auto) (0.6-2.4) K/uL [place] # (Auto) (0.0-0.8) K/uL Eos # (Auto) (0.0-0.7) K/uL Baso # (Auto) (0.0-0.1) K/uL Nucleated RBC % /100WBC Nucleated RBCs # K/uL VBG pH (7.31-7.41) VBG pCO2 (35-45) mmHG VBG pO2 (30-40) mmHG VBG HCO3 (22-30) mEq/L VBG Total CO2 (41-51) mmol/L VBG Base Excess (-3.0-3.0) Lactate (0.20-2.00) mmol/L Sodium 145 (136-148) mmol/L Potassium 4.5 (3.5-5.1) mmol/L Chloride 115 H (98-107) mmol/L Carbon Dioxide 15.8 L (21.0-32.0) mmol/L BUN 61 H (7.0-18.0) mg/dL Creatinine 2.0 H (0.8-1.3) mg/dL Est Cr Clr Drug Dosing 17.88 mL/min Estimated GFR (MDRD) 31.9 ml/min Glucose 169 H (74-106) mg/dL POC Glucose 155 H 139 H (60-110) mg/dL Calcium 8.0 L (8.5-10.1) mg/dL Phosphorus (2.6-4.7) mg/dL Magnesium (1.8-2.4) mg/dL Total Bilirubin (0.2-1.0) mg/dL AST (15-37) IU/L ALT (14-63) IU/L Alkaline Phosphatase (46-116) U/L Creatine Kinase (26-308) U/L Total Protein (6.4-8.2) g/dL Albumin (3.4-5.0) g/dL Globulin (2.6-4.0) g/dL Albumin/Globulin Ratio (0.9-1.6) Lipase (73-393) U/L Urine Color Urine Appearance Urine pH (5.0-8.0) Ur Specific [place] (1.001-1.035) Urine Protein (NEGATIVE) mg/dL Urine Glucose (UA) (NEGATIVE) mg/dL Urine Ketones (NEGATIVE) mg/dL Urine Occult Blood (NEGATIVE) Urine Nitrite (NEGATIVE) Urine Bilirubin (NEGATIVE) Urine Urobilinogen (<2.0) EU/dL Ur Leukocyte Esterase (NEGATIVE) Urine RBC (0-2/HPF) Urine WBC (0-5/HPF) Ur Epithelial Cells (NONE-FEW) Urine Bacteria (NEGATIVE) Ur Random Creatinine mg/dL Ur Random Sodium (40.0-220.0) mmol/L Ketones (NEG) Influenza Type A RNA (NEGATIVE) Influenza Type B RNA (NEGATIVE) SARS-CoV-2 RNA (YUE) (NEGATIVE) 11/21/20 11/21/20 11/21/20 Range/Units 04:18 04:18 05:09 WBC 10.54 (4.0-11.0) K/uL RBC 3.39 L (4.50-5.90) M/uL Hgb 10.4 L (13.0-17.0) g/dL Hct 32.5 L (38.0-50.0) % MCV 95.9 (80.0-98.0) fL MCH 30.7 (27.0-32.0) pg MCHC 32.0 (31.0-37.0) g/dL RDW Std Deviation 59.3 (28.0-62.0) fl RDW Coeff of Kash 17 H (11.0-15.0) % Plt Count 322 (150-400) K/uL MPV 9.10 (7.40-12.00) fL Neut % (Auto) 83.7 H (48.0-80.0) % Lymph % (Auto) 10.0 L (16.0-40.0) % [place] % (Auto) 6.1 (0.0-15.0) % Eos % (Auto) 0.2 (0.0-7.0) % Baso % (Auto) 0.0 (0.0-1.5) % Neut # (Auto) 8.8 H (1.4-5.7) K/uL Lymph # (Auto) 1.1 (0.6-2.4) K/uL [place] # (Auto) 0.6 (0.0-0.8) K/uL Eos # (Auto) 0.0 (0.0-0.7) K/uL Baso # (Auto) 0.0 (0.0-0.1) K/uL Nucleated RBC % 0.0 /100WBC Nucleated RBCs # 0 K/uL VBG pH (7.31-7.41) VBG pCO2 (35-45) mmHG VBG pO2 (30-40) mmHG VBG HCO3 (22-30) mEq/L VBG Total CO2 (41-51) mmol/L VBG Base Excess (-3.0-3.0) Lactate (0.20-2.00) mmol/L Sodium (136-148) mmol/L Potassium (3.5-5.1) mmol/L Chloride (98-107) mmol/L Carbon Dioxide (21.0-32.0) mmol/L BUN (7.0-18.0) mg/dL Creatinine (0.8-1.3) mg/dL Est Cr Clr Drug Dosing mL/min Estimated GFR (MDRD) ml/min Glucose (74-106) mg/dL POC Glucose 180 H (60-110) mg/dL Calcium (8.5-10.1) mg/dL Phosphorus 3.2 (2.6-4.7) mg/dL Magnesium 2.5 H (1.8-2.4) mg/dL Total Bilirubin (0.2-1.0) mg/dL AST (15-37) IU/L ALT (14-63) IU/L Alkaline Phosphatase (46-116) U/L Creatine Kinase (26-308) U/L Total Protein (6.4-8.2) g/dL Albumin (3.4-5.0) g/dL Globulin (2.6-4.0) g/dL Albumin/Globulin Ratio (0.9-1.6) Lipase (73-393) U/L Urine Color Urine Appearance Urine pH (5.0-8.0) Ur Specific [place] (1.001-1.035) Urine Protein (NEGATIVE) mg/dL Urine Glucose (UA) (NEGATIVE) mg/dL Urine Ketones (NEGATIVE) mg/dL Urine Occult Blood (NEGATIVE) Urine Nitrite (NEGATIVE) Urine Bilirubin (NEGATIVE) Urine Urobilinogen (<2.0) EU/dL Ur Leukocyte Esterase (NEGATIVE) Urine RBC (0-2/HPF) Urine WBC (0-5/HPF) Ur Epithelial Cells (NONE-FEW) Urine Bacteria (NEGATIVE) Ur Random Creatinine mg/dL Ur Random Sodium (40.0-220.0) mmol/L Ketones (NEG) Influenza Type A RNA (NEGATIVE) Influenza Type B RNA (NEGATIVE) SARS-CoV-2 RNA (YUE) (NEGATIVE) 11/21/20 11/21/20 Range/Units 06:05 06:50 WBC (4.0-11.0) K/uL RBC (4.50-5.90) M/uL Hgb (13.0-17.0) g/dL Hct (38.0-50.0) % MCV (80.0-98.0) fL MCH (27.0-32.0) pg MCHC (31.0-37.0) g/dL RDW Std Deviation (28.0-62.0) fl RDW Coeff of Kash (11.0-15.0) % Plt Count (150-400) K/uL MPV (7.40-12.00) fL Neut % (Auto) (48.0-80.0) % Lymph % (Auto) (16.0-40.0) % [place] % (Auto) (0.0-15.0) % Eos % (Auto) (0.0-7.0) % Baso % (Auto) (0.0-1.5) % Neut # (Auto) (1.4-5.7) K/uL Lymph # (Auto) (0.6-2.4) K/uL [place] # (Auto) (0.0-0.8) K/uL Eos # (Auto) (0.0-0.7) K/uL Baso # (Auto) (0.0-0.1) K/uL Nucleated RBC % /100WBC Nucleated RBCs # K/uL VBG pH (7.31-7.41) VBG pCO2 (35-45) mmHG VBG pO2 (30-40) mmHG VBG HCO3 (22-30) mEq/L VBG Total CO2 (41-51) mmol/L VBG Base Excess (-3.0-3.0) Lactate (0.20-2.00) mmol/L Sodium (136-148) mmol/L Potassium (3.5-5.1) mmol/L Chloride (98-107) mmol/L Carbon Dioxide (21.0-32.0) mmol/L BUN (7.0-18.0) mg/dL Creatinine (0.8-1.3) mg/dL Est Cr Clr Drug Dosing mL/min Estimated GFR (MDRD) ml/min Glucose (74-106) mg/dL POC Glucose 163 H 133 H (60-110) mg/dL Calcium (8.5-10.1) mg/dL Phosphorus (2.6-4.7) mg/dL Magnesium (1.8-2.4) mg/dL Total Bilirubin (0.2-1.0) mg/dL AST (15-37) IU/L ALT (14-63) IU/L Alkaline Phosphatase (46-116) U/L Creatine Kinase (26-308) U/L Total Protein (6.4-8.2) g/dL Albumin (3.4-5.0) g/dL Globulin (2.6-4.0) g/dL Albumin/Globulin Ratio (0.9-1.6) Lipase (73-393) U/L Urine Color Urine Appearance Urine pH (5.0-8.0) Ur Specific [place] (1.001-1.035) Urine Protein (NEGATIVE) mg/dL Urine Glucose (UA) (NEGATIVE) mg/dL Urine Ketones (NEGATIVE) mg/dL Urine Occult Blood (NEGATIVE) Urine Nitrite (NEGATIVE) Urine Bilirubin (NEGATIVE) Urine Urobilinogen (<2.0) EU/dL Ur Leukocyte Esterase (NEGATIVE) Urine RBC (0-2/HPF) Urine WBC (0-5/HPF) Ur Epithelial Cells (NONE-FEW) Urine Bacteria (NEGATIVE) Ur Random Creatinine mg/dL Ur Random Sodium (40.0-220.0) mmol/L Ketones (NEG) Influenza Type A RNA (NEGATIVE) Influenza Type B RNA (NEGATIVE) SARS-CoV-2 RNA (YUE) (NEGATIVE) Result Diagrams: 11/21/20 04:18 11/21/20 08:06 Sepsis Event Note - Evaluation Sepsis Screening Result: No Definite Risk - Focused Exam Vital Signs: Vital Signs Temp Resp BP Pulse Ox 11/21/20 07:00 16 146/55 H 99 11/21/20 06:00 98.4 F 16 137/51 L 96 11/21/20 05:00 99.3 F 16 154/66 H 96 11/21/20 04:00 99.1 F 17 133/48 L 96 11/21/20 03:00 15 132/43 L 97 11/21/20 02:00 15 117/45 L 96 11/21/20 01:00 19 111/53 L 96 11/21/20 00:00 97.9 F 15 132/42 L 94 L 11/20/20 23:00 18 132/50 L 97 11/20/20 22:00 16 142/48 H 98 11/20/20 21:00 16 139/64 98 11/20/20 20:00 97.7 F 17 141/60 H 99 - Problem List & Annotations (1) Sepsis SNOMED Code(s): 76278187 Code(s): A41.9 - SEPSIS, UNSPECIFIED ORGANISM Status: Acute Current Visit: Yes Qualifiers: Sepsis type: sepsis due to unspecified organism Sepsis acute organ dysfunction status: with acute organ dysfunction Severe sepsis acute organ dysfunction type: acute renal failure Severe sepsis shock status: without septic shock (2) Renal failure SNOMED Code(s): 04184577 Code(s): N19 - UNSPECIFIED KIDNEY FAILURE Status: Acute Current Visit: Yes Qualifiers: Renal failure chronicity: acute on chronic (3) Metabolic acidosis SNOMED Code(s): 26052209 Code(s): E87.2 - ACIDOSIS Status: Acute Current Visit: Yes (4) Hyperkalemia SNOMED Code(s): 30063442 Code(s): E87.5 - HYPERKALEMIA Status: Acute Current Visit: Yes (5) UTI (urinary tract infection) SNOMED Code(s): 76239509 Code(s): N39.0 - URINARY TRACT INFECTION, SITE NOT SPECIFIED Status: Acute Current Visit: Yes Qualifiers: Urinary tract infection type: acute cystitis Hematuria presence: with hematuria Qualified Code(s): N30.01 - Acute cystitis with hematuria (6) Dehydration SNOMED Code(s): 45462928 Code(s): E86.0 - DEHYDRATION Status: Acute Current Visit: No (7) Obstructive uropathy SNOMED Code(s): 6850031 Code(s): N13.9 - OBSTRUCTIVE AND REFLUX UROPATHY, UNSPECIFIED Status: Acute Current Visit: No (8) Hyperglycemia SNOMED Code(s): 45770552 Code(s): R73.9 - HYPERGLYCEMIA, UNSPECIFIED Status: Acute Current Visit: No (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 Current Visit: No (10) CKD (chronic kidney disease) SNOMED Code(s): 138832462 Code(s): N18.9 - CHRONIC KIDNEY DISEASE, UNSPECIFIED Status: Chronic Current Visit: No (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 Code(s): 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 St atus: Chronic Current Visit: No (12) Wide-complex tachycardia SNOMED Code(s): 108707624 Code(s): I47.2 - VENTRICULAR TACHYCARDIA Status: Chronic Current Visit: No (13) Diabetes SNOMED Code(s): 09818833 Code(s): E11.9 - TYPE 2 DIABETES MELLITUS WITHOUT COMPLICATIONS Status: Chronic Current Visit: No Qualifiers: Diabetes mellitus type: type 2 Diabetes mellitus termite control servicer insulin use: without detention use Diabetes mellitus complication status: without complication Qualified Code(s): E11.9 - Type 2 diabetes mellitus without complications (14) Hematuria SNOMED Code(s): 04781953 Code(s): R31.9 - HEMATURIA, UNSPECIFIED Status: Acute Current Visit: Yes - Problem List Review Problem List Initiated/Reviewed/Updated: Yes - My Orders Last 24 Hours: My Active Orders 11/20/20 12:42 Urinary Catheter Assessment [RC] Q4H 11/20/20 12:45 Insert Childs Catheter [Insert Urinary Catheter] [OM.PC] Q24H 11/20/20 12:53 Bedrest Bathroom Privileges [RC] ASDIRECTED Blood Glucose Check, Bedside [RC] Q1HR Cardiac Monitoring [RC] Q8H Height and Weight [RC] DAILY Intake and Output [RC] Q12H Oxygen Therapy [RC] PRN VTE/DVT Education [RC] PER UNIT ROUTINE Vital Signs [RC] Q1HR Docusate Sodium [Colace] 100 mg PO BID PRN Saline Lock Insert [OM.PC] Routine Resuscitation Status Routine 11/20/20 13:06 Blood Culture x2 Reflex Set [OM.PC] Stat 11/20/20 13:15 Acetaminophen [Tylenol] 650 mg RECTAL Q4H PRN 11/20/20 13:30 Ondansetron [Zofran] 4 mg IVPUSH Q4H PRN Pantoprazole [ProTONIX IV] 40 mg Sodium Chloride 0.9% [Normal Saline] 10 ml IV Q24H Sodium Chloride 0.9% [Saline Flush] 2.5 ml FLUSH ASDIRECTED PRN 11/20/20 13:40 CULTURE BLOOD [BC] Stat 11/20/20 13:49 CULTURE BLOOD [BC] Stat 11/20/20 14:06 Bladder Irrigation [RC] ASDIRECTED 11/20/20 14:40 Communication Order [RC] ROUTINE 11/20/20 15:00 Dextrose 5%-0.45% NaCl [Dextrose 5%-1/2 NS] 1,000 ml IV Q6HR 11/20/20 Dinner NPO [Nothing Per Oral Diet] [DIET] Linezolid [Zyvox] 600 mg Premix Bag 1 bag IV Q12H 11/20/20 21:00 Patient's Own Medication [Ptom] 1 each EYELF BEDTIME 11/21/20 08:00 BASIC METABOLIC PANEL,BMP [CHEM] Q4H 11/22/20 05:11 CBC WITH AUTO DIFF [HEME] AM 11/23/20 05:11 CBC WITH AUTO DIFF [HEME] AM - Plan Plan:: This 85-year-old male admitted with acute renal failure secondary to obstructive uropathy, metabolic acidosis, hyperglycemia and sepsis secondary to UTI 1. Acute renal failure secondary to obstructive uropathy -Nearly back to normal with decompression of bladder -CT abdomen pelvis revealed severely distended bladder with bilateral hydronephrosis -Continue Childs catheter -UA obtained revealing UTI -Refrain from using nephrotoxic medications -Holding YAIMA -Continue Childs catheter-Childs drained out 1400 mils initially. Hematuria started after Childs catheter placed. We will continue to monitor nursing reported significant amount of large blood clots when she drained the catheter. - FENA reveals ATN, urine creatinine 21 and 6 sodium 78 -Mild hematuria noted likely secondary to trauma of Childs insertion. We will continue to monitor hemoglobin stable 2. Metabolic acidosis secondary to renal failure -Significant improvement overnight -Will transition off insulin drip as gap is closed. 3. Sepsis/UTI -Yesterday lactic acid elevated 4.8 he was given 2 L of fluid with improvement of perfusion by improving blood pressure as well as heart rate. Lactic acid then resolved. -Blood cultures obtained and still pending -Urine culture obtained and still pending -Zosyn renally dosed, added linezolid secondary to BA and risk of worsening wi th vancomycin. Will await cultures to de-escalate therapy - Continue LR 125 ml/hr -Enlarged prostate noted on CT. Does have enlarged prostate unable to determine if patient is having pain due to mental disabilities. 4. Hyperglycemia/DM type II -Discontinue insulin drip transition to Levemir and sliding scale -Last A1c 7.0 -Blood sugar checks every 3 times daily AC -Start full liquid diet and monitor tolerance -Hold all oral diabetic medication 5. HTN/history wide-complex tachycardia -Hold lisinopril -Last admission he was noted to have V. tach and was started on amiodarone. -Continue amiodarone 200 mg p.o. twice daily VTE prophylaxis: SCDs for now as patient is having hematuria GI prophylaxis: Protonix CODE STATUS: DNR/DNI, I did speak with Tabitha Villasenor, patient's sister and guardian also power of divorce attorney. She agrees with DNR/DNI. She reports she is o stephenie with central line and vasopressors as needed and depending on the situation. She was counseled she would be called prior to placement of this to assess situation. She also deferred transfer and would not want dialysis for waiting at this time. She understands that there is risk of fatal cardiac arrhythmia secondary to hyperkalemia though this is improving. She will want us to reassess in the a.m. and monitor how Childs catheter relieves hydronephrosis and renal failure. She understands at this point his condition is serious. She will update Sister that is in [place] as well. Guardian/POA : Tabitha Villasenor [phone]/21/2020 updated via phone. Continue to monitor the next couple days plan potentially to discharge back to [facility] pending discussion with them regarding increased cares. Dispo: 2 to 4 days pending improvement. I also spoke to Tabitha regarding potential need for placement depending on what [facility] feels comfortable with taking care of him. He will need long-term Childs catheter. She verbalizes that she has been considering longterm placement for a couple years and will wait and see how [facility] [place] feels and will reach out to [facility] to evaluate their availability for him if needed.
[2020-11-21 08:34] LABS: CARBON DIOXIDE,CO2 19.3 mmol/L (21.0-32.0); POTASSIUM,K 4.5 mmol/L (3.5-5.1)
[2020-11-21] MEDS ORDERED: 50% Dextrose in Water 50 ML Syringe IV PRN (09:09)
[2020-11-21] MEDS ORDERED: Glucagon,Human Recombinant 1 MG Vial IM PRN (09:09)
[2020-11-21] MEDS: Lactated Ringers 1,000 ML IV SCH ×2 (09:46→18:04)
[2020-11-21] MEDS: Insulin Detemir 100 Units/ML 3 ML Pen SUBCUT SCH (10:00)
[2020-11-21] MEDS: Piperacillin/Tazobactam 4.5 GM in Sodium Chloride 0.9% 100 ML IV SCH (11:55)
[2020-11-21] MEDS: Amiodarone 200 MG Tab PO SCH ×2 (12:17→20:43)
[2020-11-21] MEDS: Insulin Aspart 100 Units/ML 3 ML Pen SUBCUT SCH ×2 (12:18→17:45)
[2020-11-21] MEDS: Pantoprazole 40 MG in Sodium Chloride 0.9% 10 ML IV SCH (12:36)
[2020-11-21] MEDS: Brimonidine 0.2% Ophth Soln 5 ML Bottle EYELF SCH ×2 (15:07→22:00)
[2020-11-21] MEDS: TRAVOPROST 0.004% EYELF SCH (20:44)
[2020-11-22] MEDS: Piperacillin/Tazobactam 4.5 GM in Sodium Chloride 0.9% 100 ML IV SCH (00:08)
[2020-11-22] MEDS: Lactated Ringers 1,000 ML IV SCH ×3 (01:48→18:27)
[2020-11-22] MEDS: Linezolid 600 MG in Premix Bag 1 BAG IV SCH (04:13)
[2020-11-22] MEDS: Brimonidine 0.2% Ophth Soln 5 ML Bottle EYELF SCH ×3 (05:59→22:10)
[2020-11-22 06:27] LABS: CARBON DIOXIDE,CO2 19.8 mmol/L (21.0-32.0); POTASSIUM,K 4.3 mmol/L (3.5-5.1)
[2020-11-22] MEDS: Insulin Aspart 100 Units/ML 3 ML Pen SUBCUT SCH ×3 (07:44→18:06)
[2020-11-22] MEDS ORDERED: Magnesium Sulfate/Water 4 GM/100 ML BAG IV ONE (08:04)
--- NOTE | 2020-11-22 08:11 | PCM.PN ---
- General Info Date of Service: 11/22/20 Admission Dx/Problem (Free Text): Admission Diagnosis/Problem Admission Diagnosis/Problem Diabetic ketoacidosis Subjective Update: Nonverbal. Unable to obtain ROS. Patient appears much more hydrated mouth is not dry. Patient comfortable in bed and being fed breakfast by nursing staff. - Patient Data Vitals - Most Recent: Last Vital Signs Temp 98.8 F 11/22/20 05:00 Pulse 87 11/20/20 12:40 Resp 16 11/22/20 07:00 BP 155/47 H 11/22/20 07:00 Pulse Ox 98 11/22/20 07:00 Weight - Most Recent: 47.809 kg I&O - Last 24 Hours: Intake & Output 11/21/20 11/22/20 11/22/20 22:59 06:59 14:59 Intake Total 1881 2230 Output Total 1750 1900 Balance 131 330 Lab Results Last 24 Hours: Laboratory Results - last 24 hr 11/21/20 11/21/20 11/21/20 Range/Units 08:06 09:28 10:46 WBC (4.0-11.0) K/uL RBC (4.50-5.90) M/uL Hgb (13.0-17.0) g/dL Hct (38.0-50.0) % MCV (80.0-98.0) fL MCH (27.0-32.0) pg MCHC (31.0-37.0) g/dL RDW Std Deviation (28.0-62.0) fl RDW Coeff of Kash (11.0-15.0) % Plt Count (150-400) K/uL MPV (7.40-12.00) fL Neut % (Auto) (48.0-80.0) % Lymph % (Auto) (16.0-40.0) % [place] % (Auto) (0.0-15.0) % Eos % (Auto) (0.0-7.0) % Baso % (Auto) (0.0-1.5) % Neut # (Auto) (1.4-5.7) K/uL Lymph # (Auto) (0.6-2.4) K/uL [place] # (Auto) (0.0-0.8) K/uL Eos # (Auto) (0.0-0.7) K/uL Baso # (Auto) (0.0-0.1) K/uL Nucleated RBC % /100WBC Nucleated RBCs # K/uL Sodium 145 (136-148) mmol/L Potassium 4.5 (3.5-5.1) mmol/L Chloride 116 H (98-107) mmol/L Carbon Dioxide 19.3 L (21.0-32.0) mmol/L BUN 54 H (7.0-18.0) mg/dL Creatinine 1.9 H (0.8-1.3) mg/dL Est Cr Clr Drug Dosing 18.98 mL/min Estimated GFR (MDRD) 33.9 ml/min Glucose 145 H (74-106) mg/dL POC Glucose 153 H 201 H (60-110) mg/dL Calcium 8.2 L (8.5-10.1) mg/dL Phosphorus (2.6-4.7) mg/dL Magnesium (1.8-2.4) mg/dL 11/21/20 11/21/20 11/22/20 Range/Units 11:45 17:05 05:45 WBC 5.92 (4.0-11.0) K/uL RBC 3.23 L (4.50-5.90) M/uL Hgb 9.8 L (13.0-17.0) g/dL Hct 30.4 L (38.0-50.0) % MCV 94.1 (80.0-98.0) fL MCH 30.3 (27.0-32.0) pg MCHC 32.2 (31.0-37.0) g/dL RDW Std Deviation 54.3 (28.0-62.0) fl RDW Coeff of Kash 16 H (11.0-15.0) % Plt Count 232 (150-400) K/uL MPV 9.30 (7.40-12.00) fL Neut % (Auto) 71.5 (48.0-80.0) % Lymph % (Auto) 18.8 (16.0-40.0) % [place] % (Auto) 7.6 (0.0-15.0) % Eos % (Auto) 1.9 (0.0-7.0) % Baso % (Auto) 0.2 (0.0-1.5) % Neut # (Auto) 4.2 (1.4-5.7) K/uL Lymph # (Auto) 1.1 (0.6-2.4) K/uL [place] # (Auto) 0.5 (0.0-0.8) K/uL Eos # (Auto) 0.1 (0.0-0.7) K/uL Baso # (Auto) 0.0 (0.0-0.1) K/uL Nucleated RBC % 0.0 /100WBC Nucleated RBCs # 0 K/uL Sodium (136-148) mmol/L Potassium (3.5-5.1) mmol/L Chloride (98-107) mmol/L Carbon Dioxide (21.0-32.0) mmol/L BUN (7.0-18.0) mg/dL Creatinine (0.8-1.3) mg/dL Est Cr Clr Drug Dosing mL/min Estimated GFR (MDRD) ml/min Glucose (74-106) mg/dL POC Glucose 167 H 285 H (60-110) mg/dL Calcium (8.5-10.1) mg/dL Phosphorus (2.6-4.7) mg/dL Magnesium (1.8-2.4) mg/dL 11/22/20 11/22/20 Range/Units 05:55 07:39 WBC (4.0-11.0) K/uL RBC (4.50-5.90) M/uL Hgb (13.0-17.0) g/dL Hct (38.0-50.0) % MCV (80.0-98.0) fL MCH (27.0-32.0) pg MCHC (31.0-37.0) g/dL RDW Std Deviation (28.0-62.0) fl RDW Coeff of Kash (11.0-15.0) % Plt Count (150-400) K/uL MPV (7.40-12.00) fL Neut % (Auto) (48.0-80.0) % Lymph % (Auto) (16.0-40.0) % [place] % (Auto) (0.0-15.0) % Eos % (Auto) (0.0-7.0) % Baso % (Auto) (0.0-1.5) % Neut # (Auto) (1.4-5.7) K/uL Lymph # (Auto) (0.6-2.4) K/uL [place] # (Auto) (0.0-0.8) K/uL Eos # (Auto) (0.0-0.7) K/uL Baso # (Auto) (0.0-0.1) K/uL Nucleated RBC % /100WBC Nucleated RBCs # K/uL Sodium 136 (136-148) mmol/L Potassium 4.3 (3.5-5.1) mmol/L Chloride 106 (98-107) mmol/L Carbon Dioxide 19.8 L (21.0-32.0) mmol/L BUN 26 H (7.0-18.0) mg/dL Creatinine 1.2 (0.8-1.3) mg/dL Est Cr Clr Drug Dosing 30.06 mL/min Estimated GFR (MDRD) 57.5 ml/min Glucose 204 H (74-106) mg/dL POC Glucose 196 H (60-110) mg/dL Calcium 7.5 L (8.5-10.1) mg/dL Phosphorus 2.4 L (2.6-4.7) mg/dL Magnesium 1.5 L (1.8-2.4) mg/dL Storm Results Last 24 Hours: Microbiology 11/20/20 12:25 Urine Culture - Final Urine, Clean Catch Proteus Mirabilis 11/20/20 13:40 Aerobic Blood Culture - Preliminary Blood - Venous NO GROWTH AFTER 1 DAY Anaerobic Blood Culture - Preliminary NO GROWTH AFTER 1 DAY 11/20/20 13:49 Aerobic Blood Culture - Preliminary Blood - Venous - Lab Draw NO GROWTH AFTER 1 DAY Anaerobic Blood Culture - Preliminary NO GROWTH AFTER 1 DAY Med Orders - Current: Current Medications Acetaminophen (Acetaminophen 650 Mg Supp) 650 mg RECTAL Q4H PRN PRN Reason: Pain (mild 1-3) Amiodarone HCl (Amiodarone 200 Mg Tab) 200 mg PO BID TALI Last Admin: 11/21/20 20:43 Dose: 200 mg Documented by: Dextrose/Water (50% Dextrose In Water 50 Ml Syringe) 50 ml IV ASDIRECTED PRN PRN Reason: Hypoglycemia Docusate Sodium (Docusate Sodium 100 Mg Cap) 100 mg PO BID PRN PRN Reason: Constipation Glucagon (Glucagon,Human Recombinant 1 Mg Vial) 1 mg IM ASDIRECTED PRN PRN Reason: Hypoglycemia Pantoprazole Sodium 40 mg/ (Sodium Chloride) 10 mls @ 200 mls/hr IV Q24H [facility] Last Admin: 11/21/20 12:36 Dose: 200 mls/hr Documented by: Piperacillin Sod/Tazobactam (Sod 4.5 gm/ Sodium Chloride) 100 mls @ 200 mls/hr IV Q12H [facility] Last Admin: 11/22/20 00:08 Dose: 200 mls/hr Documented by: Lactated Ringer's (Ringers, Lactated) 1,000 mls @ 125 mls/hr IV Q8H [facility] Last Admin: 11/22/20 01:48 Dose: 125 mls/hr Documented by: Magnesium Sulfate (Magnesium Sulfate In Water 4 Gm/100 Ml) 4 gm in 100 mls @ 50 mls/hr IV ONETIME ONE Stop: 11/22/20 10:03 Insulin Aspart (Insulin Aspart 100 Units/Ml 3 Ml Pen) 0 unit SUBCUT TIDAC [facility]; Protocol Last Admin: 11/22/20 07:44 Dose: 1 unit Documented by: Insulin Detemir (Insulin Detemir 100 Units/Ml 3 Ml Pen) 10 unit SUBCUT DAILY [facility] Last Admin: 11/21/20 10:00 Dose: 10 units Documented by: Ondansetron HCl (Ondansetron 4 Mg/2 Ml Sdv) 4 mg IVPUSH Q4H PRN PRN Reason: Nausea Travoprost [Travatan (Z] 0.004% 2.5 Ml) 1 each EYELF BEDTIME [facility] Last Admin: 11/21/20 20:44 Dose: 1 each Documented by: Brimonidine 0.2% Ophth Soln 5 Ml Bottle 1 each EYELF TID [facility] Last Admin: 11/22/20 05:59 Dose: 1 each Documented by: Sodium Chloride (Sodium Chloride 0.9% 2.5 Ml Syringe) 2.5 ml FLUSH ASDIRECTED PRN PRN Reason: Keep Vein Open Sodium Phosphate (Phosphorus #1 250 Mg Tab) 250 mg PO QID TALI Discontinued Medications Calcium Gluconate (Calcium Gluconate 10% 1 Gm/10 Ml Sdv) 1 gm IV ONETIME ONE Stop: 11/20/20 11:11 Last Admin: 11/20/20 12:03 Dose: 1 gm Documented by: Sodium Chloride (Normal Saline) 1,000 mls @ 999 mls/hr IV .BOLUS ONE Stop: 11/20/20 09:51 Last Admin: 11/20/20 09:36 Dose: 999 mls/hr Documented by: Insulin Human Regular 100 unit (/ Sodium Chloride) 100 mls @ 6.804 mls/hr IV TITRATE TALI; Protocol Stop: 11/21/20 12:00 Last Titration: 11/21/20 11:51 Dose: 0 units/kg/hr, 0 mls/hr Documented by: Lactated Ringer's (Ringers, Lactated) 1,000 mls @ 999 mls/hr IV .BOLUS [facility] Last Admin: 11/20/20 15:07 Dose: 999 mls/hr Documented by: Piperacillin Sod/Tazobactam (Sod 2.25 gm/ Sodium Chloride) 50 mls @ 100 mls/hr IV Q8H [facility] Last Admin: 11/21/20 05:31 Dose: 100 mls/hr Documented by: Lactated Ringer's (Ringers, Lactated) 1,000 mls @ 150 mls/hr IV ASDIRECTED [facility] Dextrose/Sodium Chloride (Dextrose 5%-1/2 Ns) 1,000 mls @ 150 mls/hr IV Q6HR [facility] Last Admin: 11/21/20 06:12 Dose: 150 mls/hr Documented by: Linezolid 600 mg/ Premix 300 mls @ 300 mls/hr IV Q12H [facility] Last Admin: 11/22/20 04:13 Dose: 300 mls/hr Documented by: Vancomycin HCl (Pharmacy To Dose - Vancomycin) 1 dose .XX ASDIRECTED [facility] - Exam General: Alert, Oriented, Cooperative, No Acute Distress Neck: Supple, No JVD. No: Lymphadenopathy, JVD Lungs: Clear to Auscultation, Normal Respiratory Effort Cardiovascular: Regular Rate, Regular Rhythm, No Murmurs GI/Abdominal Exam: Normal Bowel Sounds, Soft, Non-Tender Back Exam: Normal Inspection, Full Range of Motion Extremities: Normal Inspection, Normal Range of Motion, Non-Tender, No Pedal Edema Skin: Warm, Dry Wound/Incisions: Healing Well Neurological: No New Focal Deficit Psy/Mental Status: Alert, Normal Affect - Patient Data Lab Results Last 24 hrs: Laboratory Results - last 24 hr 11/21/20 11/21/20 11/21/20 Range/Units 08:06 09:28 10:46 WBC (4.0-11.0) K/uL RBC (4.50-5.90) M/uL Hgb (13.0-17.0) g/dL Hct (38.0-50.0) % MCV (80.0-98.0) fL MCH (27.0-32.0) pg MCHC (31.0-37.0) g/dL RDW Std Deviation (28.0-62.0) fl RDW Coeff of Kash (11.0-15.0) % Plt Count (150-400) K/uL MPV (7.40-12.00) fL Neut % (Auto) (48.0-80.0) % Lymph % (Auto) (16.0-40.0) % [place] % (Auto) (0.0-15.0) % Eos % (Auto) (0.0-7.0) % Baso % (Auto) (0.0-1.5) % Neut # (Auto) (1.4-5.7) K/uL Lymph # (Auto) (0.6-2.4) K/uL [place] # (Auto) (0.0-0.8) K/uL Eos # (Auto) (0.0-0.7) K/uL Baso # (Auto) (0.0-0.1) K/uL Nucleated RBC % /100WBC Nucleated RBCs # K/uL Sodium 145 (136-148) mmol/L Potassium 4.5 (3.5-5.1) mmol/L Chloride 116 H (98-107) mmol/L Carbon Dioxide 19.3 L (21.0-32.0) mmol/L BUN 54 H (7.0-18.0) mg/dL Creatinine 1.9 H (0.8-1.3) mg/dL Est Cr Clr Drug Dosing 18.98 mL/min Estimated GFR (MDRD) 33.9 ml/min Glucose 145 H (74-106) mg/dL POC Glucose 153 H 201 H (60-110) mg/dL Calcium 8.2 L (8.5-10.1) mg/dL Phosphorus (2.6-4.7) mg/dL Magnesium (1.8-2.4) mg/dL 11/21/20 11/21/20 11/22/20 Range/Units 11:45 17:05 05:45 WBC 5.92 (4.0-11.0) K/uL RBC 3.23 L (4.50-5.90) M/uL Hgb 9.8 L (13.0-17.0) g/dL Hct 30.4 L (38.0-50.0) % MCV 94.1 (80.0-98.0) fL MCH 30.3 (27.0-32.0) pg MCHC 32.2 (31.0-37.0) g/dL RDW Std Deviation 54.3 (28.0-62.0) fl RDW Coeff of Kash 16 H (11.0-15.0) % Plt Count 232 (150-400) K/uL MPV 9.30 (7.40-12.00) fL Neut % (Auto) 71.5 (48.0-80.0) % Lymph % (Auto) 18.8 (16.0-40.0) % [place] % (Auto) 7.6 (0.0-15.0) % Eos % (Auto) 1.9 (0.0-7.0) % Baso % (Auto) 0.2 (0.0-1.5) % Neut # (Auto) 4.2 (1.4-5.7) K/uL Lymph # (Auto) 1.1 (0.6-2.4) K/uL [place] # (Auto) 0.5 (0.0-0.8) K/uL Eos # (Auto) 0.1 (0.0-0.7) K/uL Baso # (Auto) 0.0 (0.0-0.1) K/uL Nucleated RBC % 0.0 /100WBC Nucleated RBCs # 0 K/uL Sodium (136-148) mmol/L Potassium (3.5-5.1) mmol/L Chloride (98-107) mmol/L Carbon Dioxide (21.0-32.0) mmol/L BUN (7.0-18.0) mg/dL Creatinine (0.8-1.3) mg/dL Est Cr Clr Drug Dosing mL/min Estimated GFR (MDRD) ml/min Glucose (74-106) mg/dL POC Glucose 167 H 285 H (60-110) mg/dL Calcium (8.5-10.1) mg/dL Phosphorus (2.6-4.7) mg/dL Magnesium (1.8-2.4) mg/dL 11/22/20 11/22/20 Range/Units 05:55 07:39 WBC (4.0-11.0) K/uL RBC (4.50-5.90) M/uL Hgb (13.0-17.0) g/dL Hct (38.0-50.0) % MCV (80.0-98.0) fL MCH (27.0-32.0) pg MCHC (31.0-37.0) g/dL RDW Std Deviation (28.0-62.0) fl RDW Coeff of Kash (11.0-15.0) % Plt Count (150-400) K/uL MPV (7.40-12.00) fL Neut % (Auto) (48.0-80.0) % Lymph % (Auto) (16.0-40.0) % [place] % (Auto) (0.0-15.0) % Eos % (Auto) (0.0-7.0) % Baso % (Auto) (0.0-1.5) % Neut # (Auto) (1.4-5.7) K/uL Lymph # (Auto) (0.6-2.4) K/uL [place] # (Auto) (0.0-0.8) K/uL Eos # (Auto) (0.0-0.7) K/uL Baso # (Auto) (0.0-0.1) K/uL Nucleated RBC % /100WBC Nucleated RBCs # K/uL Sodium 136 (136-148) mmol/L Potassium 4.3 (3.5-5.1) mmol/L Chloride 106 (98-107) mmol/L Carbon Dioxide 19.8 L (21.0-32.0) mmol/L BUN 26 H (7.0-18.0) mg/dL Creatinine 1.2 (0.8-1.3) mg/dL Est Cr Clr Drug Dosing 30.06 mL/min Estimated GFR (MDRD) 57.5 ml/min Glucose 204 H (74-106) mg/dL POC Glucose 196 H (60-110) mg/dL Calcium 7.5 L (8.5-10.1) mg/dL Phosphorus 2.4 L (2.6-4.7) mg/dL Magnesium 1.5 L (1.8-2.4) mg/dL Result Diagrams: 11/22/20 05:45 11/22/20 05:55 Storm Results Last 24 hrs: Microbiology 11/20/20 12:25 Urine Culture - Final Urine, Clean Catch Proteus Mirabilis 11/20/20 13:40 Aerobic Blood Culture - Preliminary Blood - Venous NO GROWTH AFTER 1 DAY Anaerobic Blood Culture - Preliminary NO GROWTH AFTER 1 DAY 11/20/20 13:49 Aerobic Blood Culture - Preliminary Blood - Venous - Lab Draw NO GROWTH AFTER 1 DAY Anaerobic Blood Culture - Preliminary NO GROWTH AFTER 1 DAY Sepsis Event Note - Evaluation Sepsis Screening Result: No Definite Risk - Focused Exam Vital Signs: Vital Signs Temp Resp BP Pulse Ox 11/22/20 07:00 16 155/47 H 98 11/22/20 06:00 16 145/57 H 96 11/22/20 05:00 98.8 F 20 117/35 L 95 11/22/20 04:00 20 125/41 L 95 11/22/20 03:00 98.4 F 16 136/49 L 96 11/22/20 02:00 14 127/50 L 98 11/22/20 01:00 12 119/42 L 96 11/22/20 00:00 99.0 F 13 117/42 L 97 11/21/20 23:00 17 96/48 L 96 11/21/20 22:00 15 114/50 L 96 11/21/20 21:00 14 142/44 H 97 - Problem List & Annotations (1) Sepsis SNOMED Code(s): 42515015 Code(s): A41.9 - SEPSIS, UNSPECIFIED ORGANISM Status: Resolved Current Visit: Yes Qualifiers: Sepsis type: sepsis due to unspecified organism Sepsis acute organ dysfunction status: with acute organ dysfunction Severe sepsis acute organ dysfunction type: acute renal failure Severe sepsis shock status: without septic shock (2) Renal failure SNOMED Code(s): 03892851 Code(s): N19 - UNSPECIFIED KIDNEY FAILURE Status: Acute Current Visit: Y es Qualifiers: Renal failure chronicity: acute on chronic (3) Metabolic acidosis SNOMED Code(s): 05844990 Code(s): E87.2 - ACIDOSIS Status: Acute Current Visit: Yes (4) Hyperkalemia SNOMED Code(s): 51048706 Code(s): E87.5 - HYPERKALEMIA Status: Acute Current Visit: Yes (5) UTI (urinary tract infection) SNOMED Code(s): 32817284 Code(s): N39.0 - URINARY TRACT INFECTION, SITE NOT SPECIFIED Status: Acute Current Visit: Yes Qualifiers: Urinary tract infection type: acute cystitis Hematuria presence: with hematuria Qualified Code(s): N30.01 - Acute cystitis with hematuria (6) Dehydration SNOMED Code(s): 27985155 Code(s): E86.0 - DEHYDRATION Status: Acute Current Visit: No (7) Obstructive uropathy SNOMED Code(s): 5216646 Code(s): N13.9 - OBSTRUCTIVE AND REFLUX UROPATHY, UNSPECIFIED Status: Acute Current Visit: No (8) Hyperglycemia SNOMED Code(s): 03969732 Code(s): R73.9 - HYPERGLYCEMIA, UNSPECIFIED Status: Acute Current Visit: No (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 Current Visit: No (10) CKD (chronic kidney disease) SNOMED Code(s): 761602357 Code(s): N18.9 - CHRONIC KIDNEY DISEASE, UNSPECIFIED Status: Chronic Current Visit: No (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 Code(s): 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 Status: Chronic Current Visit: No (12) Wide-complex tachycardia SNOMED Code(s): 971931722 Code(s): I47.2 - VENTRICULAR TACHYCARDIA Status: Chronic Current Visit: No (13) Diabetes SNOMED Code(s): 22870678 Code(s): E11.9 - TYPE 2 DIABETES MELLITUS WITHOUT COMPLICATIONS Status: Chronic Current Visit: No Qualifiers: Diabetes mellitus type: type 2 Diabetes mellitus terminal carman insulin use: without fci use Diabetes mellitus complication status: without complication Qualified Code(s): E11.9 - Type 2 diabetes mellitus without complications (14) Hematuria SNOMED Code(s): 19034981 Code(s): R31.9 - HEMATURIA, UNSPECIFIED Status: Acute Current Visit: Yes - Problem List Review Problem List Initiated/Reviewed/Updated: Yes - My Orders Last 24 Hours: My Active Orders 11/21/20 09:09 Dextrose 50% in Water 50 ml IV ASDIRECTED PRN Glucagon,Human Recombinant [GlucaGen] 1 mg IM ASDIRECTED PRN 11/21/20 09:15 Lactated Ringers [Ringers, Lactated] 1,000 ml IV Q8H 11/21/20 09:18 Blood Glucose Check, Bedside [RC] TIDMEALS 11/21/20 09:30 Insulin Detemir [Levemir] 10 unit SUBCUT DAILY 11/21/20 11:30 Amiodarone [Cordarone] 200 mg PO BID Insulin Aspart [NovoLOG] See Protocol SUBCUT TIDAC 11/21/20 14:00 Patient's Own Medication [Ptom] 1 each EYELF TID 11/21/20 19:06 Communication Order [RC] DAILY 11/22/20 Breakfast Soft Diet [DIET] 11/22/20 08:04 Magnesium Sulfate non-OB 4 GM ONETIME Magnesium Sulfate/Water [Magnesium Sulfate in Water 4 GM/100 ML] 4 gm in 100 ml IV ONETIME Phosphorus #1 [Neutra-Phos] 250 mg PO QID 11/23/20 05:11 BASIC METABOLIC PANEL,BMP [CHEM] AM CBC WITH AUTO DIFF [HEME] AM MAGNESIUM [CHEM] AM PHOSPHORUS [CHEM] AM - Plan Plan:: This 85-year-old male admitted with acute renal failure secondary to obstructive uropathy, metabolic acidosis, hyperglycemia and sepsis secondary to UTI 1. Acute renal failure secondary to obstructive uropathy -BUN 26 creatinine 1.2 which is back to normal. Acute renal failure has resolved after obstructive uropathy treated. -Continue Childs catheter, continue indefinitely I did discuss urologic consultation as an outpatient with sister. She will consider this otherwise she may just keep the catheter in indefinitely. -Holding YAIMA -Hematuria has improved today. We will continue to monitor and irrigate as needed 2. Metabolic acidosis secondary to renal failure -Resolved 3. Sepsis/UTI-Proteus mirabilis Sepsis resolved -Blood cultures negative x1 day -Urine culture reveals Proteus mirabilis -We will de-escalate treatment to Levaquin 750 mg every 48 hours. Discontinue Zosyn and linezolid. - Continue LR 125 ml/hr 4. Hyperglycemia/DM type II -Discontinue insulin drip transition to Levemir and sliding scale started on Levemir 10 units yesterday with transition off insulin drip. - A1c 7.0 -Blood sugar checks every 3 times daily AC -Increase diet to soft -Hold all oral diabetic medication, likely consider daily insulin will monitor blood sugars during stay. 5. HTN/history wide-complex tachycardia -Hold lisinopril, blood pressure stable. -Continue amiodarone 200 mg p.o. twice daily VTE prophylaxis: SCDs for now as patient is having hematuria GI prophylaxis: Protonix CODE STATUS: DNR/DNI Guardian/POA : Tabitha Jacklyn [phone] Dispo: 2 to 4 days pending improvement. Transition to Medr floor with telemetry as he is no longer needing ICU level care. Discussed disposition with case management. It sounds like [facility] is requesting patient be placed as they feel he is needing more cares than they are able to provide. This has been discussed with sister by them and sister is currently working on placement at [facility]. Patient likely will be discharged early next week sometime.
[2020-11-22] MEDS: Amiodarone 200 MG Tab PO SCH ×2 (08:43→20:45)
[2020-11-22] MEDS: Phosphorus #1 250 MG Tab PO SCH ×3 (08:43→18:07)
[2020-11-22] MEDS: Insulin Detemir 100 Units/ML 3 ML Pen SUBCUT SCH (08:44)
[2020-11-22] MEDS ORDERED: Levofloxacin/Dextrose 5%-Water 750 MG in Premix Bag 1 BAG IV SCH (10:00)
[2020-11-22] MEDS ORDERED: Piperacillin/Tazobactam 4.5 GM in Sodium Chloride 0.9% 100 ML IV SCH (10:00)
[2020-11-22] MEDS: Pantoprazole 40 MG in Sodium Chloride 0.9% 10 ML IV SCH (13:35)
[2020-11-22] MEDS: TRAVOPROST 0.004% EYELF SCH (20:45)
[2020-11-23] MEDS: Phosphorus #1 250 MG Tab PO SCH ×2 (00:01→06:22)
[2020-11-23] MEDS: Lactated Ringers 1,000 ML IV SCH ×4 (02:13→22:43)
[2020-11-23 06:13] LABS: BLOOD UREA NITROGEN,BUN 24 mg/dL (7.0-18.0); CARBON DIOXIDE,CO2 21.3 mmol/L (21.0-32.0); CHLORIDE,CL 106 mmol/L (98-107); GLUCOSE RANDOM 172 mg/dL (74-106); POTASSIUM,K 4.2 mmol/L (3.5-5.1); SODIUM,NA 138 mmol/L (136-148)
[2020-11-23] MEDS: Brimonidine 0.2% Ophth Soln 5 ML Bottle EYELF SCH ×3 (06:22→21:00)
[2020-11-23] MEDS: Insulin Aspart 100 Units/ML 3 ML Pen SUBCUT SCH ×3 (08:15→17:42)
[2020-11-23] MEDS: Amiodarone 200 MG Tab PO SCH ×2 (08:35→20:30)
[2020-11-23] MEDS: Insulin Detemir 100 Units/ML 3 ML Pen SUBCUT SCH (08:36)
--- NOTE | 2020-11-23 13:34 | PCM.PN ---
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 Per nursing no complaints overnight. This morning nursing did state that patient did cough when receiving liquids. Recommendation to use thickened liquids. Patient appears to be comfortable laying in bed. Normal respiratory effort - Review of Systems General: Denies: Fever, Chills Pulmonary: Denies: Shortness of Breath Gastrointestinal: Denies: Vomiting Neurological: Reports: Seizure - Patient Data Vitals - Most Recent: Last Vital Signs Temp 98 F 11/23/20 12:00 Pulse 87 11/20/20 12:40 Resp 19 11/23/20 12:00 BP 151/54 H 11/23/20 12:14 Pulse Ox 98 11/23/20 12:00 Weight - Most Recent: 107 lb 1.6 oz I&O - Last 24 Hours: Intake & Output 11/22/20 11/23/20 11/23/20 22:59 06:59 14:59 Intake Total 3113 1900 Output Total 2100 1950 Balance 1013 -50 Lab Results Last 24 Hours: Laboratory Results - last 24 hr 11/22/20 11/23/20 11/23/20 Range/Units 18:06 05:30 05:30 WBC 6.08 (4.0-11.0) K/uL RBC 3.83 L (4.50-5.90) M/uL Hgb 11.7 L (13.0-17.0) g/dL Hct 35.9 L (38.0-50.0) % MCV 93.7 (80.0-98.0) fL MCH 30.5 (27.0-32.0) pg MCHC 32.6 (31.0-37.0) g/dL RDW Std Deviation 52.3 (28.0-62.0) fl RDW Coeff of Kash 15 (11.0-15.0) % Plt Count 208 (150-400) K/uL MPV 9.40 (7.40-12.00) fL Neut % (Auto) 69.3 (48.0-80.0) % Lymph % (Auto) 21.7 (16.0-40.0) % [place] % (Auto) 7.2 (0.0-15.0) % Eos % (Auto) 1.6 (0.0-7.0) % Baso % (Auto) 0.2 (0.0-1.5) % Neut # (Auto) 4.2 (1.4-5.7) K/uL Lymph # (Auto) 1.3 (0.6-2.4) K/uL [place] # (Auto) 0.4 (0.0-0.8) K/uL Eos # (Auto) 0.1 (0.0-0.7) K/uL Baso # (Auto) 0.0 (0.0-0.1) K/uL Nucleated RBC % 0.0 /100WBC Nucleated RBCs # 0 K/uL Sodium 138 (136-148) mmol/L Potassium 4.2 (3.5-5.1) mmol/L Chloride 106 (98-107) mmol/L Carbon Dioxide 21.3 (21.0-32.0) mmol/L BUN 24 H (7.0-18.0) mg/dL Creatinine 1.1 (0.8-1.3) mg/dL Est Cr Clr Drug Dosing 33.20 mL/min Estimated GFR (MDRD) > 60.0 ml/min Glucose 172 H (74-106) mg/dL POC Glucose 94 (60-110) mg/dL Calcium 7.9 L (8.5-10.1) mg/dL Phosphorus 3.3 (2.6-4.7) mg/dL Magnesium 2.1 (1.8-2.4) mg/dL Storm Results Last 24 Hours: Microbiology 11/20/20 13:49 Aerobic Blood Culture - Preliminary Blood - Venous - Lab Draw NO GROWTH AFTER 2 DAYS Anaerobic Blood Culture - Preliminary NO GROWTH AFTER 2 DAYS 11/20/20 13:40 Aerobic Blood Culture - Preliminary Blood - Venous NO GROWTH AFTER 2 DAYS Anaerobic Blood Culture - Preliminary NO GROWTH AFTER 2 DAYS Med Orders - Current: Current Medications Acetaminophen (Acetaminophen 650 Mg Supp) 650 mg RECTAL Q4H PRN PRN Reason: Pain (mild 1-3) Amiodarone HCl (Amiodarone 200 Mg Tab) 200 mg PO BID [facility] Last Admin: 11/23/20 08:35 Dose: 200 mg Documented by: Dextrose/Water (50% Dextrose In Water 50 Ml Syringe) 50 ml IV ASDIRECTED PRN PRN Reason: Hypoglycemia Docusate Sodium (Docusate Sodium 100 Mg Cap) 100 mg PO BID PRN PRN Reason: Constipation Glucagon (Glucagon,Human Recombinant 1 Mg Vial) 1 mg IM ASDIRECTED PRN PRN Reason: Hypoglycemia Levofloxacin/Dextrose 750 mg/ (Premix) 150 mls @ 75 mls/hr IV Q48H [facility] Last Admin: 11/22/20 09:44 Dose: 75 mls/hr Documented by: Lactated Ringer's (Ringers, Lactated) 1,000 mls @ 75 mls/hr IV ASDIRECTED [facility] Last Admin: 11/23/20 10:15 Dose: 75 mls/hr Documented by: Insulin Aspart (Insulin Aspart 100 Units/Ml 3 Ml Pen) 0 unit SUBCUT TIDAC [facility]; Protocol Last Admin: 11/23/20 12:16 Dose: 2 unit Documented by: Insulin Detemir (Insulin Detemir 100 Units/Ml 3 Ml Pen) 10 unit SUBCUT DAILY [facility] Last Admin: 11/23/20 08:36 Dose: 10 units Documented by: Ondansetron HCl (Ondansetron 4 Mg/2 Ml Sdv) 4 mg IVPUSH Q4H PRN PRN Reason: Nausea Pantoprazole Sodium (Pantoprazole 40 Mg Tab.Cr) 40 mg PO ACBREAKFAST [facility] Travoprost [Travatan (Z] 0.004% 2.5 Ml) 1 each EYELF BEDTIME [facility] Last Admin: 11/22/20 20:45 Dose: 1 each Documented by: Brimonidine 0.2% Ophth Soln 5 Ml Bottle 1 each EYELF TID [facility] Last Admin: 11/23/20 06:22 Dose: 1 each Documented by: Sodium Chloride (Sodium Chloride 0.9% 2.5 Ml Syringe) 2.5 ml FLUSH ASDIRECTED PRN PRN Reason: Keep Vein Open Discontinued Medications Calcium Gluconate (Calcium Gluconate 10% 1 Gm/10 Ml Sdv) 1 gm IV ONETIME ONE Stop: 11/20/20 11:11 Last Admin: 11/20/20 12:03 Dose: 1 gm Documented by: Sodium Chloride (Normal Saline) 1,000 mls @ 999 mls/hr IV .BOLUS ONE Stop: 11/20/20 09:51 Last Admin: 11/20/20 09:36 Dose: 999 mls/hr Documented by: Insulin Human Regular 100 unit (/ Sodium Chloride) 100 mls @ 6.804 mls/hr IV TITRATE [facility]; Protocol Stop: 11/21/20 12:00 Last Titration: 11/21/20 11:51 Dose: 0 units/kg/hr, 0 mls/hr Documented by: Lactated Ringer's (Ringers, Lactated) 1,000 mls @ 999 mls/hr IV .BOLUS [facility] Last Admin: 11/20/20 15:07 Dose: 999 mls/hr Documented by: Piperacillin Sod/Tazobactam (Sod 2.25 gm/ Sodium Chloride) 50 mls @ 100 mls/hr IV Q8H [facility] Last Admin: 11/21/20 05:31 Dose: 100 mls/hr Documented by: Pantoprazole Sodium 40 mg/ (Sodium Chloride) 10 mls @ 200 mls/hr IV Q24H [facility] Last Admin: 11/22/20 13:35 Dose: 200 mls/hr Documented by: Lactated Ringer's (Ringers, Lactated) 1,000 mls @ 150 mls/hr IV ASDIRECTED [facility] Dextrose/Sodium Chloride (Dextrose 5%-1/2 Ns) 1,000 mls @ 150 mls/hr IV Q6HR [facility] Last Admin: 11/21/20 06:12 Dose: 150 mls/hr Documented by: Linezolid 600 mg/ Premix 300 mls @ 300 mls/hr IV Q12H [facility] Last Admin: 11/22/20 04:13 Dose: 300 mls/hr Documented by: Piperacillin Sod/Tazobactam (Sod 4.5 gm/ Sodium Chloride) 100 mls @ 200 mls/hr IV Q12H [facility] Last Admin: 11/22/20 00:08 Dose: 200 mls/hr Documented by: Lactated Ringer's (Ringers, Lactated) 1,000 mls @ 125 mls/hr IV Q8H [facility] Last Infusion: 11/23/20 09:22 Dose: 75 mls/hr Documented by: Magnesium Sulfate (Magnesium Sulfate In Water 4 Gm/100 Ml) 4 gm in 100 mls @ 50 mls/hr IV ONETIME ONE Stop: 11/22/20 10:03 Last Admin: 11/22/20 08:42 Dose: 50 mls/hr Documented by: Piperacillin Sod/Tazobactam (Sod 4.5 gm/ Sodium Chloride) 100 mls @ 200 mls/hr IV Q8H [facility] Sodium Phosphate (Phosphorus #1 250 Mg Tab) 250 mg PO QID [facility] Last Admin: 11/23/20 06:22 Dose: 250 mg Documented by: Vancomycin HCl (Pharmacy To Dose - Vancomycin) 1 dose .XX ASDIRECTED [facility] - Exam General: Alert Lungs: Clear to Auscultation, Normal Respiratory Effort Cardiovascular: Regular Rate, Regular Rhythm GI/Abdominal Exam: Soft, No Distention Extremities: No Pedal Edema Neurological: No: Normal Speech - Patient Data Lab Results Last 24 hrs: Laboratory Results - last 24 hr 11/22/20 11/23/20 11/23/20 Range/Units 18:06 05:30 05:30 WBC 6.08 (4.0-11.0) K/uL RBC 3.83 L (4.50-5.90) M/uL Hgb 11.7 L (13.0-17.0) g/dL Hct 35.9 L (38.0-50.0) % MCV 93.7 (80.0-98.0) fL MCH 30.5 (27.0-32.0) pg MCHC 32.6 (31.0-37.0) g/dL RDW Std Deviation 52.3 (28.0-62.0) fl RDW Coeff of Kash 15 (11.0-15.0) % Plt Count 208 (150-400) K/uL MPV 9.40 (7.40-12.00) fL Neut % (Auto) 69.3 (48.0-80.0) % Lymph % (Auto) 21.7 (16.0-40.0) % [place] % (Auto) 7.2 (0.0-15.0) % Eos % (Auto) 1.6 (0.0-7.0) % Baso % (Auto) 0.2 (0.0-1.5) % Neut # (Auto) 4.2 (1.4-5.7) K/uL Lymph # (Auto) 1.3 (0.6-2.4) K/uL [place] # (Auto) 0.4 (0.0-0.8) K/uL Eos # (Auto) 0.1 (0.0-0.7) K/uL Baso # (Auto) 0.0 (0.0-0.1) K/uL Nucleated RBC % 0.0 /100WBC Nucleated RBCs # 0 K/uL Sodium 138 (136-148) mmol/L Potassium 4.2 (3.5-5.1) mmol/L Chloride 106 (98-107) mmol/L Carbon Dioxide 21.3 (21.0-32.0) mmol/L BUN 24 H (7.0-18.0) mg/dL Creatinine 1.1 (0.8-1.3) mg/dL Est Cr Clr Drug Dosing 33.20 mL/min Estimated GFR (MDRD) > 60.0 ml/min Glucose 172 H (74-106) mg/dL POC Glucose 94 (60-110) mg/dL Calcium 7.9 L (8.5-10.1) mg/dL Phosphorus 3.3 (2.6-4.7) mg/dL Magnesium 2.1 (1.8-2.4) mg/dL Result Diagrams: 11/23/20 05:30 11/23/20 05:30 Storm Results Last 24 hrs: Microbiology 11/20/20 13:49 Aerobic Blood Culture - Preliminary Blood - Venous - Lab Draw NO GROWTH AFTER 2 DAYS Anaerobic Blood Culture - Preliminary NO GROWTH AFTER 2 DAYS 11/20/20 13:40 Aerobic Blood Culture - Preliminary Blood - Venous NO GROWTH AFTER 2 DAYS Anaerobic Blood Culture - Preliminary NO GROWTH AFTER 2 DAYS Sepsis Event Note - Evaluation Sepsis Screening Result: No Definite Risk - Focused Exam Vital Signs: Vital Signs Temp Resp BP Pulse Ox Pulse Ox 11/23/20 12:14 151/54 H 11/23/20 12:00 98 F 19 158/85 H 98 98 11/23/20 07:55 98.3 F 17 131/62 96 11/23/20 04:00 98.4 F 15 132/60 99 - Problem List & Annotations (1) DKA (diabetic ketoacidoses) SNOMED Code(s): 562513055, 198352020 Code(s): E11.10 - TYPE 2 DIABETES MELLITUS WITH KETOACIDOSIS WITHOUT COMA Status: Acute Current Visit: No (2) Hyperkalemia SNOMED Code(s): 94483946 Code(s): E87.5 - HYPERKALEMIA Status: Acute Current Visit: No (3) Metabolic acidosis SNOMED Code(s): 86320628 Code(s): E87.2 - ACIDOSIS Status: Acute Current Visit: No (4) UTI (urinary tract infection) SNOMED Code(s): 90354349 Code(s): N39.0 - URINARY TRACT INFECTION, SITE NOT SPECIFIED Status: Acute Current Visit: Yes Qualifiers: Urinary tract infection type: acute cystitis Hematuria presence: with hematuria Qualified Code(s): N30.01 - Acute cystitis with hematuria (5) Blindness SNOMED Code(s): 558885865 Code(s): H54.7 - UNSPECIFIED VISUAL LOSS Status: Chronic Current Visit: Yes (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 Current Visit: Yes - Problem List Review Problem List Initiated/Reviewed/Updated: Yes - My Orders Last 24 Hours: My Active Orders 11/23/20 09:30 Lactated Ringers [Ringers, Lactated] 1,000 ml IV ASDIRECTED 11/23/20 Lunch Thickened Liquids [DIET] 11/23/20 Dinner Pureed Diet [DIET] 11/23/20 17:30 Pantoprazole [ProTONIX] 40 mg PO ACBREAKFAST 11/24/20 05:11 CBC WITH AUTO DIFF [HEME] AM CMP [COMPREHENSIVE METABOLIC PN,CMP] [CHEM] AM - Plan Plan:: Acute renal failure secondary to obstructive uropathy- Resolved BUN 24, Creatinine 1.1, Continue Childs catheter, IV Fluids 75 ml/hr, Holding YAIMA, Outpatient urology UTI-Proteus mirabilis- Levaquin 750 mg every 48 hours. Hyperglycemia/DM type II- Levemir 10 units, SSI medium, Hold all oral diabetic medication Wide-complex tachycardia- amiodarone 200 mg p.o. bid Diet switched to puree with thickened liquids as nursing has noted coughing with thin liquids.
[2020-11-23] MEDS: Pantoprazole 40 MG Tab.CR PO SCH (17:48)
[2020-11-23] MEDS: TRAVOPROST 0.004% EYELF SCH (20:34)
[2020-11-24] MEDS: Brimonidine 0.2% Ophth Soln 5 ML Bottle EYELF SCH ×2 (05:45→13:05)
[2020-11-24 06:18] LABS: BLOOD UREA NITROGEN,BUN 15 mg/dL (7.0-18.0); CARBON DIOXIDE,CO2 22.1 mmol/L (21.0-32.0); CHLORIDE,CL 106 mmol/L (98-107); GLUCOSE RANDOM 161 mg/dL (74-106); POTASSIUM,K 4.2 mmol/L (3.5-5.1); SODIUM,NA 136 mmol/L (136-148)
[2020-11-24] MEDS: Pantoprazole 40 MG Tab.CR PO SCH (06:41)
--- NOTE | 2020-11-24 09:24 | PCM.PN ---
- General Info Date of Service: 11/24/20 - Review of Systems Systems Review Comment:: nonverbal - Patient Data Vitals - Most Recent: Last Vital Signs Temp 36.8 C 11/24/20 08:00 Pulse 87 11/20/20 12:40 Resp 18 11/24/20 08:00 BP 142/68 H 11/24/20 08:00 Pulse Ox 96 11/24/20 08:00 Weight - Most Recent: 50.122 kg I&O - Last 24 Hours: Intake & Output 11/23/20 11/24/20 11/24/20 22:59 06:59 14:59 Intake Total 810 1277 Output Total 1750 1600 Balance -940 -323 Lab Results Last 24 Hours: Laboratory Results - last 24 hr 11/23/20 11/23/20 11/23/20 Range/Units 07:48 11:34 17:40 WBC (4.0-11.0) K/uL RBC (4.50-5.90) M/uL Hgb (13.0-17.0) g/dL Hct (38.0-50.0) % MCV (80.0-98.0) fL MCH (27.0-32.0) pg MCHC (31.0-37.0) g/dL RDW Std Deviation (28.0-62.0) fl RDW Coeff of Kash (11.0-15.0) % Plt Count (150-400) K/uL MPV (7.40-12.00) fL Neut % (Auto) (48.0-80.0) % Lymph % (Auto) (16.0-40.0) % [place] % (Auto) (0.0-15.0) % Eos % (Auto) (0.0-7.0) % Baso % (Auto) (0.0-1.5) % Neut # (Auto) (1.4-5.7) K/uL Lymph # (Auto) (0.6-2.4) K/uL [place] # (Auto) (0.0-0.8) K/uL Eos # (Auto) (0.0-0.7) K/uL Baso # (Auto) (0.0-0.1) K/uL Nucleated RBC % /100WBC Nucleated RBCs # K/uL Sodium (136-148) mmol/L Potassium (3.5-5.1) mmol/L Chloride (98-107) mmol/L Carbon Dioxide (21.0-32.0) mmol/L BUN (7.0-18.0) mg/dL Creatinine (0.8-1.3) mg/dL Est Cr Clr Drug Dosing mL/min Estimated GFR (MDRD) ml/min Glucose (74-106) mg/dL POC Glucose 157 H 165 H 130 H (60-110) mg/dL Calcium (8.5-10.1) mg/dL Phosphorus (2.6-4.7) mg/dL Total Bilirubin (0.2-1.0) mg/dL AST (15-37) IU/L ALT (14-63) IU/L Alkaline Phosphatase (46-116) U/L Total Protein (6.4-8.2) g/dL Albumin (3.4-5.0) g/dL Globulin (2.6-4.0) g/dL Albumin/Globulin Ratio (0.9-1.6) 11/24/20 11/24/20 11/24/20 Range/Units 05:25 05:25 07:40 WBC 5.53 (4.0-11.0) K/uL RBC 3.60 L (4.50-5.90) M/uL Hgb 10.9 L (13.0-17.0) g/dL Hct 33.3 L (38.0-50.0) % MCV 92.5 (80.0-98.0) fL MCH 30.3 (27.0-32.0) pg MCHC 32.7 (31.0-37.0) g/dL RDW Std Deviation 50.6 (28.0-62.0) fl RDW Coeff of Kash 15 (11.0-15.0) % Plt Count 184 (150-400) K/uL MPV 9.30 (7.40-12.00) fL Neut % (Auto) 71.7 (48.0-80.0) % Lymph % (Auto) 19.3 (16.0-40.0) % [place] % (Auto) 8.3 (0.0-15.0) % Eos % (Auto) 0.7 (0.0-7.0) % Baso % (Auto) 0.0 (0.0-1.5) % Neut # (Auto) 4.0 (1.4-5.7) K/uL Lymph # (Auto) 1.1 (0.6-2.4) K/uL [place] # (Auto) 0.5 (0.0-0.8) K/uL Eos # (Auto) 0.0 (0.0-0.7) K/uL Baso # (Auto) 0.0 (0.0-0.1) K/uL Nucleated RBC % 0.0 /100WBC Nucleated RBCs # 0 K/uL Sodium 136 (136-148) mmol/L Potassium 4.2 (3.5-5.1) mmol/L Chloride 106 (98-107) mmol/L Carbon Dioxide 22.1 (21.0-32.0) mmol/L BUN 15 (7.0-18.0) mg/dL Creatinine 1.0 (0.8-1.3) mg/dL Est Cr Clr Drug Dosing 37.11 mL/min Estimated GFR (MDRD) > 60.0 ml/min Glucose 161 H (74-106) mg/dL POC Glucose 166 H (60-110) mg/dL Calcium 7.5 L (8.5-10.1) mg/dL Phosphorus 2.6 (2.6-4.7) mg/dL Total Bilirubin 0.3 (0.2-1.0) mg/dL AST 23 (15-37) IU/L ALT 40 (14-63) IU/L Alkaline Phosphatase 135 H (46-116) U/L Total Protein 5.8 L (6.4-8.2) g/dL Albumin 1.9 L (3.4-5.0) g/dL Globulin 3.9 (2.6-4.0) g/dL Albumin/Globulin Ratio 0.5 L (0.9-1.6) Storm Results Last 24 Hours: Microbiology 11/20/20 13:49 Aerobic Blood Culture - Preliminary Blood - Venous - Lab Draw NO GROWTH AFTER 3 DAYS Anaerobic Blood Culture - Preliminary NO GROWTH AFTER 3 DAYS 11/20/20 13:40 Aerobic Blood Culture - Preliminary Blood - Venous NO GROWTH AFTER 3 DAYS Anaerobic Blood Culture - Preliminary NO GROWTH AFTER 3 DAYS Med Orders - Current: Current Medications Acetaminophen (Acetaminophen 650 Mg Supp) 650 mg RECTAL Q4H PRN PRN Reason: Pain (mild 1-3) Amiodarone HCl (Amiodarone 200 Mg Tab) 200 mg PO BID COUNT [facility]CLUDES [facility] Last Admin: 11/23/20 20:30 Dose: 200 mg Documented by: Dextrose/Water (50% Dextrose In Water 50 Ml Syringe) 50 ml IV ASDIRECTED PRN PRN Reason: Hypoglycemia Docusate Sodium (Docusate Sodium 100 Mg Cap) 100 mg PO BID PRN PRN Reason: Constipation Glucagon (Glucagon,Human Recombinant 1 Mg Vial) 1 mg IM ASDIRECTED PRN PRN Reason: Hypoglycemia Lactated Ringer's (Ringers, Lactated) 1,000 mls @ 75 mls/hr IV ASDIRECTED COUNT INCLUDES THE [facility] Last Admin: 11/23/20 22:43 Dose: 75 mls/hr Documented by: Insulin Aspart (Insulin Aspart 100 Units/Ml 3 Ml Pen) 0 unit SUBCUT TIDAC COUNT INCLUDES THE [facility]; Protocol Last Admin: 11/23/20 17:42 Dose: Not Given Documented by: Insulin Detemir (Insulin Detemir 100 Units/Ml 3 Ml Pen) 10 unit SUBCUT DAILY COUNT INCLUDES THE [facility] Last Admin: 11/23/20 08:36 Dose: 10 units Documented by: Levofloxacin (Levofloxacin 250 Mg Tab) 750 mg PO Q48H COUNT INCLUDES THE [facility] Ondansetron HCl (Ondansetron 4 Mg/2 Ml Sdv) 4 mg IVPUSH Q4H PRN PRN Reason: Nausea Pantoprazole Sodium (Pantoprazole 40 Mg Tab.Cr) 40 mg PO ACBREAKFAST COUNT INCLUDES THE [facility] Last Admin: 11/24/20 06:41 Dose: 40 mg Documented by: Travoprost [Travatan (Z] 0.004% 2.5 Ml) 1 each EYELF BEDTIME COUNT INCLUDES THE [facility] Last Admin: 11/23/20 20:34 Dose: 1 each Documented by: Brimonidine 0.2% Ophth Soln 5 Ml Bottle 1 each EYELF TID COUNT INCLUDES THE [facility] Last Admin: 11/24/20 05:45 Dose: 1 each Documented by: Sodium Chloride (Sodium Chloride 0.9% 2.5 Ml Syringe) 2.5 ml FLUSH ASDIRECTED PRN PRN Reason: Keep Vein Open Discontinued Medications Calcium Gluconate (Calcium Gluconate 10% 1 Gm/10 Ml Sdv) 1 gm IV ONETIME ONE Stop: 11/20/20 11:11 Last Admin: 11/20/20 12:03 Dose: 1 gm Documented by: Sodium Chloride (Normal Saline) 1,000 mls @ 999 mls/hr IV .BOLUS ONE Stop: 11/20/20 09:51 Last Admin: 11/20/20 09:36 Dose: 999 mls/hr Documented by: Insulin Human Regular 100 unit (/ Sodium Chloride) 100 mls @ 6.804 mls/hr IV TITRATE [facility]; Protocol Stop: 11/21/20 12:00 Last Titration: 11/21/20 11:51 Dose: 0 units/kg/hr, 0 mls/hr Documented by: Lactated Ringer's (Ringers, Lactated) 1,000 mls @ 999 mls/hr IV .BOLUS COUNT INCLUDES THE [facility] Last Admin: 11/20/20 15:07 Dose: 999 mls/hr Documented by: Piperacillin Sod/Tazobactam (Sod 2.25 gm/ Sodium Chloride) 50 mls @ 100 mls/hr IV Q8H COUNT INCLUDES THE [facility] Last Admin: 11/21/20 05:31 Dose: 100 mls/hr Documented by: Pantoprazole Sodium 40 mg/ (Sodium Chloride) 10 mls @ 200 mls/hr IV Q24H COUNT INCLUDES THE [facility] Last Admin: 11/22/20 13:35 Dose: 200 mls/hr Documented by: Lactated Ringer's (Ringers, Lactated) 1,000 mls @ 150 mls/hr IV ASDIRECTED COUNT INCLUDES THE [facility] Dextrose/Sodium Chloride (Dextrose 5%-1/2 Ns) 1,000 mls @ 150 mls/hr IV Q6HR COUNT INCLUDES THE [facility] Last Admin: 11/21/20 06:12 Dose: 150 mls/hr Documented by: Linezolid 600 mg/ Premix 300 mls @ 300 mls/hr IV Q12H COUNT INCLUDES THE [facility] Last Admin: 11/22/20 04:13 Dose: 300 mls/hr Documented by: Piperacillin Sod/Tazobactam (Sod 4.5 gm/ Sodium Chloride) 100 mls @ 200 mls/hr IV Q12H COUNT INCLUDES THE [facility] Last Admin: 11/22/20 00:08 Dose: 200 mls/hr Documented by: Lactated Ringer's (Ringers, Lactated) 1,000 mls @ 125 mls/hr IV Q8H COUNT INCLUDES THE [facility] Last Infusion: 11/23/20 09:22 Dose: 75 mls/hr Documented by: Magnesium Sulfate (Magnesium Sulfate In Water 4 Gm/100 Ml) 4 gm in 100 mls @ 50 mls/hr IV ONETIME ONE Stop: 11/22/20 10:03 Last Admin: 11/22/20 08:42 Dose: 50 mls/hr Documented by: Piperacillin Sod/Tazobactam (Sod 4.5 gm/ Sodium Chloride) 100 mls @ 200 mls/hr IV Q8H COUNT INCLUDES [facility] Levofloxacin/Dextrose 750 mg/ (Premix) 150 mls @ 75 mls/hr IV Q48H COUNT INCLUDES THE [facility] Last Admin: 11/22/20 09:44 Dose: 75 mls/hr Documented by: Sodium Phosphate (Phosphorus #1 250 Mg Tab) 250 mg PO QID COUNT INCLUDES THE [facility] Last Admin: 11/23/20 06:22 Dose: 250 mg Documented by: Vancomycin HCl (Pharmacy To Dose - Vancomycin) 1 dose .XX ASDIRECTED COUNT INCLUDES THE [facility] - Exam General: No Acute Distress Lungs: Clear to Auscultation, Normal Respiratory Effort Cardiovascular: Regular Rate, Regular Rhythm GI/Abdominal Exam: Soft, Non-Tender, No Distention Extremities: Non-Tender, No Pedal Edema Skin: Warm, Dry, Intact - Patient Data Lab Results Last 24 hrs: Laboratory Results - last 24 hr 11/23/20 11/23/20 11/23/20 Range/Units 07:48 11:34 17:40 WBC (4.0-11.0) K/uL RBC (4.50-5.90) M/uL Hgb (13.0-17.0) g/dL Hct (38.0-50.0) % MCV (80.0-98.0) fL MCH (27.0-32.0) pg MCHC (31.0-37.0) g/dL RDW Std Deviation (28.0-62.0) fl RDW Coeff of Kash (11.0-15.0) % Plt Count (150-400) K/uL MPV (7.40-12.00) fL Neut % (Auto) (48.0-80.0) % Lymph % (Auto) (16.0-40.0) % [place] % (Auto) (0.0-15.0) % Eos % (Auto) (0.0-7.0) % Baso % (Auto) (0.0-1.5) % Neut # (Auto) (1.4-5.7) K/uL Lymph # (Auto) (0.6-2.4) K/uL [place] # (Auto) (0.0-0.8) K/uL Eos # (Auto) (0.0-0.7) K/uL Baso # (Auto) (0.0-0.1) K/uL Nucleated RBC % /100WBC Nucleated RBCs # K/uL Sodium (136-148) mmol/L Potassium (3.5-5.1) mmol/L Chloride (98-107) mmol/L Carbon Dioxide (21.0-32.0) mmol/L BUN (7.0-18.0) mg/dL Creatinine (0.8-1.3) mg/dL Est Cr Clr Drug Dosing mL/min Estimated GFR (MDRD) ml/min Glucose (74-106) mg/dL POC Glucose 157 H 165 H 130 H (60-110) mg/dL Calcium (8.5-10.1) mg/dL Phosphorus (2.6-4.7) mg/dL Total Bilirubin (0.2-1.0) mg/dL AST (15-37) IU/L ALT (14-63) IU/L Alkaline Phosphatase (46-116) U/L Total Protein (6.4-8.2) g/dL Albumin (3.4-5.0) g/dL Globulin (2.6-4.0) g/dL Albumin/Globulin Ratio (0.9-1.6) 11/24/20 11/24/20 11/24/20 Range/Units 05:25 05:25 07:40 WBC 5.53 (4.0-11.0) K/uL RBC 3.60 L (4.50-5.90) M/uL Hgb 10.9 L (13.0-17.0) g/dL Hct 33.3 L (38.0-50.0) % MCV 92.5 (80.0-98.0) fL MCH 30.3 (27.0-32.0) pg MCHC 32.7 (31.0-37.0) g/dL RDW Std Deviation 50.6 (28.0-62.0) fl RDW Coeff of Kash 15 (11.0-15.0) % Plt Count 184 (150-400) K/uL MPV 9.30 (7.40-12.00) fL Neut % (Auto) 71.7 (48.0-80.0) % Lymph % (Auto) 19.3 (16.0-40.0) % [place] % (Auto) 8.3 (0.0-15.0) % Eos % (Auto) 0.7 (0.0-7.0) % Baso % (Auto) 0.0 (0.0-1.5) % Neut # (Auto) 4.0 (1.4-5.7) K/uL Lymph # (Auto) 1.1 (0.6-2.4) K/uL [place] # (Auto) 0.5 (0.0-0.8) K/uL Eos # (Auto) 0.0 (0.0-0.7) K/uL Baso # (Auto) 0.0 (0.0-0.1) K/uL Nucleated RBC % 0.0 /100WBC Nucleated RBCs # 0 K/uL Sodium 136 (136-148) mmol/L Potassium 4.2 (3.5-5.1) mmol/L Chloride 106 (98-107) mmol/L Carbon Dioxide 22.1 (21.0-32.0) mmol/L BUN 15 (7.0-18.0) mg/dL Creatinine 1.0 (0.8-1.3) mg/dL Est Cr Clr Drug Dosing 37.11 mL/min Estimated GFR (MDRD) > 60.0 ml/min Glucose 161 H (74-106) mg/dL POC Glucose 166 H (60-110) mg/dL Calcium 7.5 L (8.5-10.1) mg/dL Phosphorus 2.6 (2.6-4.7) mg/dL Total Bilirubin 0.3 (0.2-1.0) mg/dL AST 23 (15-37) IU/L ALT 40 (14-63) IU/L Alkaline Phosphatase 135 H (46-116) U/L Total Protein 5.8 L (6.4-8.2) g/dL Albumin 1.9 L (3.4-5.0) g/dL Globulin 3.9 (2.6-4.0) g/dL Albumin/Globulin Ratio 0.5 L (0.9-1.6) Result Diagrams: 11/24/20 05:25 11/24/20 05:25 Storm Results Last 24 hrs: Microbiology 11/20/20 13:49 Aerobic Blood Culture - Preliminary Blood - Venous - Lab Draw NO GROWTH AFTER 3 DAYS Anaerobic Blood Culture - Preliminary NO GROWTH AFTER 3 DAYS 11/20/20 13:40 Aerobic Blood Culture - Preliminary Blood - Venous NO GROWTH AFTER 3 DAYS Anaerobic Blood Culture - Preliminary NO GROWTH AFTER 3 DAYS Sepsis Event Note - Evaluation Sepsis Screening Result: No Definite Risk - Focused Exam Vital Signs: Vital Signs Temp Resp BP Pulse Ox 11/24/20 08:00 36.8 C 18 142/68 H 96 11/24/20 04:00 37.1 C 20 146/65 H 97 11/23/20 23:38 36.6 C 20 128/53 L 96 - Problem List Review Problem List Initiated/Reviewed/Updated: Yes - My Orders Last 24 Hours: My Active Orders 11/24/20 10:00 levoFLOXacin [Levaquin] 750 mg PO Q48H - Plan Plan:: 85 yo male admitted for acute renal failure due to obstructive uropathy and DKA. Acute renal failure secondary to obstructive uropathy- Resolved BUN 15, Creatinine 1.0, Continue Childs catheter, IV Fluids 75 ml/hr, Holding YAIMA, will need outpatient urology follow up UTI-Proteus mirabilis- Levaquin 750 mg every 48 hours. Hyperglycemia/DM type II- Levemir 10 units, SSI medium, Hold all oral diabetic medication Wide-complex tachycardia- amiodarone 200 mg p.o. bid Diet switched to puree with thickened liquids as nursing has noted coughing with thin liquids. Dispo: pending placement, likely to [facility]
[2020-11-24] MEDS: Insulin Aspart 100 Units/ML 3 ML Pen SUBCUT SCH ×3 (09:56→17:41)
[2020-11-24] MEDS: Amiodarone 200 MG Tab PO SCH (09:56)
[2020-11-24] MEDS: Levofloxacin 250 MG Tab PO SCH (09:58)
[2020-11-24] MEDS: Insulin Detemir 100 Units/ML 3 ML Pen SUBCUT SCH (10:06)
[2020-11-24] MEDS: Lactated Ringers 1,000 ML IV SCH (12:57)
[2020-11-25] MEDS: Lactated Ringers 1,000 ML IV SCH (02:55)
[2020-11-25] MEDS: Brimonidine 0.2% Ophth Soln 5 ML Bottle EYELF SCH ×4 (05:40→21:41)
[2020-11-25] MEDS: Pantoprazole 40 MG Tab.CR PO SCH (06:38)
[2020-11-25] MEDS: Insulin Aspart 100 Units/ML 3 ML Pen SUBCUT SCH ×3 (08:47→18:09)
[2020-11-25] MEDS: Insulin Detemir 100 Units/ML 3 ML Pen SUBCUT SCH (08:50)
[2020-11-25] MEDS: Amiodarone 200 MG Tab PO SCH ×3 (09:01→21:40)
--- NOTE | 2020-11-25 09:03 | PCM.PN ---
- General Info Date of Service: 11/25/20 Admission Dx/Problem (Free Text): Admission Diagnosis/Problem Admission Diagnosis/Problem Renal failure Subjective Update: Non verbal - Patient Data Vitals - Most Recent: Last Vital Signs Temp 97.9 F 11/25/20 08:00 Pulse 72 11/25/20 08:00 Resp 19 11/25/20 08:00 BP 146/49 H 11/25/20 08:00 Pulse Ox 98 11/25/20 08:00 Weight - Most Recent: 49.487 kg I&O - Last 24 Hours: Intake & Output 11/24/20 11/25/20 11/25/20 22:59 06:59 14:59 Intake Total 219 1950 Output Total 1450 1400 Balance -1231 550 Lab Results Last 24 Hours: Laboratory Results - last 24 hr 11/24/20 11/24/20 11/25/20 Range/Units 12:03 17:38 06:32 POC Glucose 316 H 156 H 151 H (60-110) mg/dL Storm Results Last 24 Hours: Microbiology 11/20/20 13:49 Aerobic Blood Culture - Preliminary Blood - Venous - Lab Draw NO GROWTH AFTER 4 DAYS Anaerobic Blood Culture - Preliminary NO GROWTH AFTER 4 DAYS 11/20/20 13:40 Aerobic Blood Culture - Preliminary Blood - Venous NO GROWTH AFTER 4 DAYS Anaerobic Blood Culture - Preliminary NO GROWTH AFTER 4 DAYS Med Orders - Current: Current Medications Acetaminophen (Acetaminophen 650 Mg Supp) 650 mg RECTAL Q4H PRN PRN Reason: Pain (mild 1-3) Amiodarone HCl (Amiodarone 200 Mg Tab) 200 mg PO BID [facility] Last Admin: 11/25/20 09:01 Dose: 200 mg Documented by: Dextrose/Water (50% Dextrose In Water 50 Ml Syringe) 50 ml IV ASDIRECTED PRN PRN Reason: Hypoglycemia Docusate Sodium (Docusate Sodium 100 Mg Cap) 100 mg PO BID PRN PRN Reason: Constipation Glucagon (Glucagon,Human Recombinant 1 Mg Vial) 1 mg IM ASDIRECTED PRN PRN Reason: Hypoglycemia Lactated Ringer's (Ringers, Lactated) 1,000 mls @ 75 mls/hr IV ASDIRECTED [facility] Last Admin: 11/25/20 02:55 Dose: 75 mls/hr Documented by: Insulin Aspart (Insulin Aspart 100 Units/Ml 3 Ml Pen) 0 unit SUBCUT TIDAC [facility]; Protocol Last Admin: 11/25/20 08:47 Dose: 2 units Documented by: Insulin Detemir (Insulin Detemir 100 Units/Ml 3 Ml Pen) 10 unit SUBCUT DAILY [facility] Last Admin: 11/25/20 08:50 Dose: 10 units Documented by: Levofloxacin (Levofloxacin 250 Mg Tab) 750 mg PO Q48H [facility] Last Admin: 11/24/20 09:58 Dose: 750 mg Documented by: Ondansetron HCl (Ondansetron 4 Mg/2 Ml Sdv) 4 mg IVPUSH Q4H PRN PRN Reason: Nausea Pantoprazole Sodium (Pantoprazole 40 Mg Tab.Cr) 40 mg PO ACBREAKFAST [facility] Last Admin: 11/25/20 06:38 Dose: 40 mg Documented by: Travoprost [Travatan (Z] 0.004% 2.5 Ml) 1 each EYELF BEDTIME [facility] Last Admin: 11/23/20 20:34 Dose: 1 each Documented by: Brimonidine 0.2% Ophth Soln 5 Ml Bottle 1 each EYELF TID [facility] Last Admin: 11/25/20 06:28 Dose: 1 each Documented by: Sodium Chloride (Sodium Chloride 0.9% 2.5 Ml Syringe) 2.5 ml FLUSH ASDIRECTED PRN PRN Reason: Keep Vein Open Discontinued Medications Calcium Gluconate (Calcium Gluconate 10% 1 Gm/10 Ml Sdv) 1 gm IV ONETIME ONE Stop: 11/20/20 11:11 Last Admin: 11/20/20 12:03 Dose: 1 gm Documented by: Sodium Chloride (Normal Saline) 1,000 mls @ 999 mls/hr IV .BOLUS ONE Stop: 11/20/20 09:51 Last Admin: 11/20/20 09:36 Dose: 999 mls/hr Documented by: Insulin Human Regular 100 unit (/ Sodium Chloride) 100 mls @ 6.804 mls/hr IV TITRATE [facility]; Protocol Stop: 11/21/20 12:00 Last Titration: 11/21/20 11:51 Dose: 0 units/kg/hr, 0 mls/hr Documented by: Lactated Ringer's (Ringers, Lactated) 1,000 mls @ 999 mls/hr IV .BOLUS [facility] Last Admin: 11/20/20 15:07 Dose: 999 mls/hr Documented by: Piperacillin Sod/Tazobactam (Sod 2.25 gm/ Sodium Chloride) 50 mls @ 100 mls/hr IV Q8H [facility] Last Admin: 11/21/20 05:31 Dose: 100 mls/hr Documented by: Pantoprazole Sodium 40 mg/ (Sodium Chloride) 10 mls @ 200 mls/hr IV Q24H [facility] Last Admin: 11/22/20 13:35 Dose: 200 mls/hr Documented by: Lactated Ringer's (Ringers, Lactated) 1,000 mls @ 150 mls/hr IV ASDIRECTED [facility] Dextrose/Sodium Chloride (Dextrose 5%-1/2 Ns) 1,000 mls @ 150 mls/hr IV Q6HR [facility] Last Admin: 11/21/20 06:12 Dose: 150 mls/hr Documented by: Linezolid 600 mg/ Premix 300 mls @ 300 mls/hr IV Q12H [facility] Last Admin: 11/22/20 04:13 Dose: 300 mls/hr Documented by: Piperacillin Sod/Tazobactam (Sod 4.5 gm/ Sodium Chloride) 100 mls @ 200 mls/hr IV Q12H [facility] Last Admin: 11/22/20 00:08 Dose: 200 mls/hr Documented by: Lactated Ringer's (Ringers, Lactated) 1,000 mls @ 125 mls/hr IV Q8H [facility] Last Infusion: 11/23/20 09:22 Dose: 75 mls/hr Documented by: Magnesium Sulfate (Magnesium Sulfate In Water 4 Gm/100 Ml) 4 gm in 100 mls @ 50 mls/hr IV ONETIME ONE Stop: 11/22/20 10:03 Last Admin: 11/22/20 08:42 Dose: 50 mls/hr Documented by: Piperacillin Sod/Tazobactam (Sod 4.5 gm/ Sodium Chloride) 100 mls @ 200 mls/hr IV Q8H [facility] Levofloxacin/Dextrose 750 mg/ (Premix) 150 mls @ 75 mls/hr IV Q48H [facility] Last Admin: 11/22/20 09:44 Dose: 75 mls/hr Documented by: Sodium Phosphate (Phosphorus #1 250 Mg Tab) 250 mg PO QID [facility] Last Admin: 11/23/20 06:22 Dose: 250 mg Documented by: Vancomycin HCl (Pharmacy To Dose - Vancomycin) 1 dose .XX ASDIRECTED [facility] - Exam General: Alert, Cooperative, No Acute Distress Lungs: Clear to Auscultation, Normal Respiratory Effort Cardiovascular: Regular Rate, Regular Rhythm GI/Abdominal Exam: Normal Bowel Sounds, Soft, Non-Tender Extremities: Normal Inspection, Normal Range of Motion, Non-Tender, No Pedal Edema Skin: Warm, Dry. No: Ecchymosis Wound/Incisions: Healing Well Neurological: No New Focal Deficit Psy/Mental Status: Alert, Normal Affect, Normal Mood - Patient Data Lab Results Last 24 hrs: Laboratory Results - last 24 hr 11/24/20 11/24/20 11/25/20 Range/Units 12:03 17:38 06:32 POC Glucose 316 H 156 H 151 H (60-110) mg/dL Result Diagrams: 11/25/20 09:08 11/25/20 09:08 Storm Results Last 24 hrs: Microbiology 11/20/20 13:49 Aerobic Blood Culture - Preliminary Blood - Venous - Lab Draw NO GROWTH AFTER 4 DAYS Anaerobic Blood Culture - Preliminary NO GROWTH AFTER 4 DAYS 11/20/20 13:40 Aerobic Blood Culture - Preliminary Blood - Venous NO GROWTH AFTER 4 DAYS Anaerobic Blood Culture - Preliminary NO GROWTH AFTER 4 DAYS Sepsis Event Note - Evaluation Sepsis Screening Result: No Definite Risk - Focused Exam Vital Signs: Vital Signs Temp Pulse Resp BP Pulse Ox 11/25/20 08:00 97.9 F 72 19 146/49 H 98 11/25/20 04:00 98 F 19 131/90 97 - Problem List & Annotations (1) Renal failure SNOMED Code(s): 76881035 Code(s): N19 - UNSPECIFIED KIDNEY FAILURE Status: Resolved Current Visit: Yes Qualifiers: Renal failure chronicity: acute on chronic (2) Metabolic acidosis SNOMED Code(s): 31394264 Code(s): E87.2 - ACIDOSIS Status: Resolved Current Visit: No (3) Hyperkalemia SNOMED Code(s): 65535874 Code(s): E87.5 - HYPERKALEMIA Status: Resolved Current Visit: No (4) UTI (urinary tract infection) SNOMED Code(s): 57658430 Code(s): N39.0 - URINARY TRACT INFECTION, SITE NOT SPECIFIED Status: Acute Current Visit: Yes Qualifiers: Urinary tract infection type: acute cystitis Hematuria presence: with hematuria Qualified Code(s): N30.01 - Acute cystitis with hematuria (5) Dehydration SNOMED Code(s): 11842240 Code(s): E86.0 - DEHYDRATION Status: Acute Current Visit: No (6) Obstructive uropathy SNOMED Code(s): 8833427 Code(s): N13.9 - OBSTRUCTIVE AND REFLUX UROPATHY, UNSPECIFIED Status: Acute Current Visit: No (7) Hyperglycemia SNOMED Code(s): 72716778 Code(s): R73.9 - HYPERGLYCEMIA, UNSPECIFIED Status: Resolved Current Visit: No (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 Status: Chronic Current Visit: Yes (9) CKD (chronic kidney disease) SNOMED Code(s): 182115151 Code(s): N18.9 - CHRONIC KIDNEY DISEASE, UNSPECIFIED Status: Chronic Current Visit: No (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(s): 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 Code(s): 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 Status: Chronic Current Visit: Yes (11) Wide-complex tachycardia SNOMED Code(s): 509075382 Code(s): I47.2 - VENTRICULAR TACHYCARDIA Status: Chronic Current Visit: No (12) Diabetes SNOMED Code(s): 73252367 Code(s): E11.9 - TYPE 2 DIABETES MELLITUS WITHOUT COMPLICATIONS Status: Chronic Current Visit: No Qualifiers: Diabetes mellitus type: type 2 Diabetes mellitus [employer] insulin use: without [employer] use Diabetes mellitus complication status: without complication Qualified Code(s): E11.9 - Type 2 diabetes mellitus without complications (13) Hematuria SNOMED Code(s): 89986031 Code(s): R31.9 - HEMATURIA, UNSPECIFIED Status: Acute Current Visit: Yes - Problem List Review Problem List Initiated/Reviewed/Updated: Yes - My Orders Last 24 Hours: My Active Orders 11/25/20 07:54 BASIC METABOLIC PANEL,BMP [CHEM] Routine CBC WITH AUTO DIFF [HEME] Routine MG [MAGNESIUM] [CHEM] Routine - Plan Plan:: This 85-year-old male admitted with acute renal failure secondary to obstructive uropathy, metabolic acidosis, hyperglycemia and sepsis secondary to UTI 1. Acute renal failure secondary to obstructive uropathy -BA resolved. -Continue Childs catheter, continue indefinitely I did discuss urologic consultation as an outpatient with sister. She will consider this otherwise she may just keep the catheter in indefinitely. 2. UTI-Proteus mirabilis -Urine culture reveals Proteus mirabilis - Levaquin 750 mg every 48 hours. 3. Hyperglycemia/DM type II - Levemir 10 units daily - A1c 7.0 -Blood sugar checks every 3 times daily AC -Increase diet to soft pureed. -Hold all oral diabetic medication, likely consider daily insulin will monitor blood sugars during stay. 4. HTN/history wide-complex tachycardia -Restart lisinopril as BA has improved. -Continue amiodarone 200 mg p.o. twice daily VTE prophylaxis: SCDs GI prophylaxis: Protonix CODE STATUS: DNR/DNI Guardian/POA : Tabitha Villasenor [phone] Dispo: Pending placement
[2020-11-25] MEDS: TRAVOPROST 0.004% EYELF SCH ×2 (09:23→21:41)
[2020-11-25 09:45] LABS: BLOOD UREA NITROGEN,BUN 15 mg/dL (7.0-18.0); CARBON DIOXIDE,CO2 21.9 mmol/L (21.0-32.0); CHLORIDE,CL 104 mmol/L (98-107); GLUCOSE RANDOM 189 mg/dL (74-106); POTASSIUM,K 4.2 mmol/L (3.5-5.1); SODIUM,NA 134 mmol/L (136-148)
[2020-11-25] MEDS ORDERED: Magnesium Sulfate/Water 2 GM/50 ML BAG IV ONE (12:35)
[2020-11-26] MEDS: Pantoprazole 40 MG Tab.CR PO SCH (06:33)
[2020-11-26] MEDS: Brimonidine 0.2% Ophth Soln 5 ML Bottle EYELF SCH ×3 (06:33→22:17)
[2020-11-26] MEDS: Insulin Aspart 100 Units/ML 3 ML Pen SUBCUT SCH ×4 (08:49→18:15)
[2020-11-26] MEDS: Insulin Detemir 100 Units/ML 3 ML Pen SUBCUT SCH (08:51)
[2020-11-26] MEDS: Amiodarone 200 MG Tab PO SCH ×2 (08:52→20:38)
[2020-11-26] MEDS: Lisinopril 5 MG Tab PO SCH (08:53)
[2020-11-26] MEDS: Levofloxacin 250 MG Tab PO SCH (09:04)
--- NOTE | 2020-11-26 11:25 | PCM.PN ---
- General Info Date of Service: 11/26/20 - Review of Systems Systems Review Comment:: nonverbal - Patient Data Vitals - Most Recent: Last Vital Signs Temp 36.2 C 11/26/20 07:43 Pulse 78 11/26/20 07:43 Resp 14 11/26/20 07:43 BP 159/71 H 11/26/20 08:53 Pulse Ox 96 11/26/20 07:43 Weight - Most Recent: 46.602 kg I&O - Last 24 Hours: Intake & Output 11/25/20 11/26/20 11/26/20 22:59 06:59 14:59 Intake Total 1750 240 954 Output Total 1300 850 Balance 450 -610 954 Lab Results Last 24 Hours: Laboratory Results - last 24 hr 11/25/20 11/25/20 11/26/20 Range/Units 11:56 17:51 06:38 POC Glucose 381 H 294 H 193 H (60-110) mg/dL 11/26/20 Range/Units 08:07 POC Glucose 172 H (60-110) mg/dL Storm Results Last 24 Hours: Microbiology 11/20/20 13:49 Aerobic Blood Culture - Final Blood - Venous - Lab Draw NO GROWTH AFTER 5 DAYS Anaerobic Blood Culture - Final NO GROWTH AFTER 5 DAYS 11/20/20 13:40 Aerobic Blood Culture - Final Blood - Venous NO GROWTH AFTER 5 DAYS Anaerobic Blood Culture - Final NO GROWTH AFTER 5 DAYS Med Orders - Current: Current Medications Acetaminophen (Acetaminophen 650 Mg Supp) 650 mg RECTAL Q4H PRN PRN Reason: Pain (mild 1-3) Amiodarone HCl (Amiodarone 200 Mg Tab) 200 mg PO BID [facility] Last Admin: 11/26/20 08:52 Dose: 200 mg Documented by: Dextrose/Water (50% Dextrose In Water 50 Ml Syringe) 50 ml IV ASDIRECTED PRN PRN Reason: Hypoglycemia Docusate Sodium (Docusate Sodium 100 Mg Cap) 100 mg PO BID PRN PRN Reason: Constipation Glucagon (Glucagon,Human Recombinant 1 Mg Vial) 1 mg IM ASDIRECTED PRN PRN Reason: Hypoglycemia Insulin Aspart (Insulin Aspart 100 Units/Ml 3 Ml Pen) 0 unit SUBCUT TIDAC [facility]; Protocol Last Admin: 11/26/20 08:49 Dose: 2 units Documented by: Insulin Detemir (Insulin Detemir 100 Units/Ml 3 Ml Pen) 10 unit SUBCUT DAILY [facility] Last Admin: 11/26/20 08:51 Dose: 10 units Documented by: Levofloxacin (Levofloxacin 250 Mg Tab) 750 mg PO Q48H [facility] Last Admin: 11/26/20 09:04 Dose: 750 mg Documented by: Lisinopril (Lisinopril 5 Mg Tab) 2.5 mg PO DAILY [facility] Last Admin: 11/26/20 08:53 Dose: 2.5 mg Documented by: Ondansetron HCl (Ondansetron 4 Mg/2 Ml Sdv) 4 mg IVPUSH Q4H PRN PRN Reason: Nausea Pantoprazole Sodium (Pantoprazole 40 Mg Tab.Cr) 40 mg PO ACBREAKFAST [facility] Last Admin: 11/26/20 06:33 Dose: 40 mg Documented by: Travoprost [Travatan (Z] 0.004% 2.5 Ml) 1 each EYELF BEDTIME [facility] Last Admin: 11/25/20 21:41 Dose: 1 each Documented by: Brimonidine 0.2% Ophth Soln 5 Ml Bottle 1 each EYELF TID [facility] Last Admin: 11/26/20 06:33 Dose: 1 each Documented by: Sodium Chloride (Sodium Chloride 0.9% 2.5 Ml Syringe) 2.5 ml FLUSH ASDIRECTED PRN PRN Reason: Keep Vein Open Discontinued Medications Calcium Gluconate (Calcium Gluconate 10% 1 Gm/10 Ml Sdv) 1 gm IV ONETIME ONE Stop: 11/20/20 11:11 Last Admin: 11/20/20 12:03 Dose: 1 gm Documented by: Sodium Chloride (Normal Saline) 1,000 mls @ 999 mls/hr IV .BOLUS ONE Stop: 11/20/20 09:51 Last Admin: 11/20/20 09:36 Dose: 999 mls/hr Documented by: Insulin Human Regular 100 unit (/ Sodium Chloride) 100 mls @ 6.804 mls/hr IV TITRATE [facility]; Protocol Stop: 11/21/20 12:00 Last Titration: 11/21/20 11:51 Dose: 0 units/kg/hr, 0 mls/hr Documented by: Lactated Ringer's (Ringers, Lactated) 1,000 mls @ 999 mls/hr IV .BOLUS [facility] Last Admin: 11/20/20 15:07 Dose: 999 mls/hr Documented by: Piperacillin Sod/Tazobactam (Sod 2.25 gm/ Sodium Chloride) 50 mls @ 100 mls/hr IV Q8H [facility] Last Admin: 11/21/20 05:31 Dose: 100 mls/hr Documented by: Pantoprazole Sodium 40 mg/ (Sodium Chloride) 10 mls @ 200 mls/hr IV Q24H [facility] Last Admin: 11/22/20 13:35 Dose: 200 mls/hr Documented by: Lactated Ringer's (Ringers, Lactated) 1,000 mls @ 150 mls/hr IV ASDIRECTED [facility] Dextrose/Sodium Chloride (Dextrose 5%-1/2 Ns) 1,000 mls @ 150 mls/hr IV Q6HR [facility] Last Admin: 11/21/20 06:12 Dose: 150 mls/hr Documented by: Linezolid 600 mg/ Premix 300 mls @ 300 mls/hr IV Q12H [facility] Last Admin: 11/22/20 04:13 Dose: 300 mls/hr Documented by: Piperacillin Sod/Tazobactam (Sod 4.5 gm/ Sodium Chloride) 100 mls @ 200 mls/hr IV Q12H [facility] Last Admin: 11/22/20 00:08 Dose: 200 mls/hr Documented by: Lactated Ringer's (Ringers, Lactated) 1,000 mls @ 125 mls/hr IV Q8H [facility] Last Infusion: 11/23/20 09:22 Dose: 75 mls/hr Documented by: Magnesium Sulfate (Magnesium Sulfate In Water 4 Gm/100 Ml) 4 gm in 100 mls @ 50 mls/hr IV ONETIME ONE Stop: 11/22/20 10:03 Last Admin: 11/22/20 08:42 Dose: 50 mls/hr Documented by: Piperacillin Sod/Tazobactam (Sod 4.5 gm/ Sodium Chloride) 100 mls @ 200 mls/hr IV Q8H [facility] Levofloxacin/Dextrose 750 mg/ (Premix) 150 mls @ 75 mls/hr IV Q48H [facility] Last Admin: 11/22/20 09:44 Dose: 75 mls/hr Documented by: Lactated Ringer's (Ringers, Lactated) 1,000 mls @ 75 mls/hr IV ASDIRECTED [facility] Last Admin: 11/25/20 02:55 Dose: 75 mls/hr Documented by: Magnesium Sulfate (Magnesium Sulfate In Water 2 Gm/50 Ml) 2 gm in 50 mls @ 50 mls/hr IV ONETIME ONE Stop: 11/25/20 13:34 Last Admin: 11/25/20 13:27 Dose: 50 mls/hr Documented by: Sodium Phosphate (Phosphorus #1 250 Mg Tab) 250 mg PO QID [facility] Last Admin: 11/23/20 06:22 Dose: 250 mg Documented by: Vancomycin HCl (Pharmacy To Dose - Vancomycin) 1 dose .XX ASDIRECTED [facility] - Exam General: No Acute Distress Neck: Supple Lungs: Clear to Auscultation, Normal Respiratory Effort Cardiovascular: Regular Rate, Regular Rhythm GI/Abdominal Exam: Soft, Non-Tender, No Distention Extremities: Non-Tender, No Pedal Edema Skin: Warm, Dry, Intact - Patient Data Lab Results Last 24 hrs: Laboratory Results - last 24 hr 11/25/20 11/25/20 11/26/20 Range/Units 11:56 17:51 06:38 POC Glucose 381 H 294 H 193 H (60-110) mg/dL 11/26/20 Range/Units 08:07 POC Glucose 172 H (60-110) mg/dL Result Diagrams: 11/25/20 09:08 11/25/20 09:08 Storm Results Last 24 hrs: Microbiology 11/20/20 13:49 Aerobic Blood Culture - Final Blood - Venous - Lab Draw NO GROWTH AFTER 5 DAYS Anaerobic Blood Culture - Final NO GROWTH AFTER 5 DAYS 11/20/20 13:40 Aerobic Blood Culture - Final Blood - Venous NO GROWTH AFTER 5 DAYS Anaerobic Blood Culture - Final NO GROWTH AFTER 5 DAYS Sepsis Event Note - Evaluation Sepsis Screening Result: No Definite Risk - Focused Exam Vital Signs: Vital Signs Temp Pulse Resp BP BP Pulse Ox 11/26/20 08:53 159/71 H 11/26/20 07:43 36.2 C 78 14 159/70 H 96 11/26/20 04:54 36.8 C 81 18 148/59 H 98 11/26/20 00:57 36.8 C 79 18 147/62 H 97 - Problem List Review Problem List Initiated/Reviewed/Updated: Yes - Plan Plan:: This 85-year-old male admitted with acute renal failure secondary to obstructive uropathy, metabolic acidosis, hyperglycemia and sepsis secondary to UTI 1. Acute renal failure secondary to obstructive uropathy -BA resolved. 2. UTI-Proteus mirabilis -Urine culture reveals Proteus mirabilis - Levaquin 750 mg every 48 hours. 3. Hyperglycemia/DM type II - Levemir 10 units daily - A1c 7.0 -Blood sugar checks every 3 times daily AC -Increase diet to soft pureed. -Hold all oral diabetic medication, likely consider daily insulin will monitor blood sugars during stay. 4. HTN/history wide-complex tachycardia -Restart lisinopril as BA has improved. -Continue amiodarone 200 mg p.o. twice daily VTE prophylaxis: SCDs GI prophylaxis: Protonix CODE STATUS: DNR/DNI Guardian/POA : Tabitha Villasenor [phone] Dispo: Pending placement
[2020-11-26] MEDS: TRAVOPROST 0.004% EYELF SCH (20:39)
[2020-11-27] MEDS: Brimonidine 0.2% Ophth Soln 5 ML Bottle EYELF SCH ×3 (06:22→21:50)
[2020-11-27] MEDS: Pantoprazole 40 MG Tab.CR PO SCH (07:56)
[2020-11-27] MEDS: Insulin Aspart 100 Units/ML 3 ML Pen SUBCUT SCH ×3 (07:57→17:50)
[2020-11-27] MEDS: Lisinopril 5 MG Tab PO SCH (08:12)
[2020-11-27] MEDS: Amiodarone 200 MG Tab PO SCH ×2 (08:13→20:50)
--- NOTE | 2020-11-27 08:57 | PCM.PN ---
- General Info Date of Service: 11/27/20 Admission Dx/Problem (Free Text): Admission Diagnosis/Problem Admission Diagnosis/Problem Renal failure Subjective Update: Non verbal, appears comfortable in bed. Functional Status: Reports: Pain Controlled, Tolerating Diet - Patient Data Vitals - Most Recent: Last Vital Signs Temp 98.6 F 11/27/20 08:05 Pulse 77 11/27/20 08:05 Resp 16 11/27/20 08:05 BP 103/51 L 11/27/20 08:12 Pulse Ox 98 11/27/20 08:05 Weight - Most Recent: 48.1 kg I&O - Last 24 Hours: Intake & Output 11/26/20 11/27/20 11/27/20 22:59 06:59 14:59 Intake Total 954 550 Output Total 800 980 Balance 154 -430 Lab Results Last 24 Hours: Laboratory Results - last 24 hr 11/26/20 11/26/20 11/26/20 Range/Units 11:19 12:40 14:16 POC Glucose 475 H 379 H 284 H (60-110) mg/dL 11/26/20 11/27/20 Range/Units 18:14 06:21 POC Glucose 325 H 202 H (60-110) mg/dL Med Orders - Current: Current Medications Acetaminophen (Acetaminophen 650 Mg Supp) 650 mg RECTAL Q4H PRN PRN Reason: Pain (mild 1-3) Amiodarone HCl (Amiodarone 200 Mg Tab) 200 mg PO BID [facility] Last Admin: 11/27/20 08:13 Dose: 200 mg Documented by: Dextrose/Water (50% Dextrose In Water 50 Ml Syringe) 50 ml IV ASDIRECTED PRN PRN Reason: Hypoglycemia Docusate Sodium (Docusate Sodium 100 Mg Cap) 100 mg PO BID PRN PRN Reason: Constipation Glucagon (Glucagon,Human Recombinant 1 Mg Vial) 1 mg IM ASDIRECTED PRN PRN Reason: Hypoglycemia Insulin Aspart (Insulin Aspart 100 Units/Ml 3 Ml Pen) 0 unit SUBCUT TIDAC [facility]; Protocol Last Admin: 11/27/20 07:57 Dose: 4 units Documented by: Insulin Detemir (Insulin Detemir 100 Units/Ml 3 Ml Pen) 10 unit SUBCUT DAILY [facility] Last Admin: 11/26/20 08:51 Dose: 10 units Documented by: Levofloxacin (Levofloxacin 250 Mg Tab) 750 mg PO Q48H [facility] Last Admin: 11/26/20 09:04 Dose: 750 mg Documented by: Lisinopril (Lisinopril 5 Mg Tab) 2.5 mg PO DAILY [facility] Last Admin: 11/27/20 08:12 Dose: 2.5 mg Documented by: Ondansetron HCl (Ondansetron 4 Mg/2 Ml Sdv) 4 mg IVPUSH Q4H PRN PRN Reason: Nausea Pantoprazole Sodium (Pantoprazole 40 Mg Tab.Cr) 40 mg PO ACBREAKFAST [facility] Last Admin: 11/27/20 07:56 Dose: 40 mg Documented by: Travoprost [Travatan (Z] 0.004% 2.5 Ml) 1 each EYELF BEDTIME [facility] Last Admin: 11/26/20 20:39 Dose: 1 each Documented by: Brimonidine 0.2% Ophth Soln 5 Ml Bottle 1 each EYELF TID [facility] Last Admin: 11/27/20 06:22 Dose: 1 each Documented by: Sodium Chloride (Sodium Chloride 0.9% 2.5 Ml Syringe) 2.5 ml FLUSH ASDIRECTED PRN PRN Reason: Keep Vein Open Discontinued Medications Calcium Gluconate (Calcium Gluconate 10% 1 Gm/10 Ml Sdv) 1 gm IV ONETIME ONE Stop: 11/20/20 11:11 Last Admin: 11/20/20 12:03 Dose: 1 gm Documented by: Sodium Chloride (Normal Saline) 1,000 mls @ 999 mls/hr IV .BOLUS ONE Stop: 11/20/20 09:51 Last Admin: 11/20/20 09:36 Dose: 999 mls/hr Documented by: Insulin Human Regular 100 unit (/ Sodium Chloride) 100 mls @ 6.804 mls/hr IV TITRATE [facility]; Protocol Stop: 11/21/20 12:00 Last Titration: 11/21/20 11:51 Dose: 0 units/kg/hr, 0 mls/hr Documented by: Lactated Ringer's (Ringers, Lactated) 1,000 mls @ 999 mls/hr IV .BOLUS [facility] Last Admin: 11/20/20 15:07 Dose: 999 mls/hr Documented by: Piperacillin Sod/Tazobactam (Sod 2.25 gm/ Sodium Chloride) 50 mls @ 100 mls/hr IV Q8H [facility] Last Admin: 11/21/20 05:31 Dose: 100 mls/hr Documented by: Pantoprazole Sodium 40 mg/ (Sodium Chloride) 10 mls @ 200 mls/hr IV Q24H [facility] Last Admin: 11/22/20 13:35 Dose: 200 mls/hr Documented by: Lactated Ringer's (Ringers, Lactated) 1,000 mls @ 150 mls/hr IV ASDIRECTED [facility] Dextrose/Sodium Chloride (Dextrose 5%-1/2 Ns) 1,000 mls @ 150 mls/hr IV Q6HR [facility] Last Admin: 11/21/20 06:12 Dose: 150 mls/hr Documented by: Linezolid 600 mg/ Premix 300 mls @ 300 mls/hr IV Q12H [facility] Last Admin: 11/22/20 04:13 Dose: 300 mls/hr Documented by: Piperacillin Sod/Tazobactam (Sod 4.5 gm/ Sodium Chloride) 100 mls @ 200 mls/hr IV Q12H [facility] Last Admin: 11/22/20 00:08 Dose: 200 mls/hr Documented by: Lactated Ringer's (Ringers, Lactated) 1,000 mls @ 125 mls/hr IV Q8H [facility] Last Infusion: 11/23/20 09:22 Dose: 75 mls/hr Documented by: Magnesium Sulfate (Magnesium Sulfate In Water 4 Gm/100 Ml) 4 gm in 100 mls @ 50 mls/hr IV ONETIME ONE Stop: 11/22/20 10:03 Last Admin: 11/22/20 08:42 Dose: 50 mls/hr Documented by: Piperacillin Sod/Tazobactam (Sod 4.5 gm/ Sodium Chloride) 100 mls @ 200 mls/hr IV Q8H [facility] Levofloxacin/Dextrose 750 mg/ (Premix) 150 mls @ 75 mls/hr IV Q48H [facility] Last Admin: 11/22/20 09:44 Dose: 75 mls/hr Documented by: Lactated Ringer's (Ringers, Lactated) 1,000 mls @ 75 mls/hr IV ASDIRECTED [facility] Last Admin: 11/25/20 02:55 Dose: 75 mls/hr Documented by: Magnesium Sulfate (Magnesium Sulfate In Water 2 Gm/50 Ml) 2 gm in 50 mls @ 50 mls/hr IV ONETIME ONE Stop: 11/25/20 13:34 Last Admin: 11/25/20 13:27 Dose: 50 mls/hr Documented by: Sodium Phosphate (Phosphorus #1 250 Mg Tab) 250 mg PO QID [facility] Last Admin: 11/23/20 06:22 Dose: 250 mg Documented by: Vancomycin HCl (Pharmacy To Dose - Vancomycin) 1 dose .XX ASDIRECTED [facility] - Exam Quality Assessment: DVT Prophylaxis. No: Supplemental Oxygen General: Alert, Oriented, Cooperative, No Acute Distress Lungs: Clear to Auscultation, Normal Respiratory Effort Cardiovascular: Regular Rate, Regular Rhythm GI/Abdominal Exam: Normal Bowel Sounds, Soft, Non-Tender Extremities: Normal Inspection, Normal Range of Motion, Non-Tender, No Pedal Edema Neurological: No New Focal Deficit Psy/Mental Status: Alert, Normal Affect, Normal Mood - Patient Data Lab Results Last 24 hrs: Laboratory Results - last 24 hr 11/26/20 11/26/20 11/26/20 Range/Units 11:19 12:40 14:16 POC Glucose 475 H 379 H 284 H (60-110) mg/dL 11/26/20 11/27/20 Range/Units 18:14 06:21 POC Glucose 325 H 202 H (60-110) mg/dL Result Diagrams: 11/25/20 09:08 11/25/20 09:08 Sepsis Event Note - Evaluation Sepsis Screening Result: No Definite Risk - Focused Exam Vital Signs: Vital Signs Temp Pulse Resp BP BP Pulse Ox 11/27/20 08:12 103/51 L 11/27/20 08:05 98.6 F 77 16 103/51 L 98 11/27/20 04:00 99.0 F 84 16 125/59 L 95 11/27/20 00:00 98.6 F 89 16 126/58 L 96 - Problem List & Annotations (1) Renal failure SNOMED Code(s): 60690691 Code(s): N19 - UNSPECIFIED KIDNEY FAILURE Status: Resolved Current Visit: Yes Qualifiers: Renal failure chronicity: acute on chronic (2) Metabolic acidosis SNOMED Code(s): 71198322 Code(s): E87.2 - ACIDOSIS Status: Resolved Current Visit: No (3) Hyperkalemia SNOMED Code(s): 73351443 Code(s): E87.5 - HYPERKALEMIA Status: Resolved Current Visit: No (4) UTI (urinary tract infection) SNOMED Code(s): 19782271 Code(s): N39.0 - URINARY TRACT INFECTION, SITE NOT SPECIFIED Status: Acute Current Visit: Yes Qualifiers: Urinary tract infection type: acute cystitis Hematuria presence: with hematuria Qualified Code(s): N30.01 - Acute cystitis with hematuria (5) Dehydration SNOMED Code(s): 40118438 Code(s): E86.0 - DEHYDRATION Status: Acute Current Visit: No (6) Obstructive uropathy SNOMED Code(s): 7611495 Code(s): N13.9 - OBSTRUCTIVE AND REFLUX UROPATHY, UNSPECIFIED Status: Acute Current Visit: No (7) Hyperglycemia SNOMED Code(s): 98827306 Code(s): R73.9 - HYPERGLYCEMIA, UNSPECIFIED Status: Resolved Current Visit: No (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 Current Visit: Yes (9) CKD (chronic kidney disease) SNOMED Code(s): 487917965 Code(s): N18.9 - CHRONIC KIDNEY DISEASE, UNSPECIFIED Status: Chronic Current Visit: No (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(s): 608882114 Code(s): 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 Status: Chronic Current Visit: Yes (11) Wide-complex tachycardia SNOMED Code(s): 095708559 Code(s): I47.2 - VENTRICULAR TACHYCARDIA Status: Chronic Current Visit: No (12) Diabetes SNOMED Code(s): 49715530 Code(s): E11.9 - TYPE 2 DIABETES MELLITUS WITHOUT COMPLICATIONS Status: Chronic Current Visit: No Qualifiers: Diabetes mellitus type: type 2 Diabetes mellitus halfway insulin use: without halfway use Diabetes mellitus complication status: without complication Qualified Code(s): E11.9 - Type 2 diabetes mellitus without complications (13) Hematuria SNOMED Code(s): 14815662 Code(s): R31.9 - HEMATURIA, UNSPECIFIED Status: Acute Current Visit: Yes - Problem List Review Problem List Initiated/Reviewed/Updated: Yes - My Orders Last 24 Hours: My Active Orders 11/26/20 09:00 lisinopriL [Prinivil] 2.5 mg PO DAILY - Plan Plan:: This 85-year-old male admitted with acute renal failure secondary to obstructive uropathy, metabolic acidosis, hyperglycemia and sepsis secondary to UTI 1. Obstructive Uropathy - Continue lizarraga catheter 2. UTI-Proteus mirabilis -Urine culture reveals Proteus mirabilis - Levaquin 750 mg every 48 hours. 3. Hyperglycemia/DM type II - Levemir 10 units daily - A1c 7.0 -Blood sugar checks every 3 times daily AC -Increase diet to soft pureed. -Hold all oral diabetic medication, likely consider daily insulin will monitor blood sugars during stay. 4. HTN/history wide-complex tachycardia -Continue Lisinopril and Amiodarone VTE prophylaxis: SCDs GI prophylaxis: Protonix CODE STATUS: DNR/DNI Guardian/POA : Tabitha Villasenor [phone] Dispo: Pending placement
[2020-11-27] MEDS: Insulin Detemir 100 Units/ML 3 ML Pen SUBCUT SCH (09:28)
[2020-11-27] MEDS ORDERED: Insulin Aspart 100 Units/ML 3 ML Pen SUBCUT ONE (12:33)
[2020-11-27] MEDS: TRAVOPROST 0.004% EYELF SCH (20:49)
[2020-11-28] MEDS: Brimonidine 0.2% Ophth Soln 5 ML Bottle EYELF SCH ×3 (06:25→21:47)
[2020-11-28] MEDS: Pantoprazole 40 MG Tab.CR PO SCH (07:49)
[2020-11-28] MEDS: Amiodarone 200 MG Tab PO SCH ×2 (08:25→20:22)
[2020-11-28] MEDS: Lisinopril 5 MG Tab PO SCH (08:26)
[2020-11-28] MEDS: Insulin Aspart 100 Units/ML 3 ML Pen SUBCUT SCH ×3 (08:27→17:50)
[2020-11-28] MEDS: Insulin Detemir 100 Units/ML 3 ML Pen SUBCUT SCH (08:30)
[2020-11-28] MEDS: Levofloxacin 250 MG Tab PO SCH (10:46)
--- NOTE | 2020-11-28 12:33 | PCM.PN ---
- General Info Date of Service: 11/28/20 - Review of Systems Systems Review Comment:: nonverbal - Patient Data Vitals - Most Recent: Last Vital Signs Temp 36.4 C 11/28/20 12:00 Pulse 78 11/28/20 12:00 Resp 17 11/28/20 12:00 BP 133/53 L 11/28/20 12:00 Pulse Ox 98 11/28/20 12:00 Weight - Most Recent: 47.62 kg I&O - Last 24 Hours: Intake & Output 11/27/20 11/28/20 11/28/20 22:59 06:59 14:59 Intake Total 1200 850 118 Output Total 850 1250 Balance 350 -400 118 Lab Results Last 24 Hours: Laboratory Results - last 24 hr 11/27/20 11/27/20 11/28/20 Range/Units 13:35 17:48 06:29 POC Glucose 352 H 191 H 254 H (60-110) mg/dL 11/28/20 Range/Units 11:41 POC Glucose 286 H (60-110) mg/dL Med Orders - Current: Current Medications Acetaminophen (Acetaminophen 650 Mg Supp) 650 mg RECTAL Q4H PRN PRN Reason: Pain (mild 1-3) Amiodarone HCl (Amiodarone 200 Mg Tab) 200 mg PO BID [facility] Last Admin: 11/28/20 08:25 Dose: 200 mg Documented by: Dextrose/Water (50% Dextrose In Water 50 Ml Syringe) 50 ml IV ASDIRECTED PRN PRN Reason: Hypoglycemia Docusate Sodium (Docusate Sodium 100 Mg Cap) 100 mg PO BID PRN PRN Reason: Constipation Glucagon (Glucagon,Human Recombinant 1 Mg Vial) 1 mg IM ASDIRECTED PRN PRN Reason: Hypoglycemia Insulin Aspart (Insulin Aspart 100 Units/Ml 3 Ml Pen) 0 unit SUBCUT TIDAC [facility]; Protocol Last Admin: 11/28/20 08:27 Dose: 6 units Documented by: Insulin Detemir (Insulin Detemir 100 Units/Ml 3 Ml Pen) 10 unit SUBCUT DAILY [facility] Last Admin: 11/28/20 08:30 Dose: 10 units Documented by: Levofloxacin (Levofloxacin 250 Mg Tab) 750 mg PO Q48H [facility] Last Admin: 11/28/20 10:46 Dose: 750 mg Documented by: Lisinopril (Lisinopril 5 Mg Tab) 2.5 mg PO DAILY [facility] Last Admin: 11/28/20 08:26 Dose: 2.5 mg Documented by: Ondansetron HCl (Ondansetron 4 Mg/2 Ml Sdv) 4 mg IVPUSH Q4H PRN PRN Reason: Nausea Pantoprazole Sodium (Pantoprazole 40 Mg Tab.Cr) 40 mg PO ACBREAKFAST [facility] Last Admin: 11/28/20 07:49 Dose: 40 mg Documented by: Travoprost [Travatan (Z] 0.004% 2.5 Ml) 1 each EYELF BEDTIME [facility] Last Admin: 11/27/20 20:49 Dose: 1 each Documented by: Brimonidine 0.2% Ophth Soln 5 Ml Bottle 1 each EYELF TID [facility] Last Admin: 11/28/20 06:25 Dose: 1 each Documented by: Sodium Chloride (Sodium Chloride 0.9% 2.5 Ml Syringe) 2.5 ml FLUSH ASDIRECTED PRN PRN Reason: Keep Vein Open Discontinued Medications Calcium Gluconate (Calcium Gluconate 10% 1 Gm/10 Ml Sdv) 1 gm IV ONETIME ONE Stop: 11/20/20 11:11 Last Admin: 11/20/20 12:03 Dose: 1 gm Documented by: Sodium Chloride (Normal Saline) 1,000 mls @ 999 mls/hr IV .BOLUS ONE Stop: 11/20/20 09:51 Last Admin: 11/20/20 09:36 Dose: 999 mls/hr Documented by: Insulin Human Regular 100 unit (/ Sodium Chloride) 100 mls @ 6.804 mls/hr IV TITRATE [facility]; Protocol Stop: 11/21/20 12:00 Last Titration: 11/21/20 11:51 Dose: 0 units/kg/hr, 0 mls/hr Documented by: Lactated Ringer's (Ringers, Lactated) 1,000 mls @ 999 mls/hr IV .BOLUS [facility] Last Admin: 11/20/20 15:07 Dose: 999 mls/hr Documented by: Piperacillin Sod/Tazobactam (Sod 2.25 gm/ Sodium Chloride) 50 mls @ 100 mls/hr IV Q8H [facility] Last Admin: 11/21/20 05:31 Dose: 100 mls/hr Documented by: Pantoprazole Sodium 40 mg/ (Sodium Chloride) 10 mls @ 200 mls/hr IV Q24H [facility] Last Admin: 11/22/20 13:35 Dose: 200 mls/hr Documented by: Lactated Ringer's (Ringers, Lactated) 1,000 mls @ 150 mls/hr IV ASDIRECTED [facility] Dextrose/Sodium Chloride (Dextrose 5%-1/2 Ns) 1,000 mls @ 150 mls/hr IV Q6HR [facility] Last Admin: 11/21/20 06:12 Dose: 150 mls/hr Documented by: Linezolid 600 mg/ Premix 300 mls @ 300 mls/hr IV Q12H [facility] Last Admin: 11/22/20 04:13 Dose: 300 mls/hr Documented by: Piperacillin Sod/Tazobactam (Sod 4.5 gm/ Sodium Chloride) 100 mls @ 200 mls/hr IV Q12H [facility] Last Admin: 11/22/20 00:08 Dose: 200 mls/hr Documented by: Lactated Ringer's (Ringers, Lactated) 1,000 mls @ 125 mls/hr IV Q8H [facility] Last Infusion: 11/23/20 09:22 Dose: 75 mls/hr Documented by: Magnesium Sulfate (Magnesium Sulfate In Water 4 Gm/100 Ml) 4 gm in 100 mls @ 50 mls/hr IV ONETIME ONE Stop: 11/22/20 10:03 Last Admin: 11/22/20 08:42 Dose: 50 mls/hr Documented by: Piperacillin Sod/Tazobactam (Sod 4.5 gm/ Sodium Chloride) 100 mls @ 200 mls/hr IV Q8H [facility] Levofloxacin/Dextrose 750 mg/ (Premix) 150 mls @ 75 mls/hr IV Q48H [facility] Last Admin: 11/22/20 09:44 Dose: 75 mls/hr Documented by: Lactated Ringer's (Ringers, Lactated) 1,000 mls @ 75 mls/hr IV ASDIRECTED [facility] Last Admin: 11/25/20 02:55 Dose: 75 mls/hr Documented by: Magnesium Sulfate (Magnesium Sulfate In Water 2 Gm/50 Ml) 2 gm in 50 mls @ 50 mls/hr IV ONETIME ONE Stop: 11/25/20 13:34 Last Admin: 11/25/20 13:27 Dose: 50 mls/hr Documented by: Insulin Aspart (Insulin Aspart 100 Units/Ml 3 Ml Pen) 12 unit SUBCUT ONETIME ONE Stop: 11/27/20 12:34 Last Admin: 11/27/20 12:39 Dose: 12 unit Documented by: Sodium Phosphate (Phosphorus #1 250 Mg Tab) 250 mg PO QID [facility] Last Admin: 11/23/20 06:22 Dose: 250 mg Documented by: Vancomycin HCl (Pharmacy To Dose - Vancomycin) 1 dose .XX ASDIRECTED [facility] - Exam General: No Acute Distress Lungs: Clear to Auscultation, Normal Respiratory Effort Cardiovascular: Regular Rate, Regular Rhythm GI/Abdominal Exam: Normal Bowel Sounds, Soft, Non-Tender Extremities: Non-Tender, No Pedal Edema Skin: Warm, Dry, Intact Neurological: No New Focal Deficit - Patient Data Lab Results Last 24 hrs: Laboratory Results - last 24 hr 11/27/20 11/27/20 11/28/20 Range/Units 13:35 17:48 06:29 POC Glucose 352 H 191 H 254 H (60-110) mg/dL 11/28/20 Range/Units 11:41 POC Glucose 286 H (60-110) mg/dL Result Diagrams: 11/25/20 09:08 11/25/20 09:08 Sepsis Event Note - Evaluation Sepsis Screening Result: No Definite Risk - Focused Exam Vital Signs: Vital Signs Temp Pulse Resp BP BP Pulse Ox 11/28/20 12:00 36.4 C 78 17 133/53 L 98 11/28/20 08:26 123/47 L 11/28/20 07:33 35.8 C L 61 17 123/47 L 99 11/28/20 04:00 37.2 C 75 15 130/54 L 98 - Problem List Review Problem List Initiated/Reviewed/Updated: Yes - Plan Plan:: This 85-year-old male admitted with acute renal failure secondary to obstructive uropathy, metabolic acidosis, hyperglycemia and sepsis secondary to UTI 1. Obstructive Uropathy - Continue lizarraga catheter 2. UTI-Proteus mirabilis -Urine culture reveals Proteus mirabilis - Levaquin 750 mg every 48 hours. 3. Hyperglycemia/DM type II - Levemir 10 units daily - A1c 7.0 -Blood sugar checks every 3 times daily AC -diet soft pureed. -Hold all oral diabetic medication, likely consider daily insulin will monitor blood sugars during stay. 4. HTN/history wide-complex tachycardia -Continue Lisinopril and Amiodarone VTE prophylaxis: SCDs GI prophylaxis: Protonix CODE STATUS: DNR/DNI Guardian/POA : Tabitha Villasenor [phone] Dispo: Pending placement
[2020-11-28] MEDS: TRAVOPROST 0.004% EYELF SCH (20:23)
[2020-11-29] MEDS: Pantoprazole 40 MG Tab.CR PO SCH (06:32)
[2020-11-29] MEDS: Brimonidine 0.2% Ophth Soln 5 ML Bottle EYELF SCH ×3 (06:36→23:37)
[2020-11-29] MEDS: Insulin Aspart 100 Units/ML 3 ML Pen SUBCUT SCH ×3 (08:28→17:20)
[2020-11-29] MEDS: Lisinopril 5 MG Tab PO SCH (08:31)
[2020-11-29] MEDS: Amiodarone 200 MG Tab PO SCH ×2 (08:32→20:05)
[2020-11-29] MEDS: Insulin Detemir 100 Units/ML 3 ML Pen SUBCUT SCH (08:37)
--- NOTE | 2020-11-29 11:12 | PCM.PN ---
- General Info Date of Service: 11/29/20 Admission Dx/Problem (Free Text): Admission Diagnosis/Problem Admission Diagnosis/Problem Renal failure Subjective Update: Non verbal, appears comfortable in bed, no nursing concerns. Functional Status: Reports: Pain Controlled, Tolerating Diet, Urinating - Review of Systems Systems Review Comment:: unable to obtain, non verbal patient - Patient Data Vitals - Most Recent: Last Vital Signs Temp 37.1 C 11/29/20 11:04 Pulse 75 11/29/20 11:04 Resp 18 11/29/20 11:04 BP 128/58 L 11/29/20 11:04 Pulse Ox 97 11/29/20 11:04 Weight - Most Recent: 49 kg I&O - Last 24 Hours: Intake & Output 11/28/20 11/29/20 11/29/20 22:59 06:59 14:59 Intake Total 478 600 240 Output Total 1350 900 Balance -872 -300 240 Lab Results Last 24 Hours: Laboratory Results - last 24 hr 11/28/20 11/28/20 11/29/20 Range/Units 11:41 17:39 06:35 POC Glucose 286 H 407 H 229 H (60-110) mg/dL Med Orders - Current: Current Medications Acetaminophen (Acetaminophen 650 Mg Supp) 650 mg RECTAL Q4H PRN PRN Reason: Pain (mild 1-3) Amiodarone HCl (Amiodarone 200 Mg Tab) 200 mg PO BID [facility] Last Admin: 11/29/20 08:32 Dose: 200 mg Documented by: Dextrose/Water (50% Dextrose In Water 50 Ml Syringe) 50 ml IV ASDIRECTED PRN PRN Reason: Hypoglycemia Docusate Sodium (Docusate Sodium 100 Mg Cap) 100 mg PO BID PRN PRN Reason: Constipation Glucagon (Glucagon,Human Recombinant 1 Mg Vial) 1 mg IM ASDIRECTED PRN PRN Reason: Hypoglycemia Insulin Aspart (Insulin Aspart 100 Units/Ml 3 Ml Pen) 0 unit SUBCUT TIDAC [facility]; Protocol Last Admin: 11/29/20 08:28 Dose: 4 units Documented by: Insulin Detemir (Insulin Detemir 100 Units/Ml 3 Ml Pen) 10 unit SUBCUT DAILY [facility] Last Admin: 11/29/20 08:37 Dose: 10 units Documented by: Levofloxacin (Levofloxacin 250 Mg Tab) 750 mg PO Q48H [facility] Last Admin: 11/28/20 10:46 Dose: 750 mg Documented by: Lisinopril (Lisinopril 5 Mg Tab) 2.5 mg PO DAILY [facility] Last Admin: 11/29/20 08:31 Dose: 2.5 mg Documented by: Ondansetron HCl (Ondansetron 4 Mg/2 Ml Sdv) 4 mg IVPUSH Q4H PRN PRN Reason: Nausea Pantoprazole Sodium (Pantoprazole 40 Mg Tab.Cr) 40 mg PO ACBREAKFAST [facility] Last Admin: 11/29/20 06:32 Dose: 40 mg Documented by: Travoprost [Travatan (Z] 0.004% 2.5 Ml) 1 each EYELF BEDTIME [facility] Last Admin: 11/28/20 20:23 Dose: 1 each Documented by: Brimonidine 0.2% Ophth Soln 5 Ml Bottle 1 each EYELF TID [facility] Last Admin: 11/29/20 06:36 Dose: 1 each Documented by: Sodium Chloride (Sodium Chloride 0.9% 2.5 Ml Syringe) 2.5 ml FLUSH ASDIRECTED PRN PRN Reason: Keep Vein Open Discontinued Medications Calcium Gluconate (Calcium Gluconate 10% 1 Gm/10 Ml Sdv) 1 gm IV ONETIME ONE Stop: 11/20/20 11:11 Last Admin: 11/20/20 12:03 Dose: 1 gm Documented by: Sodium Chloride (Normal Saline) 1,000 mls @ 999 mls/hr IV .BOLUS ONE Stop: 11/20/20 09:51 Last Admin: 11/20/20 09:36 Dose: 999 mls/hr Documented by: Insulin Human Regular 100 unit (/ Sodium Chloride) 100 mls @ 6.804 mls/hr IV TITRATE [facility]; Protocol Stop: 11/21/20 12:00 Last Titration: 11/21/20 11:51 Dose: 0 units/kg/hr, 0 mls/hr Documented by: Lactated Ringer's (Ringers, Lactated) 1,000 mls @ 999 mls/hr IV .BOLUS [facility] Last Admin: 11/20/20 15:07 Dose: 999 mls/hr Documented by: Piperacillin Sod/Tazobactam (Sod 2.25 gm/ Sodium Chloride) 50 mls @ 100 mls/hr IV Q8H [facility] Last Admin: 11/21/20 05:31 Dose: 100 mls/hr Documented by: Pantoprazole Sodium 40 mg/ (Sodium Chloride) 10 mls @ 200 mls/hr IV Q24H [facility] Last Admin: 11/22/20 13:35 Dose: 200 mls/hr Documented by: Lactated Ringer's (Ringers, Lactated) 1,000 mls @ 150 mls/hr IV ASDIRECTED [facility] Dextrose/Sodium Chloride (Dextrose 5%-1/2 Ns) 1,000 mls @ 150 mls/hr IV Q6HR [facility] Last Admin: 11/21/20 06:12 Dose: 150 mls/hr Documented by: Linezolid 600 mg/ Premix 300 mls @ 300 mls/hr IV Q12H [facility] Last Admin: 11/22/20 04:13 Dose: 300 mls/hr Documented by: Piperacillin Sod/Tazobactam (Sod 4.5 gm/ Sodium Chloride) 100 mls @ 200 mls/hr IV Q12H [facility] Last Admin: 11/22/20 00:08 Dose: 200 mls/hr Documented by: Lactated Ringer's (Ringers, Lactated) 1,000 mls @ 125 mls/hr IV Q8H [facility] Last Infusion: 11/23/20 09:22 Dose: 75 mls/hr Documented by: Magnesium Sulfate (Magnesium Sulfate In Water 4 Gm/100 Ml) 4 gm in 100 mls @ 50 mls/hr IV ONETIME ONE Stop: 11/22/20 10:03 Last Admin: 11/22/20 08:42 Dose: 50 mls/hr Documented by: Piperacillin Sod/Tazobactam (Sod 4.5 gm/ Sodium Chloride) 100 mls @ 200 mls/hr IV Q8H [facility] Levofloxacin/Dextrose 750 mg/ (Premix) 150 mls @ 75 mls/hr IV Q48H [facility] Last Admin: 11/22/20 09:44 Dose: 75 mls/hr Documented by: Lactated Ringer's (Ringers, Lactated) 1,000 mls @ 75 mls/hr IV ASDIRECTED [facility] Last Admin: 11/25/20 02:55 Dose: 75 mls/hr Documented by: Magnesium Sulfate (Magnesium Sulfate In Water 2 Gm/50 Ml) 2 gm in 50 mls @ 50 mls/hr IV ONETIME ONE Stop: 11/25/20 13:34 Last Admin: 11/25/20 13:27 Dose: 50 mls/hr Documented by: Insulin Aspart (Insulin Aspart 100 Units/Ml 3 Ml Pen) 12 unit SUBCUT ONETIME ONE Stop: 11/27/20 12:34 Last Admin: 11/27/20 12:39 Dose: 12 unit Documented by: Sodium Phosphate (Phosphorus #1 250 Mg Tab) 250 mg PO QID [facility] Last Admin: 11/23/20 06:22 Dose: 250 mg Documented by: Vancomycin HCl (Pharmacy To Dose - Vancomycin) 1 dose .XX ASDIRECTED [facility] - Exam Quality Assessment: No: Supplemental Oxygen General: No Acute Distress Neck: Supple, Trachea Midline Lungs: Clear to Auscultation, Normal Respiratory Effort Cardiovascular: Regular Rate, Regular Rhythm Extremities: Normal Inspection, Normal Range of Motion - Patient Data Lab Results Last 24 hrs: Laboratory Results - last 24 hr 11/28/20 11/28/20 11/29/20 Range/Units 11:41 17:39 06:35 POC Glucose 286 H 407 H 229 H (60-110) mg/dL Result Diagrams: 11/25/20 09:08 11/25/20 09:08 Sepsis Event Note - Evaluation Sepsis Screening Result: No Definite Risk - Focused Exam Vital Signs: Vital Signs Temp Pulse Resp BP BP Pulse Ox 11/29/20 11:04 37.1 C 75 18 128/58 L 97 11/29/20 08:31 116/68 11/29/20 07:36 36.1 C 84 18 116/68 97 11/29/20 04:00 36.4 C 78 17 115/77 98 11/28/20 23:20 36.6 C 87 18 134/81 98 - Problem List & Annotations (1) UTI (urinary tract infection) SNOMED Code(s): 03024806 Code(s): N39.0 - URINARY TRACT INFECTION, SITE NOT SPECIFIED Status: Acute Current Visit: Yes Qualifiers: Urinary tract infection type: acute cystitis Hematuria presence: with hematuria Qualified Code(s): N30.01 - Acute cystitis with hematuria (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 Current Visit: Yes (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 Code(s): 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 Status: Chronic Current Visit: Yes (4) Renal failure SNOMED Code(s): 53529544 Code(s): N19 - UNSPECIFIED KIDNEY FAILURE Status: Resolved Current Visit: Yes Qualifiers: Renal failure chronicity: acute on chronic (5) Sepsis SNOMED Code(s): 17981406 Code(s): A41.9 - SEPSIS, UNSPECIFIED ORGANISM Status: Resolved Current Visit: Yes Qualifiers: Sepsis type: sepsis due to unspecified organism Sepsis acute organ dysfunction status: with acute organ dysfunction Severe sepsis acute organ dysfunction type: acute renal failure Severe sepsis shock status: without se ptic shock (6) DKA (diabetic ketoacidoses) SNOMED Code(s): 972627076, 115265679 Code(s): E11.10 - TYPE 2 DIABETES MELLITUS WITH KETOACIDOSIS WITHOUT COMA Status: Acute Current Visit: No (7) Obstructive uropathy SNOMED Code(s): 5269214 Code(s): N13.9 - OBSTRUCTIVE AND REFLUX UROPATHY, UNSPECIFIED Status: Acute Current Visit: No - Problem List Review Problem List Initiated/Reviewed/Updated: Yes - Plan Plan:: This 85-year-old male admitted with acute renal failure secondary to obstructive uropathy, metabolic acidosis, hyperglycemia and sepsis secondary to UTI 1. Obstructive Uropathy - Continue lizarraga catheter, cont catheter care 2. UTI-Proteus mirabilis -Urine culture reveals Proteus mirabilis - Levaquin 750 mg every 48 hours. 3. Hyperglycemia/DM type II - Levemir 10 units daily - A1c 7.0 -Blood sugar checks every 3 times daily AC -diet soft pureed. -Hold all oral diabetic medication, likely consider daily insulin will monitor blood sugars during stay. 4. HTN/history wide-complex tachycardia -Continue Lisinopril and Amiodarone VTE prophylaxis: SCDs GI prophylaxis: Protonix CODE STATUS: DNR/DNI Guardian/POA : Tabitha Villasenor [phone] Dispo: Pending placement, possible dc next week
[2020-11-29] MEDS: TRAVOPROST 0.004% EYELF SCH (20:07)
[2020-11-30] MEDS: Brimonidine 0.2% Ophth Soln 5 ML Bottle EYELF SCH ×3 (06:03→21:11)
[2020-11-30] MEDS: Pantoprazole 40 MG Tab.CR PO SCH (08:00)
[2020-11-30] MEDS: Lisinopril 5 MG Tab PO SCH (08:01)
[2020-11-30] MEDS: Amiodarone 200 MG Tab PO SCH ×2 (08:04→20:25)
[2020-11-30] MEDS: Insulin Detemir 100 Units/ML 3 ML Pen SUBCUT SCH (08:04)
[2020-11-30] MEDS: Insulin Aspart 100 Units/ML 3 ML Pen SUBCUT SCH ×3 (10:09→18:18)
[2020-11-30] MEDS: Levofloxacin 250 MG Tab PO SCH (10:53)
--- NOTE | 2020-11-30 11:28 | PCM.PN ---
- General Info Date of Service: 11/30/20 Admission Dx/Problem (Free Text): Admission Diagnosis/Problem Admission Diagnosis/Problem Renal failure Subjective Update: Non verbal, appears comfortable in chair, no nursing concerns. Functional Status: Reports: Tolerating Diet, Urinating - Review of Systems Systems Review Comment:: non verbal patient - Patient Data Vitals - Most Recent: Last Vital Signs Temp 36.3 C 11/30/20 07:08 Pulse 74 11/30/20 07:08 Resp 16 11/30/20 07:08 BP 146/75 H 11/30/20 08:01 Pulse Ox 98 11/30/20 07:08 Weight - Most Recent: 47.5 kg I&O - Last 24 Hours: Intake & Output 11/29/20 11/30/20 11/30/20 22:59 06:59 14:59 Intake Total 480 670 Output Total 450 850 Balance 30 -180 Lab Results Last 24 Hours: Laboratory Results - last 24 hr 11/29/20 11/30/20 11/30/20 Range/Units 17:07 06:50 09:12 POC Glucose 326 H 253 H 225 H (60-110) mg/dL Med Orders - Current: Current Medications Acetaminophen (Acetaminophen 650 Mg Supp) 650 mg RECTAL Q4H PRN PRN Reason: Pain (mild 1-3) Amiodarone HCl (Amiodarone 200 Mg Tab) 200 mg PO BID [facility] Last Admin: 11/30/20 08:04 Dose: 200 mg Documented by: Dextrose/Water (50% Dextrose In Water 50 Ml Syringe) 50 ml IV ASDIRECTED PRN PRN Reason: Hypoglycemia Docusate Sodium (Docusate Sodium 100 Mg Cap) 100 mg PO BID PRN PRN Reason: Constipation Glucagon (Glucagon,Human Recombinant 1 Mg Vial) 1 mg IM ASDIRECTED PRN PRN Reason: Hypoglycemia Insulin Aspart (Insulin Aspart 100 Units/Ml 3 Ml Pen) 0 unit SUBCUT TIDAC [facility]; Protocol Last Admin: 11/30/20 10:09 Dose: 4 units Documented by: Insulin Detemir (Insulin Detemir 100 Units/Ml 3 Ml Pen) 10 unit SUBCUT DAILY [facility] Last Admin: 11/30/20 08:04 Dose: 10 units Documented by: Levofloxacin (Levofloxacin 250 Mg Tab) 750 mg PO Q48H [facility] Last Admin: 11/30/20 10:53 Dose: 750 mg Documented by: Lisinopril (Lisinopril 5 Mg Tab) 2.5 mg PO DAILY [facility] Last Admin: 11/30/20 08:01 Dose: 2.5 mg Documented by: Ondansetron HCl (Ondansetron 4 Mg/2 Ml Sdv) 4 mg IVPUSH Q4H PRN PRN Reason: Nausea Pantoprazole Sodium (Pantoprazole 40 Mg Tab.Cr) 40 mg PO ACBREAKFAST [facility] Last Admin: 11/30/20 08:00 Dose: 40 mg Documented by: Travoprost [Travatan (Z] 0.004% 2.5 Ml) 1 each EYELF BEDTIME [facility] Last Admin: 11/29/20 20:07 Dose: 1 each Documented by: Brimonidine 0.2% Ophth Soln 5 Ml Bottle 1 each EYELF TID [facility] Last Admin: 11/30/20 06:03 Dose: 1 each Documented by: Sodium Chloride (Sodium Chloride 0.9% 2.5 Ml Syringe) 2.5 ml FLUSH ASDIRECTED PRN PRN Reason: Keep Vein Open Discontinued Medications Calcium Gluconate (Calcium Gluconate 10% 1 Gm/10 Ml Sdv) 1 gm IV ONETIME ONE Stop: 11/20/20 11:11 Last Admin: 11/20/20 12:03 Dose: 1 gm Documented by: Sodium Chloride (Normal Saline) 1,000 mls @ 999 mls/hr IV .BOLUS ONE Stop: 11/20/20 09:51 Last Admin: 11/20/20 09:36 Dose: 999 mls/hr Documented by: Insulin Human Regular 100 unit (/ Sodium Chloride) 100 mls @ 6.804 mls/hr IV TITRATE [facility]; Protocol Stop: 11/21/20 12:00 Last Titration: 11/21/20 11:51 Dose: 0 units/kg/hr, 0 mls/hr Documented by: Lactated Ringer's (Ringers, Lactated) 1,000 mls @ 999 mls/hr IV .BOLUS [facility] Last Admin: 11/20/20 15:07 Dose: 999 mls/hr Documented by: Piperacillin Sod/Tazobactam (Sod 2.25 gm/ Sodium Chloride) 50 mls @ 100 mls/hr IV Q8H [facility] Last Admin: 11/21/20 05:31 Dose: 100 mls/hr Documented by: Pantoprazole Sodium 40 mg/ (Sodium Chloride) 10 mls @ 200 mls/hr IV Q24H [facility] Last Admin: 11/22/20 13:35 Dose: 200 mls/hr Documented by: Lactated Ringer's (Ringers, Lactated) 1,000 mls @ 150 mls/hr IV ASDIRECTED [facility] Dextrose/Sodium Chloride (Dextrose 5%-1/2 Ns) 1,000 mls @ 150 mls/hr IV Q6HR [facility] Last Admin: 11/21/20 06:12 Dose: 150 mls/hr Documented by: Linezolid 600 mg/ Premix 300 mls @ 300 mls/hr IV Q12H [facility] Last Admin: 11/22/20 04:13 Dose: 300 mls/hr Documented by: Piperacillin Sod/Tazobactam (Sod 4.5 gm/ Sodium Chloride) 100 mls @ 200 mls/hr IV Q12H [facility] Last Admin: 11/22/20 00:08 Dose: 200 mls/hr Documented by: Lactated Ringer's (Ringers, Lactated) 1,000 mls @ 125 mls/hr IV Q8H [facility] Last Infusion: 11/23/20 09:22 Dose: 75 mls/hr Documented by: Magnesium Sulfate (Magnesium Sulfate In Water 4 Gm/100 Ml) 4 gm in 100 mls @ 50 mls/hr IV ONETIME ONE Stop: 11/22/20 10:03 Last Admin: 11/22/20 08:42 Dose: 50 mls/hr Documented by: Piperacillin Sod/Tazobactam (Sod 4.5 gm/ Sodium Chloride) 100 mls @ 200 mls/hr IV Q8H [facility] Levofloxacin/Dextrose 750 mg/ (Premix) 150 mls @ 75 mls/hr IV Q48H [facility] Last Admin: 11/22/20 09:44 Dose: 75 mls/hr Documented by: Lactated Ringer's (Ringers, Lactated) 1,000 mls @ 75 mls/hr IV ASDIRECTED [facility] Last Admin: 11/25/20 02:55 Dose: 75 mls/hr Documented by: Magnesium Sulfate (Magnesium Sulfate In Water 2 Gm/50 Ml) 2 gm in 50 mls @ 50 mls/hr IV ONETIME ONE Stop: 11/25/20 13:34 Last Admin: 11/25/20 13:27 Dose: 50 mls/hr Documented by: Insulin Aspart (Insulin Aspart 100 Units/Ml 3 Ml Pen) 12 unit SUBCUT ONETIME ONE Stop: 11/27/20 12:34 Last Admin: 11/27/20 12:39 Dose: 12 unit Documented by: Sodium Phosphate (Phosphorus #1 250 Mg Tab) 250 mg PO QID [facility] Last Admin: 11/23/20 06:22 Dose: 250 mg Documented by: Vancomycin HCl (Pharmacy To Dose - Vancomycin) 1 dose .XX ASDIRECTED [facility] - Exam General: No Acute Distress Neck: Supple Lungs: Clear to Auscultation, Normal Respiratory Effort Cardiovascular: Regular Rate, Regular Rhythm GI/Abdominal Exam: Normal Bowel Sounds, Soft, Non-Tender - Patient Data Lab Results Last 24 hrs: Laboratory Results - last 24 hr 11/29/20 11/30/20 11/30/20 Range/Units 17:07 06:50 09:12 POC Glucose 326 H 253 H 225 H (60-110) mg/dL Result Diagrams: 11/25/20 09:08 11/25/20 09:08 Sepsis Event Note - Evaluation Sepsis Screening Result: No Definite Risk - Focused Exam Vital Signs: Vital Signs Temp Pulse Resp BP BP BP Pulse Ox 11/30/20 08:01 146/75 H 11/30/20 07:08 36.3 C 74 16 146/75 H 98 11/30/20 03:30 36.6 C 71 16 125/56 L 95 11/29/20 23:38 36.7 C 76 16 157/57 H 98 - Problem List & Annotations (1) UTI (urinary tract infection) SNOMED Code(s): 96158094 Code(s): N39.0 - URINARY TRACT INFECTION, SITE NOT SPECIFIED Status: Acute Current Visit: Yes Qualifiers: Urinary tract infection type: acute cystitis Hematuria presence: with hematuria Qualified Code(s): N30.01 - Acute cystitis with hematuria (2) Blindness SNOMED Code(s): 381068438 Code(s): H54.7 - UNSPECIFIED VISUAL LOSS Status: Chronic Current Visit: Yes (3) Developmental non-verbal disorder SNOMED Code(s): 445038075 Code(s): 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 Status: Chronic Current Visit: Yes (4) Renal failure SNOMED Code(s): 51046739 Code(s): N19 - UNSPECIFIED KIDNEY FAILURE Status: Resolved Current Visit: Yes Qualifiers: Renal failure chronicity: acute on chronic (5) Sepsis SNOMED Code(s): 27626269 Code(s): A41.9 - SEPSIS, UNSPECIFIED ORGANISM Status: Resolved Current Visit: Yes Qualifiers: Sepsis type: sepsis due to unspecified organism Sepsis acute organ dysfunction status: with acute organ dysfunction Severe sepsis acute organ dysfunction type: acute renal failure Severe sepsis shock status: without septic shock (6) DKA (diabetic ketoacidoses) SNOMED Code(s): 585664204, 588339255 Code(s): E11.10 - TYPE 2 DIABETES MELLITUS WITH KETOACIDOSIS WITHOUT COMA Status: Acute Current Visit: No (7) Obstructive uropathy SNOMED Code(s): 4524097 Code(s): N13.9 - OBSTRUCTIVE AND REFLUX UROPATHY, UNSPECIFIED Status: Acute Current Visit: No - Problem List Review Problem List Initiated/Reviewed/Updated: Yes - Plan Plan:: This 85-year-old male admitted with acute renal failure secondary to obstructive uropathy, metabolic acidosis, hyperglycemia and sepsis secondary to UTI 1. Obstructive Uropathy - Continue lizarraga catheter, cont catheter care, urine is clear 2. UTI-Proteus mirabilis -Urine culture reveals Proteus mirabilis - Levaquin 750 mg every 48 hours. 3. Hyperglycemia/DM type II - Levemir 10 units daily - A1c 7.0 -Blood sugar checks every 3 times daily AC -diet soft pureed. -Hold all oral diabetic medication, likely consider daily insulin will monitor blood sugars during stay. 4. HTN/history wide-complex tachycardia -Continue Lisinopril and Amiodarone VTE prophylaxis: SCDs GI prophylaxis: Protonix CODE STATUS: DNR/DNI Guardian/POA : Tabitha Villasenor [phone] Dispo: Pending placement, possible dc next week
[2020-11-30] MEDS: TRAVOPROST 0.004% EYELF SCH (20:26)
[2020-12-01] MEDS: Brimonidine 0.2% Ophth Soln 5 ML Bottle EYELF SCH ×3 (06:47→21:15)
[2020-12-01] MEDS: Insulin Aspart 100 Units/ML 3 ML Pen SUBCUT SCH ×3 (07:59→17:12)
[2020-12-01] MEDS: Insulin Detemir 100 Units/ML 3 ML Pen SUBCUT SCH (08:00)
[2020-12-01] MEDS: Lisinopril 5 MG Tab PO SCH (08:03)
[2020-12-01] MEDS: Pantoprazole 40 MG Tab.CR PO SCH (08:03)
[2020-12-01] MEDS: Amiodarone 200 MG Tab PO SCH ×2 (08:04→21:03)
--- NOTE | 2020-12-01 13:30 | PCM.PN ---
- General Info Date of Service: 12/01/20 Admission Dx/Problem (Free Text): Admission Diagnosis/Problem Admission Diagnosis/Problem Renal failure Subjective Update: Non verbal, appears comfortable in bed, no nursing concerns. - Review of Systems Systems Review Comment:: non verbal patient - Patient Data Vitals - Most Recent: Last Vital Signs Temp 36.0 C L 12/01/20 11:57 Pulse 79 12/01/20 11:57 Resp 14 12/01/20 11:57 BP 140/65 12/01/20 11:57 Pulse Ox 97 12/01/20 11:57 Weight - Most Recent: 49 kg I&O - Last 24 Hours: Intake & Output 11/30/20 12/01/20 12/01/20 22:59 06:59 14:59 Intake Total 572 350 Output Total 650 500 Balance -78 -150 Lab Results Last 24 Hours: Laboratory Results - last 24 hr 11/30/20 12/01/20 12/01/20 Range/Units 17:09 06:49 11:55 POC Glucose 196 H 199 H 228 H (60-110) mg/dL Med Orders - Current: Current Medications Acetaminophen (Acetaminophen 650 Mg Supp) 650 mg RECTAL Q4H PRN PRN Reason: Pain (mild 1-3) Amiodarone HCl (Amiodarone 200 Mg Tab) 200 mg PO BID [facility] Last Admin: 12/01/20 08:04 Dose: 200 mg Documented by: Dextrose/Water (50% Dextrose In Water 50 Ml Syringe) 50 ml IV ASDIRECTED PRN PRN Reason: Hypoglycemia Docusate Sodium (Docusate Sodium 100 Mg Cap) 100 mg PO BID PRN PRN Reason: Constipation Glucagon (Glucagon,Human Recombinant 1 Mg Vial) 1 mg IM ASDIRECTED PRN PRN Reason: Hypoglycemia Insulin Aspart (Insulin Aspart 100 Units/Ml 3 Ml Pen) 0 unit SUBCUT TIDAC [facility]; Protocol Last Admin: 12/01/20 12:00 Dose: 6 units Documented by: Insulin Detemir (Insulin Detemir 100 Units/Ml 3 Ml Pen) 10 unit SUBCUT DAILY [facility] Last Admin: 12/01/20 08:00 Dose: 10 units Documented by: Levofloxacin (Levofloxacin 250 Mg Tab) 750 mg PO Q48H [facility] Last Admin: 11/30/20 10:53 Dose: 750 mg Documented by: Lisinopril (Lisinopril 5 Mg Tab) 2.5 mg PO DAILY [facility] Last Admin: 12/01/20 08:03 Dose: 2.5 mg Documented by: Ondansetron HCl (Ondansetron 4 Mg/2 Ml Sdv) 4 mg IVPUSH Q4H PRN PRN Reason: Nausea Pantoprazole Sodium (Pantoprazole 40 Mg Tab.Cr) 40 mg PO ACBREAKFAST [facility] Last Admin: 12/01/20 08:03 Dose: 40 mg Documented by: Travoprost [Travatan (Z] 0.004% 2.5 Ml) 1 each EYELF BEDTIME [facility] Last Admin: 11/30/20 20:26 Dose: 1 each Documented by: Brimonidine 0.2% Ophth Soln 5 Ml Bottle 1 each EYELF TID [facility] Last Admin: 12/01/20 06:47 Dose: 1 each Documented by: Sodium Chloride (Sodium Chloride 0.9% 2.5 Ml Syringe) 2.5 ml FLUSH ASDIRECTED PRN PRN Reason: Keep Vein Open Discontinued Medications Calcium Gluconate (Calcium Gluconate 10% 1 Gm/10 Ml Sdv) 1 gm IV ONETIME ONE Stop: 11/20/20 11:11 Last Admin: 11/20/20 12:03 Dose: 1 gm Documented by: Sodium Chloride (Normal Saline) 1,000 mls @ 999 mls/hr IV .BOLUS ONE Stop: 11/20/20 09:51 Last Admin: 11/20/20 09:36 Dose: 999 mls/hr Documented by: Insulin Human Regular 100 unit (/ Sodium Chloride) 100 mls @ 6.804 mls/hr IV TITRATE [facility]; Protocol Stop: 11/21/20 12:00 Last Titration: 11/21/20 11:51 Dose: 0 units/kg/hr, 0 mls/hr Documented by: Lactated Ringer's (Ringers, Lactated) 1,000 mls @ 999 mls/hr IV .BOLUS [facility] Last Admin: 11/20/20 15:07 Dose: 999 mls/hr Documented by: Piperacillin Sod/Tazobactam (Sod 2.25 gm/ Sodium Chloride) 50 mls @ 100 mls/hr IV Q8H [facility] Last Admin: 11/21/20 05:31 Dose: 100 mls/hr Documented by: Pantoprazole Sodium 40 mg/ (Sodium Chloride) 10 mls @ 200 mls/hr IV Q24H [facility] Last Admin: 11/22/20 13:35 Dose: 200 mls/hr Documented by: Lactated Ringer's (Ringers, Lactated) 1,000 mls @ 150 mls/hr IV ASDIRECTED [facility] Dextrose/Sodium Chloride (Dextrose 5%-1/2 Ns) 1,000 mls @ 150 mls/hr IV Q6HR [facility] Last Admin: 11/21/20 06:12 Dose: 150 mls/hr Documented by: Linezolid 600 mg/ Premix 300 mls @ 300 mls/hr IV Q12H [facility] Last Admin: 11/22/20 04:13 Dose: 300 mls/hr Documented by: Piperacillin Sod/Tazobactam (Sod 4.5 gm/ Sodium Chloride) 100 mls @ 200 mls/hr IV Q12H [facility] Last Admin: 11/22/20 00:08 Dose: 200 mls/hr Documented by: Lactated Ringer's (Ringers, Lactated) 1,000 mls @ 125 mls/hr IV Q8H [facility] Last Infusion: 11/23/20 09:22 Dose: 75 mls/hr Documented by: Magnesium Sulfate (Magnesium Sulfate In Water 4 Gm/100 Ml) 4 gm in 100 mls @ 50 mls/hr IV ONETIME ONE Stop: 11/22/20 10:03 Last Admin: 11/22/20 08:42 Dose: 50 mls/hr Documented by: Piperacillin Sod/Tazobactam (Sod 4.5 gm/ Sodium Chloride) 100 mls @ 200 mls/hr IV Q8H [facility] Levofloxacin/Dextrose 750 mg/ (Premix) 150 mls @ 75 mls/hr IV Q48H [facility] Last Admin: 11/22/20 09:44 Dose: 75 mls/hr Documented by: Lactated Ringer's (Ringers, Lactated) 1,000 mls @ 75 mls/hr IV ASDIRECTED [facility] Last Admin: 11/25/20 02:55 Dose: 75 mls/hr Documented by: Magnesium Sulfate (Magnesium Sulfate In Water 2 Gm/50 Ml) 2 gm in 50 mls @ 50 mls/hr IV ONETIME ONE Stop: 11/25/20 13:34 Last Admin: 11/25/20 13:27 Dose: 50 mls/hr Documented by: Insulin Aspart (Insulin Aspart 100 Units/Ml 3 Ml Pen) 12 unit SUBCUT ONETIME ONE Stop: 11/27/20 12:34 Last Admin: 11/27/20 12:39 Dose: 12 unit Documented by: Sodium Phosphate (Phosphorus #1 250 Mg Tab) 250 mg PO QID [facility] Last Admin: 11/23/20 06:22 Dose: 250 mg Documented by: Vancomycin HCl (Pharmacy To Dose - Vancomycin) 1 dose .XX ASDIRECTED [facility] - Exam General: No Acute Distress Neck: Supple Lungs: Clear to Auscultation, Normal Respiratory Effort Cardiovascular: Regular Rate, Regular Rhythm GI/Abdominal Exam: Normal Bowel Sounds, Soft, Non-Tender, Other (lizarraga in place) - Patient Data Lab Results Last 24 hrs: Laboratory Results - last 24 hr 11/30/20 12/01/20 12/01/20 Range/Units 17:09 06:49 11:55 POC Glucose 196 H 199 H 228 H (60-110) mg/dL Result Diagrams: 11/25/20 09:08 11/25/20 09:08 Sepsis Event Note - Evaluation Sepsis Screening Result: No Definite Risk - Focused Exam Vital Signs: Vital Signs Temp Pulse Resp BP BP Pulse Ox 12/01/20 11:57 36.0 C L 79 14 140/65 97 12/01/20 08:03 128/86 12/01/20 07:53 35.9 C L 72 15 128/86 99 12/01/20 04:00 36.3 C 69 20 115/56 L 96 - Problem List & Annotations (1) UTI (urinary tract infection) SNOMED Code(s): 10416813 Code(s): N39.0 - URINARY TRACT INFECTION, SITE NOT SPECIFIED Status: Acute Current Visit: Yes Qualifiers: Urinary tract infection type: acute cystitis Hematuria presence: with hematuria Qualified Code(s): N30.01 - Acute cystitis with hematuria (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 Current Visit: Yes (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 Code(s): 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 Status: Chronic Current Visit: Yes (4) Renal failure SNOMED Code(s): 79762464 Code(s): N19 - UNSPECIFIED KIDNEY FAILURE Status: Resolved Current Visit: Yes Qualifiers: Renal failure chronicity: acute on chronic (5) Sepsis SNOMED Code(s): 47617594 Code(s): A41.9 - SEPSIS, UNSPECIFIED ORGANISM Status: Resolved Current Visit: Yes Qualifiers: Sepsis type: sepsis due to unspecified organism Sepsis acute organ dysfunction status: with acute organ dysfunction Severe sepsis acute organ dysfunction type: acute renal failure Severe sepsis shock status: without septic shock (6) DKA (diabetic ketoacidoses) SNOMED Code(s): 935686756, 816240543 Code(s): E11.10 - TYPE 2 DIABETES MELLITUS WITH KETOACIDOSIS WITHOUT COMA Status: Acute Current Visit: No (7) Obstructive uropathy SNOMED Code(s): 6925361 Code(s): N13.9 - OBSTRUCTIVE AND REFLUX UROPATHY, UNSPECIFIED Status: Acute Current Visit: No - Problem List Review Problem List Initiated/Reviewed/Updated: Yes - My Orders Last 24 Hours: My Active Orders 12/01/20 09:40 Switchboard Operator Receptionist Discontinue [Cardiac Monitoring Discontinue] [RC] Click to Edit - Plan Plan:: This 85-year-old male admitted with acute renal failure secondary to obstructive uropathy, metabolic acidosis, hyperglycemia and sepsis secondary to UTI 1. Obstructive Uropathy - Continue lizarraga catheter, cont catheter care, urine is clear 2. UTI-Proteus mirabilis -Urine culture reveals Proteus mirabilis - Levaquin 750 mg every 48 hours. 3. Hyperglycemia/DM type II - Levemir 10 units daily - A1c 7.0 -Blood sugar checks every 3 times daily AC -diet soft pureed. -Hold all oral diabetic medication, likely consider daily insulin will monitor blood sugars during stay. 4. HTN/history wide-complex tachycardia -Continue Lisinopril and Amiodarone VTE prophylaxis: SCDs GI prophylaxis: Protonix CODE STATUS: DNR/DNI Guardian/POA : Tabitha Jacklyn [phone] Dispo: Pending placement, possible dc next week
[2020-12-01] MEDS: TRAVOPROST 0.004% EYELF SCH (21:03)
[2020-12-02] MEDS: Brimonidine 0.2% Ophth Soln 5 ML Bottle EYELF SCH ×3 (05:59→21:44)
[2020-12-02] MEDS: Insulin Aspart 100 Units/ML 3 ML Pen SUBCUT SCH ×3 (07:49→17:32)
[2020-12-02] MEDS: Pantoprazole 40 MG Tab.CR PO SCH (08:05)
[2020-12-02] MEDS: Lisinopril 5 MG Tab PO SCH (08:05)
[2020-12-02] MEDS: Insulin Detemir 100 Units/ML 3 ML Pen SUBCUT SCH (08:06)
[2020-12-02] MEDS: Amiodarone 200 MG Tab PO SCH ×2 (08:06→20:34)
[2020-12-02] MEDS: Levofloxacin 250 MG Tab PO SCH (10:31)
[2020-12-02] MEDS ORDERED: Acetaminophen 325 MG Tab PO PRN (11:02)
[2020-12-02] MEDS ORDERED: Glucagon,Human Recombinant 1 MG Vial IM PRN (11:17)
[2020-12-02] MEDS ORDERED: 50% Dextrose in Water 50 ML Syringe IV PRN (11:17)
--- NOTE | 2020-12-02 11:27 | PCM.PN ---
- General Info Date of Service: 12/02/20 Admission Dx/Problem (Free Text): Admission Diagnosis/Problem Admission Diagnosis/Problem Renal failure Subjective Update: Non verbal, appears comfortable in chair, no nursing concerns. - Review of Systems Systems Review Comment:: non verbal - Patient Data Vitals - Most Recent: Last Vital Signs Temp 35.2 C L 12/02/20 07:00 Pulse 75 12/02/20 07:00 Resp 16 12/02/20 07:00 BP 122/78 12/02/20 08:05 Pulse Ox 96 12/02/20 07:00 Weight - Most Recent: 49.4 kg I&O - Last 24 Hours: Intake & Output 12/01/20 12/02/20 12/02/20 22:59 06:59 14:59 Intake Total 720 522 Output Total 600 1050 Balance 120 -528 Lab Results Last 24 Hours: Laboratory Results - last 24 hr 12/01/20 12/01/20 12/02/20 Range/Units 11:55 17:10 07:42 POC Glucose 228 H 192 H 142 H (60-110) mg/dL Med Orders - Current: Current Medications Acetaminophen (Acetaminophen 325 Mg Tab) 650 mg PO Q4H PRN PRN Reason: Pain/Fever Last Admin: 12/02/20 11:13 Dose: 650 mg Documented by: Amiodarone HCl (Amiodarone 200 Mg Tab) 200 mg PO BID [facility] Last Admin: 12/02/20 08:06 Dose: 200 mg Documented by: Dextrose/Water (50% Dextrose In Water 50 Ml Syringe) 50 ml IV ASDIRECTED PRN PRN Reason: Hypoglycemia Dextrose/Water (50% Dextrose In Water 50 Ml Syringe) 50 ml IV ASDIRECTED PRN PRN Reason: Hypoglycemia Docusate Sodium (Docusate Sodium 100 Mg Cap) 100 mg PO BID PRN PRN Reason: Constipation Glucagon (Glucagon,Human Recombinant 1 Mg Vial) 1 mg IM ASDIRECTED PRN PRN Reason: Hypoglycemia Glucagon (Glucagon,Human Recombinant 1 Mg Vial) 1 mg IM ASDIRECTED PRN PRN Reason: Hypoglycemia Insulin Aspart (Insulin Aspart 100 Units/Ml 3 Ml Pen) 0 unit SUBCUT TIDAC [facility]; Protocol Last Admin: 12/02/20 07:49 Dose: Not Given Documented by: Insulin Aspart (Insulin Aspart 100 Units/Ml 10 Ml Vial) 20 unit SUBCUT ONETIME ONE Stop: 12/02/20 11:25 Insulin Detemir (Insulin Detemir 100 Units/Ml 3 Ml Pen) 10 unit SUBCUT DAILY [facility] Last Admin: 12/02/20 08:06 Dose: 10 units Documented by: Levofloxacin (Levofloxacin 250 Mg Tab) 750 mg PO Q48H [facility] Last Admin: 12/02/20 10:31 Dose: 750 mg Documented by: Lisinopril (Lisinopril 5 Mg Tab) 2.5 mg PO DAILY [facility] Last Admin: 12/02/20 08:05 Dose: 2.5 mg Documented by: Ondansetron HCl (Ondansetron 4 Mg/2 Ml Sdv) 4 mg IVPUSH Q4H PRN PRN Reason: Nausea Pantoprazole Sodium (Pantoprazole 40 Mg Tab.Cr) 40 mg PO ACBREAKFAST [facility] Last Admin: 12/02/20 08:05 Dose: 40 mg Documented by: Travoprost [Travatan (Z] 0.004% 2.5 Ml) 1 each EYELF BEDTIME [facility] Last Admin: 12/01/20 21:03 Dose: 1 each Documented by: Brimonidine 0.2% Ophth Soln 5 Ml Bottle 1 each EYELF TID [facility] Last Admin: 12/02/20 05:59 Dose: 1 each Documented by: Sodium Chloride (Sodium Chloride 0.9% 2.5 Ml Syringe) 2.5 ml FLUSH ASDIRECTED PRN PRN Reason: Keep Vein Open Discontinued Medications Acetaminophen (Acetaminophen 650 Mg Supp) 650 mg RECTAL Q4H PRN PRN Reason: Pain (mild 1-3) Calcium Gluconate (Calcium Gluconate 10% 1 Gm/10 Ml Sdv) 1 gm IV ONETIME ONE Stop: 11/20/20 11:11 Last Admin: 11/20/20 12:03 Dose: 1 gm Documented by: Sodium Chloride (Normal Saline) 1,000 mls @ 999 mls/hr IV .BOLUS ONE Stop: 11/20/20 09:51 Last Admin: 11/20/20 09:36 Dose: 999 mls/hr Documented by: Insulin Human Regular 100 unit (/ Sodium Chloride) 100 mls @ 6.804 mls/hr IV T ITRATE [facility]; Protocol Stop: 11/21/20 12:00 Last Titration: 11/21/20 11:51 Dose: 0 units/kg/hr, 0 mls/hr Documented by: Lactated Ringer's (Ringers, Lactated) 1,000 mls @ 999 mls/hr IV .BOLUS [facility] Last Admin: 11/20/20 15:07 Dose: 999 mls/hr Documented by: Piperacillin Sod/Tazobactam (Sod 2.25 gm/ Sodium Chloride) 50 mls @ 100 mls/hr IV Q8H [facility] Last Admin: 11/21/20 05:31 Dose: 100 mls/hr Documented by: Pantoprazole Sodium 40 mg/ (Sodium Chloride) 10 mls @ 200 mls/hr IV Q24H [facility] Last Admin: 11/22/20 13:35 Dose: 200 mls/hr Documented by: Lactated Ringer's (Ringers, Lactated) 1,000 mls @ 150 mls/hr IV ASDIRECTED [facility] Dextrose/Sodium Chloride (Dextrose 5%-1/2 Ns) 1,000 mls @ 150 mls/hr IV Q6HR [facility] Last Admin: 11/21/20 06:12 Dose: 150 mls/hr Documented by: Linezolid 600 mg/ Premix 300 mls @ 300 mls/hr IV Q12H [facility] Last Admin: 11/22/20 04:13 Dose: 300 mls/hr Documented by: Piperacillin Sod/Tazobactam (Sod 4.5 gm/ Sodium Chloride) 100 mls @ 200 mls/hr IV Q12H [facility] Last Admin: 11/22/20 00:08 Dose: 200 mls/hr Documented by: Lactated Ringer's (Ringers, Lactated) 1,000 mls @ 125 mls/hr IV Q8H [facility] Last Infusion: 11/23/20 09:22 Dose: 75 mls/hr Documented by: Magnesium Sulfate (Magnesium Sulfate In Water 4 Gm/100 Ml) 4 gm in 100 mls @ 50 mls/hr IV ONETIME ONE Stop: 11/22/20 10:03 Last Admin: 11/22/20 08:42 Dose: 50 mls/hr Documented by: Piperacillin Sod/Tazobactam (Sod 4.5 gm/ Sodium Chloride) 100 mls @ 200 mls/hr IV Q8H [facility] Levofloxacin/Dextrose 750 mg/ (Premix) 150 mls @ 75 mls/hr IV Q48H [facility] Last Admin: 11/22/20 09:44 Dose: 75 mls/hr Documented by: Lactated Ringer's (Ringers, Lactated) 1,000 mls @ 75 mls/hr IV ASDIRECTED [facility] Last Admin: 11/25/20 02:55 Dose: 75 mls/hr Documented by: Magnesium Sulfate (Magnesium Sulfate In Water 2 Gm/50 Ml) 2 gm in 50 mls @ 50 mls/hr IV ONETIME ONE Stop: 11/25/20 13:34 Last Admin: 11/25/20 13:27 Dose: 50 mls/hr Documented by: Insulin Aspart (Insulin Aspart 100 Units/Ml 3 Ml Pen) 12 unit SUBCUT ONETIME ONE Stop: 11/27/20 12:34 Last Admin: 11/27/20 12:39 Dose: 12 unit Documented by: Insulin Aspart (Insulin Aspart 100 Units/Ml 10 Ml Vial) 20 unit SUBCUT ONETIME ONE Stop: 12/02/20 20:01 Sodium Phosphate (Phosphorus #1 250 Mg Tab) 250 mg PO QID [facility] Last Admin: 11/23/20 06:22 Dose: 250 mg Documented by: Vancomycin HCl (Pharmacy To Dose - Vancomycin) 1 dose .XX ASDIRECTED [facility] - Exam General: Cooperative, No Acute Distress Lungs: Clear to Auscultation Cardiovascular: Regular Rate, Regular Rhythm GI/Abdominal Exam: Normal Bowel Sounds, Soft, Non-Tender (Male) Exam: Other (lizarraga in place draining clear urine) Extremities: Normal Inspection - Patient Data Lab Results Last 24 hrs: Laboratory Results - last 24 hr 12/01/20 12/01/20 12/02/20 Range/Units 11:55 17:10 07:42 POC Glucose 228 H 192 H 142 H (60-110) mg/dL Result Diagrams: 11/25/20 09:08 11/25/20 09:08 Sepsis Event Note - Evaluation Sepsis Screening Result: No Definite Risk - Focused Exam Vital Signs: Vital Signs Temp Pulse Resp BP BP Pulse Ox 12/02/20 08:05 122/78 12/02/20 07:00 35.2 C L 75 16 122/78 96 12/02/20 05:30 36.8 C 73 20 119/58 L 97 12/02/20 01:00 36.6 C 74 18 127/78 97 - Problem List & Annotations (1) UTI (urinary tract infection) SNOMED Code(s): 56631809 Code(s): N39.0 - URINARY TRACT INFECTION, SITE NOT SPECIFIED Status: Acute Current Visit: Yes Qualifiers: Urinary tract infection type: acute cystitis Hematuria presence: with hematuria Qualified Code(s): N30.01 - Acute cystitis with hematuria (2) Blindness SNOMED Code(s): 197554996 Code(s): H54.7 - UNSPECIFIED VISUAL LOSS Status: Chronic Current Visit: Yes (3) Developmental non-verbal disorder SNOMED Code(s): 788787670 Code(s): 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 Status: Chronic Current Visit: Yes (4) Renal failure SNOMED Code(s): 12409804 Code(s): N19 - UNSPECIFIED KIDNEY FAILURE Status: Resolved Current Visit: Yes Qualifiers: Renal failure chronicity: acute on chronic (5) Sepsis SNOMED Code(s): 07076755 Code(s): A41.9 - SEPSIS, UNSPECIFIED ORGANISM Status: Resolved Current Visit: Yes Qualifiers: Sepsis type: sepsis due to unspecified organism Sepsis acute organ dysfunction status: with acute organ dysfunction Severe sepsis acute organ dysfunction type: acute renal failure Severe sepsis shock status: without septic shock (6) DKA (diabetic ketoacidoses) SNOMED Code(s): 370486323, 574598642 Code(s): E11.10 - TYPE 2 DIABETES MELLITUS WITH KETOACIDOSIS WITHOUT COMA Status: Acute Current Visit: No (7) Obstructive uropathy SNOMED Code(s): 1358441 Code(s): N13.9 - OBSTRUCTIVE AND REFLUX UROPATHY, UNSPECIFIED Status: Acute Current Visit: No - Problem List Review Problem List Initiated/Reviewed/Updated: Yes - Plan Plan:: This 85-year-old male admitted with acute renal failure secondary to obstructive uropathy, metabolic acidosis, hyperglycemia and sepsis secondary to UTI 1. Obstructive Uropathy - Continue lizarraga catheter, cont catheter care, urine is clear 2. UTI-Proteus mirabilis -Urine culture reveals Proteus mirabilis - Levaquin 750 mg every 48 hours. 3. Hyperglycemia/DM type II - Levemir 10 units daily, SSI as needed, had 1 episode of high sugars after food, given 20 units of NovoLog - A1c 7.0 -Blood sugar checks every 3 times daily AC -diet soft pureed. -Hold all oral diabetic medication, likely consider daily insulin will monitor blood sugars during stay. 4. HTN/history wide-complex tachycardia -Continue Lisinopril and Amiodarone VTE prophylaxis: SCDs GI prophylaxis: Protonix CODE STATUS: DNR/DNI Guardian/POA : Tabitha Villasenor [phone] Dispo: Pending placement, possible dc next week
[2020-12-02] MEDS ORDERED: Insulin Aspart 100 Units/ML 3 ML Pen SUBCUT ONE (11:30)
[2020-12-02] MEDS: TRAVOPROST 0.004% EYELF SCH (20:34)
[2020-12-03] MEDS: Brimonidine 0.2% Ophth Soln 5 ML Bottle EYELF SCH (06:26)
[2020-12-03] MEDS: Insulin Aspart 100 Units/ML 3 ML Pen SUBCUT SCH ×2 (06:31→11:43)
[2020-12-03] MEDS: Pantoprazole 40 MG Tab.CR PO SCH (06:32)
--- NOTE | 2020-12-03 08:35 | PCM.DCSUM1 ---
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 Current Visit: Yes (3) Developmental non-verbal disorder SNOMED Code(s): 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 ICD 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: Chronic Current Visit: Yes (4) Renal failure SNOMED Code(s): 25289682 ICD Code: N19 - UNSPECIFIED KIDNEY FAILURE Status: Resolved Current Visit: Yes Qualifiers: Renal failure chronicity: acute on chronic (5) Sepsis SNOMED Code(s): 73215260 ICD Code: A41.9 - SEPSIS, UNSPECIFIED ORGANISM Status: Resolved Current Visit: Yes Qualifiers: Sepsis type: sepsis due to unspecified organism Sepsis acute organ dysfunction status: with acute organ dysfunction Severe sepsis acute organ dysfunction type: acute renal failure Severe sepsis shock status: without septic shock (6) DKA (diabetic ketoacidoses) SNOMED Code(s): 416710543, 556649179 ICD Code: E11.10 - TYPE 2 DIABETES MELLITUS WITH KETOACIDOSIS WITHOUT COMA Status: Acute Current Visit: No (7) Obstructive uropathy SNOMED Code(s): 1543527 ICD Code: N13.9 - OBSTRUCTIVE AND REFLUX UROPATHY, UNSPECIFIED Status: Acute Current Visit: No - Patient Summary/Data Consults: Consultations 11/22/20 08:32 Consult to Physical Therapy [PT Evaluation and Treatment] [CONS] Routine - Patient Instructions Diet: Usual Diet as Tolerated Activity: As Tolerated Notify Provider of: Fever, Increased Pain, Swelling and Redness, Drainage, Nausea and/or Vomiting Other/Special Instructions: HENAO CATHETER HAS BEEN PLACED SINCE ADMISSION - Discharge Plan *PRESCRIPTION DRUG MONITORING PROGRAM REVIEWED*: Not Applicable *COPY OF PRESCRIPTION DRUG MONITORING REPORT IN PATIENT DAV: Not Applicable Prescriptions/Med Rec: Insulin Aspart [NovoLOG] 0 unit SUBCUT TIDAC #1 pen Home Medications: Home Meds Carbamide Peroxide [Debrox] 15 ml OT ASDIRECTED 10/30/20 [History] Exenatide Microspheres [Bydureon Pen] 2 mg SQ WEEKLY 10/30/20 [History] Glimepiride 2 mg PO DAILY 10/30/20 [History] Multivitamin [Daily-Deb] 1 each PO DAILY 10/30/20 [History] Psyllium Husk [Metamucil] 1 tbsp PO DAILY 10/30/20 [History] Tamsulosin [Flomax] 0.4 mg PO DAILY 10/30/20 [History] Travoprost [Travatan Z] 1 drop EYELF BEDTIME 10/30/20 [History] lisinopriL [Lisinopril] 2.5 mg PO DAILY 10/30/20 [History] metFORMIN [Glucophage XR] 500 mg PO BIDMEALS 10/30/20 [History] sitaGLIPtin Phosphate [Januvia] 100 mg PO DAILY 10/30/20 [History] Brimonidine [Alphagan 0.2% Ophth Soln] 1 drop EYELF TID 11/21/20 [History] Amiodarone [Cordarone] 200 mg PO BID tablet 11/27/20 [Rx] Docusate Sodium [Colace] 100 mg PO BID PRN cap 11/27/20 [Rx] Insulin Detemir [Levemir] 10 unit SUBCUT DAILY pen 11/27/20 [Rx] Acetaminophen [Tylenol] 325 mg PO Q6HR PRN 11/30/20 [History] Aspirin 325 mg PO DAILY 11/30/20 [History] Chlorhexidine Gluconate [Chlorhexidine Gluconate 0.12% Rinse] 118 ml MM DAILY 11/30/20 [History] Omeprazole 20 mg PO DAILY 11/30/20 [History] bisacodyL [Dulcolax] 10 mg RC DAILY 11/30/20 [History] traMADol [Ultram] 50 mg PO Q6H PRN 11/30/20 [History] Insulin Aspart [NovoLOG] 0 unit SUBCUT TIDAC #1 pen 12/03/20 [Rx] Oxygen Therapy Mode: Room Air Forms: ED Department Discharge Referrals: Samm Brooke MD [Primary Care Provider] - 12/06/20 10:00 am - Patient Data Vitals - Most Recent: Last Vital Signs Temp 37.5 C 12/03/20 08:00 Pulse 80 12/03/20 08:00 Resp 14 12/03/20 08:00 BP 138/60 12/03/20 08:00 Pulse Ox 97 12/03/20 08:00 Weight - Most Recent: 49.4 kg I&O - Last 24 hours: Intake & Output 12/02/20 12/03/20 12/03/20 22:59 06:59 14:59 Intake Total 736 480 Output Total 650 860 Balance 86 -380 Lab Results - Last 24 hrs: Laboratory Results - last 24 hr 12/02/20 12/02/20 12/02/20 Range/Units 11:12 17:07 17:19 POC Glucose 408 H 296 H (60-110) mg/dL SARS CoV-2 RNA Rapid YUE NEGATIVE (NEGATIVE) 12/03/20 Range/Units 05:32 POC Glucose 188 H (60-110) mg/dL SARS CoV-2 RNA Rapid YUE (NEGATIVE) Med Orders - Current: Current Medications Acetaminophen (Acetaminophen 325 Mg Tab) 650 mg PO Q4H PRN PRN Reason: Pain/Fever Last Admin: 12/02/20 11:13 Dose: 650 mg Documented by: Amiodarone HCl (Amiodarone 200 Mg Tab) 200 mg PO BID [facility] Last Admin: 12/02/20 20:34 Dose: 200 mg Documented by: Dextrose/Water (50% Dextrose In Water 50 Ml Syringe) 50 ml IV ASDIRECTED PRN PRN Reason: Hypoglycemia Dextrose/Water (50% Dextrose In Water 50 Ml Syringe) 50 ml IV ASDIRECTED PRN PRN Reason: Hypoglycemia Docusate Sodium (Docusate Sodium 100 Mg Cap) 100 mg PO BID PRN PRN Reason: Constipation Glucagon (Glucagon,Human Recombinant 1 Mg Vial) 1 mg IM ASDIRECTED PRN PRN Reason: Hypoglycemia Glucagon (Glucagon,Human Recombinant 1 Mg Vial) 1 mg IM ASDIRECTED PRN PRN Reason: Hypoglycemia Insulin Aspart (Insulin Aspart 100 Units/Ml 3 Ml Pen) 0 unit SUBCUT TIDAC [facility]; Protocol Last Admin: 12/03/20 06:31 Dose: 3 units Documented by: Insulin Detemir (Insulin Detemir 100 Units/Ml 3 Ml Pen) 10 unit SUBCUT DAILY [facility] Last Admin: 12/02/20 08:06 Dose: 10 units Documented by: Levofloxacin (Levofloxacin 250 Mg Tab) 750 mg PO Q48H [facility] Last Admin: 12/02/20 10:31 Dose: 750 mg Documented by: Lisinopril (Lisinopril 5 Mg Tab) 2.5 mg PO DAILY [facility] Last Admin: 12/02/20 08:05 Dose: 2.5 mg Documented by: Ondansetron HCl (Ondansetron 4 Mg/2 Ml Sdv) 4 mg IVPUSH Q4H PRN PRN Reason: Nausea Pantoprazole Sodium (Pantoprazole 40 Mg Tab.Cr) 40 mg PO ACBREAKFAST [facility] Last Admin: 12/03/20 06:32 Dose: 40 mg Documented by: Travoprost [Travatan (Z] 0.004% 2.5 Ml) 1 each EYELF BEDTIME [facility] Last Admin: 12/02/20 20:34 Dose: 1 each Documented by: Brimonidine 0.2% Ophth Soln 5 Ml Bottle 1 each EYELF TID [facility] Last Admin: 12/03/20 06:26 Dose: 1 each Documented by: Sodium Chloride (Sodium Chloride 0.9% 2.5 Ml Syringe) 2.5 ml FLUSH ASDIRECTED PRN PRN Reason: Keep Vein Open Discontinued Medications Acetaminophen (Acetaminophen 650 Mg Supp) 650 mg RECTAL Q4H PRN PRN Reason: Pain (mild 1-3) Calcium Gluconate (Calcium Gluconate 10% 1 Gm/10 Ml Sdv) 1 gm IV ONETIME ONE Stop: 11/20/20 11:11 Last Admin: 11/20/20 12:03 Dose: 1 gm Documented by: Sodium Chloride (Normal Saline) 1,000 mls @ 999 mls/hr IV .BOLUS ONE Stop: 11/20/20 09:51 Last Admin: 11/20/20 09:36 Dose: 999 mls/hr Documented by: Insulin Human Regular 100 unit (/ Sodium Chloride) 100 mls @ 6.804 mls/hr IV TITRATE [facility]; Protocol Stop: 11/21/20 12:00 Last Titration: 11/21/20 11:51 Dose: 0 units/kg/hr, 0 mls/hr Documented by: Lactated Ringer's (Ringers, Lactated) 1,000 mls @ 999 mls/hr IV .BOLUS [facility] Last Admin: 11/20/20 15:07 Dose: 999 mls/hr Documented by: Piperacillin Sod/Tazobactam (Sod 2.25 gm/ Sodium Chloride) 50 mls @ 100 mls/hr IV Q8H [facility] Last Admin: 11/21/20 05:31 Dose: 100 mls/hr Documented by: Pantoprazole Sodium 40 mg/ (Sodium Chloride) 10 mls @ 200 mls/hr IV Q24H [facility] Last Admin: 11/22/20 13:35 Dose: 200 mls/hr Documented by: Lactated Ringer's (Ringers, Lactated) 1,000 mls @ 150 mls/hr IV ASDIRECTED [facility] Dextrose/Sodium Chloride (Dextrose 5%-1/2 Ns) 1,000 mls @ 150 mls/hr IV Q6HR [facility] Last Admin: 11/21/20 06:12 Dose: 150 mls/hr Documented by: Linezolid 600 mg/ Premix 300 mls @ 300 mls/hr IV Q12H [facility] Last Admin: 11/22/20 04:13 Dose: 300 mls/hr Documented by: Piperacillin Sod/Tazobactam (Sod 4.5 gm/ Sodium Chloride) 100 mls @ 200 mls/hr IV Q12H [facility] Last Admin: 11/22/20 00:08 Dose: 200 mls/hr Documented by: Lactated Ringer's (Ringers, Lactated) 1,000 mls @ 125 mls/hr IV Q8H [facility] Last Infusion: 11/23/20 09:22 Dose: 75 mls/hr Documented by: Magnesium Sulfate (Magnesium Sulfate In Water 4 Gm/100 Ml) 4 gm in 100 mls @ 50 mls/hr IV ONETIME ONE Stop: 11/22/20 10:03 Last Admin: 11/22/20 08:42 Dose: 50 mls/hr Documented by: Piperacillin Sod/Tazobactam (Sod 4.5 gm/ Sodium Chloride) 100 mls @ 200 mls/hr IV Q8H [facility] Levofloxacin/Dextrose 750 mg/ (Premix) 150 mls @ 75 mls/hr IV Q48H [facility] Last Admin: 11/22/20 09:44 Dose: 75 mls/hr Documented by: Lactated Ringer's (Ringers, Lactated) 1,000 mls @ 75 mls/hr IV ASDIRECTED [facility] Last Admin: 11/25/20 02:55 Dose: 75 mls/hr Documented by: Magnesium Sulfate (Magnesium Sulfate In Water 2 Gm/50 Ml) 2 gm in 50 mls @ 50 mls/hr IV ONETIME ONE Stop: 11/25/20 13:34 Last Admin: 11/25/20 13:27 Dose: 50 mls/hr Documented by: Insulin Aspart (Insulin Aspart 100 Units/Ml 3 Ml Pen) 12 unit SUBCUT ONETIME ONE Stop: 11/27/20 12:34 Last Admin: 11/27/20 12:39 Dose: 12 unit Documented by: Insulin Aspart (Insulin Aspart 100 Units/Ml 10 Ml Vial) 20 unit SUBCUT ONETIME ONE Stop: 12/02/20 20:01 Insulin Aspart (Insulin Aspart 100 Units/Ml 3 Ml Pen) 20 unit SUBCUT ONETIME ONE Stop: 12/02/20 11:31 Last Admin: 12/02/20 11:59 Dose: 20 unit Documented by: Sodium Phosphate (Phosphorus #1 250 Mg Tab) 250 mg PO QID [facility] Last Admin: 11/23/20 06:22 Dose: 250 mg Documented by: Vancomycin HCl (Pharmacy To Dose - Vancomycin) 1 dose .XX ASDIRECTED [facility]
[2020-12-03] MEDS: Lisinopril 5 MG Tab PO SCH (09:58)
[2020-12-03] MEDS: Amiodarone 200 MG Tab PO SCH (09:59)
[2020-12-03] MEDS: Insulin Detemir 100 Units/ML 3 ML Pen SUBCUT SCH (09:59)
[2020-12-03 11:50] VITALS: BP 151/83; PULSE 77
== END 2020-12-03 12:40 | DRG 871 ==
LOC: MW.ED 08:18 → MW.ICU 12:35 → MW.MS 11-24 06:37
PROVIDERS: ADMIT Student in an Organized Health Care Education/Training Program; ATTEND Student in an Organized Health Care Education/Training Program
DX: E11.10 Type 2 diabetes mellitus with ketoacidosis without coma (principal); H40.9 Unspecified glaucoma; A41.9 Sepsis, unspecified organism; N17.0 Acute kidney failure with tubular necrosis; N30.01 Acute cystitis with hematuria; Z79.84 Long term (current) use of oral hypoglycemic drugs; R65.20 Severe sepsis without septic shock; H54.7 Unspecified visual loss; F81.89 Other developmental disorders of scholastic skills; N18.9 Chronic kidney disease, unspecified; N13.9 Obstructive and reflux uropathy, unspecified; Z79.899 Other long term (current) drug therapy; Z79.82 Long term (current) use of aspirin; Z79.4 Long term (current) use of insulin; I12.9 Hypertensive chronic kidney disease with stage 1 through stage 4 chronic kidney disease, or unspecified chronic kidney disease; E11.22 Type 2 diabetes mellitus with diabetic chronic kidney disease; R33.9 Retention of urine, unspecified; E87.5 Hyperkalemia; H91.90 Unspecified hearing loss, unspecified ear; K59.09 Other constipation; R62.50 Unspecified lack of expected normal physiological development in childhood; Z98.49 Cataract extraction status, unspecified eye; E11.65 Type 2 diabetes mellitus with hyperglycemia; Z66 Do not resuscitate; B96.4 Proteus (mirabilis) (morganii) as the cause of diseases classified elsewhere; Z20.822 Contact with and (suspected) exposure to COVID-19
CPT/HCPCS: 0240U; 36415; 71045; 74176; 80048; 80053; 81001; 82009; 82550; 82570; 82803; 82947; 82962; 83605; 83690; 83735; 84100; 84132; 84300; 85014; 85018; 85025; 87040; 87086; 87088; 87186; 93005; 96374; 97110; 97162; 97530; 97802; 99291; 93010; A9270-GY; C9113; J0610; J1815-GY; J1956; J2020; J2543; J3475; J7030; J7042; J7120; U0002

== ENCOUNTER 2021-03-07 20:30 | Observation (INO) | payer MEDICARE, MEDICAID ==
[2021-03-07] MEDS ORDERED: Sodium Chloride 0.9% 10 ML Syringe FLUSH PRN (20:43)
[2021-03-07] MEDS ORDERED: Sodium Chloride 0.9% 2.5 ML Syringe FLUSH PRN (20:43)
--- NOTE | 2021-03-07 20:43 | EDM.PDOC ---
<Carlos Enrique Steve - Last Filed: 03/08/21 08:11> ED HPI GENERAL MEDICAL PROBLEM - General Chief Complaint: Laceration Stated Complaint: FALL Time Seen by Provider: 03/07/21 20:31 - History of Present Illness INITIAL COMMENTS - FREE TEXT/NARRATIVE: Patient was signed out to me by Kierra Grider NP pending repeat potassium at 10 PM I did reevaluate the patient and patient was stable. The patient was given 1 g of calcium gluconate pending repeat potassium. Labs reviewed patient does have a potassium of 5.9 without any hemolysis and no evidence of acute kidney injury or reason for hyperkalemia. Repeat potassium was 5.5. EKG did show left bundle branch block which was unchanged from prior. However given the persistent hyperkalemia we will provide the patient with 10 mg of albuterol and Kayexalate. At this time I do not believe aggressive hyperkalemia treatment is needed given that is just above normal. However given the persistent hyperkalemia we will admit the patient to the hospital. I did discuss this with Dr. Mccann and he accepted the patient for observation admission. DISPOSITION: The patient was admitted for observation in stable CONDITION: Fair PROCEDURES: None FINAL IMPRESSION(S)/DIAGNOSES: 1. Acute hyperkalemia 2. Acute mechanical fall 3. Acute laceration status post Steri-Strip repair Carlos Enrique Steve M.D. - Related Data Allergies Allergy/AdvReac Type Severity Reaction Status Date / Time No Known Allergies Allergy Verified 03/08/21 06:50 Home Meds: Home Meds Carbamide Peroxide [Debrox] 15 ml OT ASDIRECTED 10/30/20 [History] Exenatide Microspheres [Bydureon Pen] 2 mg SQ WEEKLY 10/30/20 [History] Glimepiride 2 mg PO DAILY 10/30/20 [History] Multivitamin [Daily-Deb] 1 each PO DAILY 10/30/20 [History] Psyllium Husk [Metamucil] 1 tbsp PO DAILY 10/30/20 [History] Tamsulosin [Flomax] 0.4 mg PO DAILY 10/30/20 [History] Travoprost [Travatan Z] 1 drop EYELF BEDTIME 10/30/20 [History] lisinopriL [Lisinopril] 2.5 mg PO DAILY 10/30/20 [History] metFORMIN [Glucophage XR] 500 mg PO BIDMEALS 10/30/20 [History] sitaGLIPtin Phosphate [Januvia] 100 mg PO DAILY 10/30/20 [History] Brimonidine [Alphagan 0.2% Ophth Soln] 1 drop EYELF TID 11/21/20 [History] Amiodarone [Cordarone] 200 mg PO BID tablet 11/27/20 [Rx] Docusate Sodium [Colace] 100 mg PO BID PRN cap 11/27/20 [Rx] Insulin Detemir [Levemir] 10 unit SUBCUT DAILY pen 11/27/20 [Rx] Acetaminophen [Tylenol] 325 mg PO Q8HR PRN 11/30/20 [History] Aspirin 325 mg PO DAILY 11/30/20 [History] Chlorhexidine Gluconate [Chlorhexidine Gluconate 0.12% Rinse] 10 ml MM DAILY 11/30/20 [History] Omeprazole 20 mg PO DAILY 11/30/20 [History] bisacodyL [Dulcolax] 10 mg RC DAILY 11/30/20 [History] Insulin Aspart [NovoLOG] 0 unit SUBCUT TIDAC #1 pen 12/03/20 [Rx] Camphor/Menthol [Sarna Lotion] 1 applic TOP BID PRN 03/07/21 [History] Departure - Departure Time of Disposition: 01:18 Disposition: Admitted As Inpatient 66 Condition: Fair Clinical Impression: Contusion, Laceration, Hyperkalemia - Discharge Information <Kierra Grider - Last Filed: 03/08/21 10:12> ED HPI GENERAL MEDICAL PROBLEM - General Source of Information: Reports: Patient ( and blind unable to communicate), EMS, Other ([facility]) History Limitations: Reports: Other (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 [facility] staff say the patient will communicate by you touching letting him know you are there. The long-term staff said that the fall was unwitnessed and he was found lying on his right side. They are unsure if there is any LOC. Prior to the patient's fall he had been otherwise well. Review of systems: As per history of present illness and below otherwise all systems reviewed and negative. Past medical history: As per history of present illness and as reviewed below otherwise noncontributory. Surgical history: As per history of present illness and as reviewed below otherwise noncontributory. Social history: See social history for further information Family history: As per history of present illness and as reviewed below otherwise noncontributory. Physical exam: General: Well developed and well nourished. Alert and orientated x 3. Nontoxic in appearance and in no acute distress. Vital signs are stable and have been reviewed by me. Nursing notes were reviewed. HEENT: Atraumatic, normocephalic, pupils equal and reactive bilaterally, negative for conjunctival pallor or scleral icterus, mucous membranes moist, TMs normal bilaterally, throat clear, neck supple, nontender, trachea midline. No drooling or trismus noted. No meningeal signs. No hot potato voice noted. Lungs: Clear to auscultation bilaterally. No wheezes, rales, or rhonchi. Chest nontender. Normal work of breathing, no accessory muscles used. Heart: S1S2, regular rate and rhythm without overt murmur, gallops, or rubs. No JVD. No peripheral edema Abdomen: Soft, nondistended, nontender. Normoactive bowel sounds. Negative for masses or costovertebral tenderness. Pelvis: Stable nontender. Skin: Intact, warm, dry. No lesions or rashes noted. Hematologic: No petechiae or purpra. Mucosa appropriate color and normal nail bed color and refill. Extremities: Atraumatic, moves all extremities per self without difficulty or deficits, negative for cords or calf pain. Neurovascular unremarkable. Neuro: Awake, alert, oriented. Cranial nerves II through XII unremarkable. Cerebellum unremarkable. Motor and sensory unremarkable throughout. Exam nonfocal. Psychiatric: Mood and affect are appropriate. Normal thought process. Answering questions appropriately. Notes: *This patient was seen and evaluated during the 2019 SARS-CoV-2 novel feldman virus pandemic period. Community viral transmission is ongoing at time of this encounter and the emergency department is operating under pandemic response procedures. As stated above the patient is an 85-year-old who fell out of his wheelchair at the [facility]. He was found lying on his left side. He sustained a laceration to his left eyebrow. As the fall was unwitnessed I am obtaining an EKG. Dr. Steve consulted. If the EKG is okay we will sedate the paper patient for a CT of his head and cervical spine. Due to EKG results we will give the patient Ativan 1 mg for sedation. I will order a head CT and cervical spine CT. the patient's CBC is unremarkable. The patient's CMP is remarkable for sodium of 134, potassium of 5.9, BUN of 24, glucose of 212, calcium of 8.3. I have ordered the potassium to be. To ensure no hemolysis. I will treat the calcium 8.3 with calcium gluconate 1 g plan:. The patient's laceration was approximated after cleansing with normal saline and Hibiclens with Dermabond and secured with Steri-Strips. The patient's cervical spine CT IMPRESSION: 1. No fracture, subluxation, or other acute traumatic finding identified. 2. Cervical spondylosi s, as noted above. 3. Indeterminate 1.9 centimeter sclerotic lesion involving the left C6 pedicle and lamina. Sclerotic metastatic disease is not excluded. Consider bone scan for further evaluation. Head CT IMPRESSION: 1. No acute intracranial abnormality identified. 2. Mild age-related brain atrophy, white matter hypodensity consistent with chronic small vessel ischemic change, small chronic bilateral basal ganglia lacunar infarcts, and intracranial atherosclerotic vascular calcifications. 3. 2.0 x 1.5 x 1.6 centimeter extra- axial mass in the posterior left parasellar region, most likely representing a meningioma. Further characterization with outpatient head MRI with contrast is recommended. Report to Dr. Steve, who will do disposition. Diagnostics: Head CT and cervical spine CT Therapeutics: ATivan 1 mg, calcium gluconate 1 g IV Definitive disposition and diagnosis as appropriate pending reevaluation and review of above. Left Middle Gums Pain Score (Numeric/FACES): 1 Past Medical History HEENT History: Reports: Cataract, Glaucoma, Hard of Hearing, Other (See Below) Other HEENT History: congential cataracts Cardiovascular History: Reports: None Respiratory History: Reports: None Gastrointestinal History: Reports: Chronic Constipation, Gastritis, Other (See Below) Other Gastrointestinal History: Duodentis Genitourinary History: Reports: Retention, Urinary, UTI, Recurrent Musculoskeletal History: Reports: Other (See Below) Other Musculoskeletal History: atypical stereo movement disorder Neurological History: Reports: Other (See Below) Other Neuro History: developmentally delayed Psychiatric History: Reports: Developmental Delay Endocrine/Metabolic History: Reports: Diabetes, Type II Hematologic History: Reports: None Immunologic History: Reports: None Oncologic (Cancer) History: Reports: None Dermatologic History: Reports: None - Past Surgical History Head Surgeries/Procedures: Reports: None HEENT Surgical History: Reports: Cataract Surgery, Visual Other HEENT Surgeries/Procedures: pt is deaf and blind Musculoskeletal Surgical History: Reports: Other (See Below) Other Musculoskeletal Surgeries/Procedures:: ORIF sx in Oct 2020 Social & Family History - Family History Family Medical History: No Pertinent Family History - Caffeine Use Caffeine Use: Reports: None Caffeine Use Comment: unable to obtain information as pt is non-verbal ED ROS GENERAL - Review of Systems Review Of Systems: Comprehensive ROS is negative, except as noted in HPI. ED EXAM, SKIN/RASH Exam: See Below (See dictation) ED SKIN PROCEDURES - Laceration/Wound Repair Left Lateral Forehead Appearance: Superficial Distal NVT: Neuro & Vascular Intact Skin Prep: Chlorhexidine (Hibiciens), Saline Exploration/Debridement/Repair: Wound Explored, No Foreign Material Found Closed with: Dermabond, Steri-Strips Lac/Wound length In cm: 1 Course - Vital Signs Last Recorded V/S: Last Vital Signs Temp 98.0 F 03/08/21 08:00 Pulse 85 03/08/21 08:00 Resp 16 03/08/21 08:00 BP 131/62 03/08/21 08:00 Pulse Ox 96 03/08/21 08:00 - Orders/Labs/Meds Orders: Active Orders 24 hr Category Date Time Status Admission Status [Patient Status] [ADT] Stat ADT 03/08/21 01:18 Active EKG Documentation Completion [RC] STAT Care 03/07/21 20:32 Active RT Aerosol Therapy [RC] ASDIRECTED Care 03/08/21 01:14 Active Sodium Chloride 0.9% [Saline Flush] Med 03/07/21 20:43 Active 10 ml FLUSH ASDIRECTED PRN Sodium Chloride 0.9% [Saline Flush] Med 03/07/21 20:43 Active 2.5 ml FLUSH ASDIRECTED PRN Saline Lock Insert [OM.PC] Stat Oth 03/07/21 20:43 Ordered Medication Orders Dextrose/Water (50% Dextrose In Water 50 Ml Syringe) 50 ml IVPUSH ASDIRECTED PRN PRN Reason: Hypoglycemia Glucagon (Glucagon,Human Recombinant 1 Mg Vial) 1 mg IM ASDIRECTED PRN PRN Reason: Hypoglycemia Insulin Aspart (Insulin Aspart 100 Units/Ml 3 Ml Pen) 0 unit SUBCUT [facility]; Protocol Last Admin: 03/08/21 07:35 Dose: Not Given Documented by: ROBINSON Sodium Chloride (Sodium Chloride 0.9% 10 Ml Syringe) 10 ml FLUSH ASDIRECTED PRN PRN Reason: Keep Vein Open Sodium Chloride (Sodium Chloride 0.9% 2.5 Ml Syringe) 2.5 ml FLUSH ASDIRECTED PRN PRN Reason: Keep Vein Open Labs: Laboratory Tests 03/07/21 03/07/21 03/07/21 Range/Units 20:40 20:40 21:00 WBC 5.90 (4.0-11.0) K/uL RBC 4.34 L (4.50-5.90) M/uL Hgb 12.2 L (13.0-17.0) g/dL Hct 37.1 L (38.0-50.0) % MCV 85.5 (80.0-98.0) fL MCH 28.1 (27.0-32.0) pg MCHC 32.9 (31.0-37.0) g/dL RDW Std Deviation 51.2 (28.0-62.0) fl RDW Coeff of Kash 16 H (11.0-15.0) % Plt Count 170 (150-400) K/uL MPV 9.60 (7.40-12.00) fL Neut % (Auto) 71.5 (48.0-80.0) % Lymph % (Auto) 15.3 L (16.0-40.0) % [place] % (Auto) 12.5 (0.0-15.0) % Eos % (Auto) 0.5 (0.0-7.0) % Baso % (Auto) 0.2 (0.0-1.5) % Neut # (Auto) 4.2 (1.4-5.7) K/uL Lymph # (Auto) 0.9 (0.6-2.4) K/uL [place] # (Auto) 0.7 (0.0-0.8) K/uL Eos # (Auto) 0.0 (0.0-0.7) K/uL Baso # (Auto) 0.0 (0.0-0.1) K/uL Nucleated RBC % 0.0 /100WBC Nucleated RBCs # 0 K/uL INR 1.00 Sodium 134 L (136-148) mmol/L Potassium 5.9 H (3.5-5.1) mmol/L Chloride 103 (98-107) mmol/L Carbon Dioxide 23.4 (21.0-32.0) mmol/L BUN 24 H (7.0-18.0) mg/dL Creatinine 1.3 (0.8-1.3) mg/dL Est Cr Clr Drug Dosing TNP Estimated GFR (MDRD) 52.5 ml/min Glucose 212 H (74-106) mg/dL Calcium 8.3 L (8.5-10.1) mg/dL Total Bilirubin 0.2 (0.2-1.0) mg/dL AST 23 (15-37) IU/L ALT 43 (14-63) IU/L Alkaline Phosphatase 82 (46-116) U/L Total Protein 7.0 (6.4-8.2) g/dL Albumin 2.4 L (3.4-5.0) g/dL Globulin 4.6 H (2.6-4.0) g/dL Albumin/Globulin Ratio 0.5 L (0.9-1.6) 03/07/21 Range/Units 23:40 WBC (4.0-11.0) K/uL RBC (4.50-5.90) M/uL Hgb (13.0-17.0) g/dL Hct (38.0-50.0) % MCV (80.0-98.0) fL MCH (27.0-32.0) pg MCHC (31.0-37.0) g/dL RDW Std Deviation (28.0-62.0) fl RDW Coeff of Kash (11.0-15.0) % Plt Count (150-400) K/uL MPV (7.40-12.00) fL Neut % (Auto) (48.0-80.0) % Lymph % (Auto) (16.0-40.0) % [place] % (Auto) (0.0-15.0) % Eos % (Auto) (0.0-7.0) % Baso % (Auto) (0.0-1.5) % Neut # (Auto) (1.4-5.7) K/uL Lymph # (Auto) (0.6-2.4) K/uL [place] # (Auto) (0.0-0.8) K/uL Eos # (Auto) (0.0-0.7) K/uL Baso # (Auto) (0.0-0.1) K/uL Nucleated RBC % /100WBC Nucleated RBCs # K/uL INR Sodium (136-148) mmol/L Potassium 5.5 H (3.5-5.1) mmol/L Chloride (98-107) mmol/L Carbon Dioxide (21.0-32.0) mmol/L BUN (7.0-18.0) mg/dL Creatinine (0.8-1.3) mg/dL Est Cr Clr Drug Dosing Estimated GFR (MDRD) ml/min Glucose (74-106) mg/dL Calcium (8.5-10.1) mg/dL Total Bilirubin (0.2-1.0) mg/dL AST (15-37) IU/L ALT (14-63) IU/L Alkaline Phosphatase (46-116) U/L Total Protein (6.4-8.2) g/dL Albumin (3.4-5.0) g/dL Globulin (2.6-4.0) g/dL Albumin/Globulin Ratio (0.9-1.6) Meds: Medications Generic Name Dose Route Start Last Admin Trade Name Freq PRN Reason Stop Dose Admin Dextrose/Water 50 ml 03/08/21 02:58 50% Dextrose In Water 50 Ml Syringe IVPUSH ASDIRECTED PRN Hypoglycemia Glucagon 1 mg 03/08/21 02:58 Glucagon,Human Recombinant 1 Mg Vial IM ASDIRECTED PRN Hypoglycemia Insulin Aspart 0 unit 03/08/21 07:30 03/08/21 07:35 Insulin Aspart 100 Units/Ml 3 Ml Pen SUBCUT Not Given TIDAC TALI Protocol Sodium Chloride 10 ml 03/07/21 20:43 Sodium Chloride 0.9% 10 Ml Syringe FLUSH ASDIRECTED PRN Keep Vein Open Sodium Chloride 2.5 ml 03/07/21 20:43 Sodium Chloride 0.9% 2.5 Ml Syringe FLUSH ASDIRECTED PRN Keep Vein Open Discontinued Medications Generic Name Dose Route Start Last Admin Trade Name Freq PRN Reason Stop Dose Admin Albuterol 10 mg 03/08/21 01:14 03/08/21 03:17 Albuterol 0.5% 5 Mg/Ml Neb Soln 20 Ml Bottle NEB 03/08/21 01:15 10 mg ONETIME ONE Administration Calcium Gluconate 1 gm 03/07/21 23:34 03/08/21 00:09 Calcium Gluconate 10% 1 Gm/10 Ml Sdv IV 03/07/21 23:35 1 gm ONETIME STA Administration Sodium Chloride 1,000 mls @ 999 mls/hr 03/07/21 23:45 03/08/21 00:07 Normal Saline IV 03/08/21 00:45 999 mls/hr .BOLUS ONE Administration Lidocaine HCl 5 ml 03/07/21 22:37 03/07/21 23:28 Lidocaine 1% 5 Ml Sdv INJECT 03/07/21 22:38 Not Given ONETIME ONE Lorazepam 1 mg 03/07/21 20:56 03/07/21 21:12 Lorazepam 2 Mg/Ml Sdv IVPUSH 03/07/21 20:57 1 mg ONETIME ONE Administration Octyl Cyanoacrylate 1 applic 03/07/21 23:00 03/07/21 23:27 Octyl 2-Cyanoacrylate 1 Tube TOP 03/07/21 23:01 1 applic ONETIME ONE Administration Sodium Polystyrene Sulfonate 45 gm 03/08/21 01:19 03/08/21 03:23 Sodium Polystyrene Sulfonate 15 Gm/60 Ml Susp 60 Ml Bot PO 03/08/21 01:20 45 gm NOW ONE Administration Departure - Departure Condition: Good - Discharge Information *PRESCRIPTION DRUG MONITORING PROGRAM REVIEWED*: Not Applicable *COPY OF PRESCRIPTION DRUG MONITORING REPORT IN PATIENT DAV: Not Applicable Sepsis Event Note (ED) - Evaluation Sepsis Screening Result: No Definite Risk - Focused Exam Vital Signs: Vital Signs Pulse Resp BP Pulse Ox 03/08/21 00:11 81 22 H 199/140 H 95 - My Orders Last 24 Hours: My Active Orders 03/07/21 20:32 EKG Documentation Completion [RC] STAT 03/07/21 20:43 Sodium Chloride 0.9% [Saline Flush] 10 ml FLUSH ASDIRECTED PRN Sodium Chloride 0.9% [Saline Flush] 2.5 ml FLUSH ASDIRECTED PRN Saline Lock Insert [OM.PC] Stat - Assessment/Plan Last 24 Hours: My Active Orders 03/07/21 20:32 EKG Documentation Completion [RC] STAT 03/07/21 20:43 Sodium Chloride 0.9% [Saline Flush] 10 ml FLUSH ASDIRECTED PRN Sodium Chloride 0.9% [Saline Flush] 2.5 ml FLUSH ASDIRECTED PRN Saline Lock Insert [OM.PC] Stat
[2021-03-07] MEDS ORDERED: LORazepam 2 MG/ML SDV IVPUSH ONE (20:56)
[2021-03-07 21:06] LABS: BLOOD UREA NITROGEN,BUN 24 mg/dL (7.0-18.0); CARBON DIOXIDE,CO2 23.4 mmol/L (21.0-32.0); CHLORIDE,CL 103 mmol/L (98-107); GLUCOSE RANDOM 212 mg/dL (74-106); POTASSIUM,K 5.9 mmol/L (3.5-5.1); SODIUM,NA 134 mmol/L (136-148)
[2021-03-07] MEDS ORDERED: Octyl 2-Cyanoacrylate 1 Tube TOP ONE (23:00)
--- NOTE | 2021-03-07 23:23 | CT ---
For Patients: As a result of the Century Cures Act, medical imaging exams and procedure reports are released immediately into your electronic medical record. You may view this report before your referring provider. If you have questions, please contact your health care provider. INDICATION: Fall. CT HEAD WITHOUT CONTRAST TECHNIQUE: Multiple axial CT images were performed through the head without intravenous contrast administration. COMPARISON: 11/01/[address] FINDINGS: No acute intracranial hemorrhage is identified. There is no mass effect or midline shift. There is mild diffuse age-related brain atrophy, as before. Ventricular size and configuration are within normal limits for the patient`s age. Very small chronic bilateral basal ganglia lacunar infarcts are noted. A 2.0 x 1.5 x 1.6 centimeter extra-axial isodense mass is seen in the posterior left parasellar region on image 13 of series 201 and image 48 of series 205, possibly representing a meningioma. This mass produces no apparent displacement or compression of adjacent structures. There is mild patchy hypodensity in the periventricular white matter, a nonspecific finding which most likely reflects chronic small vessel ischemic change. Intracranial atherosclerotic vascular calcifications are noted. Osseous structures are within normal limits and no fractures are seen. A right ocular prosthesis is noted. Included portions of the paranasal sinuses and mastoid air cells are normally aerated. IMPRESSION: 1. No acute intracranial abnormality identified. 2. Mild age-related brain atrophy, white matter hypodensity consistent with chronic small vessel ischemic change, small chronic bilateral basal ganglia lacunar infarcts, and intracranial atherosclerotic vascular calcifications. 3. 2.0 x 1.5 x 1.6 centimeter extra-axial mass in the posterior left parasellar region, most likely representing a meningioma. Further characterization with outpatient head MRI with contrast is recommended. TAD SCHAEFER MD [employer] [employer] Dictated by Rodrigo Schaefer MD @ 03/07/2021 11:18:27 PM Please note that all CT scans at this facility use dose modulation, iterative reconstruction, and/or weight-based dosing when appropriate to reduce radiation dose to as low as reasonably achievable. Dictated by: Rodrigo Schaefer MD @ 03/07/2021 23:21:21 (Electronically Signed)
--- NOTE | 2021-03-07 23:29 | CT ---
For Patients: As a result of the Cures Act, medical imaging exams and procedure reports are released immediately into your electronic medical record. You may view this report before your referring provider. If you have questions, please contact your health care provider. INDICATION: Fall. CT CERVICAL SPINE WITHOUT CONTRAST TECHNIQUE: Multidetector axial CT imaging was performed through the cervical spine, without contrast. Sagittal and coronal reconstructions were generated. FINDINGS: No acute fractures are identified. Multilevel degenerative change is noted in the cervical spine, including diffuse mild degenerative disc disease and scattered facet joint degenerative changes. Osseous alignment is within normal limits and no subluxation is seen. There is a 1.9 x 1.2 x 1.2 centimeter sclerotic lesion involving the left pedicle and left lamina of C6. Prevertebral soft tissues are unremarkable. Included portions of the airway and lung apices are within normal limits. IMPRESSION: 1. No fracture, subluxation, or other acute traumatic finding identified. 2. Cervical spondylosis, as noted above. 3. Indeterminate 1.9 centimeter sclerotic lesion involving the left C6 pedicle and lamina. Sclerotic metastatic disease is not excluded. Consider bone scan for further evaluation. TAD SCHAEFER MD [facility] Dictated by Rodrigo Schaefer MD @ 03/07/2021 11:25:09 PM Please note that all CT scans at this facility use dose modulation, iterative reconstruction, and/or weight-based dosing when appropriate to reduce radiation dose to as low as reasonably achievable. Dictated by: Rodrigo Schaefer MD @ 03/07/2021 23:28:53 (Electronically Signed)
[2021-03-07] MEDS ORDERED: Calcium Gluconate 10% 1 GM/10 ML SDV IV STA (23:34)
[2021-03-07] MEDS ORDERED: Sodium Chloride 0.9% 1,000 ML IV ONE (23:45)
[2021-03-08] MEDS ORDERED: Albuterol 0.5% 5 MG/ML Neb Soln 20 ML Bottle NEB ONE (01:14)
[2021-03-08] MEDS ORDERED: Sodium Polystyrene Sulfonate 15 GM/60 ML Susp 60 ML Bot PO ONE (01:19)
[2021-03-08] MEDS ORDERED: Glucagon,Human Recombinant 1 MG Vial IM PRN (02:58)
[2021-03-08] MEDS ORDERED: 50% Dextrose in Water 50 ML Syringe IVPUSH PRN (02:58)
[2021-03-08 06:43] LABS: BLOOD UREA NITROGEN,BUN 20 mg/dL (7.0-18.0); CARBON DIOXIDE,CO2 21.8 mmol/L (21.0-32.0); CHLORIDE,CL 108 mmol/L (98-107); GLUCOSE RANDOM 159 mg/dL (74-106); POTASSIUM,K 4.8 mmol/L (3.5-5.1); SODIUM,NA 139 mmol/L (136-148)
--- NOTE | 2021-03-08 07:28 | PCM.EKG ---
#1 Interpretation EKG Date: 03/07/21 Time: 20:44 Rhythm: NSR Rate (Beats/Min): 79 [place]: LAD-Left [place] Deviation P-Wave: Present QRS: LBBB ST-T: Normal QT: Prolonged Comparison: No Change (11/10/20) EKG Interpretation Comments: Sinus Rhythm with LBBB
[2021-03-08] MEDS: Insulin Aspart 100 Units/ML 3 ML Pen SUBCUT SCH ×2 (07:35→11:59)
--- NOTE | 2021-03-08 11:24 | PCM.HP.2 ---
H&P History of Present Illness - General Date of Service: 03/08/21 Admit Problem/Dx: Admission Diagnosis/Problem Admission Diagnosis/Problem Hyperkalemia - History of Present Illness Initial Comments - Free Text/Narative: This 85-year-old male [place] resident who presented with to the ED after an unwitnessed fall. He has a history of HTN, diabetes type 2, CKD, blindness, deafness,cognitive disorder, and urinary obstruction with chronic Childs. He was found to have a head laceration which ED physicain repaired with sutures. 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 The radiologist recommended brain MRI and bone scan respectively. Patient was also found to have a potassium of 5.9. Creatinine was 1.3. Patient was given a liter of fluid and Kayexalate. He was monitored overnight and this morning his potassium is 4.8. Left Middle Gums Pain Score (Numeric/FACES): 1 - Related Data Allergies/Adverse Reactions: Allergies Allergy/AdvReac Type Severity Reaction Status Date / Time No Known Allergies Allergy Verified 03/08/21 06:50 Home Medications: Home Meds Carbamide Peroxide [Debrox] 15 ml OT ASDIRECTED 10/30/20 [History] Exenatide Microspheres [Bydureon Pen] 2 mg SQ WEEKLY 10/30/20 [History] Glimepiride 2 mg PO DAILY 10/30/20 [History] Multivitamin [Daily-Deb] 1 each PO DAILY 10/30/20 [History] Psyllium Husk [Metamucil] 1 tbsp PO DAILY 10/30/20 [History] Tamsulosin [Flomax] 0.4 mg PO DAILY 10/30/20 [History] Travoprost [Travatan Z] 1 drop EYELF BEDTIME 10/30/20 [History] lisinopriL [Lisinopril] 2.5 mg PO DAILY 10/30/20 [History] metFORMIN [Glucophage XR] 500 mg PO BIDMEALS 10/30/20 [History] sitaGLIPtin Phosphate [Januvia] 100 mg PO DAILY 10/30/20 [History] Brimonidine [Alphagan 0.2% Ophth Soln] 1 drop EYELF TID 11/21/20 [History] Amiodarone [Cordarone] 200 mg PO BID tablet 11/27/20 [Rx] Docusate Sodium [Colace] 100 mg PO BID PRN cap 11/27/20 [Rx] Insulin Detemir [Levemir] 10 unit SUBCUT DAILY pen 11/27/20 [Rx] Acetaminophen [Tylenol] 325 mg PO Q8HR PRN 11/30/20 [History] Aspirin 325 mg PO DAILY 11/30/20 [History] Chlorhexidine Gluconate [Chlorhexidine Gluconate 0.12% Rinse] 10 ml MM DAILY 11/30/20 [History] Omeprazole 20 mg PO DAILY 11/30/20 [History] bisacodyL [Dulcolax] 10 mg RC DAILY 11/30/20 [History] Insulin Aspart [NovoLOG] 0 unit SUBCUT TIDAC #1 pen 12/03/20 [Rx] Camphor/Menthol [Sarna Lotion] 1 applic TOP BID PRN 03/07/21 [History] Past Medical History HEENT History: Reports: Cataract, Glaucoma, Hard of Hearing, Other (See Below) Other HEENT History: congential cataracts Cardiovascular History: Reports: None Respiratory History: Reports: None Gastrointestinal History: Reports: Chronic Constipation, Gastritis, Other (See Below) Other Gastrointestinal History: Duodentis Genitourinary History: Reports: Retention, Urinary, UTI, Recurrent Musculoskeletal History: Reports: Other (See Below) Other Musculoskeletal History: atypical stereo movement disorder Neurological History: Reports: Other (See Below) Other Neuro History: developmentally delayed Psychiatric History: Reports: Developmental Delay Endocrine/Metabolic History: Reports: Diabetes, Type II Hematologic History: Reports: None Immunologic History: Reports: None Oncologic (Cancer) History: Reports: None Dermatologic History: Reports: None - Infectious Disease History Infectious Disease History: Reports: None - Past Surgical History Head Surgeries/Procedures: Reports: None HEENT Surgical History: Reports: Cataract Surgery, Visual Other HEENT Surgeries/Procedures: pt is deaf and blind Musculoskeletal Surgical History: Reports: Other (See Below) Other Musculoskeletal Surgeries/Procedures:: ORIF sx in Oct 2020 Social & Family History - Family History Family Medical History: No Pertinent Family History - Tobacco Use Tobacco Use Status *Q: Current Status Unknown - Caffeine Use Caffeine Use: Reports: None Caffeine Use Comment: unable to obtain information as pt is non-verbal - Recreational Drug Use Recreational Drug Use: No H&P Review of Systems - Review of Systems: Review Of Systems: Unable To Obtain Reason Not Obtained: nonverbal Exam - Exam Exam: See Below - Vital Signs Vital Signs: Last Vital Signs Temp 36.7 C 03/08/21 08:00 Pulse 85 03/08/21 08:00 Resp 16 03/08/21 08:00 BP 131/62 03/08/21 08:00 Pulse Ox 96 03/08/21 08:00 Weight: 53.116 kg - Exam General: No: Mild Distress HEENT: Mucosa Moist & [place] Neck: Supple Lungs: Clear to Auscultation, Normal Respiratory Effort Cardiovascular: Regular Rate, Regular Rhythm GI/Abdominal Exam: Normal Bowel Sounds, Soft, Non-Tender Extremities: Non-Tender, No Pedal Edema, Other (no tendernes to shoulders, elbows, hips, knees, or feet.) Skin: Warm, Dry, Intact Neurological: No: Focal Deficit - Patient Data Lab Results Last 24 hrs: Laboratory Results - last 24 hr 03/07/21 03/07/21 03/07/21 Range/Units 20:40 20:40 21:00 WBC 5.90 (4.0-11.0) K/uL RBC 4.34 L (4.50-5.90) M/uL Hgb 12.2 L (13.0-17.0) g/dL Hct 37.1 L (38.0-50.0) % MCV 85.5 (80.0-98.0) fL MCH 28.1 (27.0-32.0) pg MCHC 32.9 (31.0-37.0) g/dL RDW Std Deviation 51.2 (28.0-62.0) fl RDW Coeff of Kash 16 H (11.0-15.0) % Plt Count 170 (150-400) K/uL MPV 9.60 (7.40-12.00) fL Neut % (Auto) 71.5 (48.0-80.0) % Lymph % (Auto) 15.3 L (16.0-40.0) % [place] % (Auto) 12.5 (0.0-15.0) % Eos % (Auto) 0.5 (0.0-7.0) % Baso % (Auto) 0.2 (0.0-1.5) % Neut # (Auto) 4.2 (1.4-5.7) K/uL Lymph # (Auto) 0.9 (0.6-2.4) K/uL [place] # (Auto) 0.7 (0.0-0.8) K/uL Eos # (Auto) 0.0 (0.0-0.7) K/uL Baso # (Auto) 0.0 (0.0-0.1) K/uL Nucleated RBC % 0.0 /100WBC Nucleated RBCs # 0 K/uL INR 1.00 Sodium 134 L (136-148) mmol/L Potassium 5.9 H (3.5-5.1) mmol/L Chloride 103 (98-107) mmol/L Carbon Dioxide 23.4 (21.0-32.0) mmol/L BUN 24 H (7.0-18.0) mg/dL Creatinine 1.3 (0.8-1.3) mg/dL Est Cr Clr Drug Dosing TNP Estimated GFR (MDRD) 52.5 ml/min Glucose 212 H (74-106) mg/dL POC Glucose (70-99) mg/dL Calcium 8.3 L (8.5-10.1) mg/dL Total Bilirubin 0.2 (0.2-1.0) mg/dL AST 23 (15-37) IU/L ALT 43 (14-63) IU/L Alkaline Phosphatase 82 (46-116) U/L Total Protein 7.0 (6.4-8.2) g/dL Albumin 2.4 L (3.4-5.0) g/dL Globulin 4.6 H (2.6-4.0) g/dL Albumin/Globulin Ratio 0.5 L (0.9-1.6) 03/07/21 03/08/21 03/08/21 Range/Units 23:40 06:15 06:32 WBC (4.0-11.0) K/uL RBC (4.50-5.90) M/uL Hgb (13.0-17.0) g/dL Hct (38.0-50.0) % MCV (80.0-98.0) fL MCH (27.0-32.0) pg MCHC (31.0-37.0) g/dL RDW Std Deviation (28.0-62.0) fl RDW Coeff of Kash (11.0-15.0) % Plt Count (150-400) K/uL MPV (7.40-12.00) fL Neut % (Auto) (48.0-80.0) % Lymph % (Auto) (16.0-40.0) % [place] % (Auto) (0.0-15.0) % Eos % (Auto) (0.0-7.0) % Baso % (Auto) (0.0-1.5) % Neut # (Auto) (1.4-5.7) K/uL Lymph # (Auto) (0.6-2.4) K/uL [place] # (Auto) (0.0-0.8) K/uL Eos # (Auto) (0.0-0.7) K/uL Baso # (Auto) (0.0-0.1) K/uL Nucleated RBC % /100WBC Nucleated RBCs # K/uL INR Sodium 139 (136-148) mmol/L Potassium 5.5 H 4.8 (3.5-5.1) mmol/L Chloride 108 H (98-107) mmol/L Carbon Dioxide 21.8 (21.0-32.0) mmol/L BUN 20 H (7.0-18.0) mg/dL Creatinine 1.1 (0.8-1.3) mg/dL Est Cr Clr Drug Dosing TNP Estimated GFR (MDRD) > 60.0 ml/min Glucose 159 H (74-106) mg/dL POC Glucose 147 H (70-99) mg/dL Calcium 8.1 L (8.5-10.1) mg/dL Total Bilirubin (0.2-1.0) mg/dL AST (15-37) IU/L ALT (14-63) IU/L Alkaline Phosphatase (46-116) U/L Total Protein (6.4-8.2) g/dL Albumin (3.4-5.0) g/dL Globulin (2.6-4.0) g/dL Albumin/Globulin Ratio (0.9-1.6) Result Diagrams: 03/07/21 20:40 03/08/21 06:15 Sepsis Event Note - Evaluation Sepsis Screening Result: No Definite Risk - Focused Exam Vital Signs: Vital Signs Temp Pulse Resp BP BP Pulse Ox 03/08/21 08:00 36.7 C 85 16 131/62 96 03/08/21 02:15 36.2 C 82 18 158/57 H 94 L 03/08/21 00:11 81 22 H 199/140 H 95 Problem List Initiated/Reviewed/Updated: Yes Orders Last 24hrs: Active Orders 24 hr Category Date Time Status Admission Status [Patient Status] [ADT] Stat ADT 03/08/21 01:18 Active Blood Glucose Check, Bedside [RC] TIDMEALS Care 03/08/21 07:30 Active EKG Documentation Completion [RC] STAT Care 03/07/21 20:32 Active RT Aerosol Therapy [RC] ASDIRECTED Care 03/08/21 01:14 Active Ready for Discharge [] PER UNIT ROUTINE Care 03/08/21 11:08 Active Telemetry Monitoring [Cardiac Monitoring] [RC] . Care 03/08/21 01:39 Active DIRECTED [employer] Diet [DIET] Diet 03/08/21 Breakfast Active Dextrose 50% in Water Med 03/08/21 02:58 Active 50 ml IVPUSH ASDIRECTED PRN Glucagon,Human Recombinant [GlucaGen] Med 03/08/21 02:58 Active 1 mg IM ASDIRECTED PRN Insulin Aspart [NovoLOG] Med 03/08/21 07:30 Active See Protocol SUBCUT TIDAC Sodium Chloride 0.9% [Saline Flush] Med 03/07/21 20:43 Active 10 ml FLUSH ASDIRECTED PRN Sodium Chloride 0.9% [Saline Flush] Med 03/07/21 20:43 Active 2.5 ml FLUSH ASDIRECTED PRN Saline Lock Insert [OM.PC] Stat Oth 03/07/21 20:43 Ordered Medication Orders Dextrose/Water (50% Dextrose In Water 50 Ml Syringe) 50 ml IVPUSH ASDIRECTED PRN PRN Reason: Hypoglycemia Glucagon (Glucagon,Human Recombinant 1 Mg Vial) 1 mg IM ASDIRECTED PRN PRN Reason: Hypoglycemia Insulin Aspart (Insulin Aspart 100 Units/Ml 3 Ml Pen) 0 unit SUBCUT TIDAC [facility]; Protocol Last Admin: 03/08/21 07:35 Dose: Not Given Documented by: ROBINSON Sodium Chloride (Sodium Chloride 0.9% 10 Ml Syringe) 10 ml FLUSH ASDIRECTED PRN PRN Reason: Keep Vein Open Sodium Chloride (Sodium Chloride 0.9% 2.5 Ml Syringe) 2.5 ml FLUSH ASDIRECTED PRN PRN Reason: Keep Vein Open Assessment/Plan Comment:: 85 yo male admitted for hyperkalemia following a fall with head laceration. Repeat potassium is now 4.8. Patient is to be transferred back to [place]. I spoke with Helen Warren regarding recheck the BMP on 03/10/21 I also spoke with her regarding incidental CT scan findings.
[2021-03-08 11:49] VITALS: BP 148/64; PULSE 89
== END 2021-03-08 13:17 ==
LOC: MW.ED 20:30 → MW.MS 03-08 01:35
PROVIDERS: ADMIT Internal Medicine; ATTEND Internal Medicine
DX: E87.5 Hyperkalemia (principal); S01.91XA Laceration without foreign body of unspecified part of head, initial encounter; I12.9 Hypertensive chronic kidney disease with stage 1 through stage 4 chronic kidney disease, or unspecified chronic kidney disease; N18.9 Chronic kidney disease, unspecified; E11.22 Type 2 diabetes mellitus with diabetic chronic kidney disease; N13.9 Obstructive and reflux uropathy, unspecified; G31.84 Mild cognitive impairment of uncertain or unknown etiology; Z20.822 Contact with and (suspected) exposure to COVID-19; Z79.82 Long term (current) use of aspirin; Z79.84 Long term (current) use of oral hypoglycemic drugs; W19.XXXA Unspecified fall, initial encounter
CPT/HCPCS: 12011; 36415; 70450; 72125; 80048; 80053; 82947; 84132; 85025; 85610; 93005; 96374; 96375; 99285; A9270; G0378; J0610; J1815; J2060; J7030; U0002; 93010; 99234; 99284

== ENCOUNTER 2021-04-24 18:10 | Observation (INO) | payer MEDICARE, MEDICAID ==
[2021-04-24] MEDS ORDERED: Sodium Chloride 0.9% 2.5 ML Syringe FLUSH PRN (18:12)
[2021-04-24] MEDS ORDERED: Sodium Chloride 0.9% 10 ML Syringe FLUSH PRN (18:12)
[2021-04-24] MEDS ORDERED: Lactated Ringers 1,000 ML IV ONE ×2 (18:13→19:55)
[2021-04-24] MEDS ORDERED: VANCOmycin 1.5 GM/300 ML 1.5 GM in Premix Bag 1 BAG IV ONE ×2 (18:13→18:24)
[2021-04-24] MEDS ORDERED: Piperacillin/Tazobactam 3.375 GM in Sodium Chloride 0.9% 50 ML IV ONE (18:13)
--- NOTE | 2021-04-24 18:22 | EDM.PDOC ---
<Luisito Ojeda - Last Filed: 04/24/21 18:15> ED HPI GENERAL MEDICAL PROBLEM - General Stated Complaint: ALTERED MENTAL STATUS Time Seen by Provider: 04/24/21 18:12 Source of Information: Reports: Patient - History of Present Illness INITIAL COMMENTS - FREE TEXT/NARRATIVE: Patient sent in from care home for altered mental status hypoxia and hypotension. No other medical information available secondary to patient's clinical condition. 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 According to the staff the blood pressure at the facility was 60 systolic at the lowest and the paramedics state 72 systolic in route. The paramedics once he started the patient on his oxygen he has been in the high 90s whereas on the [facility] paperwork there is documentation of an O2 sat of 88%. - Related Data Allergies Allergy/AdvReac Type Severity Reaction Status Date / Time No Known Allergies Allergy Verified 03/08/21 06:50 Home Meds: Home Meds Carbamide Peroxide [Debrox] 15 ml OT ASDIRECTED 10/30/20 [History] Exenatide Microspheres [Bydureon Pen] 2 mg SQ WEEKLY 10/30/20 [History] Glimepiride 2 mg PO DAILY 10/30/20 [History] Multivitamin with Folic Acid [Daily-Deb Tablet] 1 each PO DAILY 10/30/20 [History] Psyllium Husk [Metamucil] 1 tbsp PO DAILY 10/30/20 [History] Tamsulosin [Flomax] 0.4 mg PO DAILY 10/30/20 [History] Travoprost [Travatan Z] 1 drop EYELF BEDTIME 10/30/20 [History] lisinopriL [Lisinopril] 2.5 mg PO DAILY 10/30/20 [History] metFORMIN [Glucophage XR] 500 mg PO BIDMEALS 10/30/20 [History] sitaGLIPtin Phosphate [Januvia] 100 mg PO DAILY 10/30/20 [History] Brimonidine [Alphagan 0.2% Ophth Soln] 1 drop EYELF TID 11/21/20 [History] Amiodarone [Cordarone] 200 mg PO BID tablet 11/27/20 [Rx] Docusate Sodium [Colace] 100 mg PO BID PRN cap 11/27/20 [Rx] Insulin Detemir [Levemir] 10 unit SUBCUT DAILY pen 11/27/20 [Rx] Acetaminophen [Tylenol] 325 mg PO Q8HR PRN 11/30/20 [History] Aspirin 325 mg PO DAILY 11/30/20 [History] Chlorhexidine Gluconate [Chlorhexidine Gluconate 0.12% Rinse] 10 ml MM DAILY 11/30/20 [History] Omeprazole 20 mg PO DAILY 11/30/20 [History] bisacodyL [Dulcolax] 10 mg RC DAILY 11/30/20 [History] Insulin Aspart [NovoLOG] 0 unit SUBCUT TIDAC #1 pen 12/03/20 [Rx] Camphor/Menthol [Sarna Lotion] 1 applic TOP BID PRN 03/07/21 [History] Past Medical History HEENT History: Reports: Cataract, Glaucoma, Hard of Hearing, Other (See Below) Other HEENT History: congential cataracts Cardiovascular History: Reports: None Respiratory History: Reports: None Gastrointestinal History: Reports: Chronic Constipation, Gastritis, Other (See Below) Other Gastrointestinal History: Duodentis Genitourinary History: Reports: Retention, Urinary, UTI, Recurrent Musculoskeletal History: Reports: Other (See Below) Other Musculoskeletal History: atypical stereo movement disorder Neurological History: Reports: Other (See Below) Other Neuro History: developmentally delayed Psychiatric History: Reports: Developmental Delay Endocrine/Metabolic History: Reports: Diabetes, Type II Hematologic History: Reports: None Immunologic History: Reports: None Oncologic (Cancer) History: Reports: None Dermatologic History: Reports: None - Infectious Disease History Infectious Disease History: Reports: None - Past Surgical History Head Surgeries/Procedures: Reports: None HEENT Surgical History: Reports: Cataract Surgery, Visual Other HEENT Surgeries/Procedures: pt is deaf and blind Musculoskeletal Surgical History: Reports: Other (See Below) Other Musculoskeletal Surgeries/Procedures:: ORIF sx in Oct 2020 Social & Family History - Family History Family Medical History: No Pertinent Family History - Caffeine Use Caffeine Use: Reports: None Caffeine Use Comment: unable to obtain information as pt is non-verbal ED ROS GENERAL - Review of Systems Review Of Systems: Unable To Obtain Reason Not Obtained: clinical condition. ED EXAM, GENERAL - Physical Exam Exam: See Below Free Text/Narrative:: CONSTITUTIONAL: toxic in appearance SKIN: Warm, dry, and intact without rash HENT: Normocephalic, atraumatic, PULMONARY: clear to ausculation bilaterally. No rales, rhonchi, wheezing CARDIOVASCULAR: regular rate, No murmur, rubs, or gallops GASTROINTESTINAL: soft, nondistended, nontender NEUROLOGIC: Patient holding his arms forcefully in a decorticate manner with some intermittent shaking as if he is cold. These are able to be stopped. Patient does make some sounds to mild noxious stimuli but otherwise no additional overt purposeful movement or response MUSCULOSKELETAL: no gross deformities, atraumatic PSYCHIATRIC: normal mood and affect Course - Vital Signs Text/Narrative:: Differential diagnosis: Dehydration, sepsis, intracranial hemorrhage, PE, bleeding, cardiogenic shock, other Patient presents as outlined above. Patient in the middle of work-up management treatment and evaluation. ALY Arias 7pm Critical care: I spent 45 minutes of critical care time with this patient not including reportable procedures. There was an acute impairment of an organ system with a high probability of imminent or life threatening deterioration in the patient`s condition. Interventions and changes required in the course of therapy are located in the chart. Time involved was spent in direct patient care, reviewing ancillary data, old records, consulting with decision makers, EMS, other doctors, giving orders and documenting. Departure - Departure Disposition: 20 Clinical Impression: Sepsis, Sepsis associated hypotension, Sepsis secondary to UTI, Non-STEMI (non- ST elevated myocardial infarction), Acute renal failure, Sepsis with acute liver failure and septic shock - Discharge Information <Brandon Arias - Last Filed: 04/25/21 00:37> ED HPI GENERAL MEDICAL PROBLEM - History of Present Illness INITIAL COMMENTS - FREE TEXT/NARRATIVE: This is an 85-year-old gentleman who comes from [facility] secondary to altered mentation, hypotension, hypoxia. Patient had a pulse ox of 88% at [facility] with a systolic blood pressure noted at 60. In the ED here the patient had labs drawn and chest x-ray/CT of the head obtained. Patient's labs were significant for a white count of 18,000 with a left shift of 62 segs and 10 bands. Patient also had a metabolic acidosis with a pH of 7.24 and a HCO3 of 13 on a venous blood gas. Patient's labs also revealed an anion gap acidosis with an anion gap of 21. Patient's BUN and creatinine were elevated at 54 and 3.3. Patient lactic acid of 11. Patient looks like he had 6 hepatic shock with a ALT and AST of 233/432. Patient had increased cardiac stress with a non-STEMI with a troponin of 0.399. Patient's urine appeared infected with 3+ bacteria and positive nitrites and large leukocyte esterase. Patient's Covid status is negative. Patient's chest x-ray was clear. Patient is CT of his head which was unremarkable for any acute pathology. During the patient's ER evaluation, his blood pressure has remained markedly low. Patient was given an initial 30 cc/kg of LR without any significant improvement in his blood pressure. Patient has been given his fourth liter of LR. Patient is currently on nasal cannula O2 with a pulse ox of 94%. Patient has been given vancomycin as well as Zosyn in the ED for broad-spectrum antibiotics. I have discussed the case with the power of high risk case manager, Tabitha Villasenor, who has been affirmed that the patient is a DNR. She has requested that the patient remain DNR with no intubation, no cardiac pressors or central line placement, no hemodialysis, no cardiac catheterization. She is requesting only IV fluids antibiotics at this time and to maintain comfort care with the priority. I have discussed the case with Dr. Magaña who agrees to assist with observation level care for this patient. Critical Care: The high probability of sudden, clinically significant deterioration in the patient's condition required the highest level of my preparedness to intervene urgently. The services I provided to this patient were to treat and/or prevent clinically significant deterioration. Services included the following: chart data review, reviewing nursing notes and/or old charts, documentation time, pci security consultant collaboration regarding findings and treatment options, medication orders and management, direct patient care, vital sign assessments and ordering, interpreting and reviewing diagnostic studies/lab tests. Aggregate critical care time includes only time during which I was engaged inwork directly related to the patient's care, as described above, whether at the bedside or elsewhere in the Emergency Department. It did not include time spent performing other reported procedures or the services of residents, students, nurses or physician assistants. Critical Care Time: 35 minutes Called to see patient secondary to deterioration in condition. Upon arrival to the patient's room, patient was having agonal respirations and was pulseless. Patient's monitor revealed a bradycardic PEA of 10 bpm. Patient was pronounced at 00 13. I have notified the patient's POA, Tabitha Villasenor and she is aware of the situation and expressed relief that he is currently at peace. I have also informed Dr. Callahan via text regarding his condition. Bilateral Chest Pain Score (Numeric/FACES): 5 ED ROS GENERAL - Review of Systems Review Of Systems: Unable To Obtain Course - Vital Signs Last Recorded V/S: Last Vital Signs Temp 98 F 04/24/21 22:20 Pulse 75 04/24/21 23:00 Resp 26 H 04/24/21 23:00 BP 72/37 L 04/24/21 23:00 Pulse Ox 97 04/24/21 23:00 - Orders/Labs/Meds Orders: Active Orders 24 hr Category Date Time Status Cardiac Monitoring [RC] . DIRECTED Care 04/24/21 18:12 Active EKG Documentation Completion [RC] STAT Care 04/24/21 18:12 Active Insert Childs Catheter [Insert Urinary Catheter] [OM.PC] Care 04/24/21 22:15 Ordered Q24H Pulse Oximetry [RC] ASDIRECTED Care 04/24/21 18:12 Active Urinary Catheter Assessment [RC] ASDIRECTED Care 04/24/21 22:08 Active CULTURE BLOOD [BC] Stat Lab 04/24/21 18:45 Received CULTURE BLOOD [BC] Stat Lab 04/24/21 19:00 Results Sodium Chloride 0.9% [Saline Flush] Med 04/24/21 18:12 Active 10 ml FLUSH ASDIRECTED PRN Sodium Chloride 0.9% [Saline Flush] Med 04/24/21 18:12 Active 2.5 ml FLUSH ASDIRECTED PRN Blood Culture x2 Reflex Set [OM.PC] Stat Oth 04/24/21 18:13 Ordered Saline Lock Insert [OM.PC] Stat Oth 04/24/21 18:12 Ordered Medication Orders Lactated Ringer's (Ringers, Lactated) 1,000 mls @ 125 mls/hr IV ASDIRECTED TALI Lorazepam (Lorazepam 2 Mg/Ml Sdv) 2 mg IVPUSH Q4H PRN PRN Reason: Anxiety Morphine Sulfate (Morphine 2 Mg/Ml Syringe) 2 mg IVPUSH Q2H PRN PRN Reason: Pain (severe 7-10) Stop: 04/25/21 23:52 Ondansetron HCl (Ondansetron 4 Mg/2 Ml Sdv) 4 mg IVPUSH Q4H PRN PRN Reason: Nausea/Vomiting Scopolamine (Scopolamine 1.5 Mg Transdermal Patch) 1.5 mg TRDERM Q72H ONE Stop: 04/25/21 09:01 Sodium Chloride (Sodium Chloride 0.9% 10 Ml Syringe) 10 ml FLUSH ASDIRECTED PRN PRN Reason: Keep Vein Open Last Admin: 04/24/21 18:20 Dose: 10 ml Documented by: SYLWIA Sodium Chloride (Sodium Chloride 0.9% 2.5 Ml Syringe) 2.5 ml FLUSH ASDIRECTED PRN PRN Reason: Keep Vein Open Last Admin: 04/24/21 18:20 Dose: 2.5 ml Documented by: SYLWIA Labs: Laboratory Tests 04/24/21 04/24/21 04/24/21 Range/Units 18:55 18:55 18:55 WBC 17.94 H (4.0-11.0) K/uL RBC 4.33 L (4.50-5.90) M/uL Hgb 12.4 L (13.0-17.0) g/dL Hct 37.4 L (38.0-50.0) % MCV 86.4 (80.0-98.0) fL MCH 28.6 (27.0-32.0) pg MCHC 33.2 (31.0-37.0) g/dL RDW Std Deviation 57.7 (28.0-62.0) fl RDW Coeff of Kash 18 H (11.0-15.0) % Plt Count 108 MPV 10.40 (7.40-12.00) fL Add Manual Diff YES Neutrophils % (Manual) 62 (48.0-80.0) % Band Neutrophils % 10 % Lymphocytes % (Manual) 12 L (16.0-40.0) % Monocytes % (Manual) 16 H (0.0-15.0) % Nucleated RBC % 0.5 /100WBC Absolute Seg Neuts 11.1 H (1.4-5.7) Band Neutrophils # 1.8 Lymphocytes # (Manual) 2.2 (0.6-2.4) Monocytes # (Manual) 2.9 H (0.0-0.8) Nucleated RBCs # 0 K/uL INR 1.52 APTT (18.6-31.3) SEC VBG pH 7.24 L (7.31-7.41) VBG pCO2 30 L (41-51) mmHG VBG pO2 47 mmHG VBG HCO3 13 L (23-28) mEq/L VBG Total CO2 14 L (24-29) mmol/L VBG Base Excess -13.0 L (-2.0-3.0) Sodium (136-148) mmol/L Potassium (3.5-5.1) mmol/L Chloride (98-107) mmol/L Carbon Dioxide (21.0-32.0) mmol/L BUN (7.0-18.0) mg/dL Creatinine (0.8-1.3) mg/dL Est Cr Clr Drug Dosing mL/min Estimated GFR (MDRD) ml/min Glucose (74-106) mg/dL Lactic Acid (0.4-2.0) mmol/L Calcium (8.5-10.1) mg/dL Total Bilirubin (0.2-1.0) mg/dL AST (15-37) IU/L ALT (14-63) IU/L Alkaline Phosphatase (46-116) U/L Creatine Kinase (26-308) U/L Troponin I (0.000-0.056) ng/mL Total Protein (6.4-8.2) g/dL Albumin (3.4-5.0) g/dL Globulin (2.6-4.0) g/dL Albumin/Globulin Ratio (0.9-1.6) Lipase (73-393) U/L Urine Color Urine Appearance Urine pH (5.0-8.0) Ur Specific [place] (1.001-1.035) Urine Protein (NEGATIVE) mg/dL Urine Glucose (UA) (NEGATIVE) mg/dL Urine Ketones (NEGATIVE) mg/dL Urine Occult Blood (NEGATIVE) Urine Nitrite (NEGATIVE) Urine Bilirubin (NEGATIVE) Urine Urobilinogen (<2.0) EU/dL Ur Leukocyte Esterase (NEGATIVE) Urine RBC (0-2/HPF) Urine WBC (0-5/HPF) Ur Epithelial Cells (NONE-FEW) Urine Bacteria (NEGATIVE) SARS-CoV-2 RNA (YUE) (NEGATIVE) 04/24/21 04/24/21 04/24/21 Range/Units 18:55 18:55 18:55 WBC (4.0-11.0) K/uL RBC (4.50-5.90) M/uL Hgb (13.0-17.0) g/dL Hct (38.0-50.0) % MCV (80.0-98.0) fL MCH (27.0-32.0) pg MCHC (31.0-37.0) g/dL RDW Std Deviation (28.0-62.0) fl RDW Coeff of Kash (11.0-15.0) % Plt Count MPV (7.40-12.00) fL Add Manual Diff Neutrophils % (Manual) (48.0-80.0) % Band Neutrophils % % Lymphocytes % (Manual) (16.0-40.0) % Monocytes % (Manual) (0.0-15.0) % Nucleated RBC % /100WBC Absolute Seg Neuts (1.4-5.7) Band Neutrophils # Lymphocytes # (Manual) (0.6-2.4) Monocytes # (Manual) (0.0-0.8) Nucleated RBCs # K/uL INR APTT 34.7 H (18.6-31.3) SEC VBG pH (7.31-7.41) VBG pCO2 (41-51) mmHG VBG pO2 mmHG VBG HCO3 (23-28) mEq/L VBG Total CO2 (24-29) mmol/L VBG Base Excess (-2.0-3.0) Sodium 144 (136-148) mmol/L Potassium 4.6 (3.5-5.1) mmol/L Chloride 109 H (98-107) mmol/L Carbon Dioxide 14.4 L (21.0-32.0) mmol/L BUN 54 H (7.0-18.0) mg/dL Creatinine 3.3 H (0.8-1.3) mg/dL Est Cr Clr Drug Dosing 12.60 mL/min Estimated GFR (MDRD) 17.9 ml/min Glucose 112 H (74-106) mg/dL Lactic Acid 11.2 H* (0.4-2.0) mmol/L Calcium 8.7 (8.5-10.1) mg/dL Total Bilirubin 0.7 (0.2-1.0) mg/dL AST 432 H (15-37) IU/L ALT 233 H (14-63) IU/L Alkaline Phosphatase 363 H (46-116) U/L Creatine Kinase 180 (26-308) U/L Troponin I 0.399 H* (0.000-0.056) ng/mL Total Protein 5.6 L (6.4-8.2) g/dL Albumin 2.1 L (3.4-5.0) g/dL Globulin 3.5 (2.6-4.0) g/dL Albumin/Globulin Ratio 0.6 L (0.9-1.6) Lipase 55 L (73-393) U/L Urine Color Urine Appearance Urine pH (5.0-8.0) Ur Specific [place] (1.001-1.035) Urine Protein (NEGATIVE) mg/dL Urine Glucose (UA) (NEGATIVE) mg/dL Urine Ketones (NEGATIVE) mg/dL Urine Occult Blood (NEGATIVE) Urine Nitrite (NEGATIVE) Urine Bilirubin (NEGATIVE) Urine Urobilinogen (<2.0) EU/dL Ur Leukocyte Esterase (NEGATIVE) Urine RBC (0-2/HPF) Urine WBC (0-5/HPF) Ur Epithelial Cells (NONE-FEW) Urine Bacteria (NEGATIVE) SARS-CoV-2 RNA (YUE) (NEGATIVE) 04/24/21 04/24/21 Range/Units 19:00 20:20 WBC (4.0-11.0) K/uL RBC (4.50-5.90) M/uL Hgb (13.0-17.0) g/dL Hct (38.0-50.0) % MCV (80.0-98.0) fL MCH (27.0-32.0) pg MCHC (31.0-37.0) g/dL RDW Std Deviation (28.0-62.0) fl RDW Coeff of Kash (11.0-15.0) % Plt Count MPV (7.40-12.00) fL Add Manual Diff Neutrophils % (Manual) (48.0-80.0) % Band Neutrophils % % Lymphocytes % (Manual) (16.0-40.0) % Monocytes % (Manual) (0.0-15.0) % Nucleated RBC % /100WBC Absolute Seg Neuts (1.4-5.7) Band Neutrophils # Lymphocytes # (Manual) (0.6-2.4) Monocytes # (Manual) (0.0-0.8) Nucleated RBCs # K/uL INR APTT (18.6-31.3) SEC VBG pH (7.31-7.41) VBG pCO2 (41-51) mmHG VBG pO2 mmHG VBG HCO3 (23-28) mEq/L VBG Total CO2 (24-29) mmol/L VBG Base Excess (-2.0-3.0) Sodium (136-148) mmol/L Potassium (3.5-5.1) mmol/L Chloride (98-107) mmol/L Carbon Dioxide (21.0-32.0) mmol/L BUN (7.0-18.0) mg/dL Creatinine (0.8-1.3) mg/dL Est Cr Clr Drug Dosing mL/min Estimated GFR (MDRD) ml/min Glucose (74-106) mg/dL Lactic Acid (0.4-2.0) mmol/L Calcium (8.5-10.1) mg/dL Total Bilirubin (0.2-1.0) mg/dL AST (15-37) IU/L ALT (14-63) IU/L Alkaline Phosphatase (46-116) U/L Creatine Kinase (26-308) U/L Troponin I (0.000-0.056) ng/mL Total Protein (6.4-8.2) g/dL Albumin (3.4-5.0) g/dL Globulin (2.6-4.0) g/dL Albumin/Globulin Ratio (0.9-1.6) Lipase (73-393) U/L Urine Color YELLOW Urine Appearance SLT CLOUDY Urine pH 7.5 (5.0-8.0) Ur Specific [place] 1.020 (1.001-1.035) Urine Protein 30 H (NEGATIVE) mg/dL Urine Glucose (UA) NEGATIVE (NEGATIVE) mg/dL Urine Ketones NEGATIVE (NEGATIVE) mg/dL Urine Occult Blood LARGE H (NEGATIVE) Urine Nitrite POSITIVE H (NEGATIVE) Urine Bilirubin NEGATIVE (NEGATIVE) Urine Urobilinogen 0.2 (<2.0) EU/dL Ur Leukocyte Esterase LARGE H (NEGATIVE) Urine RBC 30-40 (0-2/HPF) Urine WBC 5-10 (0-5/HPF) Ur Epithelial Cells RARE (NONE-FEW) Urine Bacteria 3+ H (NEGATIVE) SARS-CoV-2 RNA (YUE) NEGATIVE (NEGATIVE) Meds: Medications Generic Name Dose Route Start Last Admin Trade Name Luis Miguel PRN Reason Stop Dose Admin Lactated Ringer's 1,000 mls @ 125 mls/hr 04/24/21 23:45 Ringers, Lactated IV ASDIRECTED TALI Lorazepam 2 mg 04/24/21 23:53 Lorazepam 2 Mg/Ml Sdv IVPUSH Q4H PRN Anxiety Morphine Sulfate 2 mg 04/24/21 23:51 Morphine 2 Mg/Ml Syringe IVPUSH 04/25/21 23:52 Q2H PRN Pain (severe 7-10) Ondansetron HCl 4 mg 04/24/21 23:51 Ondansetron 4 Mg/2 Ml Sdv IVPUSH Q4H PRN Nausea/Vomiting Scopolamine 1.5 mg 04/25/21 09:00 Scopolamine 1.5 Mg Transdermal Patch TRDERM 04/25/21 09:01 Q72H ONE Sodium Chloride 10 ml 04/24/21 18:12 04/24/21 18:20 Sodium Chloride 0.9% 10 Ml Syringe FLUSH 10 ml ASDIRECTED PRN Administration Keep Vein Open Sodium Chloride 2.5 ml 04/24/21 18:12 04/24/21 18:20 Sodium Chloride 0.9% 2.5 Ml Syringe FLUSH 2.5 ml ASDIRECTED PRN Administration Keep Vein Open Discontinued Medications Generic Name Dose Route Start Last Admin Trade Name Luis Miguel PRN Reason Stop Dose Admin Lactated Ringer's 1,000 mls @ 999 mls/hr 04/24/21 18:13 04/24/21 18:20 Ringers, Lactated IV 04/24/21 19:13 999 mls/hr ONETIME ONE Administration Piperacillin Sod/Tazobactam 50 mls @ 100 mls/hr 04/24/21 18:13 04/24/21 18:23 Sod 3.375 gm/ Sodium Chloride IV 04/24/21 18:42 100 mls/hr ONETIME ONE Administration Vancomycin HCl 1.5 gm/ Premix 300 mls @ 200 mls/hr 04/24/21 18:24 04/24/21 20:14 IV 04/24/21 19:53 200 mls/hr ONETIME ONE Administration Lactated Ringer's 1,000 mls @ 999 mls/hr 04/24/21 19:55 04/24/21 19:59 Ringers, Lactated IV 04/24/21 20:55 999 mls/hr ONETIME ONE Administration Vancomycin HCl 1 gm/ Sodium 250 mls @ 166 mls/hr 04/24/21 20:00 04/24/21 22:12 Chloride IV 04/24/21 21:30 Not Given ONETIME ONE Sodium Chloride 1,000 mls @ 999 mls/hr 04/24/21 21:13 04/24/21 21:15 Normal Saline IV 04/24/21 22:13 999 mls/hr NOW STA Administration Sodium Chloride 1,000 mls @ 999 mls/hr 04/24/21 22:11 04/24/21 22:22 Normal Saline IV 04/24/21 23:11 999 mls/hr NOW STA Administration Departure - Departure Time of Disposition: 23:01 Preliminary Cause of *Q: Sepsis & Multi System Organ Failure Condition: Critical Sepsis Event Note (ED) - Focused Exam Vital Signs: Vital Signs Temp Temp Pulse Resp BP Pulse Ox 04/24/21 23:00 75 26 H 72/37 L 97 04/24/21 22:20 98 F 80 28 H 65/39 L 98 04/24/21 20:27 98.5 F 81 24 H 71/33 L 97 04/24/21 20:09 86 30 H 73/33 L 98 04/24/21 19:40 91 12 63/20 L 96 04/24/21 18:50 90 23 H 75/29 L 95 04/24/21 18:11 98.2 F 94 38 H 164/104 H 96 - My Orders Last 24 Hours: My Active Orders 04/24/21 22:08 Urinary Catheter Assessment [RC] ASDIRECTED 04/24/21 22:15 Insert Childs Catheter [Insert Urinary Catheter] [OM.PC] Q24H - Assessment/Plan Last 24 Hours: My Active Orders 04/24/21 22:08 Urinary Catheter Assessment [RC] ASDIRECTED 04/24/21 22:15 Insert Childs Catheter [Insert Urinary Catheter] [OM.PC] Q24H
[2021-04-24 19:34] LABS: CARBON DIOXIDE,CO2 14.4 mmol/L (21.0-32.0); POTASSIUM,K 4.6 mmol/L (3.5-5.1)
[2021-04-24] MEDS ORDERED: Sodium Chloride 0.9% 1,000 ML IV STA ×2 (21:13→22:11)
--- NOTE | 2021-04-24 21:13 | CT ---
INDICATION: Transient alteration of awareness TECHNIQUE: CT Head without i.v. contrast. Coronal and sagittal reformats were obtained. COMPARISON: 03/07/2021 FINDINGS: CSF space: There is a stable extra-axial lesion in the left prepontine cistern measuring 1.6 cm causing mild flattening of the left kiana. Brain: A small chronic lacunar infarct is present within the right basal ganglia and left cerebellum. No mass-effect or midline shift is seen. Mild diffuse cortical atrophy is noted. Calvarium: The visualized paranasal sinuses are well aerated. The mastoid air cells are clear. The patient is status post right globe enucleation left cataract removal. The calvarium is unremarkable in appearance with no fractures identified. IMPRESSIONS: 1. No evidence of acute infarction, intracranial hemorrhage, or mass-effect seen. 2. There is a stable extra-axial lesion in the left prepontine cistern measuring 1.6 cm causing mild flattening of the left ikana. This may represent a meningioma and previous recommendation for MRI characterization is reiterated unless already performed. Dictated by Dipak Luna MD @ 04/24/2021 9:12:00 PM Please note that all CT scans at this facility use dose modulation, iterative reconstruction, and/or weight-based dosing when appropriate to reduce radiation dose to as low as reasonably achievable. Dictated by: Dipak Luna MD @ 04/24/2021 21:12:05 (Electronically Signed)
--- NOTE | 2021-04-24 21:22 | CR ---
INDICATION: Chest pain TECHNIQUE: Chest radiograph 1 view COMPARISON: 11/20/2020 FINDINGS: Mediastinum: The mediastinum is normal in appearance. The heart silhouette is normal in size and morphology. Lung: There is a stable 7 mm granuloma in the left midlung zone. Very small lung volumes are present with mild bibasilar subsegmental atelectasis is seen. No sign of pleural effusion seen. No pneumothorax is identified. Bone and Soft tissue: Severe diffuse osteopenia is noted. IMPRESSION: 1. Very small lung volumes are present with mild bibasilar subsegmental atelectasis is seen. Dictated by Dipak Luna MD @ 04/24/2021 9:20:48 PM Dictated by: Dipak Luna MD @ 04/24/2021 21:20:53 (Electronically Signed)
[2021-04-24] MEDS ORDERED: Lactated Ringers 1,000 ML IV SCH (23:45)
[2021-04-24] MEDS ORDERED: Ondansetron 4 MG/2 ML SDV IVPUSH PRN (23:51)
[2021-04-24] MEDS ORDERED: Morphine 2 MG/ML SYRINGE IVPUSH PRN (23:51)
--- NOTE | 2021-04-24 23:51 | PCM.SN.2 ---
- Free Text/Narrative Note: Spoke to the POA Ms. Villasenor, she wants comfort care/hospice measures in view of possible NSTEMI, Septic shock, multiorgan failure, she is ok with IV fluids and Antibiotics, but no central line or pressors, no cardiac angiogram, or dialysis. Patient will be admitted for end of life care. Addendum: Patient in the ER before he could be admitted to the [facility] floor for comfort measures. Patient was discharged directly from the ER after expiration.
[2021-04-24] MEDS ORDERED: LORazepam 2 MG/ML SDV IVPUSH PRN (23:53)
[2021-04-25 00:52] VITALS: BP 0/0; PULSE 0
[2021-04-25] MEDS ORDERED: Scopolamine 1.5 MG Transdermal Patch TRDERM ONE (09:00)
== END 2021-04-25 01:35 ==
LOC: MW.ED 18:10 → MW.MS 23:03
PROVIDERS: ADMIT Student in an Organized Health Care Education/Training Program; ATTEND Student in an Organized Health Care Education/Training Program
DX: A41.9 Sepsis, unspecified organism (principal); R65.21 Severe sepsis with septic shock; I21.4 Non-ST elevation (NSTEMI) myocardial infarction; N17.8 Other acute kidney failure; K72.00 Acute and subacute hepatic failure without coma; N39.0 Urinary tract infection, site not specified; Z20.822 Contact with and (suspected) exposure to COVID-19; I95.9 Hypotension, unspecified
CPT/HCPCS: 36415; 51702; 70450; 71045; 80053; 81001; 82550; 82803; 83605; 83690; 84484; 85025; 85610; 85730; 87040; 87150; 96365; 96366; 96367; 99285; J2543; J3370; J7030; J7120; U0002; 87077; 87186